=== PATIENT | male | born 1955 | race Caucasian/White ===

== ENCOUNTER 2024-04-20 14:39 | Outpatient (AMB) | payer MEDICARE, OTHER, SELFPAY ==
--- NOTE | 2024-04-20 14:42 | HO.NEPHOV ---
Vital Signs 04/20/24 14:58 Height 5 ft 10 in Weight 261 lb 4 oz BMI 37.5 BP 122/52 L Blood Pressure Location Lt brachial Position Sitting Pulse 63 Pulse Source Pulse Oximeter Pulse Oximetry (%) 98 Oxygen Delivery Method Room Air Intake Visit Reasons: Urgent Referral from Dr Johnson Orange Picker Required: No Accompanied by: Self / Same As Patient Allergies Sulfa (Sulfonamide Antibiotics) Allergy (Verified 04/20/24 14:51) Unknown HPI Comments Details: I had the privilege of seeing Wilfrid in consultation for a second opinion and for transfer of his renal care. He is known to have CKD 3 at baseline. He has H/O non ischemic cardiomyopathy as well as AF Fib and had undergone watchman device . He is not on Xarelto anymore. He had a negative cardiac MRI but cardiac PET in Mar 2024 showed multifocal hypermetabolic uptake within the left ventricular wall suggestive of inflammatory process. He also had right pleurodesis for recurrent pleural effusion. He also has history of mediastinal and hilar lymphadenopathy. His baseline serum creatinine has been found to be 1.7. He has not taken any prednisone or concurrent steroid sparing treatment with methotrexate for possible cardiac sarcoid. Continued workup found him to have p-ANCA positivity and MATT with a serum creatinine going up to 2.8. He did not specify any new systemic complaints at the time this office visit. [facility] Medical History (Updated 04/20/24 @ 15:28 by Eric Taylor MD) Presence of Watchman left atrial appendage closure device Spinal stenosis Sleep apnea Recurrent right pleural effusion Paroxysmal atrial fibrillation Obesity, morbid Mediastinal adenopathy Major depressive disorder with single episode Hypertension Hyperlipidemia Gout Congestive heart failure Cardiac sarcoidosis Anserine bursitis Achilles tendonitis Surgical History (Updated 04/20/24 @ 14:56 by Yandy Goldstein MA) Hx of vasectomy History of lung surgery H/O hernia repair Family History (Updated 04/20/24 @ 14:55 by Yandy Goldstein MA) Father Heart disease Diabetes Mother H/O cancer of gall bladder Social History (Updated 04/20/24 @ 14:54 by Yandy Goldstein MA) Alcohol intake: never Patient Tobacco Use Status: Never used Tobacco Review of Systems Const All systems reviewed & are unremarkable except as noted in HPI and below Physical Exam Vital Signs: Last Vital Signs Pulse 63 04/20/24 14:58 BP 122/52 L 04/20/24 14:58 Pulse Ox 98 04/20/24 14:58 Oxygen Delivery Method Room Air 04/20/24 14:58 BMI result Body Mass Index 37.5 Const General: comfortable and no acute distress Orientation/consciousness: patient oriented x3 HEENT Head: Yes normocephalic Mouth: Normal oral and palatal mucosa present Eyes EOM: EOMs intact bilaterally Neck Neck: Yes supple Resp Auscultation: clear to auscultation bilaterally Cardio Jugular venous distension: no JVD Rate: regular rate GI Palpation (GI): Soft to palpation Auscultation: normal bowel sounds General: Yes no CVA tenderness Back/Spine/Pelvis Back: no CVA tenderness Skin General skin exam: no rashes or lesions noted Neuro General: patient oriented x3 and moves all extremities Extrem General: Yes no pedal edema Results Reviewed Nephrology Results: No Data to Display Assessment & Plan Assessment & Plan (1) Acute kidney injury superimposed on CKD: Code(s): N17.9 - Acute kidney failure, unspecified; N18.9 - Chronic kidney disease, unspecified Category: Medical Plan Wilfrid has MATT on a backdrop of CKD with a serum creatinine going up to 2.8. He has multisystem involvement including cardiac, pulmonary and renal. He was thought to have cardiac sarcoid but has not had any tissue diagnosis. He is on Farxiga and diuretics but not on any JUAN JOSE inhibitor, ARB, Entresto. His recent p-ANCA came back as positive. He definitely will warrant an urgent renal biopsy. I have asked him to repeat blood work and I shall hold his aspirin temporarily for few days before getting his renal biopsy done if possible next week. He has me whether he is close to renal replacement but I reassured that he is not but the rise in his serum creatinine without a differential etiology and multisystem involvement with a p-ANCA positivity is concerning. Time spent retrieving all the previous medical records, patient encounter and documentation 56 minutes. All questions were answered. Follow-up given. Orders: Orders Creatinine 04/20/24 N17.9 - Acute kidney failure, unspecified, N18.9 - Chronic kidney disease, unspecified Blood Urea Nitrogen 04/20/24 N17.9 - Acute kidney failure, unspecified, N18.9 - Chronic kidney disease, unspecified Electrolytes 04/20/24 N17.9 - Acute kidney failure, unspecified, N18.9 - Chronic kidney disease, unspecified ANCA Vasculitides 04/20/24 N17.9 - Acute kidney failure, unspecified, N18.9 - Chronic kidney disease, unspecified Protein Creatinine Ratio, Ur 04/20/24 N17.9 - Acute kidney failure, unspecified, N18.9 - Chronic kidney disease, unspecified Creatinine 3 Weeks N17.9 - Acute kidney failure, unspecified, N18.9 - Chronic kidney disease, unspecified Blood Urea Nitrogen 3 Weeks N17.9 - Acute kidney failure, unspecified, N18.9 - Chronic kidney disease, unspecified Electrolytes 3 Weeks N17.9 - Acute kidney failure, unspecified, N18.9 - Chronic kidney disease, unspecified Complete Blood Count Auto Diff 04/20/24 N17.9 - Acute kidney failure, unspecified, N18.9 - Chronic kidney disease, unspecified Prothrombin Time INR 04/20/24 N17.9 - Acute kidney failure, unspecified, N18.9 - Chronic kidney disease, unspecified Angiotensin Converting Enzyme 04/20/24 N17.9 - Acute kidney failure, unspecified, N18.9 - Chronic kidney disease, unspecified UA and rflx microscopic 04/20/24 N17.9 - Acute kidney failure, unspecified, N18.9 - Chronic kidney disease, unspecified Coding Level of Care Code New Pt Level 5 (87741) Diagnoses Acute kidney injury superimposed on CKD N17.9; N18.9
[2024-04-20 14:58] VITALS: BP 122/52; PULSE 63; O2SAT 98; BMI 37.5
--- OUTSIDE RECORDS SUMMARY | 2024-04-20 16:11 | XMS_ITS | Encounter Summary ---
Author Organization [facility] Address [address] [place] [address] Care Team Providers Care Matlab Developer Name Role Phone Juancarlos Johnson MD Primary Care Provider [phone] Encounter Details Date Type Department Care Team (Late st Contact Info) Description 04/18/2024 Telephone Internal Medicine - [place] [address] [place] [phone] Juancarlos Johnson MD [address] [place] [address] Social History Tobacco Use Types Packs/Day Years Used Date Smoking Tobacco: Never Smokeless Tobacco: Never Alcohol Use Standard Drinks/Week Comments No 0 (1 standard drink = 0.6 oz pur e alcohol) Sex and Gender Information Value Date Recorded Sex Assigned at Not on file Legal Sex Male 11:46 PM EST Gender Identity Not on file Sexual Orientation Not on file documented as of this encounter Progress Notes * Juancarlos Johnson MD - 04/18/2024 4:34 PM EDT Talked with him * Mariah Aguilar - 04/18/2024 12:[address] Diego Reyna from [facility] wants to speak with Dr. Johnson regarding pt's recent ANCA positive result please call him back mychal at [phone] Ty documented in this encounter Plan of Treatment Upcoming Encounters Date Type Department Care Team (Late st Contact Info) Description 04/24/2024 3:10 PM EDT Office Visit [facility] [address] [facility] [address] [place] [phone] Tatiana Quintana PA 300 [facility] [place] [facility] 154 [place] [address] 05/15/2024 9:30 AM EDT Office Visit Pulmonolgy - [place] [address] [phone] Gabbi Anglin MD [address] [address] 08/17/2024 8:30 AM EDT Office Visit Internal Medicine - [place] [address] [phone] Juancarlos Johnson MD [address] [address] 10/18/2024 1:00 AM EDT Office Visit Nephrology [facility] [address] [place] [address] Guanaco Adorno MD 3550 [facility] [address] [place] [address] documented as of this encounter Visit Diagnoses Not on filedocumented in this encounter Care Teams Matlab Developer Relationship Specialty Start Date End Date Juancarlos Johnson MD [address] [address] PCP - General Internal Medicine 03/01/24 documented as of this encounter
--- OUTSIDE RECORDS SUMMARY | 2024-04-20 16:11 | XMS_ITS | Clinical Summary ---
Author Organization [facility], Address [address] [place] [address] [place] [address] Phone Care Team Providers Care Overhead Irrigator Name Role Phone Juancarlos Johnson MD Primary Care Provider [phone] Social History Tobacco Use Types Packs/Day Years Used Date Smoking Tobacco: Never Assessed Sex and Gender Information Value Date Recorded Sex Assigned at Not on file Legal Sex Male 12:51 PM EST Gender Identity Not on file Sexual Orientation Not on file Plan of Treatment Health Maintenance Due Date Last Done Comments Colorectal Cancer Screening: Annual FOBT 2003 Colorectal Cancer Screening: Colonoscopy 2003 Colorectal Cancer Screening: Sigmoidoscopy 2003 Pneumococcal Vaccine: 65+ Years Completed 03/02/2021, 09/30/2020 Influenza Vaccine Completed 12/18/2023, 11/28/2018 Hepatitis B Vaccine Aged Out No longe r eligible based on patient's age to complete this topic Insurance [employer] OPEN ACCESS ([id number]) Care Teams Overhead Irrigator Relationship Specialty Start Date End Date Juancarlos Johnson MD [address] [address] PCP - General Internal Medicine 05/25/23
--- OUTSIDE RECORDS SUMMARY | 2024-04-20 16:11 | XMS_ITS | Clinical Summary ---
Author Organization [facility] Address [address] [place] [address] Care Team Providers Care Cutting Tool Sharpener Name Role Phone Juancarlos Johnson MD Primary Care Provider Unavailab le Allergies Active Allergy Reactions Criticality Noted Date Comments Sulfa Antibiotics 09/02/2022 Medications Medication Sig Dispensed Refills Start Date End Date Status clopidogrel (PLAVIX) 75 MG tablet Take 1 tablet (75 mg total) by mouth daily. 0 Active Active Problems No known active problems Social History Tobacco Use Types Packs/Day Years Used Date Smoking Tobacco: Never Passive Smoke Exposure: Past Smokeless Tobacco: Never Tobacco Cessation:Counseling Given: Not Answered Alcohol Use Standard Drinks/Week Comments Never 0 (1 standard drink = 0.6 oz pur e alcohol) Sex and Gender Information Value Date Recorded Sex Assigned at Not on file Gender Identity Not on file Sexual Orientation Not on file Job Start Date Occupation Industry Not on file Not on file Not on file Last Filed Vital Signs Vital Sign Reading Time Taken Comments Blood Pressure 132/51 07/25/2023 1:55 PM EDT Pulse 64 07/25/2023 1:55 PM EDT Temperature 37.3 ??C (99.1 ??F) 07/25/2023 1:55 PM ED T Respiratory Rate - - Oxygen Saturation 97% 07/25/2023 1:55 PM EDT Inhaled Oxygen Concentration - - Weight 117 kg (258 lb) 07/25/2023 1:55 PM EDT Height - - Body Mass Index - - Plan of Treatment Health Maintenance Due Date Last Done Comments Hepatitis C Screening 1955 COVID-19 Vaccine (#1) 1955 Depression Screening 1966 Preventative Health Evaluation 01/19/1972 DTap / Tdap / Td (1 - Tdap) 1973 Colon Cancer Screening (Colonoscopy) 1999 Fall Risk Assessment 2019 Shingrix-Zoster Vaccine (2 o f 2) 02/04/2021 12/10/2020 Influenza Vaccine (#1) 2023 RSV Adult > 60+ Yrs or (1 - 1-dose 75+ series) 2029 Pneumococcal Vaccine Completed 03/02/2021, 09/30/2020 Hepatitis B Vaccines Aged Out No long er eligible based on patient's age to complete this topic RSV Ped < 20 months Aged Out No longe r eligible based on patient's age to complete this topic Care Teams Cutting Tool Sharpener Relationship Specialty Start Date End Date Juancarlos Johnson MD PCP - General Internal Medicine 08/24/21
--- OUTSIDE RECORDS SUMMARY | 2024-04-20 16:11 | XMS_ITS | Encounter Summary ---
Author Organization [facility] Address [address] [place] [address] Care Team Providers Care Biomedical Equipment Technician Name Role Phone Juancarlos Johnson MD Primary Care Provider [phone] Reason for Visit * Reason Onset Date Comments Referral 03/29/2024 Dr Diego Reyna Encounter Details Date Type Department Care Team (Late Contact Info) Description 03/29/2024 Telephone [facility] - [facility] [address] [facility] [address] [place] [address] Danae Fernandez MA Referral (Dr Diego Reyna) Social History Tobacco Use Types Packs/Day Years [...] as of this encounter Progress Notes * Danae Fernandez MA - 03/29/2024 11:28 AM EST I was able to speak with Tali from Dr Reyna's office. Patient is scheduled for 04/10. Any questions, please call [phone]. documented in this encounter Plan of Treatment Upcoming Encounters Date Type Department Care Team (Late Contact Info) Description 04/24/2024 3:10 PM EDT Office Visit [facility] - [facility] [address] [facility] 154 [place] [address] Tatiana Quintana PA 300 [facility] 154 [place] [address] 05/15/2024 9:30 AM EDT Office Visit Pulmonolgy - [place] 175 [facility] 200 [place] [address] Gabbi Anglin MD [address] [address] 08/17/2024 8:30 AM EDT Office Visit Internal Medicine - [place] [address] [phone] Juancarlos Johnson MD [address] [address] 10/18/2024 1:00 AM EDT Office Visit Nephrology [facility] [address] [place] [phone] Guanaco Adorno MD [address] [phone] documented as of this encounter Visit Diagnoses Not on filedocumented in this encounter Care Teams Biomedical Equipment Technician Relationship Specialty Start Date End Date Juancarlos Johnson MD [address] [address] PCP - General Internal Medicine 03/01/24 documented as of this encounter
--- OUTSIDE RECORDS SUMMARY | 2024-04-20 16:11 | XMS_ITS | Encounter Summary ---
Author Organization [facility] Address [address] [place] [address] Care Team Providers Care Rod Cup Filler Name Role Phone Juancarlos Johnson MD Primary Care Provider [phone] Encounter Details Date Type Department Care Team (Latest Contact Info) Description 11/10/2023 3:17 PM EDT Hospital Encounter TH HISTORIC ENCOUNTERS EASTERN CONVERSION ONLY Malini Rivero PA [address] [facility], [address] [place] [address] Pleural effusion, not elsewhere classified Social History [...] on file documented as of this encounter Plan of Treatment Upcoming Encounters Date Type Department Care Team (Late st Contact Info) Description 04/24/2024 3:10 PM EDT Office Visit [facility] - [facility] [address] [facility] [address] [place] [phone] Tatiana Quintana PA 300 [facility] [address] [place] [address] 05/15/2024 9:30 AM EDT Office Visit Pulmonolgy - [place] 175 [facility] 200 [place] [phone] Gabbi Anglin MD [address] [address] 08/17/2024 8:30 AM EDT Office Visit Internal Medicine - [place] [address] [phone] Juancarlos Johnson MD [address] [address] 10/18/2024 1:00 AM EDT Office Visit Nephrology [facility] [address] [place] [phone] Guanaco Adorno MD [address] [phone] documented as of this encounter Procedures Procedure Name Priority Date/Time Associated Diagnosis Comments CHEST ROUTINE 2 VIEWS Routine 11/10/2023 3:36 PM EDT Pleural effusion, not elsewhere classified documented in this encounter Results * CHEST ROUTINE 2 VIEWS (11/10/2023 3:36 PM EDT) Anatomical Region Laterality Modality Radiographic Yulissa ging 11/10/2023 3:22 PM EDT Narrative 11/10/2023 3:36 PM EDT [facility] Diagnostic Imaging Department [address] [place] [address] Patient: ??WILFRID PINEDA ?/Age/Sex: 1955 - 68 - M Unit#: ??[id number] ? Location/Status: ??SPDIGEN/REG CLI ? Mnemonic/Ordering Site: ??CHESTXR/SPDI Ordering Physician: ??MALINI RIVERO Chest Routine 2 Views - 11/10/23 - 1527 Report Status:Signed Chest Routine 2 Views INDICATION: ??Pleural effusion TECHNIQUE: DR Chest Routine 2 Views COMPARISON: 10/27/2023 FINDINGS/IMPRESSION: Right pleural drainage catheter remains in place. ??Stable scarring/atelectasis in the lower lobes, right middle lobe, and lingula. ??No pleural effusion or pneumothorax. ??Cardiac silhouette is stably enlarged. Degenerative changes seen throughout the bones. Dictating Physician: ??MARQUISE DONIS MD Electronically Signed by: ??MARQUISE DONIS MD Dic Date/Time: ??11/10/23 153 Sign date/Time: ??11/10/23 1536 Procedure Note Marquise Donis MD - 12/06/2023 [facility] Diagnostic Imaging Department [address] [place] [address] Patient: ARLENEWILFRID D.O.B./Age/Sex: 1955 - 68 - M Unit#: [id number] Location/Status: SPDIGEN/REG CLI Mnemonic/Ordering Site: CHESTXR/SPDI Ordering [...] MD Dic Date/Time: 11/10/231535 Sign date/Time: 11/10/231535 us Malini PATTERSON IMG XR PROCEDURES Final Resul t documented in this encounter Visit Diagnoses Diagnosis Pleural effusion, not elsewhere classified documented in this encounter Care Teams Rod Cup Filler Relationship Specialty Start Date End Date Juancarlos Johnson MD PCP - General Internal Medicine 12/28/12 02/29/24 documented as of this encounter
--- OUTSIDE RECORDS SUMMARY | 2024-04-20 16:11 | XMS_ITS | Clinical Summary ---
Author Organization [address] [facility] Address [address] [place] [address] Phone Care Team Providers Care Log Haul Operator Name Role Phone Juancarlos Johnson MD Primary Care Provider [phone] Allergies Active Allergy Reactions Criticality Noted Date Comments Sulfa (Sulfonamide Antibiotics) 10/2008 Medications torsemide (DEMADEX) 20 mg tablet Take 2 tablets (40 mg total) by mouth 1 (one) time each day. Active doxazosin (CARDURA) 4 mg tablet Take 1 tablet (4 mg total) by mouth 2 (two) times a day. Active losartan (COZAAR) 100 mg tablet Take 1 tablet (100 mg total) by mouth 1 (one) time each day. Active aspirin 81 mg EC tablet Take 1 tablet (81 mg total) by mouth 1 (one) time each day. Active dronedarone (MULTAQ) 400 mg tablet Take 1 tablet (400 mg total) by mouth 2 (two) times a day with meals. Active albuterol HFA (PROAIR HFA ; PROVENTIL HFA ; VENTOLIN HFA) 90 mcg/actuation inhalerIndicati ons:Dyspnea, unspecified type Inhale 2 puffs by mouth every 6 (six) hours if needed for wheezing or shortness of breath. 1 each 12/29/19 24 025 Active atorvastatin (LIPITOR) 40 mg tablet TAKE 1 TABLET BY MOUTH EVERY DAY 90 tablet 1 01/10/20 24 Active spironolactone (ALDACTONE) 25 mg tablet Take 1 tablet (25 mg total) by mouth 1 (one) time each day. Stopping potassium supplement 30 each 01/18/20 24 025 Active hydrALAZINE (APRESOLINE) 100 mg tablet Take 1.5 tablets (150 mg total) by mouth 2 (two) times a day. 90 each 2 03/01/19 25 025 Active dapagliflozin propanediol (FARXIGA) 5 mg tablet Take 1 tablet (5 mg total) by mouth 1 (one) time each day. 30 each 03/22/19 25 026 Active PARoxetine (PAXIL) 20 mg tablet TAKE 1 TABLET BY MOUTH EVERY DAY IN THE MORNING 90 tablet 1 03/27/19 25 Active PARoxetine (PAXIL) 20 mg tablet Take 2 tablets (40 mg total) by mouth 1 (one) time each day in the morning. 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 Pineda is a 68 year old male who had a robotic right pleural biopsy, talc pleurodesis, and Pleurx catheter placed on October 10, 2023 for a recurrent right pleural effusion. Pathology showed no malignancy. He has had no drainage from the tube since placement. ?? CXR today shows no accumulation of pleural fluid. He has had no respiratory complaints. ?? Right Pleurx removed without issue as above. Patient tolerated this well. ?? Occlusive dressing to remain in place x 48 hours, then can be left open to air. Patient to follow up with us as needed going forward. He should call with any questions or concerns Cough 05/04/2023 Dysphagia 05/04/2023 Fatigue 05/04/2023 Anemia 12/16/2022 Lower leg edema 12/16/2022 Retroperitoneal bleed 06/03/2022 NICM (nonischemic cardiomyopathy) 09/30/2020 Benign prostatic hyperplasia 01/07/2020 Bradycardia 01/07/2020 Claudication 01/07/2020 WU (dyspnea on exertion) 01/07/2020 Edema 01/07/2020 Malignant hypertension 01/07/2020 Other chest pain 01/07/2020 Palpitations 01/07/2020 PVC (premature ventricular contraction) 01/07/20 20 Weight gain 01/07/2020 Essential hypertension 09/09/2017 Overview (12/29/2023): Last Assessment & Plan: Elevated today, at home has been around 140-150s systolically. He brings his BP monitor with him today and it correlates with the reading we obtained manually. We will increase his Amlodipine to 10mg daily today and monitor over the next month. He has an OV with EP next month if still elevated at that time I will consider adding an additional agent for his BP. In the past he was on Hydralazine Venous insufficiency 06/09/2017 Gout 03/30/2017 Mixed hyperlipidemia 03/30/2017 Overview (12/29/2023): Last Assessment & Plan: Updating labs, continue statin PAF (paroxysmal atrial fibrillation) 10/27/2016 Overview (12/29/2023): Last Assessment & Plan: S/p cardioversion on Amio last week, in SR today, feeling well. Will update Amio labs. Anticoagulated on Xarelto, he understands the risks and benefits of anticoagulation and wishes to continue. F/u as scheduled with EP next month Depression 06/25/2016 Asthma, mild 04/12/2016 Obstructive sleep apnea 04/12/2016 Umbilical hernia 03/03/2016 Spinal stenosis 12/28/2010 Encounters Date Type Department Care Team Description 04/18/2024 Telephone Internal Medicine - [place] [facility] [address] [place] [address] Juancarlos Johnson MD 04/17/2024 9:45 AM EDT Office Visit Internal Medicine [facility] 175 [facility] [address] [place] [address] Juancarlos Johnson MD MATT (acute kidney injury) ([facility]) (Primary Dx); Primary hypertension; Stage 3a chronic kidney disease ([facility]); Chronic heart failure with mildly reduced ejection fraction (HFmrEF, 41-49%) ([facility]) 03/29/2024 7:40 AM EST Office Visit [facility] Cardiology [facility] [address] [facility] [address] [place] [address] Tatiana Quintana PA PVC (premature ventricular contraction) (Primary Dx); Primary hypertension; PAF (paroxysmal atrial fibrillation) ([facility]); Obstructive sleep apnea; WU (dyspnea on exertion); Bradycardia; Acute on chronic heart failure with preserved ejection fraction ([facility]); Mediastinal lymphadenopathy 03/29/2024 Telephone [facility] Cardiology [facility] [address] [facility] [address] [place] [address] Danae Fernandez [place] Referral (Dr Diego Reyna) 03/22/2024 1:00 PM EST Office Visit Nephrology [address] [address] Guanaco Adorno MD Stage 3 chronic kidney disease, unspecified whether stage 3a or 3b CKD ([facility]) (Primary Dx); Essential hypertension; Chronic heart failure with mildly reduced ejection fraction (HFmrEF, 41-49%) ([facility]) 03/02/2024 11:00 AM EST Ancillary Procedure Pulmonolgy - [place] 175 [facility] [address] [place] [phone] Jemima Chacko Pleural effusion on right; Dyspnea, unspecified type 03/01/2024 11:10 AM EST Office Visit [facility] Cardiology [facility] [address] [facility] [address] [place] [address] Tatiana Quintana PA PAF (paroxysmal atrial fibrillation) (CMS/HCC) (Primary Dx); WU (dyspnea on exertion); Obstructive sleep apnea; LIANET on CPAP; Bradycardia; Essential hypertension 02/29/2024 Telephone [facility] [address] [place] [address] Tatiana Quintana PA Appointment (Cardiac PET) 02/28/2024 Telephone [facility] [address] [place] [address] Tatiana Quintana PA Testing (Auth Cardiac PET) from Last 3 Months Immunizations Name Administration Dates Next Due Influenza Quadravalent, 0.5m l (Fluzone High-dose) 65yo and older 10/25/2021 Influenza Quadravalent, MDCK , 0.5ml, with preservative (Flucelvax) 6mo and older 11/28/2018 Influenza trivalent, 0.5mL ( Fluzone High-dose) 65yo and older 12/18/2023 Pneumococcal conjugate 13 va lent (Prevnar 13, PCV13) 2mo and older 09/30/2020 Pneumococcal polysaccharide 23 valent (Pneumovax 23) 2yo and older 03/02/2021 Tdap Tetanus diptheria acell ular pertussis (Boostrix; Adacel) 7yo and older 12/28/2017,09/09/2017 Zoster recombinant (Shingrix) 19yo and older 04/2020 Surgical History Surgery Date Site/Laterality Comments OTHER SURGICAL HISTORY 10/11/2023 Right PROCEDURE: MD THORACOSCOPY W/PLEURODESIS CARDIOVERSION DONE ON 12/16/2023 AT [facility] W AOP INDICATION:Atrial fibrillation Medical History Medical History Date Comments History of anemia 09/09/2017 DX:History of anemia Asthma, mild 04/12/2016 DX:Asthma, mild Atrial fibrillation (CMS/HCC) 10/27/2016 DX :Atrial fibrillation (HCC) Depression 06/25/2016 DX:Depression Gout 03/30/2017 DX:Gout Hyperlipidemia 03/30/2017 DX:Hyperlipidemi a Hypertension 09/09/2017 DX:Hypertension Obstructive sleep apnea 04/12/2016 DX:Obstr uctive sleep apnea Spinal stenosis 12/28/2010 DX:Spinal stenos is Umbilical hernia 03/03/2016 DX:Umbilical he rnia Venous insufficiency 06/09/2017 DX:Venous i nsufficiency Family History Medical History Relation Name Comments Other: Arrhythmias Brother CABG Father Heart attack Father Other: Valve Replacement Father Coronary artery disease Father's side Hypertension Father's side Hypertension Mother Other: gallbladder cancer Mother Relation Name Status Comments Brother Father Father's side Mother Social History Tobacco Use Types Packs/Day Years Used Date Smoking Tobacco: Never Smokeless Tobacco: Never Tobacco Cessation:Counseling Given: Not Answered Alcohol Use Standard Drinks/Week Comments No 0 (1 standard drink = 0.6 oz pur e alcohol) Sex and Gender Information Value Date Recorded Sex Assigned at Not on file Legal Sex Male 11:46 PM EST Gender Identity Not on file Sexual Orientation Not on file Obstetrics History Last Filed Vital Signs Vital Sign Reading Time Taken Comments Blood Pressure 120/58 04/17/2024 9:37 AM EDT Pulse 57 04/17/2024 9:37 AM EDT Temperature 36.6 ??C (97.9 ??F) 04/17/2024 9:37 AM ED T Respiratory Rate 21 12/29/2023 9:11 AM EST Oxygen Saturation 98% 04/17/2024 9:37 AM EDT Inhaled Oxygen Concentration - - Weight 115 kg (252 lb 12.8 oz) 04/17/2024 9:37 A M EDT Height 177.8 cm (5' 10 ) 03/29/2024 7:38 AM EST Body Mass Index 36.27 03/29/2024 7:38 AM EST Plan of Treatment Upcoming Encounters Date Type Department Care Team (Late st Contact Info) Description 04/24/2024 3:10 PM EDT Office Visit [facility] - [address] [place] [phone] aTtiana Quintana PA [address] [place] [address] 05/15/2024 9:30 AM EDT Office Visit Pulmonolgy - [place] [address] [facility] [address] [place] [phone] Gabbi Anglin MD 175 [facility] [address] [place] [address] 08/17/2024 8:30 AM EDT Office Visit Internal Medicine - [place] [address] [address] Juancarlos Johnson MD [address] [address] 10/18/2024 1:00 AM EDT Office Visit Nephrology - [place] [address] [place] [address] Guanaco Adorno MD [address] [phone] Health Maintenance Due Date Last Done Comments RSV Immunization Patients 60+ Years Old (1 - Risk 60-74 years 1-dose series) 2014 Zoster Vaccines (2 of 2) 02/04/2021 12/10/2020 Cholesterol Screening (Lipid Panel) 01/16/2022 Colorectal Cancer Screening: Stool Based Tests (FOBT/FIT) 01/16/2022 Depression Screening 01/16/2022 Falls Risk Assessment 01/16/2022 Medicare Annual Wellness Visit 01/16/2022 Social Influencers of Health Screening 01/16/2022 COVID-19 Vaccine ( season) 2023 12/10/2020, 05/03/2020, 04/05/2020 Hypertension/CHF/CAD Annual BMP Blood Test 04/10/2025 04/10/2024, 01/12/2024, 08/31/2023, Additional history exists DTaP,Tdap,and Td Vaccines (3 - Td or Tdap) 12/29/2027 12/28/2017, 09/09/2017 Pneumococcal Vaccine: 50+ Years Completed 03/02/2021, 09/30/2020 Influenza Vaccine Completed 12/18/2023, , 11/28/2018 Hepatitis C Screening Completed 04/10/2024 HIB Vaccines Aged Out No longer eligi ble based on patient's age to complete this topic HPV Vaccines Aged Out No longer eligi ble based on patient's age to complete this topic Hepatitis A Vaccines Aged Out No long er eligible based on patient's age to complete this topic Hepatitis B Vaccines Aged Out No long er eligible based on patient's age to complete this topic IPV Vaccines Aged Out No longer eligi ble based on patient's age to complete this topic MMR Vaccines Aged Out No longer eligi ble based on patient's age to complete this topic Meningococcal ACWY Vaccine Aged Out N o longer eligible based on patient's age to complete this topic Meningococcal B Vacine Aged Out No lo nger eligible based on patient's age to complete this topic RSV Immunization Patients Under 20 months Aged Out No longer eligible based on patient's age to complete this topic Varicella Vaccines Aged Out No longer eligible based on patient's age to complete this topic Procedures Procedure Name Priority Date/Time Associated Diagnosis Comments POC URINE AUTO W/O MICRO Routine 04/17/2024 10:05 AM EDT MATT (acute kidney injury) (CMS/HCC) PULMONARY FUNCTION TESTING Routine 03/02/2024 12:16 PM EST Pleural effusion on right Dyspnea, unspecified type MAGNESIUM Routine 01/25/2024 9:37 AM EST Longstanding persistent atrial fibrillation (CMS/HCC) Dyspnea on exertion Obstructive sleep apnea Bradycardia Hypertension, unspecified type PAF (paroxysmal atrial fibrillation) (CMS/HCC) Palpitations PVC (premature ventricular contraction) BASIC METABOLIC PANEL Routine 01/12/2024 10:10 AM EST Acute on chronic diastolic (congestive) heart failure (CMS/HCC) Cardiomyopathy, unspecified (CMS/HCC) from Last 3 Months or Most Recently Relevant to Health Maintenance Results * (ABNORMAL) POC Urine Auto W/O Micro (04/17/2024 10:05 AM EDT) Glucose UA POC 1+(A) Negative, Trace mg/dL Bilirubin UA POC Negative Negative, Small Ketones UA POC Negative Negative, Trace Specific [place] UA POC 1.015 Blood UA POC Negative Negative, Large PH UA POC 5.5 Protein UA POC Negative Negative, >=300 mg/dL Urobilinogen UA POC 0.2 E.U./dL mg/dL Nitrite UA POC Negative Negative Leukocytes UA POC Trace(A) Negative Urine Urine specimen obtained by clean catch procedure / Unknown 04/17/2024 10:05 AM EDT Juancarlos Johnson MD POINT OF CARE TEST ENTER/EDIT OR DERABLES Final Result * Pulmonary function testing: Carbon Monoxide Diffusing Capacity, Nitrogen Wash Out, Spirometry with Bronchodilator (03/02/2024 12:16 PM EST) Impressions Gabbi Anglin MD - 03/02/2024 12:16 PM EST FEV1/FVC 85%. FEV1 2.45 at 75%. FVC 65%. No bronchodilator response. TLC 66%. RV 66%. DLCO 50% (adjusted 71%). No obstruction. ??Moderate restriction. ??Mild decrease in diffusion. Findings are consistent with moderate restrictive lung disease. us Gabbi Anglin MD PFT ORDERABLES Final Result * Magnesium (01/25/2024 9:37 AM EST) Magnesium 2.5 1.9 - 2.6 mg/dL LAB CHEMISTRY METHOD 01/25/2024 12:13 PM EST [facility] Blood Venous blood specimen / Unknown Venipuncture / Unknown 01/25/2024 9:37 AM EST 01/25/2024 9:37 AM EST us Tatiana PATTERSON LAB BLOOD ORDERABLES Final Resul t [facility]) [facility] [address] [place] [address], [place] [phone] from Last 3 Months Insurance [employer] [address] [place] [address] Care Teams Log Haul Operator Relationship Specialty Start Date End Date Juancarlos Johnson MD 175 [facility] 200 [place] [address] PCP - General Internal Medicine 03/01/24
--- OUTSIDE RECORDS SUMMARY | 2024-04-20 16:11 | XMS_ITS | Continuity of Care Document ---
Author Organization [facility] ter Address [address] [place] [id number]- Care Team Providers Care Last Marker Name Role Phone Juancarlos Johnson MD Primary Care Physician Encounter 03/19/24 - 03/20/[address] [address]- Attending Physician: Not on Staff, Attending MD Referring Physician: Not on Staff, Referring MD Encounter Type: SMRI Allergies, Adverse Reactions, Alerts Substance Criticality Severity Reaction Reaction Severity Status sulfa drugs Active Medications amiodarone 200 mg oral tablet TAKE 1/2 TABLET BY MOUTH DAILY FOR 180 DAYS Start Date: 02/24/23 Status: Ordered Repeat number: 1 amLODIPine 10 mg oral tablet TAKE 1 TABLET BY MOUTH EVERY DAY Start Date: 02/24/23 Status: Ordered Repeat number: 1 aspirin 81 mg oral delayed release tablet 81 mg, 1, tablet, By Mouth, Daily, # 30 tablet, Refills 0, Maintenance, 02/24/23 5:15:00 PM EST, Partial fill upon patient request if the prescription is for a schedule II opioid drug. Start Date: 02/24/23 Status: Ordered Quantity: 30.0 Unit: tablet Repeat number: 1 atorvastatin 40 mg oral tablet 1 tablet = 40 mg, By Mouth, Daily at bedtime, # 30 tablet, 0 Refills, Maintenance, Tablet Start Date: 07/18/17 Status: Ordered Quantity: 30.0 Unit: tablet Repeat number: 1 clopidogrel 75 mg oral tablet Refills 0, Maintenance, 02/24/23 5:07:00 PM EST, Partial fill upon patient request if the prescription is for a schedule II opioid drug. Start Date: 02/24/23 Status: Ordered Repeat number: 1 doxazosin 4 mg oral tablet 1 tablet = 4 mg, By Mouth, 2 times a day, 0 Refills, Maintenance, 07/18/17 3:24:30 PM EDT Start Date: 07/18/17 Status: Ordered Repeat number: 1 hydrALAZINE 100 mg oral tablet 1.5 tablet = 150 mg, By Mouth, 2 times a day, # 180 tablet, 0 Refills, Maintenance, 02/24/23 5:16:00PM EST, Tablet, Partial fill upon patient request if the prescription is for a schedule II opioid drug. Start Date: 02/24/23 Status: Ordered Quantity: 180.0 Unit: tablet Repeat number: 1 lisinopril 40 mg oral tablet 1 tablet = 40 mg, By Mouth, Daily, # 30 tablet, 0 Refills, Maintenance, 07/18/17 3:24:59 PM EDT, Tablet Start Date: 07/18/17 Status: Ordered Quantity: 30.0 Unit: tablet Repeat number: 1 multivitamin Multiple Vitamins oral tablet, chewable 1 tablet, Chew, Daily, # 100 tablet, 0 Refills, Maintenance, 02/24/23 5:15:00 PM EST, Chew Tablet, Partial fill upon patient request if the prescription is for a schedule II opioid drug. Start Date: 02/24/23 Status: Ordered Quantity: 100.0 Unit: tablet Repeat number: 1 PARoxetine 20 mg oral tablet 20 mg, 1, tablet, By Mouth, Daily, # 30 tablet, Refills 0, Maintenance, 09/19/18 10:39:57 AM EDT Start Date: 09/19/18 Status: Ordered Quantity: 30.0 Unit: tablet Repeat number: 1 torsemide 20 mg oral tablet 1.5 tablet = 30 mg, By Mouth, Daily, # 30 tablet, 0 Refills, Maintenance, 02/24/23 5:09:00 PM EST, Tablet, Partial fill upon patient request if the prescription is for a schedule II opioid drug. Start Date: 02/24/23 Status: Ordered Quantity: 30.0 Unit: tablet Repeat number: 1 Problem List Condition Confirmation Course Effective Dates Status H ealth Status Informant Achilles tendonitis Confirmed Active Anserine bursitis Confirmed Active Depression Confirmed Active Venous insufficiency Confirmed Active H/O: gout Confirmed Active Hemorrhoids Confirmed Active HLD (hyperlipidemia) Confirmed Active HTN (hypertension) Confirmed Active Morbid obesity Confirmed Active LIANET on CPAP Confirmed Active Osteoarthritis of right knee Confirmed Active PAF (paroxysmal atrial fibrillation) Confirmed Active Severe obesity Confirmed Active Umbilical hernia Confirmed Active Vertigo Confirmed Active Results Radiology Reports * Exam Date Time Procedure Performing Provider Status 03/19/24 9:[address] PET Myocard Img 1 Std w/ CT Auth (Verified) Notes: (CT PET Myocard Img 1 Std w/ CT) Reason For Exam: Cardiomyopathy, undefined, further testing; Dyspnea on exertion (WU);Cardiomyopathy, undefined, further testing; Dyspnea on exertion (WU) RESULT: CT PET Myocard Img 1 Std W/CT [facility] PET/CT Imaging VISIT NUMBER :[id number] Patient Name: Wilfrid Pineda Date of : 1955 Date of Exam: 03-19-2024 Referring Physician: Tatiana Quintana [place] [address] Exam: PT Cardiac CPT 03818 Room Description: [facility] Pt4 PET-CT History: Cardiomyopathy. Clinical question of cardiac sarcoidosis. The patient also has a history of recurrent right pleural effusion and mediastinal lymphadenopathy, status post right pleural biopsies negative for biopsy and talc pleurodesis. Subcarinal lymph node negative for malignancy. Watchman implant. Lymph node biopsy February 2024 Comparison: Cardiac MRI 01/22/2024. CT watchman heart 01/21/2023. Echocardiogram 04/18/2023 reviewed. PET technique: The patient received the standard sarcoid-type cardiac PET preparation. The study was performed after the intravenous injection of 10.69 mCi F-[id number]. Positron emission tomography and CT were performed of the chest with axial, coronal, sagittal, and 3-D reformats. The blood glucose at the time of injection was 94 mg/dL. SUV values normalized by body mass. Findings: Ascending aortic blood pool SUV mean 1.7, SUV max 2.3. Upper right hepatic lobe SUV mean 1.8, SUV max 3. Heart: There is hypermetabolic activity in the basal septum (SUV max 3.7) and basal to mid lateral and inferolateral fregoso of the left ventricle (SUV max 3.6). The remainder of the heart reveals low myocardial activity. Prominent left atrium poorly assessed. Lungs/pleura: There is multifocal hypermetabolic activity involving the right-sided pleura, greatest medially just superior to the azygos arch (SUV max 7.6), likely reflecting pleurodesis. No focal lung abnormality. Soft Tissues: Mildly enlarged upper right paratracheal lymph node SUV max 2.1 and 1.2 cm short axis (image 8). While a prominent subcarinal and lower right paraesophageal lymph nodes, similar to those seen on CT 01/21/2023. Metallic streak attenuation at the left atrial appendage consistent with presence of Watchman device. No pericardial effusion Bones: Unremarkable. IMPRESSION: Multifocal hypermetabolic activity within the left ventricular wall, consistent with inflammation, suggestive of active sarcoid given the appearance and presence of mild lymphadenopathy in the mediastinum. Multifocal pleural activity on the right side consistent with history of pleurodesis. Mildly distended lymphadenopathy. Electronically Signed By: Chandu Coronel MD Dictated By: Not on Staff , ZEFERINO PHILLIPS Dictated Date/Time: 03/20/24 10:45 a Reviewed By: Not on Staff , ZEFERINO PHILLIPS Signed By: Not on Staff , ZEFERINO PHILLIPS Signed Date/Time: 03/20/24 10:45 am Transcribed By: TS Transcribed Date/Time: 03/20/24 10:45 am Social History Social History Type Response Smoking Status Never smoker entered on: 07/18/17 Sex Sex Representation Male (finding) Patient Care team information Care Team Personnel Name: Sara Brown RN Position: [facility] Nurse Member Role: Primary Care Nurse Name: Juancarlos Johnson MD Position: Reference Physician Member Role: PCP Address: [address] [place] [address] Telecom: Name: Tyler Javier RN Position: S RN Member Role: Primary Care Nurse Name: Talha Treviño RN Position: S RN Member Role: Primary Care Nurse Care Team Related Persons Name: AMRIT HUNTRE Name: NAVEED PINEDA Insurance Providers Guarantor name: [facility] Health Plan Information #: 1 Payer: [employer] HMO POS Member Number: NA Policy Number: NA Group Number: NA Health Plan Information #: 2 Payer: MEDICARE PART B OUTPT Member Number: NA Policy Number: NA Group Number: NA
--- OUTSIDE RECORDS SUMMARY | 2024-04-20 16:11 | XMS_ITS | Encounter Summary ---
Author Organization [facility] Address [address] [place] [address] Care Team Providers Care Avionics Engineer Name Role Phone Juancarlos Johnson MD Primary Care Provider Reason for Visit * Reason Comments Proteinuria Encounter Details Date Type Department Care Team ([facility] st Contact Info) Description 03/22/2024 1:00 PM EST Office Visit Nephrology - [place] [address] [place] [phone] Guanaco Adorno MD [address] [phone] Stage 3 chronic kidney disease, unspecified whether stage 3a or 3b CKD (CMS/HCC) (Primary Dx); Essential hypertension; Chronic heart failure with mildly reduced ejection fraction (HFmrEF, 41-49%) (CMS/[facility]) Social History Tobacco Use Types Packs/Day Years [...] on file documented as of this encounter Last Filed Vital Signs Vital Sign Reading Time Taken Comments Blood Pressure 109/48 03/22/2024 1:17 PM EST Pulse 73 03/22/2024 1:17 PM EST Temperature - - Respiratory Rate - - Oxygen Saturation - - Inhaled Oxygen Concentration - - Weight 113 kg (250 lb) 03/22/2024 1:17 PM EST Height - - Body Mass Index 35.87 03/01/2024 11:03 AM EST documented in this encounter Ordered Prescriptions Prescription Sig Dispense Quantity Refills Last Filled Start Date End Date dapagliflozin propanediol (FARXIGA) 5 mg tablet Take 1 tablet (5 mg total) by mouth 1 (one) time each day. 30 each 03/22/2024 03/17/2025 documented in this encounter Progress Notes * Guanaco Adorno MD - 03/22/2024 1:00 PM EST Images from the original note were not included. Patient Name: Wilfrid Pineda, Male Date of : 1955, 69 y.o. Date: 03/22/2024 PCP: Juancarlos Johnson MD History Of Present Illness I had the pleasure of seeing your patient for follow up of CKD. Review of Systems Constitutional: Negative for chills, fever, malaise/fatigue and weight loss. HENT: Negative for ear pain, hearing loss and tinnitus. Eyes: Negative for blurred vision, double vision, photophobia and pain. Respiratory: Negative for cough, hemoptysis, sputum production, shortness of breath and wheezing. Cardiovascular: Negative for chest pain, palpitations, orthopnea, claudication and leg swelling. Gastrointestinal: Negative for abdominal pain, diarrhea, nausea and vomiting. Genitourinary: Negative for dysuria, flank pain, frequency, hematuria and urgency. Musculoskeletal: Negative for myalgias. Skin: Negative for itching and rash. Neurological: Negative for dizziness, tingling and headaches. Psychiatric/Behavioral: Negative for depression. Full 13 point review of systems unremarkable except as noted above. Past Medical History Past Medical History: Diagnosis Date Asthma, mild 04/12/2016 DX:Asthma, mild Atrial fibrillation (CMS/HCC) 10/27/2016 DX:Atrial fibrillation (HCC) Depression 06/25/2016 DX:Depression Gout 03/30/2017 DX:Gout History of anemia 09/09/2017 DX:History of anemia Hyperlipidemia 03/30/2017 DX:Hyperlipidemia Hypertension 09/09/2017 DX:Hypertension Obstructive sleep apnea 04/12/2016 DX:Obstructive sleep apnea Spinal stenosis 12/28/2010 DX:Spinal stenosis Umbilical hernia 03/03/2016 DX:Umbilical hernia Venous insufficiency 06/09/2017 DX:Venous insufficiency Surgical History Past Surgical History: Procedure Laterality Date CARDIOVERSION DONE ON 12/16/2023 AT [facility] W AOP INDICATION:Atrial fibrillation OTHER SURGICAL HISTORY Right 10/11/2023 PROCEDURE: [place] THORACOSCOPY W/PLEURODESIS Social History Social History Tobacco Use Smoking status: Never Smokeless tobacco: Never Substance Use Topics Alcohol use: No Family History Family History Problem Relation Name Age of Onset CABG Father Heart attack Father Other (Other: Valve Replacement ) Father Hypertension Mother Other (Other: gallbladder cancer) Mother Other (Other: Arrhythmias ) Brother Hypertension Father's side Coronary artery disease Father's side Medications Current Outpatient Medications Medication Sig Dispense Refill albuterol HFA (PROAIR HFA ; PROVENTIL HFA ; VENTOLIN HFA) 90 mcg/actuation inhaler Inhale 2 puffs by mouth every 6 (six) hours if needed for wheezing or shortness of breath. 1 each 11 aspirin 81 mg EC tablet Take 1 tablet (81 mg total) by mouth 1 (one) time each day. atorvastatin (LIPITOR) 40 mg tablet TAKE 1 TABLET BY MOUTH EVERY DAY 90 tablet 1 dapagliflozin propanediol (FARXIGA) 5 mg tablet Take 1 tablet (5 mg total) by mouth 1 (one) time each day. 30 each 11 doxazosin (CARDURA) 4 mg tablet Take 1 tablet (4 mg total) by mouth 2 (two) times a day. dronedarone (MULTAQ) 400 mg tablet Take 1 tablet (400 mg total) by mouth 2 (two) times a day with meals. hydrALAZINE (APRESOLINE) 100 mg tablet Take 1.5 tablets (150 mg total) by mouth 2 (two) times a day. 90 each 2 losartan (COZAAR) 100 mg tablet Take 1 tablet (100 mg total) by mouth 1 (one) time each day. PARoxetine (PAXIL) 20 mg tablet Take 2 tablets (40 mg total) by mouth 1 (one) time each day in the morning. spironolactone (ALDACTONE) 25 mg tablet Take 1 tablet (25 mg total) by mouth 1 (one) time each day.Stopping potassium supplement 30 each 11 torsemide (DEMADEX) 20 mg tablet Take 2 tablets (40 mg total) by mouth 1 (one) time each day. No current facility-administered medications for this visit. Allergies Allergies Allergen Reactions Sulfa (Sulfonamide Antibiotics) Vitals: 03/22/24 1317 BP: (!) 109/48 Pulse: 73 Weight: 113 kg (250 lb) Physical Exam Physical Exam Constitutional: Oriented to person, place, and time. HEENT: Mouth/Throat: Oropharynx is clear and moist. Eyes: Pupils are equal, round, and reactive to light. Neck: No JVD present. Cardiovascular: Regular rhythm. Pulmonary/Chest: Breath sounds normal. Abdominal: Soft. There is no abdominal tenderness. Musculoskeletal: Normal range of motion. Neurological: Alert and oriented to person, place, and time. Skin: Skin is warm. Psychiatric: Normal mood and affect. Impression & Plan Assessment/Plan 1. Stage 3 chronic kidney disease, unspecified whether stage 3a or 3b CKD ([facility]) 2. Essential hypertension 3. Chronic heart failure with mildly reduced ejection fraction (HFmrEF, 41-49%) ([facility]) Kidney function is stable. He does not have proteinuria. 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 He has mild cortical thinning. There was no paraproteinemia. Blood pressure is acceptable. He is on losartan. He has HFmrEF. He is on torsemide. He is a candidate for SGTL2i. iPTH was significantly elevated out of proportion with low vitamin d and CKD. I suspect he has primary hyperparathyroidism. PLAN: Dapagliflozin 5 mg daily RAASI Follow kidney function and electrolytes iPTH and vitamin d level urine protein to creatinine ratio Avoid NSAID Low sodium diet Orders Placed This Encounter Procedures Basic metabolic panel Parathyroid hormone intact Microalbumin creatinine urine ratio Vitamin D 25 hydroxy Follow up in about 6 months (around 09/19/2024). Guanaco Adorno MD documented in this encounter Plan of Treatment Upcoming Encounters Date Type Department Care Team (Late st Contact Info) Description 04/24/2024 3:10 PM EDT Office Visit [facility] - [address] [place] [address] Tatiana Quintana PA [address] [place] [address] 05/15/2024 9:30 AM EDT Office Visit Pulmonolgy - [place] 175 [facility] [address] [place] [phone] Gabbi Anglin MD 175 [facility] [address] [place] [address] 08/17/2024 8:30 AM EDT Office Visit Internal Medicine - [place] [address] [phone] Juancarlos Johnson MD 175 [facility] [address] [place] [address] 10/18/2024 1:00 AM EDT Office Visit Nephrology [facility] [place] [address] [place] [phone] Guanaco Adorno MD 3550 [facility] [address] [place] [address] Scheduled Orders Name Type Priority Associated Diagnoses Orde r Schedule Basic metabolic panel Lab Routine Stage 3 chronic kidney disease, unspecified whether stage 3a or 3b CKD ([facility]) 1 Occurrences starting 03/22/2024 until 03/22/2025 Parathyroid hormone intact Lab Routine Stage 3 chronic kidney disease, unspecified whether stage 3a or 3b CKD ([facility]) 1 Occurrences starting 03/22/2024 until 03/22/2025 Microalbumin creatinine urine ratio Lab Routine Stage 3 chronic kidney disease, unspecified whether stage 3a or 3b CKD ([facility]) 1 Occurrences starting 03/22/2024 until 03/22/2025 Vitamin D 25 hydroxy Lab Routine Stage 3 chronic kidney disease, unspecified whether stage 3a or 3b CKD ([facility]) 1 Occurrences starting 03/22/2024 until 03/22/2025 documented as of this encounter Visit Diagnoses Diagnosis Stage 3 chronic kidney disease, unspecified whether stage 3a or 3b CKD ([facility])- Primary Essential hypertension Unspecified essential hypertension Chronic heart failure with mildly reduced ejection fraction (HFmrEF, 41-49%) ([facility]) documented in this encounter Care Teams Avionics Engineer Relationship Specialty Start Date End Date Juancarlos Johnson MD [address] [place] [address] PCP - General Internal Medicine 03/01/24 documented as of this encounter
--- OUTSIDE RECORDS SUMMARY | 2024-04-20 16:11 | XMS_ITS | Encounter Summary ---
Author Organization [facility] Address [address] [place] [address] Care Team Providers Care Instructor Kindergarten Name Role Phone Juancarlos Johnson MD Primary Care Provider [phone] Reason for Referral * Consultation (Urgent) - Authorized Specialty Diagnoses / Procedures Referred By Contjoaquin t Referred To Contact Nephrology Diagnoses Primary hypertension Stage 3a chronic kidney disease ([facility]/HCC) Chronic heart failure with mildly reduced ejection fraction (HFmrEF, 41-49%) ([facility]) MATT (acute kidney injury) ([facility]) Juancarlos Johnson MD [address] [address] Phone: tel: fax: Eric Taylor MD [address] [place] [phone] Phone: tel: fax: Referral ID Status Reason Start Date Expiration Date Visits Requested Visits Authorized [id number] Authorized Specialty Services Required 04/17/2024 04/17/2025 1 1 Reason for Visit * Reason Comments Follow-up Encounter Details Date Type Department Care Team ([facility] Contact Info) Description 04/17/2024 9:45 AM EDT Office Visit Internal Medicine - [place] 175 [facility] [address] [place] [phone] Juancarlos Johnson MD 175 [facility] [address] [place] [address] MATT (acute kidney injury) (CMS/HCC) (Primary Dx); Primary hypertension; Stage 3a chronic kidney disease (CMS/HCC); Chronic heart failure with mildly reduced ejection fraction (HFmrEF, 41-49%) ([facility]) Social History Tobacco Use Types Packs/Day Years [...] 04/17/2024 9:37 AM ED T Respiratory Rate - - Oxygen Saturation 98% 04/17/2024 9:37 AM EDT Inhaled Oxygen Concentration - - Weight 115 kg (252 lb 12.8 oz) 04/17/2024 9:37 A M EDT Height - - Body Mass Index 36.27 03/29/2024 7:38 AM EST documented in this encounter Progress Notes * Juancarlos Johnson MD - 04/17/2024 9:45 AM EDT COMPLAINT medication review and testing. IDENTIFIER: Wilfrid Pineda is a 69 y.o. old male. HPI: Worsening renal function .creatinine was 2.8 on labs done recently. Hypertension is under control. P ANCA is positive indeterminate. Has mild nonischemic cardiomyopathy paroxysmal A-fib. Does see a hat lining blocker here as well in [place] ,Suspicious of sarcoidosis involving the lungs and possibly the heart. Plans to start steroids and methotrexate. Has had the pleurodesis and extensive testing was done at [place]. 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 Achilles tendonitis 12/29/2023 Anserine bursitis 12/29/2023 HTN (hypertension) 12/29/2023 Hemorrhoids 12/29/2023 HLD (hyperlipidemia) 12/29/2023 LIANET on CPAP 12/29/2023 Osteoarthritis of right knee 12/29/2023 Morbid obesity ([facility]) 12/29/2023 Severe obesity ([facility]) 12/29/2023 Disorder of vein 12/29/2023 Vertigo 12/29/2023 Chronic heart failure with mildly reduced ejection fraction (HFmrEF, 41-49%) ([facility]) 11/28/2023 Acute on chronic heart failure with preserved ejection fraction ([facility]) 09/28/2023 Mediastinal lymphadenopathy 09/26/2023 Pleural effusion 09/26/2023 Cough 05/04/2023 Dysphagia 05/04/2023 Fatigue 05/04/2023 Anemia 12/16/2022 Lower leg edema 12/16/2022 Retroperitoneal bleed 06/03/2022 NICM (nonischemic cardiomyopathy) ([facility]) 09/30/2020 Benign prostatic hyperplasia 01/07/2020 Bradycardia 01/07/2020 Claudication ([facility]) 01/07/2020 WU (dyspnea on exertion) 01/07/2020 Edema 01/07/2020 Malignant hypertension 01/07/2020 Other chest pain 01/07/2020 Palpitations 01/07/2020 PVC (premature ventricular contraction) 01/07/2020 Weight gain 01/07/2020 Essential hypertension 09/09/2017 Venous insufficiency 06/09/2017 Gout 03/30/2017 Mixed hyperlipidemia 03/30/2017 PAF (paroxysmal atrial fibrillation) ([facility]) 10/27/2016 Depression 06/25/2016 Asthma, mild 04/12/2016 Obstructive sleep apnea 04/12/2016 Umbilical hernia 03/03/2016 Spinal stenosis 12/28/2010 Past Surgical History: Procedure Laterality Date CARDIOVERSION DONE ON 12/16/2023 AT [facility] W AOP INDICATION:Atrial fibrillation OTHER SURGICAL HISTORY Right 10/11/2023 PROCEDURE: [place] THORACOSCOPY W/PLEURODESIS SOCIAL HISTORY: Social History Tobacco Use Smoking status: Never Smokeless tobacco: Never Substance Use Topics Alcohol use: No FAMILY HISTORY: Family History Problem Relation Name Age of Onset CABG Father Heart attack Father Other (Other: Valve Replacement ) Father Hypertension Mother Other (Other: gallbladder cancer) Mother Other (Other: Arrhythmias ) Brother Hypertension Father's side Coronary artery disease Father's side MEDICATIONS DISCONTINUED/REORDERED: There are no discontinued medications. ACTIVE MEDICATIONS: Outpatient Medications Marked as Taking for the 04/17/24 encounter (Office Visit) with Juancarlos Johnson MD Medication Sig Dispense Refill albuterol HFA (PROAIR [...] each day. PARoxetine (PAXIL) 20 mg tablet TAKE 1 TABLET BY MOUTH EVERY DAY IN THE MORNING 90 tablet 1 spironolactone (ALDACTONE) 25 mg tablet Take 1 tablet (25 mg total) by mouth 1 (one) time each day.Stopping potassium supplement 30 each 11 torsemide (DEMADEX) 20 mg tablet Take 2 tablets (40 mg total) by mouth 1 (one) time each day. ALLERGIES: Allergies Allergen Reactions Sulfa (Sulfonamide Antibiotics) PHYSICAL EXAM: Vitals: 04/17/24 0937 BP: 120/58 Pulse: 57 Temp: 36.6 ??C (97.9 ??F) SpO2: 98% APPEARANCE: Alert and in no acute distress EARS: External ears normal. HEART: RRR with normal S1 and S2, no murmurs LUNG: clear to auscultation LABS: Lab Results Component Value Date WBC 5.8 01/12/2024 HGB 11.1 (L) 01/12/2024 HCT 35.6 (L) 01/12/2024 MCV 94.4 01/12/2024 Lab Results Component Value Date NA 142 01/12/2024 K 3.7 01/12/2024 CO2 28 01/12/2024 CL 109 01/12/2024 BUN 32 (H) 01/12/2024 No results found for: TSH No results found for: HGBA1C , CHOL , LDL , HDL , TRIG , GLU No components found for: URINELEUK , URINENITR , URINEPRO , URINEPH , URINEBLD , URINESG , URINEKET , URINEBILI , URINEGLUC IMAGING: IMPRESSION: 1. MATT (acute kidney injury) ([facility]) Ambulatory referral to Nephrology POC Urine Auto W/O Micro 2. Primary hypertension Ambulatory referral to Nephrology 3. Stage 3a chronic kidney disease ([facility]) Ambulatory referral to Nephrology 4. Chronic heart failure with mildly reduced ejection fraction (HFmrEF, 41-49%) ([facility]) Ambulatory referral to Nephrology PLAN: Worsening renal function ,creatinine is 2.8 .labs done recently reviewed in detail. Creatinine was in the 1.7 range he says a few months ago .worsening renal function could be due to ongoing kidney disease getting worse and medication related hence hold losartan has chronic anemia. hypertension is under control on losartan, hydralazine ,Aldactone and torsemide. need to see renal as soon as possible. Urine dipstick shows trace leukocytes ,no blood or protein. documented in this encounter Plan of Treatment Upcoming Encounters Date Type Department Care Team (Late st Contact Info) Description 04/24/2024 3:10 PM EDT Office Visit [facility] - [facility] [address] [facility] [address] [place] [address] Tatiana Quintana PA [address] [place] [address] 05/15/2024 9:30 AM EDT Office Visit Pulmonolgy - [place] 175 [facility] [address] [place] [phone] Gabbi Anglin MD [address] [address] 08/17/2024 8:30 AM EDT Office Visit Internal Medicine - [place] [address] [phone] Juancarlos Johnson MD [address] [address] 10/18/2024 1:00 AM EDT Office Visit Nephrology [facility] [address] [place] [address] Guanaco Adorno MD [address] [phone] Scheduled Referrals Name Type Priority Associated Diagnoses Order Schedule Ambulatory referral to Nephrology Outpatient Referral Routine Primary hypertension Stage 3a chronic kidney disease ([facility]) Chronic heart failure with mildly reduced ejection fraction (HFmrEF, 41-49%) ([facility]) MATT (acute kidney injury) ([facility]) 1 Occurrences starting 04/17/2024 until 04/17/2025 documented as of this encounter Procedures Procedure Name Priority Date/Time Associated Diagnosis Comments POC URINE AUTO W/O MICRO Routine 04/17/2024 10:05 AM EDT MATT (acute kidney injury) ([facility]) documented in this encounter Results * (ABNORMAL) POC Urine Auto W/O Micro (04/17/2024 10:05 AM EDT) Glucose UA POC 1+(A) Negative, Trace mg/dL Bilirubin UA POC Negative Negative, Small Ketones UA POC Negative Negative, Trace Specific [place] UA POC 1.015 Blood UA POC Negative Negative, Large PH UA POC 5.5 Protein UA POC Negative Negative, >=300 mg/dL Urobilinogen UA POC 0.2 E.U./dL mg/dL Nitrite UA POC Negative Negative Leukocytes UA POC Trace(A) Negative Urine Urine specimen obtained by clean catch procedure / Unknown 04/17/2024 10:05 AM EDT Juancarlos Johnson MD POINT OF CARE TEST ENTER/EDIT OR DERABLES Final Result documented in this encounter Visit Diagnoses Diagnosis MATT (acute kidney injury) (CMS/HCC)- Primary Primary hypertension Unspecified essential hypertension Stage 3a chronic kidney disease (CMS/HCC) Chronic heart failure with mildly reduced ejection fraction (HFmrEF, 41-49%) ([facility]) documented in this encounter Care Teams Instructor Kindergarten Relationship Specialty Start Date End Date Juancarlos Johnson MD [address] [place] [address] PCP - General Internal Medicine 03/01/24 documented as of this encounter
--- OUTSIDE RECORDS SUMMARY | 2024-04-20 16:11 | XMS_ITS | Encounter Summary ---
Author Organization [facility] Address [address] [place] [address] Care Team Providers Care Die Cast Supervisor Name Role Phone Juancarlos Johnson MD Primary Care Provider [phone] Reason for Visit * Reason Comments Follow-up Encounter Details Date Type Department Care Team (Late st Contact Info) Description 03/29/2024 7:40 AM EST Office Visit [facility] - [address] [place] [address] Tatiana Quintana PA [address] [place] [address] PVC (premature ventricular contraction) (Primary Dx); Primary hypertension; PAF (paroxysmal atrial fibrillation) (CMS/HCC); Obstructive sleep apnea; WU (dyspnea on exertion); Bradycardia; Acute on chronic heart failure with preserved ejection fraction (CMS/HCC); Mediastinal lymphadenopathy Social History Tobacco Use Types Packs/Day Years [...] Sign Reading Time Taken Comments Blood Pressure 110/64 03/29/2024 7:38 AM EST Pulse 79 03/29/2024 7:38 AM EST Temperature - - Respiratory Rate - - Oxygen Saturation 99% 03/29/2024 7:3 8 AM EST Inhaled Oxygen Concentration - - Weight 119 kg (262 lb) 03/29/2024 7:38 AM EST with winter gear and steel toed boots Height 177.8 cm (5' 10 ) 03/29/2024 7:3 8 AM EST Body Mass Index 37.59 03/29/2024 7:38 AM EST documented in this encounter Progress Notes * YESENIA Galicia - 03/29/2024 7:40 AM EST Please call with any questions or concerns Tatiana PATTERSON-C [phone] [facility] [address] [place] [id number] [place] [address] dr rosenberg 410 they will have farxiga 10 mgs - cut tab in half = 5 mgs daily Will talk to Dr Juarez vargas consider afib ablation Talk to Dr Ruben vargas taking over your pulmonary care instead of Dr Anglin * YESENIA Galicia - 03/29/2024 7:40 AM EST PRIMARY LUMBER MATERIAL HANDLER: Dawson Pizarro MD PCP: Juancarlos Johnson MD Wilfrid Pineda is a 69 y.o. old male His past medical history includes- Chronic anemia with extensive workup probably related to CKD- stable Status post Watchman procedure March 02, 2023, #27 mm Watchman device. Stage 3A PAF noted 2016 - CV Feb 2019 , amiodarone initiated, cardioversion April 2020, he has repeatedly declined afib ablation. Amiodarone was discontinued, admitted April 2022 for sotalol load with stable QTc renally dosed with bradycardia pulse in the 40s, sotalol was discontinued. 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 After his Watchman he went into A-fib underwent cardioversion on follow-up CLARISA, readmitted Sep 2023 foroutpatient Tikosyn load and cardioversion had prolonged QTc on Tikosyn discontinued, transition toMultaq 400 mg twice daily maintaining sinus rhythm, recurrent A-fib underwent cardioversion December 2023-plan for short-term Multaq - until possible A-fib ablation. Recurrent right pleural effusion with mediastinal adenopathy followed by - On October 10 he underwent da Molly right pleural biopsies, talc pleurodesis, mediastinal lymphadenopathy, bronchoscopy with aspiration, pleurodesis - [place] reactive [place] proliferation negative . Subcarinal LN neg ative. Culture NGTD. 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 Adorno Hypertension Hyperlipidemia HFpEF = reviewed cardiac MRI with Dr. Pizarro and Dr. Street at [facility] not very helpful or diagnosticsuggested sarcoid workup with a PET scan LIANET more compliant with nasal CPAP Cardiac testing - -Cardiac Pet [facility] 03/19/24 multifocal hypermetabolic within the left ventricular wall, consistent with inflammation suggestive of active sarcoid given the appearance and presence of mild lymphadenopathy in the mediastinum, multifocal pleural activity on the right side consistent with history of pleurodesis mildly distended lymphadenopathy -Holter monitor January 2024 average heart rate 60 bpm range 44 to 99 bpm sinus rhythm rare PACs and brief atrial runs up to 7 beats rates 128 bpm, frequent PVCs bigeminy try Andreia and AIVR [id number] beats PVC burden 8.3% prior Holter August 2023 PVC burden was 2.2%-PVC morphology is right bundle branch block with early transition superior axis negative aVR positive aVL consistent with RV inferior foci, no significant pauses. Cardiac MRI - Jan 2024 -Dilated nonischemic cardiomyopathy preserved EF--LV function is globally normal, delayed enhancement and T1 abnormalities may be compatible with infiltrative cardiomyopathy however T2 mapping suggests no active myocardial inflammation, moderately dilated right atrium and severely dilated left atrium, mild MR-TR. -Echo September 2023 severely dilated left atrium mild LVH septal wall thickness 1. 2 cm EF 45 to 50% mild MR-TR pulmonary artery systolic pressure is mildly elevated, EF slightly lower than CLARISA April 2023 -60 to 65% -PFTs Feb 2023 vital capacity near lower limit without obstruction, MVV is inconsistent with the level of FEV1. Mild restrictive defect, diffusing capacity is mildly reduced, finding restriction withlow DLCO suggestive of interstitial lung disease - Cardiac cath October 2019- left main, LAD, circumflex no obstructive disease, proximal RCA 40% stenosis, mildly elevated LVEDP He presents today for evaluation of his A-fib heart failure preserved EF and results of his cardiacPET scan. He already has an appointment scheduled with Dr. Reyna for new diagnosis of sarcoidosis April 10. He was to start Farxiga 5 mg daily but did not pick it up as of yet. He is finally retired,continues to complain of fatigue, lack of energy, exertional breathlessness has not noted any recurrent A-fib with elevated heart rates or regularity, trace lower leg edema improves with elevation. He has not required any additional diuretics. He denies syncope, chest pain at rest or exertion, dyspnea at rest, orthopnea, PND, he is doing his best to be consistent with nasal CPAP. ACTIVE MEDICATIONS: Outpatient Medications Marked as Taking for the 03/29/24 encounter (Office Visit) with YESENIA Galicia Medication Sig Dispense Refill albuterol HFA (PROAIR [...] ALLERGIES: Allergies Allergen Reactions Sulfa (Sulfonamide Antibiotics) FAMILY HISTORY: Family History Problem Relation Name Age of Onset CABG Father Heart attack Father Other (Other: Valve Replacement ) Father Hypertension Mother Other (Other: gallbladder cancer) Mother Other (Other: Arrhythmias ) Brother Hypertension Father's side Coronary artery disease Father's side SOCIAL HISTORY: Social History Tobacco Use Smoking status: Never Smokeless tobacco: Never Substance Use Topics Alcohol use: No PHYSICAL EXAM: Blood pressure 110/64, pulse 79, height 1.778 m (70 ), weight 119 kg (262 lb), SpO2 99%. Body mass index is 37.59 kg/m??. Component Latest Ref Rng 01/12/2024 01/25/2024 Auto WBC 4.8 - 10.8 K/mcL 5.8 RBC 4.50 - 5.50 M/mcL 3.80 (L) Hemoglobin 13.5 - 17.5 g/dL 11.1 (L) Hematocrit 42.0 - 54.0 % 35.6 (L) MCV 79.0 - 98.0 FL 94.4 MCH 27.0 - 32.0 pcg 29.4 MCHC 32.0 - 37.0 g/dL 31.2 (L) RDW 11.0 - 15.0 % 15.0 Platelets 130 - 400 K/mcL 230 MPV 7.0 - 11.0 FL 10.3 NRBC <1.0 % 0.0 NRBC Absolute <0.10 K/mcL 0.00 Neutrophils Relative % 79.5 Lymphocytes Relative % 13.1 Monocytes Relative % 5.0 Eosinophils Relative % 1.0 Basophils Relative % 0.7 Immature Granulocytes Relative % 0.7 Neutrophils Absolute 1.50 - 7.00 K/mcL 4.60 Lymphocytes Absolute 1.00 - 5.00 K/mcL 0.76 (L) Monocytes Absolute 0.20 - 1.00 K/mcL 0.29 Eosinophils Absolute 0.00 - 0.50 K/mcL 0.06 Basophils Absolute 0.00 - 0.20 K/mcL 0.04 Immature Granulocytes Absolute 0.00 - 0.03 K/mcL 0.04 (H) Sodium 133 - 145 mmol/L 142 Potassium 3.5 - 5.5 mmol/L 3.7 Chloride 96 - 110 mmol/L 109 CO2 21 - 32 mmol/L 28 Anion Gap 3 - 11 5 Glucose 70 - 100 mg/dL 99 BUN 5 - 25 mg/dL 32 (H) Creatinine 0.70 - 1.30 mg/dL 1.73 (H) Calculated GFR >=60 mL/min/1.73m2 42 (L) BUN/Creatinine Ratio 18.5 Calcium 8.5 - 10.5 mg/dL 8.[address] Abs 0.030 - 0.090 M/mcL 0.[address] Pct 0.7 - 1.7 % 1.7 Immature Retic Fract 2.3 - 15.9 % 12.2 Reticulocyte Hemoglobin >29.0 pcg 33.9 Iron 50 - 160 mcg/dL 64 TIBC 250 - 450 mcg/dL 311 Iron Saturation 20 - 50 % 21 Erythropoietin 2.6 - 18.5 mIU/mL 22.2 (H) Ferritin 26 - 388 ng/mL 153 Magnesium 1.9 - 2.6 mg/dL 2.5 Legend: (L) Low (H) High PAST MEDICAL HISTORY: Patient Active Problem List Diagnosis Date Noted Cardiac sarcoidosis 03/29/2024 Achilles tendonitis 12/29/2023 Anserine bursitis 12/29/2023 HTN (hypertension) 12/29/2023 Hemorrhoids 12/29/2023 HLD (hyperlipidemia) 12/29/2023 LIANET on CPAP 12/29/2023 Osteoarthritis of right knee 12/29/2023 Morbid obesity ([facility]/HCC) 12/29/2023 Severe obesity ([facility]) 12/29/2023 Disorder of vein 12/29/2023 Vertigo 12/29/2023 Chronic heart failure with mildly reduced ejection fraction (HFmrEF, 41-49%) ([facility]) 11/28/2023 Acute on chronic heart failure with preserved ejection fraction ([facility]) 09/28/2023 Mediastinal lymphadenopathy 09/26/2023 Pleural effusion 09/26/2023 Cough 05/04/2023 Dysphagia 05/04/2023 Fatigue 05/04/2023 Anemia 12/16/2022 Lower leg edema 12/16/2022 Retroperitoneal bleed 06/03/2022 NICM (nonischemic cardiomyopathy) ([facility]) 09/30/2020 Benign prostatic hyperplasia 01/07/2020 Bradycardia 01/07/2020 Claudication ([facility]) 01/07/2020 WU (dyspnea on exertion) 01/07/2020 Edema 01/07/2020 Malignant hypertension 01/07/2020 Other chest pain 01/07/2020 Palpitations 01/07/2020 PVC (premature ventricular contraction) 01/07/2020 Weight gain 01/07/2020 Essential hypertension 09/09/2017 Venous insufficiency 06/09/2017 Gout 03/30/2017 Mixed hyperlipidemia 03/30/2017 PAF (paroxysmal atrial fibrillation) ([facility]) 10/27/2016 Depression 06/25/2016 Asthma, mild 04/12/2016 Obstructive sleep apnea 04/12/2016 Umbilical hernia 03/03/2016 Spinal stenosis 12/28/2010 As per AHA guidelines and previously established plan of care by Dr. Tomas Weller MD we discussedthe following today: ASSESSMENT/PLAN: Problem List Items Addressed This Visit Acute on chronic heart failure with preserved ejection fraction ([facility]) Bradycardia WU (dyspnea on exertion) HTN (hypertension) Mediastinal lymphadenopathy Obstructive sleep apnea PAF (paroxysmal atrial fibrillation) ([facility]) PVC (premature ventricular contraction) - Primary PAF status post Watchman has been on numerous antiarrhythmics as above has had breakthrough episodes on Multaq plan on consideration of A-fib ablation in 2 to 3 months to eventually come off Multaq-will review with Dr. Pizarro follow-up in 4 weeks. Heart failure preserved EF lymphadenopathy recurrent unilateral pleural effusion requiring several thoracentesis and then pleurodesis-doubt recurrence-cardiac MRI was nondiagnostic, cardiac PET scan ruling in with sarcoidosis referral placed to Dr. Reyna for further management. He appears euvolemic he was given samples of Farxiga 10 mg to take half a tab daily monitoring closely for fungal infection if any symptoms he is to discontinue. He will weigh himself daily if he gains more than 3 pounds in 1 day or 5 pounds over 3 days take an additional diuretic and notify the office. Hypertension well-controlled. PVC burden increased as above, on Multaq-with underlying bradycardia will consider AV rachel blocking agent if or when he has his A-fib ablation and is no longer on the medication. LIANET applauded his most recent effort to be more consistent with his nasal CPAP. Spent greater than 40 minutes with patient reviewing history, recent testing and plan of care all questions answered. Thank you for allowing us to participate in the care of this patient. Today's documentation was made using voice recognition software.This note may contain grammatical errors secondary to this software. Cosigned by Tomas Weller MD at 03/29/2024 9:54 AM EST documented in this encounter Plan of Treatment Upcoming Encounters Date Type Department Care Team (Late st Contact Info) Description 04/24/2024 3:10 PM EDT Office Visit [facility] [address] [facility] [address] [place] [address] Tatiana Quintana PA [address] [facility] [address] [place] [address] 05/15/2024 9:30 AM EDT Office Visit Pulmonolgy - [place] [address] [phone] Gabbi Anglin MD [address] [address] 08/17/2024 8:30 AM EDT Office Visit Internal Medicine - [place] [address] [phone] Juancarlos Johnson MD [address] [address] 10/18/2024 1:00 AM EDT Office Visit Nephrology - [address] [phone] Guanaco Adorno MD [address] [phone] documented as of this encounter Visit Diagnoses Diagnosis PVC (premature ventricular contraction)- Primary Other premature beats Primary hypertension Unspecified essential hypertension PAF (paroxysmal atrial fibrillation) ([facility]) Atrial fibrillation Obstructive sleep apnea Obstructive sleep apnea (adult) (pediatric) WU (dyspnea on exertion) Other dyspnea and respiratory abnormality Bradycardia Other specified cardiac dysrhythmias Acute on chronic heart failure with preserved ejection fraction ([facility]) Mediastinal lymphadenopathy Enlargement of lymph nodes documented in this encounter Care Teams Die Cast Supervisor Relationship Specialty Start Date End Date Juancarlos Johnson MD [address] [place] [address] PCP - General Internal Medicine 03/01/24 documented as of this encounter
--- OUTSIDE RECORDS SUMMARY | 2024-04-20 16:11 | XMS_ITS | Encounter Summary ---
Author Organization [facility], Address [address] [place] [address] Phone Care Team Providers Care Biofuels Production Technician Name Role Phone Juancarlos Johnson MD Primary Care Provider [phone] Encounter Details Date Type Department Care Team (Late st Contact Info) Description 05/25/2023 Documentation Only [facility], [address] [place] [phone] [place] [place] [address] [place] [address] Social History Tobacco Use Types Packs/Day Years Used Date Smoking Tobacco: Never Assessed Sex and Gender Information Value Date Recorded Sex Assigned at Not on file Legal Sex Male 12:51 PM EST Gender Identity Not on file Sexual Orientation Not on file documented as of this encounter Plan of Treatment Not on file documented as of this encounter Visit Diagnoses Not on filedocumented in this encounter Care Teams Biofuels Production Technician Relationship Specialty Start Date End Date Juancarlos Johnson MD [address] [address] PCP - General Internal Medicine 05/25/23 documented as of this encounter
== END 2024-04-20 15:34 | disposition home or self-care (01) ==
PROVIDERS: PCP Internal Medicine; Referring Provider Internal Medicine; Visit Provider Internal Medicine Nephrology
DX: N17.9 Acute kidney failure, unspecified (principal); N18.9 Chronic kidney disease, unspecified
CPT/HCPCS: 99204

== ENCOUNTER → 2024-04-20 14:39 | Outpatient (BNVA) | payer OTHER, MEDICARE, SELFPAY | PROVIDERS: PCP Internal Medicine; Referring Provider Internal Medicine; Visit Provider Internal Medicine Nephrology | DX: N18.30 Chronic kidney disease, stage 3 unspecified (principal); N17.9 Acute kidney failure, unspecified | CPT/HCPCS: 99202 ==

== ENCOUNTER 2024-04-23 09:06 | Outpatient (REF) | payer MEDICARE, OTHER, SELFPAY ==
[2024-04-23 10:27] LABS: MANUAL DIFF FLAG NO
[2024-04-23 10:33] LABS: Basophils Percent Auto 0.7 % (0-2); Eosinophils Absolute Auto 0.1 X10*3/uL (0.0-0.4); Eosinophils Percent Auto 2.1 % (0-4); Hematocrit 33.9 % (42.0-52.0); Hemoglobin 11.1 g/dl (14.0-18.0); Imm Gran Abs Auto 0.02 X10*3/uL (0.00-0.03); Imm Gran Pct Auto 0.5 % (0.0-0.4); Lymphocytes Absolute Auto 0.7 X10*3/uL (1.2-4.9); Lymphocytes Percent Auto 15.5 % (20-40); Mean Corpuscular HGB Conc 32.7 g/dl (31.0-36.0); Mean Corpuscular Volume 94.7 fL (80.0-98.0); Mean Platelet Volume 10.3 fL (9.4-12.4); Monocytes Absolute Auto 0.5 X10*3/uL (0.1-1.2); Monocytes Percent Auto 10.7 % (2-11); Neutrophils Absolute Auto 3.1 x10*3/uL (2.0-8.3); Neutrophils Percent Auto 70.5 % (45-73); Platelet Count 175 X10*3/uL (160-400); Red Blood Count 3.58 X10*6/uL (4.60-5.80); Red Cell Distribution Width 14.9 % (11.0-16.0); White Blood Count 4.4 X10*3/uL (4.8-10.8)
[2024-04-23 10:37] LABS: Prothrombin Time 11.9 SEC (10.9-12.4)
[2024-04-23 10:54] LABS: Appearance Urine Clear; Color Urine Yellow; Glucose Urine UA 250 mg/dL (Negative); Leukocyte Esterase Urine Negative (Negative); Nitrite Urine Negative (Negative); Urine Blood Negative (Negative); Urine Ketones Negative (Negative); Urine Protein Negative (Neg-Trace)
[2024-04-23 10:57] LABS: Anion Gap 13 (12-20); Blood Urea Nitrogen 58 mg/dL (9-16); Carbon Dioxide 26 mmol/L (22-29); Chloride 104 mmol/L (96-108); Estimated Glomerular Filt Rate 28; Potassium 3.9 mmol/L (3.3-5.1); Sodium 139 mmol/L (135-145)
[2024-04-23 11:12] LABS: Creatinine Urine 46.38 mg/dL; Total Protein Urine Random < 7 mg/dL (<12)
[2024-04-24 14:09] LABS: Myeloperoxidase Antibody 5.6 AI; Proteinase 3 PR3 Antibodies <1.0 AI
[2024-04-26 12:49] LABS: Angiotensin Converting Enzyme 58 U/L (9-67)
== END 2024-04-23 09:07 | disposition home or self-care (01) ==
LOC: HO.10HDL 09:06
PROVIDERS: Visit Provider Internal Medicine Nephrology
DX: N17.9 Acute kidney failure, unspecified (principal); N18.9 Chronic kidney disease, unspecified
CPT/HCPCS: 36415; 80051; 81003; 82164; 82565; 82570; 84156; 84520; 85025; 85610; 86021

== ENCOUNTER 2024-04-30 11:12 | Day surgery (SDC) | payer MEDICARE, OTHER, SELFPAY ==
[2024-04-30] VITALS (16 sets, daily range): BP systolic 103–143; BP diastolic 55–79; PULSE 75–106; RESP 16–18; TEMP 36.4–36.7; O2SAT 98–100; BMI 36.4
--- NOTE | ~2024-04-30 | CT_ITS ---
PROCEDURES: 1. Limited preprocedure CT of the abdomen. Permanent images saved in PACS. 2. CT-guided nontargeted biopsy of the right kidney. 3. Limited preprocedure CT of the abdomen. Permanent images saved in PACS. MEDICATIONS: -Versed , Fentanyl , and lidocaine 1% SQ -Antibiotics: None -For additional details, please see nursing flowsheet. COMPLICATIONS: None ESTIMATED BLOOD LOSS: < 5 ml CONTRAST: None SPECIMENS: 3 x 18 g cores were placed in saline MODERATE SEDATION TIME: 20 min PROCEDURE NOTE: The procedure, risks, benefits, and alternatives were carefully explained to the patient and written informed consent was obtained. The patient was placed prone on the CT table. A timeout was performed. A limited CT of the abdomen was performed to localize the right kidney and choose appropriate needle entry and trajectory. The patient was prepped and draped in usual sterile fashion. The skin and deeper soft tissues were anesthetized with lidocaine. Under CT guidance, a 17 gague trocar needle was advanced to the right kidney. An 18 gauge biopsy device was inserted through the trocar needle advanced into the right kidney. A total of 3 18 gague cores performed. The specimen was placed in saline. A Gelfoam slurry was then administered through the trocar needle and into the kidney. The needle was removed. A dry dressing was applied and secured with Tegaderm. There were no immediate complications. The patient was stable after the procedure and was transferred to the post anesthesia care unit. The procedure was done under moderate sedation with a dedicated nurse for monitoring of vital signs. CT/CT biopsy renal RT Impression: CT-guided nontargeted right renal biopsy Electronically signed by: Brennon Abrams MD 04/30/2024 02:38 PM EDT RP
[2024-04-30] MEDS: fentaNYL citrate/PF 100 MCG/2 ML VIAL 25 MCG IVPUSH (13:45)
[2024-04-30] MEDS: Midazolam HCl 2 MG/2 ML VIAL 0.5 MG IVPUSH (13:45)
== END 2024-04-30 16:49 | disposition home or self-care (01) ==
PROVIDERS: Student in an Organized Health Care Education/Training Program; PCP Internal Medicine; Visit Provider Internal Medicine Nephrology
DX: N17.9 Acute kidney failure, unspecified (principal); N05.8 Unspecified nephritic syndrome with other morphologic changes; I13.0 Hypertensive heart and chronic kidney disease with heart failure and stage 1 through stage 4 chronic kidney disease, or unspecified chronic kidney disease; N18.30 Chronic kidney disease, stage 3 unspecified; I50.9 Heart failure, unspecified; J90 Pleural effusion, not elsewhere classified; I48.0 Paroxysmal atrial fibrillation; I25.5 Ischemic cardiomyopathy; Z95.818 Presence of other cardiac implants and grafts; E78.5 Hyperlipidemia, unspecified; R59.0 Localized enlarged lymph nodes; E66.01 Morbid (severe) obesity due to excess calories; Z68.37 Body mass index [BMI] 37.0-37.9, adult; Z79.899 Other long term (current) drug therapy; Z88.2 Allergy status to sulfonamides; Z98.890 Other specified postprocedural states
CPT/HCPCS: 50200; 77012; 88300; 88305; 88313; 88346; 88348; 88350; 99152; J2003; J2250; J3010

== ENCOUNTER → 2024-04-30 13:10 | Outpatient (BNV) | payer MEDICARE, OTHER, SELFPAY | PROVIDERS: PCP Internal Medicine; Visit Provider Student in an Organized Health Care Education/Training Program | DX: N18.9 Chronic kidney disease, unspecified (principal) | CPT/HCPCS: 50200; 77012 ==

== ENCOUNTER 2024-05-24 11:26 | Outpatient (REF) | payer MEDICARE, OTHER, SELFPAY ==
[2024-05-24 12:49] LABS: Anion Gap 14 (12-20); Blood Urea Nitrogen 60 mg/dL (9-16); Carbon Dioxide 26 mmol/L (22-29); Chloride 104 mmol/L (96-108); Estimated Glomerular Filt Rate 32; Potassium 4.3 mmol/L (3.3-5.1); Sodium 140 mmol/L (135-145)
--- OUTSIDE RECORDS SUMMARY | 2024-05-24 14:17 | XMS_ITS | Clinical Summary ---
Author Organization [address] [facility] Address [address] [place] [address] Phone Care Team Providers Care Craft Superintendent Name Role Phone Juancarlos Johnson MD Primary Care Provider [phone] Allergies Active Allergy Reactions Criticality Noted Date Comments Sulfa (Sulfonamide Antibiotics) 10/2008 Medications torsemide (DEMADEX) 20 mg tablet Take 2 tablets (40 mg total) by mouth 1 (one) time each day. Active doxazosin (CARDURA) 4 mg tablet Take 1 tablet (4 mg total) by mouth 2 (two) times a day. Active aspirin 81 mg EC tablet Take 1 tablet (81 mg total) by mouth 1 (one) time each day. Active albuterol HFA (PROAIR HFA ; PROVENTIL HFA ; VENTOLIN HFA) 90 mcg/actuation inhalerIndicati ons:Dyspnea, unspecified type Inhale 2 puffs by mouth every 6 (six) hours if needed for wheezing or shortness of breath. 1 each 4 12/29/19 25 Active atorvastatin (LIPITOR) 40 mg tablet TAKE 1 TABLET BY MOUTH EVERY DAY 90 tablet 1 4 Active spironolactone (ALDACTONE) 25 mg tablet Take 1 tablet (25 mg total) by mouth 1 (one) time each day. Stopping potassium supplement 30 each 4 01/18/20 25 Active hydrALAZINE (APRESOLINE) 100 mg tablet Take 1.5 tablets (150 mg total) by mouth 2 (two) times a day. 90 each 2 5 05/31/19 25 Active dapagliflozin propanediol (FARXIGA) 5 mg tablet Take 1 tablet (5 mg total) by mouth 1 (one) time each day. 30 each 11 5 03/17/19 26 Active PARoxetine (PAXIL) 20 mg tablet TAKE 1 TABLET BY MOUTH EVERY DAY IN THE MORNING 90 tablet 1 5 Active metoprolol succinate (TOPROL-XL) 25 mg 24 hr tablet Take 1 tablet (25 mg total) by mouth 1 (one) time each day. Do not crush or chew. 90 each 1 5 08/01/19 25 Active dronedarone (MULTAQ) 400 mg tablet Take 1 tablet (400 mg total) by mouth 2 (two) times a day with meals. 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, 41-49%) (CMS/HCC V24, CMS/HCC V28) 11/28/2023 Acute on chronic heart failu re with preserved ejection fraction (CMS/HCC V24, CMS/HCC V28) 09/28/2023 Mediastinal lymphadenopathy 09/26/2023 Pleural effusion 09/26/2023 [...] edema 12/16/2022 Retroperitoneal bleed 06/03/2022 NICM (nonischemic cardiomyop athy) ([facility] V24, [facility] V28) 09/30/2020 Benign prostatic hyperplasia 01/07/2020 Bradycardia 01/07/2020 Claudication ([facility] V24) 01/07/2020 Dyspnea on exertion 01/07/2020 Edema 01/07/2020 Malignant hypertension 01/07/2020 Other [...] Updating labs, continue statin PAF (paroxysmal atrial fibri llation) ([facility] V24, [facility] V28) 10/27/2016 Overview (12/29/2023): Last Assessment & Plan: [...] Encounters Date Type Department Care Team Description 04/24/2024 3:10 PM EDT Office Visit [facility] Cardiology [facility] [address] [address] [place] [address] Tatiana Quintana PA PAF (paroxysmal atrial fibrillation) (CMS/HCC V24, CMS/HCC V28) (Primary Dx); Bradycardia; Dyspnea on exertion; Acute on chronic heart failure with preserved ejection fraction (CMS/HCC V24, CMS/HCC V28); Cardiac sarcoidosis; LIANET on CPAP 04/18/2024 Telephone Internal Medicine [facility] [address] [facility] [address] [facility] [address] [place] [address] Juancarlos Johnson MD 04/17/2024 9:45 AM EDT Office Visit Internal Medicine [facility] [address] [place] [address] Juancarlos Johnson MD MATT (acute kidney injury) (CMS/HCC V24) (Primary Dx); Primary hypertension; Stage 3a chronic kidney disease (CMS/HCC V24, CMS/HCC V28); Chronic heart failure with mildly reduced ejection fraction (HFmrEF, 41-49%) (CMS/HCC V24, CMS/HCC V28) 03/29/2024 7:40 AM EST Office Visit [facility] Cardiology [facility] [address] [place] [address] Tatiana Quintana PA PVC (premature ventricular contraction) (Primary Dx); Primary hypertension; PAF (paroxysmal atrial fibrillation) (CMS/HCC V24, CMS/HCC V28); Obstructive sleep apnea; WU (dyspnea on exertion); Bradycardia; Acute on chronic heart failure with preserved ejection fraction (CMS/HCC V24, CMS/HCC V28); Mediastinal lymphadenopathy 03/29/2024 Telephone [facility] Cardiology [facility] [address] [facility] [address] [place] [address] Danae Fernandez MA Referral (Dr Diego Reyna) 03/22/2024 1:00 PM EST Office Visit Nephrology [address] [address] Guanaco Adorno MD Stage 3 chronic kidney disease, unspecified whether stage 3a or 3b CKD ([facility] V24, [facility] V28) (Primary Dx); Essential hypertension; Chronic heart failure with mildly reduced ejection fraction (HFmrEF, 41-49%) ([facility] V24, [facility] V28) 03/02/2024 11:00 AM EST Ancillary Procedure Pulmonolgy - [place] [address] [facility] [address] [place] [phone] Jemima Chacko Pleural effusion on right; Dyspnea, unspecified type 03/01/2024 11:10 AM EST Office Visit [facility] [address] [facility] [address] [place] [address] Tatiana Quintana PA PAF (paroxysmal atrial fibrillation) ([facility] V24, [facility] V28) (Primary Dx); WU (dyspnea on exertion); Obstructive sleep apnea; LIANET on CPAP; Bradycardia; Essential hypertension 02/29/2024 Telephone [facility] Cardiology [facility] [address] [facility] [address] [place] [address] Tatiana Quintana PA Appointment (Cardiac PET) 02/28/2024 Telephone [facility] Cardiology [facility] [address] [facility] [address] [place] [address] Tatiana Quintana PA Testing (Auth Cardiac PET) [...] Comments OTHER SURGICAL HISTORY 10/11/2023 Right PROCEDURE: AK THORACOSCOPY W/PLEURODESIS CARDIOVERSION DONE ON 12/16/2023 AT [facility] W AOP INDICATION:Atrial fibrillation Medical History Medical History Date Comments History of anemia 09/09/2017 DX:History of anemia Asthma, mild 04/12/2016 DX:Asthma, mild Atrial fibrillation (CMS/HCC V24, CMS/HCC V28) 10/27/2016 DX:Atrial fibrillation (HCC) Depression 06/25/2016 DX:Depression [...] Orientation Straight 05/07/2024 12 :46 PM EDT Obstetrics History Last Filed Vital Signs Vital Sign Reading Time Taken Comments Blood Pressure 126/56 04/24/2024 3:09 PM EDT Pulse 60 04/24/2024 3:09 PM EDT Temperature 36.6 ??C (97.9 ??F) 04/17/2024 9:37 AM ED T Respiratory Rate 21 12/29/2023 9:11 AM EST Oxygen Saturation 98% 04/24/2024 3:09 PM EDT Inhaled Oxygen Concentration - - Weight 118 kg (260 lb 3.2 oz) 04/24/2024 3:09 PM EDT Height 177.8 cm (5' 10 ) 03/29/2024 7:38 AM EST Body Mass Index 37.33 03/29/2024 7:38 AM EST Plan of Treatment Upcoming Encounters Date Type Department Care Team (Late st Contact Info) Description 06/28/2024 1:15 PM EDT Appointment [facility] CT Scan [address] [place] [address] 07/25/2024 2:45 PM EDT Office Visit [facility] [address] [facility] [address] [place] [address] Antonio Pizarro MD [address] [facility] [address] [place] [address] 08/17/2024 8:30 AM EDT Office Visit Internal Medicine - [place] [address] [facility] 200 [place] [address] Juancarlos Johnson MD 175 [facility] 200 [place] [address] 10/18/2024 1:00 PM EDT Office Visit Nephrology [facility] [address] [place] [address] Guanaco Adorno MD [address] [facility] [address] [place] [phone] Health Maintenance Due Date Last Done Comments RSV Immunization Adult Patients (1 - Risk 60-74 years 1-dose series) [...] age to complete this topic Meningococcal B Vaccine Aged Out No l onger eligible based on patient's age to complete this topic RSV Immunization Patients Under 20 months Aged Out No longer eligible based on patient's age to complete this topic Varicella Vaccines Aged Out No longer eligible based on patient's age to complete this topic Procedures Procedure Name Priority Date/Time Associated Diagnosis Comments EXTERNAL CT REPORT 04/30/[address] REPORT 04/30/2024 EXTERNAL CLINICAL LAB 04/18/2024 POC URINE AUTO W/O MICRO Routine 04/17/2024 10:05 AM EDT MATT (acute kidney injury) (CMS/HCC V24) EXTERNAL CLINICAL LAB 04/10/2024 EXTERNAL CLINICAL LAB 04/10/2024 EXTERNAL CLINICAL LAB 04/10/2024 EXTERNAL CLINICAL LAB 04/10/2024 EXTERNAL CLINICAL LAB 04/10/2024 EXTERNAL CLINICAL LAB 04/10/2024 EXTERNAL CLINICAL LAB 04/10/2024 EXTERNAL CLINICAL LAB 04/10/2024 EXTERNAL CLINICAL LAB 04/10/2024 EXTERNAL CLINICAL LAB 04/10/2024 EXTERNAL CLINICAL LAB 04/10/2024 EXTERNAL CLINICAL LAB 04/10/2024 EXTERNAL CLINICAL LAB 04/10/2024 EXTERNAL CLINICAL LAB 04/10/2024 EXTERNAL CLINICAL LAB 04/10/2024 PULMONARY FUNCTION TESTING Routine 03/02/2024 12:16 PM EST Pleural effusion on right Dyspnea, unspecified type BASIC METABOLIC PANEL Routine 01/12/2024 10:10 AM EST Acute on chronic diastolic (congestive) heart failure (CMS/HCC V24, CMS/HCC V28) Cardiomyopathy, unspecified (CMS/HCC V24, CMS/HCC V28) from Last 3 Months or Most Recently Relevant to Health Maintenance Results * External CT Report (04/30/2024) Only the most recent of2 resultswithin the time period is included. Anatomical Region Laterality Modality Computed Tomogra phy Provider [facility] CT PROCEDURES Final Result * External clinical lab (04/18/2024) Only the most recent of16 resultswithin the time period is included. Provider [facility] BLOOD ORDERABLES Fin al Result * (ABNORMAL) POC Urine Auto W/O Micro (04/17/2024 10:05 AM EDT) Glucose UA POC 1+(A) Negative, Trace mg/dL Bilirubin UA POC Negative Negative, Small Ketones UA POC Negative Negative, Trace Specific [place] UA POC 1.015 Blood UA POC Negative [...] Gabbi Anglin MD PFT ORDERABLES Final Result from Last 3 Months Insurance [facility] [employer]VANTAGE [address] [place] [address] Care Teams Craft Superintendent Relationship Specialty Start Date End Date Juancarlos Johnson MD [address] [facility] 200 [place] [address] PCP - General Internal Medicine 03/01/24
--- OUTSIDE RECORDS SUMMARY | 2024-05-24 14:17 | XMS_ITS | Clinical Summary ---
Author Organization [facility], Address [address] [place] [address] [place] [address] Phone Care Team Providers Care Metallurgical Lab Technician Name Role Phone Juancarlos Johnson MD Primary Care Provider [phone] Social History Tobacco Use Types Packs/Day Years [...] Colorectal Cancer Screening: Sigmoidoscopy 2003 Pneumococcal Vaccine: 50+ Years Completed 03/02/2021, 09/30/2020 Influenza Vaccine Completed 12/18/2023, 11/28/2018 Hepatitis B Vaccine Aged Out No longe r eligible based on patient's age to complete this topic Insurance [employer] Open Access ([id number]) Care Teams Metallurgical Lab Technician Relationship Specialty Start Date End Date Juancarlos Johnson MD [address] [address] PCP - General Internal Medicine 05/25/23
--- OUTSIDE RECORDS SUMMARY | 2024-05-24 14:17 | XMS_ITS | Encounter Summary ---
Author Organization [facility] Address [address] [place] [address] Care Team Providers Care Pickling Machine Operator Name Role Phone Juancarlos Johnson MD Primary Care Provider [phone] Encounter Details Date Type Department Care Team (Latest Contact Info) Description 11/10/2023 3:17 PM EDT Hospital Encounter TH HISTORIC ENCOUNTERS EASTERN CONVERSION ONLY Malini Rivero PA [address] [facility], [address] [place] [address] Pleural effusion, not elsewhere classified Social History [...] Info) Description 06/28/2024 1:15 PM EDT Appointment [facility] CT Scan [address] [place] [address] 07/25/2024 2:45 PM EDT Office Visit [facility] - [facility] [address] [facility] [address] [place] [address] Antonio Pizarro MD [address] [facility] [address] [place] [address] 08/17/2024 8:30 AM EDT Office Visit Internal Medicine - [place] 175 [facility] 200 [place] [address] Juancarlos Johnson MD 175 [facility] 200 [place] [address] 10/18/2024 1:00 PM EDT Office Visit Nephrology [facility] [address] [place] [address] Guanaco Adorno MD [address] [facility] 204 [place] [address] documented as of this encounter Procedures Procedure Name Priority Date/Time Associated Diagnosis Comments CHEST ROUTINE 2 VIEWS Routine 11/10/2023 3:36 PM EDT Pleural effusion, not elsewhere classified documented in this encounter Results * CHEST ROUTINE 2 VIEWS (11/10/2023 3:36 PM EDT) Anatomical Region Laterality Modality Radiographic Yulissa ging 11/10/2023 3:22 PM EDT Narrative 11/10/2023 3:36 PM EDT [facility] Diagnostic Imaging Department [address] [place], [place] [phone] Patient: ??WILFRID PINEDA ?/Age/Sex: 1955 - 68 - M Unit#: ??[id number] ? Location/Status: ??SPDIGEN/REG CLI ? Mnemonic/Ordering Site: ??CHESTXR/SPDI Ordering Physician: ??MALINI RIVERO DR Chest Routine 2 Views - 11/10/23 152 Report Status:Signed Chest Routine 2 Views INDICATION: [...] by: ??MARQUISE DONIS MD Dic Date/Time: ??11/10/23 1536 Sign date/Time: ??11/10/23 1536 Procedure Note Marquise Donis MD - 12/06/2023 [facility] Diagnostic Imaging Department [address] [place] [address] Patient: ARLENEWILFRID D.O.B./Age/Sex: 1955 - 68 - M Unit#: [id number] Location/Status: SPDIGEN/REG CLI Mnemonic/Ordering Site: CHESTXR/SPDI Ordering [...] classified documented in this encounter Care Teams Pickling Machine Operator Relationship Specialty Start Date End Date Juancarlos Johnson MD PCP - General Internal Medicine 12/28/12 02/29/24 documented as of this encounter
--- OUTSIDE RECORDS SUMMARY | 2024-05-24 14:17 | XMS_ITS | Encounter Summary ---
Author Organization [facility], Address [address] [place] [address] Phone Care Team Providers Care Envelope Cutter Name Role Phone Juancarlos Johnson MD Primary Care Provider [phone] Encounter Details Date Type Department Care Team (Late st Contact Info) Description 05/25/2023 Documentation Only [facility], [address] [place] [address] [place] [address] [place] [address] Social History Tobacco Use Types Packs/Day Years [...] on filedocumented in this encounter Care Teams Envelope Cutter Relationship Specialty Start Date End Date Juancarlos Johnson MD [address] [address] PCP - General Internal Medicine 05/25/23 documented as of this encounter
--- OUTSIDE RECORDS SUMMARY | 2024-05-24 14:17 | XMS_ITS | Clinical Summary ---
Author Organization [facility] Address [address] [place] [address] Care Team Providers Care Soa Architect Name Role Phone Juancarlos Johnson MD Primary [...] age to complete this topic Care Teams Soa Architect Relationship Specialty Start Date End Date Juancarlos Johnson MD PCP - General Internal Medicine 08/24/21
== END 2024-05-24 11:27 | disposition home or self-care (01) ==
LOC: HO.LAB 11:26
PROVIDERS: PCP Internal Medicine; Visit Provider Internal Medicine Nephrology
DX: N17.9 Acute kidney failure, unspecified (principal); N18.9 Chronic kidney disease, unspecified
CPT/HCPCS: 36415; 80051; 82565; 84520

== ENCOUNTER 2024-05-25 09:44 | Outpatient (AMB) | payer MEDICARE, OTHER, SELFPAY ==
--- NOTE | 2024-05-25 10:23 | HO.NEPHOV_ITS ---
Vital Signs 05/25/24 10:24 Height 5 ft 10 in Weight 261 lb 2 oz BMI 37.5 BP 106/60 Blood Pressure Location Rt brachial Position Sitting Pulse 69 Pulse Source Pulse Oximeter Pulse Oximetry (%) 97 Oxygen Delivery Method Room Air Intake Visit Reasons: 1 MO FU-Conf Application Engineer Required: No Accompanied by: Self / Same As Patient Allergies Sulfa (Sulfonamide Antibiotics) Allergy (Verified 05/25/24 10:24) Unknown HPI Comments Details: Wilfrid was seen in follow up for his recent rise in serum creatinine. He has CKD 3 at baseline. He has H/O non ischemic cardiomyopathy as well as AF Fib and had undergone watchman device . He is not on Xarelto anymore. He had a negative car diac MRI but cardiac PET in Mar 2024 showed multifocal hypermetabolic uptake within the left ventricular wall suggestive of inflammatory process. He also had right pleurodesis for recurrent pleural effusion. He also has history of mediastinal and hilar lymphadenopathy. His baseline serum creatinine has been found to be 1.7. He has not taken any prednisone or concurrent steroid sparing treatment with methotrexate for possible cardiac sarcoid. Continued workup found him to have p-ANCA positivity and MATT with a serum creatinine going up to 2.8. 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 In the biopsy he had 20 % global glomerulosclerosis with tubular atrophy/ interstitial fibrosis of 20-25 % with moderate vascular sclerosis. He did not specify any new systemic complaints at the time this office visit. [facility] Medical History (Updated 06/10/24 @ 09:29 by Eric Taylor MD) Presence of Watchman left atrial appendage closure device Spinal stenosis Sleep apnea Recurrent right pleural effusion Paroxysmal atrial fibrillation Obesity, morbid Mediastinal adenopathy Major depressive disorder with single episode Hypertension Hyperlipidemia Gout Congestive heart failure Cardiac sarcoidosis Anserine bursitis Achilles tendonitis Surgical History Hx of vasectomy History of lung surgery H/O hernia repair Family History Father Heart disease Diabetes Mother H/O cancer of gall bladder Social History Alcohol intake: never Patient Tobacco Use Status: Never used Tobacco Review of Systems Const All systems reviewed & are unremarkable except as noted in HPI and below Physical Exam Vital Signs: Last Vital Signs Pulse 69 05/25/24 10:24 BP 106/60 05/25/24 10:24 Pulse Ox 97 05/25/24 10:24 Oxygen Delivery Method Room Air 05/25/24 10:24 BMI result Body Mass Index 37.5 Const General: comfortable and no acute distress Orientation/consciousness: patient oriented x3 HEENT Head: Yes normocephalic Mouth: Normal oral and palatal mucosa present Eyes EOM: EOMs intact bilaterally Neck Neck: Yes supple Resp Auscultation: clear to auscultation bilaterally Cardio Jugular venous distension: no JVD Rate: regular rate GI Palpation (GI): Soft to palpation Auscultation: normal bowel sounds General: Yes no CVA tenderness Back/Spine/Pelvis Back: no CVA tenderness Skin General skin exam: no rashes or lesions noted Neuro General: patient oriented x3 and moves all extremities Extrem General: Yes no pedal edema Results Reviewed Nephrology Results: Hgb 11.1 g/dl (14.0-18.0) L 04/23/24 WBC 4.4 X10*3/uL (4.8-10.8) L 04/23/24 Plt Count 175 X10*3/uL (160-400) 04/23/24 Sodium 140 mmol/L (135-145) 05/24/24 Potassium 4.3 mmol/L (3.3-5.1) 05/24/24 Chloride 104 mmol/L (96-108) 05/24/24 Carbon Dioxide 26 mmol/L (22-29) 05/24/24 BUN 60 mg/dL (9-16) H 05/24/24 Creatinine 2.08 mg/dL (0.5-1.4) H 05/24/24 Urine Protein Negative mg/dL (Neg-Trace) 04/23/24 Urine Creatinine 46.38 mg/dL 04/23/24 Protein/Creatinin Ratio TNP 04/23/24 Assessment & Plan Assessment & Plan (1) Acute kidney injury superimposed on CKD: Code(s): N17.9 - Acute kidney failure, unspecified; N18.9 - Chronic kidney disease, unspecified Category: Medical (2) CKD stage 3b, GFR 30-44 ml/min: Code(s): N18.32 - Chronic kidney disease, stage 3b Category: Medical (3) Hypertension: Code(s): I10 - Essential (primary) hypertension Category: Medical Qualifiers: Hypertension type: primary hypertension Qualified Code(s): I10 - Essential (primary) hypertension (4) P-ANCA and MPO antibodies positive: Code(s): R76.8 - Other specified abnormal immunological findings in serum Category: Medical Plan Wilfrid has MATT on a backdrop of CKD with a serum creatinine going up to 2.8 which has improved to 2.08. He has multisystem involvement including cardiac, pulmonary and renal. He was thought to have cardiac sarcoid but has not had any tissue diagnosis. He is on Farxiga and diuretics but not on any JUAN JOSE inhibitor, ARB, Entresto. His recent p-ANCA came back as positive. 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 In the biopsy he had 20 % global glomerulosclerosis with tubular atrophy/ interstitial fibrosis of 20-25 % with moderate vascular sclerosis. I did not make any medication changes today but rather discussed his renal biopsy report and future plan for continued care. All questions were answered. Follow-up given Orders: Orders Electrolytes 3 Months N17.9 - Acute kidney failure, unspecified, N18.9 - Chronic kidney disease, unspecified Creatinine 3 Months N17.9 - Acute kidney failure, unspecified, N18.9 - Chronic kidney disease, unspecified Blood Urea Nitrogen 3 Months N17.9 - Acute kidney failure, unspecified, N18.9 - Chronic kidney disease, unspecified Immunofixation Pnl, Serum 3 Months N17.9 - Acute kidney failure, unspecified, N18.9 - Chronic kidney disease, unspecified Coding Level of Care Code Est Pt Level 4 (59194) Diagnoses Acute kidney injury superimposed on CKD N17.9; N18.9 CKD stage 3b, GFR 30-44 ml/min N18.32 Primary hypertension I10 Hypertension type: primary hypertension P-ANCA and MPO antibodies positive R76.8
--- OUTSIDE RECORDS SUMMARY | 2024-05-25 10:23 | XMS_ITS | Clinical Summary ---
Author Organization [facility], Address [address] [place] [address] [place] [address] Phone Care Team Providers Care Pharmacognosist Name Role Phone Juancarlos Johnson MD Primary Care Provider [phone] Social History Tobacco Use Types Packs/Day Years [...] patient's age to complete this topic Insurance [employer] Open Access ([id number]) Care Teams Pharmacognosist Relationship Specialty Start Date End Date Juancarlos Johnson MD [address] [address] PCP - General Internal Medicine 05/25/23
--- OUTSIDE RECORDS SUMMARY | 2024-05-25 10:23 | XMS_ITS | Clinical Summary ---
Author Organization [address] [facility] Address [address] [place] [address] Phone Care Team Providers Care Home Sales Service Professional Name Role Phone Juancarlos Johnson MD Primary Care Provider [phone] Allergies Active Allergy Reactions Criticality Noted Date [...] Retroperitoneal bleed 06/03/2022 NICM (nonischemic cardiomyop athy) ([facility] V24, [facility] V28) 09/30/2020 Benign prostatic hyperplasia 01/07/2020 Bradycardia 01/07/2020 Claudication ([facility] V24) 01/07/2020 Dyspnea on exertion 01/07/2020 [...] continue statin PAF (paroxysmal atrial fibri llation) ([facility] V24, [facility] V28) 10/27/2016 Overview (12/29/2023): Last Assessment [...] Description 04/24/2024 3:10 PM EDT Office Visit [facility] [address] [place] [address] Tatiana Quintana PA PAF (paroxysmal atrial fibrillation) (CMS/HCC V24, CMS/HCC V28) (Primary Dx); Bradycardia; Dyspnea on exertion; Acute on chronic heart failure with preserved ejection fraction (CMS/HCC V24, CMS/HCC V28); Cardiac sarcoidosis; LIANET on CPAP 04/18/2024 Telephone Internal Medicine [facility] [address] [place] [address] Juancarlos Johnson MD 04/17/2024 9:45 AM EDT Office Visit Internal Medicine [facility] [address] [place] [address] Juancarlos Johnson MD MATT (acute kidney injury) (CMS/HCC V24) (Primary Dx); Primary hypertension; Stage 3a chronic kidney disease (CMS/HCC V24, CMS/HCC V28); Chronic heart failure with mildly reduced ejection fraction (HFmrEF, 41-49%) (CMS/HCC V24, CMS/HCC V28) 03/29/2024 7:40 AM EST Office Visit [facility] [address] [place] [address] Tatiana Quintana PA PVC (premature ventricular contraction) (Primary Dx); Primary hypertension; PAF (paroxysmal atrial fibrillation) (CMS/HCC V24, CMS/HCC V28); Obstructive sleep apnea; WU (dyspnea on exertion); Bradycardia; Acute on chronic heart failure with preserved ejection fraction (CMS/HCC V24, CMS/HCC V28); Mediastinal lymphadenopathy 03/29/2024 Telephone [facility] [address] [facility] [address] [place] [address] Danae Fernandez MA Referral (Dr Diego Reyna) 03/22/2024 1:00 PM EST Office Visit Nephrology [address] [address] Guanaco Adorno MD Stage 3 chronic kidney disease, unspecified whether stage 3a or 3b CKD ([facility] V24, [facility] V28) (Primary Dx); Essential hypertension; Chronic heart failure with mildly reduced ejection fraction (HFmrEF, 41-49%) ([facility] V24, [facility] V28) 03/02/2024 11:00 AM EST Ancillary Procedure Pulmonolgy - [place] [address] [facility] [address] [place] [phone] Jemima Chacko Pleural effusion on right; Dyspnea, unspecified type 03/01/2024 11:10 AM EST Office Visit [facility] [address] [facility] [address] [place] [address] Tatiana Quintana PA PAF (paroxysmal atrial fibrillation) ([facility] V24, [facility] V28) (Primary Dx); WU (dyspnea on exertion); Obstructive sleep apnea; LIANET on CPAP; Bradycardia; Essential hypertension 02/29/2024 Telephone [facility] [address] [facility] [address] [place] [address] Tatiana Quintana PA Appointment (Cardiac PET) 02/28/2024 Telephone [facility] [address] [facility] [address] [place] [address] Tatiana Quintana PA Testing (Auth Cardiac PET) [...] Comments OTHER SURGICAL HISTORY 10/11/2023 Right PROCEDURE: ME THORACOSCOPY W/PLEURODESIS CARDIOVERSION DONE ON 12/16/2023 AT [facility] W AOP INDICATION:Atrial fibrillation Medical History [...] Info) Description 06/28/2024 1:15 PM EDT Appointment [facility] CT Scan [address] [place] [address] 07/25/2024 2:45 PM EDT Office Visit [facility] [address] [facility] [address] [place] [address] Antonio Pizarro MD 300 [facility] [address] [place] [address] 08/17/2024 8:30 AM EDT Office Visit Internal Medicine - [place] [address] [facility] 200 [place] [address] Juancarlos Johnson MD 175 [facility] 200 [place] [address] 10/18/2024 1:00 PM EDT Office Visit Nephrology [facility] [address] [place] [address] Guanaco Adorno MD [address] [facility] [address] [place] [phone] Health Maintenance Due Date Last Done Comments [...] Region Laterality Modality Computed Tomogra phy Provider [place] [facility] IMG CT PROCEDURES Final Result * External clinical lab (04/18/2024) Only the most recent of16 resultswithin the time period is included. Provider [place] [facility] BLOOD ORDERABLES Fin al Result * (ABNORMAL) POC Urine Auto W/O Micro (04/17/2024 10:05 AM EDT) Glucose UA POC 1+(A) Negative, Trace mg/dL Bilirubin UA POC Negative Negative, Small Ketones UA POC Negative Negative, Trace Specific [place] UA POC 1.015 Blood UA POC Negative [...] Final Result from Last 3 Months Insurance [facility] [employer] [address] [place] [address] Care Teams Home Sales Service Professional Relationship Specialty Start Date End Date Juancarlos Johnson MD 175 [facility] 200 [place] [address] PCP - General Internal Medicine 03/01/24
--- OUTSIDE RECORDS SUMMARY | 2024-05-25 10:23 | XMS_ITS | Encounter Summary ---
Author Organization [facility] Address [address] [place] [address] Care Team Providers Care Nail Artist Name Role Phone Juancarlos Johnson MD Primary Care Provider [phone] Encounter Details Date Type Department Care Team (Latest Contact Info) Description 11/10/2023 3:17 PM EDT Hospital Encounter TH HISTORIC ENCOUNTERS EASTERN CONVERSION ONLY Malini Rivero PA [address] [facility], [address] [place] [address] Pleural effusion, not elsewhere classified Social History [...] Info) Description 06/28/2024 1:15 PM EDT Appointment [facility] CT Scan [address] [place] [phone] 07/25/2024 2:45 PM EDT Office Visit [facility] [address] [facility] [address] [place] [phone] Antonio Pizarro MD [address] [facility] [address] [place] [address] 08/17/2024 8:30 AM EDT Office Visit Internal Medicine - [place] 175 [facility] [address] [place] [address] Juancarlos Johnson MD 175 [facility] [address] [place] [address] 10/18/2024 1:00 PM EDT Office Visit Nephrology [facility] [address] [place] [address] Guanaco Adorno MD [address] [facility] [address] [place] [phone] documented as of this encounter Procedures Procedure Name Priority Date/Time Associated Diagnosis Comments CHEST ROUTINE 2 VIEWS Routine 11/10/2023 3:36 PM EDT Pleural effusion, not elsewhere classified documented in this encounter Results * CHEST ROUTINE 2 VIEWS (11/10/2023 3:36 PM EDT) Anatomical Region Laterality Modality Radiographic Yulissa ging 11/10/2023 3:22 PM EDT Narrative 11/10/2023 3:36 PM EDT [facility] Diagnostic Imaging Department [address] [place], [place] [phone] Patient: ??WILFRID PINEDA ?/Age/Sex: 1955 - 68 - M Unit#: ??[id number] ? Location/Status: ??SPDIGEN/REG CLI ? Mnemonic/Ordering Site: [...] Procedure Note Marquise Donis MD - 12/06/2023 [facility] Diagnostic Imaging Department [address] [place] [address] Patient: ARLENEWILFRID D.O.B./Age/Sex: 1955 - 68 - M Unit#: [id number] Location/Status: SPDIGEN/REG CLI Mnemonic/Ordering Site: CHESTXR/SPDI Ordering [...] classified documented in this encounter Care Teams Nail Artist Relationship Specialty Start Date End Date Juancarlos Johnson MD PCP - General Internal Medicine 12/28/12 02/29/24 documented as of this encounter
--- OUTSIDE RECORDS SUMMARY | 2024-05-25 10:23 | XMS_ITS | Encounter Summary ---
Author Organization [facility], Address [address] [place] [address] Phone Care Team Providers Care Bench Repair Technician Name Role Phone Juancarlos Johnson MD Primary Care Provider [phone] Encounter Details Date Type Department Care Team (Late st Contact Info) Description 05/25/2023 Documentation Only [facility], [address] [place] [phone] [place], [place] [address] [place] [address] Social History Tobacco Use Types Packs/Day Years [...] on filedocumented in this encounter Care Teams Bench Repair Technician Relationship Specialty Start Date End Date Juancarlos Johnson MD [address] [address] PCP - General Internal Medicine 05/25/23 documented as of this encounter
--- OUTSIDE RECORDS SUMMARY | 2024-05-25 10:23 | XMS_ITS | Clinical Summary ---
Author Organization [facility] Address [address] [place] [address] Care Team Providers Care Tire Specialist Name Role Phone Juancarlos Johnson MD Primary [...] age to complete this topic Care Teams Tire Specialist Relationship Specialty Start Date End Date Juancarlos Johnson MD PCP - General Internal Medicine 08/24/21
[2024-05-25 10:24] VITALS: BP 106/60; PULSE 69; O2SAT 97; BMI 37.5
== END 2024-05-25 11:05 | disposition home or self-care (01) ==
LOC: HO.HKA 09:45
PROVIDERS: PCP Internal Medicine; Visit Provider Internal Medicine Nephrology
DX: N17.9 Acute kidney failure, unspecified (principal); I12.9 Hypertensive chronic kidney disease with stage 1 through stage 4 chronic kidney disease, or unspecified chronic kidney disease; N18.32 Chronic kidney disease, stage 3b; R76.8 Other specified abnormal immunological findings in serum
CPT/HCPCS: 99214

== ENCOUNTER → 2024-05-25 09:44 | Outpatient (BNVA) | payer MEDICARE, OTHER, SELFPAY | PROVIDERS: PCP Internal Medicine; Visit Provider Internal Medicine Nephrology | DX: N17.9 Acute kidney failure, unspecified (principal); N18.9 Chronic kidney disease, unspecified | CPT/HCPCS: 99212 ==

== ENCOUNTER 2024-09-05 13:29 | Outpatient (REF) | payer MEDICARE, SELFPAY ==
[2024-09-05 15:40] LABS: Appearance Urine Clear; Glucose Urine UA 500 mg/dL (Negative); PH 5.0 (5.0-9.0); Specific Gravity - Urine 1.010 (1.005-1.025)
[2024-09-05 16:06] LABS: Hemoglobin A1C 177.5513 umol/L; Total Hemoglobin (HGBA1C) 3799.9416 umol/L
[2024-09-05 16:30] LABS: Anion Gap 18 (12-20); Blood Urea Nitrogen 86 mg/dL (9-16); Carbon Dioxide 24 mmol/L (22-29); Chloride 103 mmol/L (96-108); Estimated Glomerular Filt Rate 30; Potassium 4.2 mmol/L (3.3-5.1); Sodium 141 mmol/L (135-145)
[2024-09-05 16:31] LABS: Total Protein Urine Random < 7 mg/dL (<12)
[2024-09-06 08:11] LABS: HBc Num1 0.03 S/CO (0.00-0.79); HBsAGNum1 0.29 S/CO (0.00-0.99); Hepatitis B Surface Antigen Negative (Negative); ~HepC Num1 0.14 S/CO (0.00-0.79); ~Hepatitis C Antibody Nonreactive (Nonreactive)
[2024-09-10 06:43] LABS: Anti Glomerular Basement Memb <1.0 AI; Proteinase 3 PR3 Antibodies <1.0 AI
[2024-09-11 19:53] LABS: Phospholipase A2 IgG ELISA <4 RU/mL; Phospholipase A2 IgG IFA NEGATIVE (NEGATIVE)
== END 2024-09-05 13:30 | disposition home or self-care (01) ==
LOC: HO.LAB 13:29
PROVIDERS: PCP Internal Medicine; Visit Provider Internal Medicine Nephrology
DX: I12.9 Hypertensive chronic kidney disease with stage 1 through stage 4 chronic kidney disease, or unspecified chronic kidney disease (principal); N18.32 Chronic kidney disease, stage 3b; N17.9 Acute kidney failure, unspecified; R76.8 Other specified abnormal immunological findings in serum; Z11.59 Encounter for screening for other viral diseases; Z01.84 Encounter for antibody response examination
CPT/HCPCS: 36415; 80051; 81003; 82565; 82570; 82595; 82784; 83036; 83520; 84156; 84520; 86021; 86160; 86225; 86255; 86334; 86431; 86704; 86803; 87340; 99212

== ENCOUNTER 2024-09-05 13:29 | Outpatient (AMB) | payer MEDICARE, SELFPAY ==
--- OUTSIDE RECORDS SUMMARY | 2023-11-10 15:17 | XMS_ITS | Encounter Summary ---
Author Organization [facility] Address [address] [place] [address] Care Team Providers Care Air Tool Operator Name Role Phone Juancarlos Johnson MD Primary Care Provider [phone] Encounter Details Date Type Department Care Team (Latest Contact Info) Description 11/10/2023 3:17 PM EDT Hospital Encounter TH HISTORIC ENCOUNTERS EASTERN CONVERSION ONLY Malini Rivero PA 299 [facility], [address] [place] [address] Pleural effusion, not elsewhere classified Social History [...] care for your loved ones. For example, children's nursery assistant or elderly care for an older adult? [...] Date Recorded What is your living situation? 0 08/10/2024 Sex and Gender Information Value Date Recorded Sex Assigned at Male 05/07/2024 12:46 PM EDT Legal Sex Male 11:46 PM EST Gender Identity Male 05/07/2024 12:46 PM EDT Sexual Orientation Straight 05/07/2024 12 :46 PM EDT documented as of this encounter Plan of Treatment Upcoming Encounters Date Type Department Care Team (Late st Contact Info) Description 09/12/2024 9:45 AM EDT Office Visit Internal Medicine - [place] 175 [facility] 200 [place] [address] Juancarlos Johnson MD 175 [facility] 200 [place] [address] 10/18/2024 1:00 PM EDT Office Visit Nephrology - [place] [address] [place] [phone] Guanaco Adorno MD [address] [address] documented as of this encounter Procedures Procedure Name Priority Date/Time Associated Diagnosis Comments CHEST ROUTINE 2 VIEWS Routine 11/10/2023 3:36 PM EDT Pleural effusion, not elsewhere classified documented in this encounter Results * CHEST ROUTINE 2 VIEWS (11/10/2023 3:36 PM EDT) Anatomical Region Laterality Modality Radiographic Yulissa ging 11/10/2023 3:22 PM EDT Narrative 11/10/2023 3:36 PM EDT [facility] Diagnostic Imaging Department [address] [place] [address] Patient: WILFRID PINEDA Sharifa Pennington/Age/Sex: 1955 - 68 - M Unit#: [id number] Location/Status: SPDIGEN/REG CLI Mnemonic/Ordering Site: CHESTXR/SPDI Ordering Physician: MALINI RIVERO Chest Routine 2 Views - 11/10/23 - 3466 Report Status:Signed Chest Routine 2 Views INDICATION: Pleural effusion TECHNIQUE: Chest Routine 2 Views COMPARISON: 10/27/2023 FINDINGS/IMPRESSION: Right pleural drainage catheter remains in place. Stable scarring/atelectasis in the lower lobes, right middle lobe, and lingula. No pleural effusion or pneumothorax. Cardiac silhouette is stably enlarged. Degenerative changes seen throughout the bones. Dictating Physician: MARQUISE DONIS MD Electronically Signed by: MARQUISE DONIS MD Dic Date/Time: 11/10/231535 Sign date/Time: 11/10/231535 Procedure Note Marquise Donis MD - 12/06/2023 [facility] Diagnostic Imaging Department [address] [place] [address] Patient: MARY KATESANTOSWILFRID./Age/Sex: 1955 - 68 - M Unit#: [id number] Location/Status: SPDIGEN/REG CLI Mnemonic/Ordering Site: CHESTXR/SPDI Ordering Physician: MALINI RIVERO Chest Routine 2 Views - 11/10/23 - 1527 Report Status:Signed Chest Routine 2 Views INDICATION: Pleural effusion TECHNIQUE: Chest Routine 2 Views COMPARISON: 10/27/2023 FINDINGS/IMPRESSION: Right pleural drainage catheter remains in place.Stable scarring/atelectasis in the lower lobes, right middle lobe, and lingula.No pleural effusion or pneumothorax. Cardiac silhouette is stablyenlarged. Degenerative changes seen throughout the bones. Dictating Physician: MARQUISE DONIS MD Electronically Signed by: MARQUISE DONIS MD Dic Date/Time: 11/10/23 1536 Sign date/Time: 11/10/23 1536 us Malini PATTERSON IMG XR PROCEDURES Final Resul t documented in this encounter Visit Diagnoses Diagnosis Pleural effusion, not elsewhere classified documented in this encounter Care Teams Air Tool Operator Relationship Specialty Start Date End Date Juancarlos Johnson MD PCP - General Internal Medicine 12/28/12 02/29/24 documented as of this encounter
--- OUTSIDE RECORDS SUMMARY | 2024-09-05 14:05 | XMS_ITS | Clinical Summary ---
Author Organization [facility] Address [address] [place] [address] Care Team Providers Care Tank Tender Name Role Phone Juancarlos Johnson MD Primary [...] 63 07/25/2023 1:55 PM EDT Temperature 37.3 C (99.1 F) 07/25/2023 1:55 PM EDT Respiratory Rate - - Oxygen Saturation 97% [...] f 2) 02/04/2021 12/10/2020 Influenza Vaccine (#1) 2024 RSV Adult > 60+ Yrs or (1 - 1-dose 75+ series) 2029 Pneumococcal Vaccine Completed 03/02/2021, 09/30/2020 Hepatitis B Vaccines Aged Out No long er eligible based on patient's age to complete this topic RSV Ped < 20 months Aged Out No longe r eligible based on patient's age to complete this topic Care Teams Tank Tender Relationship Specialty Start Date End Date Juancarlos Johnson MD PCP - General Internal Medicine 08/24/21
--- OUTSIDE RECORDS SUMMARY | 2024-09-05 14:05 | XMS_ITS | Encounter Summary ---
Author Organization [facility], Address [address] [place] [address] Phone Care Team Providers Care Metalizing Supervisor Name Role Phone Juancarlos Johnson MD Primary Care Provider [phone] Encounter Details Date Type Department Care Team (Late st Contact Info) Description 05/25/2023 Documentation Only [facility], [address] [place] [address] [place], [place] [address] [place] [address] Social History Tobacco Use Types Packs/Day Years [...] on filedocumented in this encounter Care Teams Metalizing Supervisor Relationship Specialty Start Date End Date Juancarlos Johnson MD [address] [address] PCP - General Internal Medicine 05/25/23 documented as of this encounter
--- OUTSIDE RECORDS SUMMARY | 2024-09-05 14:05 | XMS_ITS | Clinical Summary ---
Author Organization [facility] Address [address] [place] [address] [place] [phone] Phone Care Team Providers Care Prop And Effects Designer Name Role Phone Juancarlos Johnson MD Primary Care Provider [phone] Allergies Active Allergy Reactions Criticality Noted Date Comments Sulfa (Sulfonamide Antibiotics) 10/2008 Reaction as baby Medications albuterol 90 mcg/actuation inhaler Inhale 2 puffs into the lungs every 6 (six) hours as needed. 4 12/29/19 25 Active amoxicillin (AMOXIL) 500 MG capsule DENTAL APPOINTMENTS 5 Active aspirin 81 MG EC tablet Take 81 mg by mouth. 4 Active atorvastatin (LIPITOR) 40 MG tablet Take 1 tablet by mouth daily. 4 Active clotrimazole (LOTRIMIN) 1 % cream TAKE 1 APPLICATOR (TOPICAL) 2 TIMES PER DAY FOR 2 WEEKS 5 Active dapagliflozin propanediol (FARXIGA) 5 mg tablet 5 Active doxazosin (CARDURA) 2 MG tablet Active hydrALAZINE (APRESOLINE) 100 MG tablet Take 150 mg by mouth 2 (two) times a day. Active PARoxetine (PAXIL) 20 MG tablet Take 1 tablet by mouth every morning. 5 Active spironolactone (ALDACTONE) 25 MG tablet TAKE 1 TABLET (25 MG TOTAL) BY MOUTH 1 (ONE) TIME EACH DAY. STOPPING POTASSIUM SUPPLEMENT Active torsemide (DEMADEX) 20 MG tablet Take 40 mg by mouth. 4 Active atovaquone (MEPRON) 750 mg/5 mL suspension Take 10 mL (1,500 mg total) by mouth daily. 300 mL 5 5 Active predniSONE (DELTASONE) 5 MG tablet Take 10 tablets (50 mg total) by mouth daily with breakfast for 7 days, THEN 8 tablets (40 mg total) daily with breakfast for 7 days, THEN 6 tablets (30 mg total) daily with breakfast for 7 days, THEN 4 tablets (20 mg total) daily with breakfast for 7 days, THEN 2 tablets (10 mg total) daily with breakfast for 7 days, THEN 1 tablet (5 mg total) daily with breakfast for 7 days, THEN 0.5 tablets (2.5 mg total) daily with breakfast for 7 days. 221 tablet 5 09/25/19 25 Active avacopan (TAVNEOS) 10 mg Cap Take 3 capsules (30 mg total) by mouth 2 (two) times a day. 180 capsule 1 5 Active amLODIPine (NORVASC) 10 MG tablet Take 10 mg by mouth daily. 5 Active metoprolol succinate (TOPROL-XL) 25 MG 24 hr tablet Take 25 mg by mouth daily. 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 Await confirmation of negative renal biopsy. Will plan referral to rheumatology and possibly cardiology with expertise in vasculitis. Acute on chronic renal insufficiency 06/22/2024 Assessment & Plan (06/23/2024 10:57 AM EDT): Repeat labs in office with stable renal function. Requesting nephrology notes. Shortness of breath 06/22/2024 Assessment & Plan (06/23/2024 10:57 AM EDT): Persistent dyspnea felt to be related to atrial fibrillation per patient. Will repeat PFTs as well. Abnormal nuclear cardiac imaging test 04/10/2024 Overview (06/22/2024): Cardiac PET 03/19/2024: Multifocal hypermetabolic activity within left ventricular wall Assessment & Plan (06/23/2024 10:55 AM EDT): Multifocal hypermetabolic activity with marked ventricular wall on cardiac PET suggestive of inflammatory infiltrative etiology. Per patient and available records, despite Xanax including lymph node biopsies and pleural biopsies, there have been no reported evidence of noncaseating granulomas suggestive of sarcoidosis. In this setting, with ANCA positivity, I believe the etiology is most likely related to ANCA positive vasculitis. Awaiting repeat testing and confirmation from [facility]ATS and renal pathology. Once confirmed, would empirically start on prednisone with plans to referral for tertiary vasculitis management. Assessment & Plan (04/10/2024 7:59 PM EST): 69-year-old male with nonischemic cardiomyopathy, recurrent right pleural effusion, mediastinal and hilar lymphadenopathy and cardiac PET study demonstrating heterogeneous uptake within the left ventricle all highly suggestive of infiltrating inflammatory disorder most likely sarcoidosis. The pieces that are somewhat unusual in this case with the patient's age presentation and reportedly his lack of other pathology demonstrating noncaseating granuloma from either bronchoscopy, mediastinal lymph node sampling or pleural biopsy. 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 If the diagnosis is confirmed or felt to be at least probable, we discussed briefly therapy with resolve around combination of prednisone/steroids with concurrent initiation of steroid sparing agent, most likely methotrexate. Emphasis I emphasized the importance of close monitoring for which he would be in agreement with. PLAN: Request lab findings from [facility] from thoracenteses, differentiating between transudate versus exudate. Request results of pathology and cytology findings from October VATS pleural biopsy, bronchoscopy and lymph node sampling Obtain images of recent chest CT and cardiac PET for personal review Will obtain blood work today including routine CBC and chemistries, inflammatory markers including IL-2 receptor level, as well as several autoimmune markers given primary presentation pleural effusion. If the above data is inconclusive, pending the review of PET/CT, would consider repeat bronchoscopy with lymph node sampling via EBUS for additional tissue diagnosis If felt consistent with sarcoidosis, will contact the patient with plans to start moderate dose prednisone and methotrexate Encounters Date Type Department Care Team Description 09/03/2024 Refill [facility] Rheumatology [address], [address], [address] [place] [address] Phuong Mark MD, MPH Medication Refill 08/20/2024 12:56 PM EDT - 08/20/2024 11:59 PM EDT Hospital Encounter [address] [address] Phuong Mark MD, MPH Discharge Disposition: Home or Self Care 08/13/2024 Telephone [facility] [address] [place] [phone] Robel Calix, [facility] tavnoes assessment 08/08/2024 Documentation [facility] [address] [place] [phone] Tatiana Oneill [facility] 08/06/2024 9:30 AM EDT Telemedicine [facility] Rheumatology [address], [address], [address] [place] [id number] Phuong Mark MD, MPH Antineutrophil cytoplasmic antibody (ANCA) positive (Primary Dx); 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; Myocarditis, unspecified chronicity, unspecified myocarditis type; Encounter for medication counseling; Vaccine counseling; High risk medication use; ANCA-associated vasculitis 07/31/2024 Telephone [facility] Rheumatology [address], [address], [address] [place] [address] Phuong Mark MD, MPH 07/25/2024 Orders Only [facility] Health Info Management Virtual Department [address] [place] [address] Vianey Blair MD 07/24/2024 Telephone [facility] Pul[facility], Allergy and Critical Care Medicine [address] [place] [address] Diego Reyna MD 07/20/2024 11:09 AM EDT - 07/20/2024 11:59 PM EDT Hospital Encounter [facility] PATHOLOGY ACC2 [address] [facility] [place] [address] Phuong Mark MD, MPH Discharge Disposition: Home or Self Care 07/20/2024 10:00 AM EDT Office Visit [facility] Rheumatology [address], [address], [address] [place] [address] Phuong Mark MD, MPH Myocarditis, unspecified chronicity, unspecified myocarditis type (Primary Dx); Antineutrophil cytoplasmic antibody (ANCA) positive; 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; Encounter for medication counseling; Vaccine counseling; High risk medication use; Need for hepatitis B screening test 07/17/2024 Telephone [facility] Pulmonary, Allergy and Critical Care Medicine [address] [place] [address] Norah Lawson Cytopathology report 10/11/23 07/13/2024 Orders Only [facility] Pulmonary, Allergy and Critical Care Medicine [address] [place] [address] Vianey Blair MD 07/06/2024 Telephone [facility] Pul[facility], Allergy and Critical Care Medicine [address] [place] [address] Diego Reyna MD 06/27/2024 Telephone [facility] [address] [place] [address] [facility] 06/22/2024 2:31 PM EDT - 06/22/2024 11:59 PM EDT Hospital Encounter [facility] [address] [facility] [address]nd [place] [address] Diego Reyna MD Discharge Disposition: Home or Self Care 06/22/2024 1:30 PM EDT Office Visit [facility] Pulmonary, Allergy and Critical Care Medicine [address] [place] [address] Diego Reyna MD Antineutrophil cytoplasmic antibody (ANCA) positive (Primary Dx); Abnormal nuclear cardiac imaging test; Acute on chronic renal insufficiency; Shortness of breath 06/22/2024 Telephone [facility] Pulmonary, Allergy and Critical Care Medicine [address] [place] [address] Diego Reyna MD from Last 3 Months Immunizations Immunization Administration Dates Next Due Influenza High-Dose Quadrivalent Preservative Fr ee IM 10/25/2021 Influenza High-Dose Trivalent Preservative Free IM 12/18/2023 Influenza Quadrivalent MDCK w/Preservative IM Pneumococcal conjugate PCV13 09/30/2020 Pneumococcal polysaccharide PPSV23 03/02/2021 Tdap 12/28/2017 Zoster recombinant 12/10/2020 Family History Medical History Relation Comments Coronary artery disease Father Hypertension Mother Interstitial Lung Disease Neg Hx Sarcoidosis Neg Hx Relation Status Comments Father Mother Social History Tobacco Use Types Packs/Day Years Used Date Smoking Tobacco: Never Smokeless Tobacco: Never Tobacco Cessation:Counseling Given: Not Answered Alcohol Use Standard Drinks/Week Comments Never 0 (1 standard drink = 0.6 oz pur e alcohol) Education Answer Date Recorded Are you interested in more education? Not on kita e 06/04/2022 Are you concerned about learning? Not on file 06/04/2022 No 06/04/2022 No 06/04/2022 Digital Access Answer Date Recorded No 07/05/2022 No 07/05/2022 Reliable internet access at home? Not on file 07/05/2022 Device with a working camera? Not on file Sex and Gender Information Value Date Recorded Sex Assigned at Not on file Legal Sex Male 6:51 AM EST Gender Identity Not on file Sexual Orientation Not on file Last Filed Vital Signs Vital Sign Reading Time Taken Comments Blood Pressure 121/73 07/20/2024 9:44 AM EDT Pulse 63 07/20/2024 9:44 AM EDT Temperature 36.5 C (97.7 F) 07/20/2024 9:44 AM EDT Respiratory Rate - - Oxygen Saturation 100% 07/20/2024 9:44 AM EDT Inhaled Oxygen Concentration - - Weight 111.1 kg (245 lb) 07/20/2024 9:44 AM EDT Height 177.8 cm (5' 10 ) 04/10/2024 12:43 PM EST Body Mass Index 35.15 04/10/2024 12:43 PM EST Plan of Treatment Upcoming Encounters Date Type Department Care Team (Late st Contact Info) Description 09/17/2024 9:30 AM EDT Infusion [address], [facility] [address] [place] [address] 10/01/2024 10:00 AM EDT Infusion [address], [facility] [address] [place] [address] Phuong Mark MD, MPH [address] [address] [email or web address] 10/09/2024 9:30 AM EDT Office Visit [facility] Pulmonary, Allergy and Critical Care Medicine [address] [facility] [place] [address] Diego Reyna MD 10 [facility] 2nd [place] [address] [email or web address] 10/10/2024 9:00 AM EDT Telemedicine [facility] Rheumatology [address], [address], [address] [place] [address] Phuong Mark MD, MPH [address] [address] [email or web address] 01/22/2025 9:20 AM EST Office Visit [facility] Rheumatology [address], [address], [address] [place] [address] Phuong Mark MD, MPH [address] [address] [email or web address] Health Maintenance Due Date Last Done Comments LIPID PANEL 1955 DEPRESSION SCREENING 1966 COLOGUARD 1999 COLONOSCOPY 1999 COLORECTAL CANCER SCREENING 1999 FIT TEST 1999 FOBT 1999 SIGMOIDOSCOPY 1999 VIRTUAL COLONOSCOPY 1999 RSV VACCINE (1 - Risk 60-74 years 1-dose series) 2014 ZOSTER VACCINES (2 of 2) 02/04/2021 12/10/2020 COVID-19 VACCINE (5 - season) 2025 08/13/2024, 12/10/2020, 05/03/2020, Additional history exists POTASSIUM LEVEL 07/20/2025 07/20/2024, 06/07, 04/10/2024 Adult Td,Tdap Booster 12/29/2027 12/28/2017 PNEUMOCOCCAL VACCINES (50+ years) Completed 03/02/2021, 09/30/2020 HEPATITIS C SCREENING Completed 04/10/2024 SMOKING STATUS SCREENING (Once After 26 Yrs) Completed 06/22/2024 HEPATITIS A VACCINES Aged Out No long er eligible based on patient's age to complete this topic HIB VACCINES Aged Out No longer eligi ble based on patient's age to complete this topic MENINGOCOCCAL VACCINES (ACWY) Aged Out No longer eligible based on patient's age to complete this topic MENINGOCOCCAL VACCINES (B) Aged Out N o longer eligible based on patient's age to complete this topic Medical Devices Not on file Procedures Procedure Name Priority Date/Time Associated Diagnosis Comments BD DXA AXIAL (SPINE) WITH HIP Routine 08/20/2024 1:30 PM EDT 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 OUTSIDE PATHOLOGY 08/01/2024 OUTSIDE PROCEDURE 07/23/2024 INTERPRETIVE LAB REPORT Routine 07/20/2024 11:19 AM EDT ANGIOTENSIN CONVERTING ENZYME, BLOOD Routine 07/20/2024 11:19 AM EDT Antineutrophil cytoplasmic antibody (ANCA) positive HEPATITIS B SURFACE ANTIBODY Routine 07/20/2024 11:19 AM EDT Need for hepatitis B screening test ANTI-NEUTROPHIL CYTOPLASMIC ANTIBODY (ANCA) Routine 07/20/2024 11:19 AM EDT Antineutrophil cytoplasmic antibody (ANCA) positive 1-25-OH VITAMIN D Routine 07/20/2024 11: 19 AM EDT Antineutrophil cytoplasmic antibody (ANCA) positive COMPREHENSIVE METABOLIC PANEL Routine 07/20/2024 11:19 AM EDT 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 HEPATITIS B SURFACE ANTIGEN Routine 07/20/2024 11:19 AM EDT Need for hepatitis B screening test T SPOT TB TEST Routine 07/20/2024 11:19 AM EDT Antineutrophil cytoplasmic antibody (ANCA) positive HEPATITIS B CORE ANTIBODY, TOTAL Routine 07/20/2024 11:19 AM EDT Need for hepatitis B screening test ANCA VASCULITIS PANEL (MRO AND PR3) Routine 06/22/2024 2:32 PM EDT Antineutrophil cytoplasmic antibody (ANCA) positive ANTI-NEUTROPHIL CYTOPLASMIC ANTIBODY (ANCA) Routine 06/22/2024 2:32 PM EDT Antineutrophil cytoplasmic antibody (ANCA) positive COMPREHENSIVE METABOLIC PANEL Routine 06/22/2024 2:32 PM EDT Antineutrophil cytoplasmic antibody (ANCA) positive CBC AND DIFFERENTIAL Routine 06/22/2024 2:32 PM EDT Antineutrophil cytoplasmic antibody (ANCA) positive SEDIMENTATION RATE (ESR) Routine 06/22/2024 2:32 PM EDT Antineutrophil cytoplasmic antibody (ANCA) positive HEPATITIS C ANTIBODY, QUALITATIVE Routine 04/10/2024 2:13 PM EST Need for hepatitis C screening test Cardiac sarcoidosis from Last 3 Months or Most Recently Relevant to Health Maintenance Results * BD DXA AXIAL (SPINE) WITH HIP (08/20/2024 1:30 PM EDT) Anatomical Region Laterality Modality Bone Density Bone Density 08/20/2024 1:32 PM EDT Impressions 08/20/2024 1:35 PM EDT Interpretation: Osteopenia. Narrative 08/20/2024 1:35 PM EDT Referred By: PHUONG MARK Indications: Long-Term Steroid Treatment (3 Months or Longer) Scanner: R-Squared A with serial# of [id number] located at [facility] Bone Density Scan (DXA) 08/20/24 Details of prior DXA scans are available by clicking View Full Report BMD T- Z- Skeletal Site gm/cm2 score score BMD Change Since Prior Scan ------ ----- ----- PA Spine (L1-L4) 1.153 0.60 1.50 N/A Total Hip (Left) 0.896 -0.90 -0.20 N/A Femoral Neck (Left) 0.608 -2.40 -1.20 N/A ------ ----- ----- * Denotes significant change when >= 0.022 g/cm2 for the spine, 0.027 g/cm2 for the total hip, 0.029 g/cm2 for the femoral neck. Interpretation: Osteopenia. Technical Quality: Imaging of all sites was of adequate quality. FRAX: Based on FRAX(r) 3.6 ([place] White male), this patient's likelihood of hip fracture is 9.2% and major osteoporotic fracture is 25.6% over the next 10 years. The patient reported the following risks of fracture on a questionnaire: previous fracture as an adult, rheumatoid arthritis and glucocorticoid use. Reviewed By: Frankie Hammond on 08/20/2024 13:35:04 Additional Information: -World Health Organization criteria classify adults based on lowest T-score at PA spine, hip or forearm: Normal (T-score >= -1.0), Osteopenia (T-score between -1 and -2.5), or Osteoporosis (T-score <= -2.5). At [facility], T-scores are compared to peak bone density of a young white gender matched reference population. - For premenopausal women and men under the age of 50, Z-scores (comparison to age, gender, and ethnicity matched reference population) are used: Above expected range for age (Z-score >= 2.0), Within expected range of age (Z-score 1.9 to -1.9), or Below expected range for age (Z-score <= -2.0). - The Bone Health and Osteoporosis Foundation recommends that treatment be considered in men aged more than 50 years and in postmenopausal women with ANY of the following: Prior hip or vertebral fractures; T-score of <= -2.5 at the PA spine or hip; or 10 year fracture probability by FRAX of >= 3% for the hip or >= 20% for major osteoporotic fracture. - The FRAX algorithm (https://www.jaylyn.ac.uk/FRAX/tool.aspx) is designed to predict 10-year fracture risk in treatment-naive adults between the ages of 40 and 90. It is not intended to be used in those receiving pharmacologic osteoporosis treatment. - The TBS is derived from the texture of the DXA spine image and has been shown to be related to bone microarchitecture and fracture risk. This data provides information independent of BMD value. It adds to fracture risk assessment with a FRAX adjusted for TBS score. If your patient had a TBS and qualified for a FRAX score, the reported FRAX score has been adjusted for TBS. TBS Score Interpretation 1.350 and greater Normal bone microarchitecture 1.200 to 1.350 Partially degraded bone microarchitecture 1.200 and less Degraded bone microarchitecture - Including race/ethnicity in the generation of T- or Z-scores or in the FRAX calculation is complicated, and currently undergoing active review to ensure that we can give patients the best information on their risk of fracture. - Click on View Full Report to see subsequent pages with images and prior bone density results. Procedure Note Frankie Hammond MD - 08/20/2024 Referred By: PHUONG MARK Indications: Long-Term Steroid Treatment (3 Months or Longer) Scanner: R-Squared A with serial# of [id number] located at [facility] Bone Density Scan (DXA) 08/20/24 Details of prior DXA scans are available by clicking View Full Report BMD T- Z- Skeletal Site gm/cm2 score score BMD Change Since Prior Scan ------ ----- PA Spine (L1-L4) 1.153 0.60 1.50 N/A Total Hip (Left) 0.896 -0.90 -0.20 N/A Femoral Neck (Left) 0.608 -2.40 -1.20 N/A ------ ----- * Denotes significant change when >= 0.022 g/cm2 for the spine, 0.027g/cm2 for the total hip, 0.029 g/cm2 for the femoral neck. Interpretation: Osteopenia. Technical Quality: Imaging of all sites was of adequate quality. FRAX: Based on FRAX(r) 3.6 ([place] White male), this patient's likelihood of hip fracture is 9.2% and major osteoporotic fracture is 25.6% over thenext 10 years. The patient reported the following risks of fracture on a questionnaire: previous fracture as an adult, rheumatoid arthritis and glucocorticoid use. Reviewed By: Frankie Hammond on 08/20/2024 13:35:04 Additional Information: -World Health Organization criteria classify adults based on lowestT-score at PA spine, hip or forearm: Normal (T-score >= -1.0), Osteopenia (T-score between -1 and -2.5), or Osteoporosis (T-score <= -2.5). At [facility], T-scores are compared to peak bone density of ayoun white gender matched reference population. - For premenopausal women and men under the age of 50, Z-scores(comparison to age, gender, and ethnicity matched reference population) are used:Above expected range for age (Z-score >= 2.0), Within expected range of age (Z-score 1.9 to -1.9), or Below expected range for age (Z-score <= -2.0). - The Bone Health and Osteoporosis Foundation recommends that treatment be considered in men aged more than 50 years and in postmenopausal women with ANY of the following: Prior hip or vertebral fractures; T-score of <= -2.5 at the PA spine or hip; or 10 year fracture probability by FRAX of >= 3%for the hip or >= 20% for major osteoporotic fracture. - The FRAX algorithm (https://www.jaylyn.ac.uk/FRAX/tool.aspx) is designed to predict 10-year fracture risk in treatment-naive adultsbetween the ages of 40 and 90. It is not intended to be used in those receiving pharmacologic osteoporosis treatment. - The TBS is derived from the texture of the DXA spine image and has been shown to be related to bone microarchitecture and fracture risk. This data provides information independent of BMD value. It adds to fracture risk assessment with a FRAX adjusted for TBS score. If your patient had a TBSand qualified for a FRAX score, the reported FRAX score has been adjusted for TBS. TBS Score Interpretation 1.350 and greater Normal bone microarchitecture 1.200 to 1.350 Partially degraded bone microarchitecture 1.200 and less Degraded bone microarchitecture - Including race/ethnicity in the generation of T- or Z-scores or in the FRAX calculation is complicated, and currently undergoing active review to ensure that we can give patients the best information on their risk of fracture. - Click on View Full Report to see subsequent pages with images andprior bone density results. IMPRESSION: Interpretation: Osteopenia. us Phuong Mark MD, MPH IMG BD BONE DENSITY DEXA F inal Result * Outside Pathology (08/01/2024) us Scanning Interface Provider PATHOLOGY ORDERABLES Final Result * Outside Procedure (07/23/2024) us Scanning Interface Provider PROCEDURE/MINOR SURG ICAL PERFORMABLES Final Result * Interpretive Lab Report (07/20/2024 11:19 AM EDT) 07/20/2024 11:1 9 AM EDT 07/23/2024 1:36 PM EDT Narrative SEE NARRATIVE - 07/29/2024 4:17 [place] [address] [employer] Driving: Baltazar Gomez MD CLIA ID # [id number] Laboratory Report Anti-Neutrophil Cytoplasmic Antibody Testing Patient Name: WILFRID PINEDA : 1955 (Age: 69) Sex: M Institution: [facility] Location: [place] [address] Date of Collection: 07/20/2024 Date of Reported: 07/29/2024 16:17 Results To: Phuong Mark MD SPECIMENS RECEIVED: A: BLOOD #[id number] ANCA POSITIVE. NOTE: Indirect immunofluorescence testing for anti-neutrophil cytoplasm antibodies (ANCA) is positive with a (christina) nuclear pattern of staining (P-ANCA). RUBI confirms the presence of antibodies to myeloperoxidase. Antibody activity is measured at 2,432 units. A test of 2.8 or more units is considered positive. RUBI for antibodies to proteinase 3 is negative. INTERPRETATION: The presence of antibodies to myeloperoxidase found in this patient's serum is virtually diagnostic (in the appropriate clinical setting) of granulomatosis with polyangiitis,microscopic polyangiitis, idiopathic necrotizing and crescentic glomerulonephritis, or a related form of vasculitis. Flares of disease are usually preceded by rises in titer. Patients responding to therapy usually have a falling titer, although rare patients maintain a high titer even after their disease becomes quiescent. Please call the [facility] Immunopathology Laboratory at [phone] with questions or concerns regarding ANCA tests. These tests were developed, and their performance characteristics determined by the Immunopathology Laboratory at the [facility]. Their characteristics have been published: Journal of the [place] [employer] of Nephrology 2:27-36, 1990; Human Pathology 24:170-8, 1992; Archives of Internal Medicine 156:440-5; Annals of Internal Medicine 126:866-73, 1996. These tests have not been cleared or approved by the U.S. Food and Drug Administration (FDA). The FDA has determined that clearance or approval is not necessary. Electronically Signed Out By: Tomas Rose MD Phuong Mark MD, MPH PATHOLOGY ORDERABLES Final Result SEE NARRATIVE * (ABNORMAL) Comprehensive metabolic panel (07/20/2024 11:19 AM EDT) Only the most recent of2 resultswithin the time period is included. SODIUM 142 135 - 145 mmol/L [facility] POTASSIUM 3.9 3.4 - 5.0 mmol/L [facility] CHLORIDE 99 98 - 108 mmol/L [facility] CO2 26 23 - 32 mmol/L [facility] BUN 67(H) 8 - 25 mg/dL [facility] CREATININE 2.13(H) 0.60 - 1.30 mg/dL [facility] GLUCOSE 66(L) 70 - 110 mg/dL [facility] ALBUMIN 4.2 3.3 - 5.0 g/dL [facility] TOTAL PROTEIN 7.1 6.0 - 8.3 g/dL [facility] CALCIUM 9.0 8.5 - 10.5 mg/dL [facility] ALKALINE PHOSPHATASE 117(H) 45 - 115 U/L [facility] TOTAL BILIRUBIN 0.8 0.0 - 1.0 mg/dL [facility] AST 25 10 - 40 U/L [facility] ALT 27 10 - 55 U/L [facility] GLOBULIN 2.9 1.9 - 4.1 g/dL [facility] EGFR 33(L) >59 mL/min/1. 73m2 [facility] Comment:Estimated glomerular filtration rate calculated using the CKD-EPI refit equation. ANION GAP 17 3 - 17 mmol/L [facility] 07/20/2024 11:1 9 AM EDT 07/20/2024 3:46 PM EDT us Diego Reyna MD LAB BLOOD ORDERABLES Final Res ult [facility] [address] [place] [address] * T spot TB test (07/20/2024 11:19 AM EDT) T-SPOT.TB Negative Negative [facility] Comment: (NOTE) A negative test result does not exclude the possibility of exposure to or infection with Mycobacterium tuberculosis (M. tuberculosis). Patients with recent exposure to TB infected individuals exhibiting a negative T-SPOT.TB result should be considered for retesting within 6 weeks or if other relevant clinical symptoms indicate. Results from T-SPOT.TB testing must be used in conjunction with each individual's epidemiological history, current medical status, and results of other diagnostic evaluations. The T-SPOT.TB test is qualitative and results are reported as positive, borderline, or negative, given that the test controls perform as expected. In line with the Centers for Disease Control and Prevention's 2010 recommendation to report quantitative measurements alongside the qualitative result, the laboratory provides spot counts for informational purposes only. The T-SPOT.TB test should not be interpreted as a quantitative test. Panel A Spot Count Corrected For Neg Control 0 [facility] Panel B Spot Count Corrected For Neg Control 1 [facility] Negative Control Passed [facility] Positive Control Passed [facility] Comment: (NOTE) For additional information, please refer to http://education.[employer]/faq/PYK868 (This link is being provided for informational/ educational purposes only.) 07/20/2024 11:1 9 AM EDT 07/20/2024 12:44 PM EDT Phuong Mark MD, MPH LAB BLOOD ORDERABLES Final Result [facility] [address] [place], [place] * Hepatitis B core antibody, total (07/20/2024 11:19 AM EDT) HEP B CORE AB, TOT Negative Negative [facility] Comment:A nonreactive final interpretation indicates that anti-HBc antibodies were not detected in the sample. It is possible that the individual is not infected with HBV. 07/20/2024 11:1 9 AM EDT 07/20/2024 3:45 PM EDT Phuong Mark MD, MPH LAB BLOOD ORDERABLES Final Result Performing Organization Address [facility] Co de Phone Number [address] [address] * (ABNORMAL) 1-25-OH vitamin D (07/20/2024 11:19 AM EDT) 1,25 (OH) 2 Vitamin D3 16(L) 18 - 64 pg/mL [facility] Comment: (NOTE) ADDITIONAL INFORMATION This test was developed and its performance characteristics determined by [facility] in a manner consistent with CLIA requirements. This test has not been cleared or approved by the U.S. Food and Drug Administration. 07/20/2024 11:1 9 AM EDT 07/20/2024 3:45 PM EDT Phuong Mark MD, MPH LAB BLOOD ORDERABLES Final Result [facility] [address] [place] [address] * Hepatitis B surface antibody (07/20/2024 11:19 AM EDT) HBV SURFACE AB,QUANT <3.31 mIU/mL [facility] Comment:Results less than 12 .00 mIU/mL are not consistent with protective immunity. Results of 12.00 mIU/mL or more indicate protective immunity. HBV SURFACE AB,QUAL Negative [facility] Comment:Patient is considere d not immune to HBV infection. 07/20/2024 11:1 9 AM EDT 07/20/2024 3:45 PM EDT us Phuong Mark MD, MPH LAB BLOOD ORDERABLES Final Result Performing Organization Address City/[facility]/ZIP Co de Phone Number [address] [address] * Hepatitis B surface antigen (07/20/2024 11:19 AM EDT) Pathologist [facility] HBV SURFACE ANTIGEN Negative Negative [facility] 07/20/2024 11:1 9 AM EDT 07/20/2024 3:45 PM EDT us Phuong Mark MD, MPH LAB BLOOD ORDERABLES Final Result Performing Organization Address [facility] Co de Phone Number [address] [address] * Anti-Neutrophil Cytoplasmic Antibody (ANCA) (07/20/2024 11:19 AM EDT) Only the most recent of2 resultswithin the time period is included. Pathologist [facility] ANCA (IMMUNOPATH) Specimen received in [facility] Core Laboratory. Testing will be performed in [facility] Immunopathology Laboratory. Results, when available, will be available as Pathology Reports. [facility] 07/20/2024 11:1 9 AM EDT 07/20/2024 3:46 PM EDT us Phuong Mark MD, MPH LAB BLOOD ORDERABLES Final Result Performing Organization Address City/[facility]/ZIP Co de Phone Number [address] [address] * Angiotensin converting enzyme, blood (07/20/2024 11:19 AM EDT) ANGIOTENSIN CONV. ENZ 34 16 - 85 U/L [facility] DPT OF LAB MED AND PAT+ 07/20/2024 11:1 9 AM EDT 07/20/2024 3:45 PM EDT Phuong Mark MD, MPH LAB BLOOD ORDERABLES Final Result Performing Organization Address City/[facility]/ZIP Co de Phone Number [facility] DPT OF LAB MED AND PAT+ [address] [place] [address] * (ABNORMAL) ANCA Vasculitis Panel (MPO and PR3) (06/22/2024 2:32 PM EDT) [facility] MYELOPEROXIDASE AB 4.3(H) <0.4 (Negative ) U [facility] Comment: (NOTE) Interpretation: Positive (>=1.0) PROTEINASE 3 AB 0.6(H) <0.4 (Negative ) U [facility] Comment: (NOTE) Interpretation: Equivocal (0.4-0.9) Blood 06/22/2024 2:32 PM EDT 06/22/2024 2:35 PM EDT Diego Reyna MD LAB BLOOD ORDERABLES Final Res ult Performing Organization Address [facility] Co de Phone Number [facility] MED/[address] [place] [address] * (ABNORMAL) Sedimentation rate (ESR) (06/22/2024 2:32 PM EDT) [facility] ESR 39(H) 0 - 20 mm/h [facility] Blood 06/22/2024 2:32 PM EDT 06/22/2024 2:35 PM EDT Diego Reyna MD LAB BLOOD ORDERABLES Final Res ult [facility] [address] [place] [address] * (ABNORMAL) CBC and differential (06/22/2024 2:32 PM EDT) WBC 4.65 4.00 - 11.00 K/uL [facility] RBC 3.88(L) 4.50 - 5.90 M/uL [facility] HGB 12.5(L) 13.5 - 17.5 g/dL [facility] HCT 37.3(L) 41.0 - 53.0 % [facility] PLT 149(L) 150 - 450 K/uL [facility] MCV 96.1 80.0 - 100.0 fL [facility] MCH 32.2(H) 27.0 - 31.0 pg [facility] MCHC 33.5 32.0 - 36.0 g/dL [facility] RDW 13.0 11.5 - 14.5 % [facility] MPV 11.9 8.4 - 12.0 fL [facility] NRBC 0.00 0.00 /100 WBCs [facility] ABSOLUTE NRBC 0.00 0.00 K/uL [facility] DIFF METHOD Auto [facility] NEUTS 72.5 48.0 - 76.0 % [facility] LYMPHS 16.6(L) 18.0 - 41.0 % [facility] MONOS 7.1 4.0 - 11.0 % [facility] EOS 3.0 0.0 - 5.0 % [facility] BASOS 0.6 0.0 - 1.5 % [facility] Granulocytes, immature (%) 0.2 0.0 - 0.9 % [facility] ABSOLUTE NEUTS 3.37 1.92 - 7.60 K/uL [facility] ABSOLUTE LYMPHS 0.77 0.72 - 4.10 K/uL [facility] ABSOLUTE MONOS 0.33 0.16 - 1.10 K/uL [facility] ABSOLUTE EOS 0.14 0.00 - 0.50 K/uL [facility] ABSOLUTE BASOS 0.03 0.00 - 0.15 K/uL [facility] Granulocytes, immature 0.01 0.00 - 0.09 K/uL [facility] Blood 06/22/2024 2:32 PM EDT 06/22/2024 2:35 PM EDT us Diego Reyna MD LAB BLOOD ORDERABLES Final Res ult Performing Organization Address City/[facility]/ZIP Co de Phone Number [address] [address] * Hepatitis C antibody, qualitative (04/10/2024 2:13 PM EST) HCV NON-REACTIV E NON-REACTI VE [facility] Blood 04/10/2024 2:13 PM EST 04/10/2024 2:30 PM EST us Diego Reyna MD LAB BLOOD ORDERABLES Final Res ult Performing Organization Address [facility] Co de Phone Number [address] [address] from Last 3 Months or Most Recently Relevant to Health Maintenance Insurance [employer] PPO REPLACEMENT [employer] PPO REPLACEMENT [employer] PPO REPLACEMENT [employer] REPLACEMENT [employer] PPO REPLACEMENT [employer] PPO REPLACEMENT Care Teams Prop And Effects Designer Relationship Specialty Start Date End Date Juancarlos Johnson MD [address] [place] [address] PCP - General Internal Medicine 03/23/24 Additional Source Comments The information contained in this document represents components of the legal health record. It is not the complete legal health record.[facility]
--- OUTSIDE RECORDS SUMMARY | 2024-09-05 14:05 | XMS_ITS ---
Author Name [facility] Organization Unknown Care Team Organization Name Specialty Phone Email Start Date End Da chas [facility] DUNIA BASS Primary Care 12/15/2021 09/26/19 24
--- NOTE | 2024-09-05 14:09 | HO.NEPHOV ---
Vital Signs 09/05/24 14:11 Height 5 ft 10 in Weight 259 lb 6 oz BMI 37.2 BP 120/72 Blood Pressure Location Lt brachial Position Sitting Pulse 81 Pulse Source Pulse Oximeter Pulse Oximetry (%) 97 Oxygen Delivery Method Room Air Intake Visit Reasons: 3 MO FU-LVM Embroidery Specialist Required: No Accompanied by: Self / Same As Patient Allergies Sulfa (Sulfonamide Antibiotics) Allergy (Verified 09/05/24 14:10) Unknown HPI Comments Details: Wilfrid was seen in follow up of CKD . He has CKD 3 at baseline. He has H/O non ischemic cardiomyopathy as well as A Fib and had undergone watchman device . He is not on Xarelto anymore. He had a negative cardiac MRI but cardiac PET in Mar 2024 showed multifocal hypermetabolic uptake within the left ventricular wall suggestive of inflammatory process. He also had right pleurodesis for recurrent pleural effusion. He also has history of mediastinal and hilar lymphadenopathy. He has not taken any prednisone or concurrent steroid sparing treatment with methotrexate for possible cardiac sarcoid. Continued workup found him to have p-ANCA positivity and MATT with a serum creatinine going up to 2.8. 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 In the biopsy he had 20 % global glomerulosclerosis with tubular atrophy/ interstitial fibrosis of 20-25 % with moderate vascular sclerosis. He did see a Certified Surgical Assistant in [facility]. His recent labs are pending. He did not specify any new systemic complaints at the time this office visit. [facility] Medical History (Updated 06/10/24 @ 09:29 by Eric Taylor MD) Presence of Watchman left atrial appendage closure device Spinal stenosis Sleep apnea Recurrent right pleural effusion Paroxysmal atrial fibrillation Obesity, morbid Mediastinal adenopathy Major depressive disorder with single episode Hypertension Hyperlipidemia Gout Congestive heart failure Cardiac sarcoidosis Anserine bursitis Achilles tendonitis Surgical History Hx of vasectomy History of lung surgery H/O hernia repair Family History Father Heart disease Diabetes Mother H/O cancer of gall bladder Social History Alcohol intake: never Patient Tobacco Use Status: Never used Tobacco Review of Systems Const All systems reviewed & are unremarkable except as noted in HPI and below Physical Exam Vital Signs: Last Vital Signs Pulse 81 09/05/24 14:11 BP 120/72 09/05/24 14:11 Pulse Ox 97 09/05/24 14:11 Oxygen Delivery Method Room Air 09/05/24 14:11 BMI result Body Mass Index 37.2 Const General: comfortable and no acute distress Orientation/consciousness: patient oriented x3 HEENT Head: Yes normocephalic Mouth: Normal oral and palatal mucosa present Eyes EOM: EOMs intact bilaterally Neck Neck: Yes supple Resp Auscultation: clear to auscultation bilaterally Cardio Jugular venous distension: no JVD Rate: regular rate GI Palpation (GI): Soft to palpation Auscultation: normal bowel sounds General: Yes no CVA tenderness Back/Spine/Pelvis Back: no CVA tenderness Skin General skin exam: no rashes or lesions noted Neuro General: patient oriented x3 and moves all extremities Extrem General: Yes no pedal edema Results Reviewed Nephrology Results: Hgb, (14.0-18.0) 11.1 g/dl L 04/23/24 WBC, (4.8-10.8) 4.4 X10*3/uL L 04/23/24 Plt Count, (160-400) 175 X10*3/uL 04/23/24 Sodium, (135-145) 141 mmol/L Today Potassium, (3.3-5.1) 4.2 mmol/L Today Chloride, (96-108) 103 mmol/L Today Carbon Dioxide, (22-29) 24 mmol/L Today BUN, (9-16) 86 mg/dL H Today Creatinine, (0.5-1.4) 2.18 mg/dL H Today Urine Protein, (Neg-Trace) Negative mg/dL Today Urine Creatinine 35.31 mg/dL Today Protein/Creatinin Ratio TNP Today Assessment & Plan Assessment & Plan (1) CKD stage 3b, GFR 30-44 ml/min: Code(s): N18.32 - Chronic kidney disease, stage 3b Category: Medical (2) Hypertension: Code(s): I10 - Essential (primary) hypertension Category: Medical Qualifiers: Hypertension type: primary hypertension Qualified Code(s): I10 - Essential (primary) hypertension (3) P-ANCA and MPO antibodies positive: Code(s): R76.8 - Other specified abnormal immunological findings in serum Category: Medical Plan Wilfrid has MATT on a backdrop of CKD with a serum creatinine going up to 2.8 which has improved to 2.18. He has multisystem involvement including cardiac, pulmonary and renal. He was thought to have cardiac sarcoid but has not had any tissue diagnosis. He is on Farxiga and diuretics but not on any JUAN JOSE inhibitor, ARB, Entresto. His recent p-ANCA came back as positive but repeated one pending. 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 In the biopsy he had 20 % global glomerulosclerosis with tubular atrophy/ interstitial fibrosis of 20-25 % with moderate vascular sclerosis. I did not make any medication changes today but rather discussed his renal biopsy report and future plan for continued care. All questions were answered. Follow-up given Orders: Orders Hepatitis C Antibody Reflex Today I10 - Essential (primary) hypertension, N18.32 - Chronic kidney disease, stage 3b, R76.8 - Other specified abnormal immunological findings in serum Hepatitis B Surface Antigen Today I10 - Essential (primary) hypertension, N18.32 - Chronic kidney disease, stage 3b, R76.8 - Other specified abnormal immunological findings in serum Cryoglobulin Today I10 - Essential (primary) hypertension, N18.32 - Chronic kidney disease, stage 3b, R76.8 - Other specified abnormal immunological findings in serum Anti DNA DS Antibody Today I10 - Essential (primary) hypertension, N18.32 - Chronic kidney disease, stage 3b, R76.8 - Other specified abnormal immunological findings in serum Anti Glomerular Basement Memb Today I10 - Essential (primary) hypertension, N18.32 - Chronic kidney disease, stage 3b, R76.8 - Other specified abnormal immunological findings in serum Complement C4 Today I10 - Essential (primary) hypertension, N18.32 - Chronic kidney disease, stage 3b, R76.8 - Other specified abnormal immunological findings in serum Protein Creatinine Ratio, Ur Today I10 - Essential (primary) hypertension, N18.32 - Chronic kidney disease, stage 3b, R76.8 - Other specified abnormal immunological findings in serum UA and rflx microscopic Today I10 - Essential (primary) hypertension, N18.32 - Chronic kidney disease, stage 3b, R76.8 - Other specified abnormal immunological findings in serum Hemoglobin A1c Today I10 - Essential (primary) hypertension, N18.32 - Chronic kidney disease, stage 3b, R76.8 - Other specified abnormal immunological findings in serum ANCA Vasculitides Today I10 - Essential (primary) hypertension, N18.32 - Chronic kidney disease, stage 3b, R76.8 - Other specified abnormal immunological findings in serum Hepatitis B Core Antibody Today I10 - Essential (primary) hypertension, N18.32 - Chronic kidney disease, stage 3b, R76.8 - Other specified abnormal immunological findings in serum Myeloperoxidase Antibody Today I10 - Essential (primary) hypertension, N18.32 - Chronic kidney disease, stage 3b, R76.8 - Other specified abnormal immunological findings in serum Proteinase 3 PR3 Antibodies Today I10 - Essential (primary) hypertension, N18.32 - Chronic kidney disease, stage 3b, R76.8 - Other specified abnormal immunological findings in serum Immunofixation Pnl, Serum Today I10 - Essential (primary) hypertension, N18.32 - Chronic kidney disease, stage 3b, R76.8 - Other specified abnormal immunological findings in serum Complement C3 Today I10 - Essential (primary) hypertension, N18.32 - Chronic kidney disease, stage 3b, R76.8 - Other specified abnormal immunological findings in serum Phospholipase A2 Receptor Pnl Today I10 - Essential (primary) hypertension, N18.32 - Chronic kidney disease, stage 3b, R76.8 - Other specified abnormal immunological findings in serum Rheumatoid Factor Today I10 - Essential (primary) hypertension, N18.32 - Chronic kidney disease, stage 3b, R76.8 - Other specified abnormal immunological findings in serum Medications: New dapagliflozin propanediol (Farxiga) 5 mg PO DAILY 90 tabs 4RF Coding Level of Care Code Est Pt Level 4 (33033) Diagnoses CKD stage 3b, GFR 30-44 ml/min N18.32 Primary hypertension I10 Hypertension type: primary hypertension P-ANCA and MPO antibodies positive R76.8
[2024-09-05 14:11] VITALS: BP 120/72; PULSE 81; O2SAT 97; BMI 37.2
== END 2024-09-05 14:33 | disposition home or self-care (01) ==
PROVIDERS: PCP Internal Medicine; Visit Provider Internal Medicine Nephrology
DX: N18.32 Chronic kidney disease, stage 3b (principal); I10 Essential (primary) hypertension; R76.8 Other specified abnormal immunological findings in serum
CPT/HCPCS: 99214

== ENCOUNTER 2024-09-07 12:38 | Outpatient (REF) | payer MEDICARE, SELFPAY ==
--- OUTSIDE RECORDS SUMMARY | 2023-11-10 15:17 | XMS_ITS | Encounter Summary ---
Author Organization [facility] Address [address] [place] [address] Care Team Providers Care Auto Body Painter Name Role Phone Juancarlos Johnson MD Primary Care Provider [phone] Encounter Details Date Type Department Care Team (Latest Contact Info) Description 11/10/2023 3:17 PM EDT Hospital Encounter TH HISTORIC ENCOUNTERS EASTERN CONVERSION ONLY Malini Rivero PA 299 [facility], [address] [place] [address] Pleural effusion, not elsewhere classified Social History [...] care for your loved ones. For example, teacher early childhood development or elderly care for an older adult? [...] AM EDT Office Visit Internal Medicine - [place] 175 [facility] 200 [place] [address] Juancarlos Johnson MD 175 [facility] 200 [place] [address] 10/18/2024 1:00 PM EDT Office Visit Nephrology - [place] 444 [place] [phone] Guanaco Adorno MD [address] [address] documented as of this encounter Procedures Procedure Name Priority Date/Time Associated Diagnosis Comments CHEST ROUTINE 2 VIEWS Routine 11/10/2023 3:36 PM EDT Pleural effusion, not elsewhere classified documented in this encounter Results * CHEST ROUTINE 2 VIEWS (11/10/2023 3:36 PM EDT) Anatomical Region Laterality Modality Radiographic Yulissa ging 11/10/2023 3:22 PM EDT Narrative 11/10/2023 3:36 PM EDT [facility] Diagnostic Imaging Department [address] [place] [address] Patient: WILFRID PINEDA Sharifa Pennington/Age/Sex: 1955 - 68 - M Unit#: [id number] Location/Status: SPDIGEN/REG CLI Mnemonic/Ordering Site: CHESTXR/SPDI Ordering Physician: MALINI RIVERO Chest Routine 2 Views - 11/10/23 - 8252 Report Status:Signed Chest Routine 2 Views INDICATION: [...] Procedure Note Marquise Donis MD - 12/06/2023 [facility] Diagnostic Imaging Department [address] [place] [address] Patient: MARY KATESANTOSWILFRID./Age/Sex: 1955 - 68 - M Unit#: [id number] Location/Status: SPDIGEN/REG CLI Mnemonic/Ordering Site: CHESTXR/SPDI Ordering [...] classified documented in this encounter Care Teams Auto Body Painter Relationship Specialty Start Date End Date Juancarlos Johnson MD PCP - General Internal Medicine 12/28/12 02/29/24 documented as of this encounter
--- OUTSIDE RECORDS SUMMARY | 2024-09-07 12:42 | XMS_ITS | Clinical Summary ---
Author Organization [facility] Address [address] [place] [address] Care Team Providers Care Website Developer Name Role Phone Juancarlos Johnson MD [...] age to complete this topic Care Teams Website Developer Relationship Specialty Start Date End Date Juancarlos Johnson MD PCP - General Internal Medicine 08/24/21
--- OUTSIDE RECORDS SUMMARY | 2024-09-07 12:42 | XMS_ITS | Encounter Summary ---
Author Organization [facility], Address [address] [place] [address] Phone Care Team Providers Care Vision Rehabilitation Therapist Name Role Phone Juancarlos Johnson MD Primary Care Provider [phone] Encounter Details Date Type Department Care Team (Late st Contact Info) Description 05/25/2023 Documentation Only [facility], [address] [place] [id number] [address] [place] [address] [place] [address] Social History Tobacco Use Types Packs/Day Years [...] on filedocumented in this encounter Care Teams Vision Rehabilitation Therapist Relationship Specialty Start Date End Date Juancarlos Johnson MD [address] [address] PCP - General Internal Medicine 05/25/23 documented as of this encounter
[2024-09-10 22:38] LABS: Proteinase 3 PR3 Antibodies <1.0 AI
[2024-09-13 22:53] LABS: Cryoglobulin, Qual Negative (Negative)
== END 2024-09-07 12:39 | disposition home or self-care (01) ==
LOC: HO.LAB 12:38
PROVIDERS: PCP Internal Medicine; Visit Provider Internal Medicine Nephrology
DX: I12.9 Hypertensive chronic kidney disease with stage 1 through stage 4 chronic kidney disease, or unspecified chronic kidney disease (principal); N18.32 Chronic kidney disease, stage 3b; R76.8 Other specified abnormal immunological findings in serum
CPT/HCPCS: 36415; 82595; 86021

== ENCOUNTER 2024-10-12 10:09 | Outpatient (AMB) | payer MEDICARE, SELFPAY ==
--- OUTSIDE RECORDS SUMMARY | 2023-11-10 15:17 | XMS_ITS | Encounter Summary ---
Author Organization [facility] Address [address] [place] [address] Care Team Providers Care Speech Language Pathologist Assistant Name Role Phone Juancarlos Johnson MD Primary Care Provider [phone] Encounter Details Date Type Department Care Team (Latest Contact Info) Description 11/10/2023 3:17 PM EDT Hospital Encounter TH HISTORIC ENCOUNTERS EASTERN CONVERSION ONLY Malini Rivero PA [address] [place] [phone] Pleural effusion, not elsewhere classified Social History [...] your loved ones. For example, early childhood education coordinator or elderly care for an older adult? [...] What is your living situation? 0 08/10/2024 Interpersonal Safety Answer Date Record ed Physical Abuse 10/10/2024 Verbal Abuse 10/10/2024 Sex and Gender Information Value Date Recorded Sex Assigned at Male 05/07/2024 12:46 PM EDT Legal Sex Male 11:46 PM EST Gender Identity Male 05/07/2024 12:46 PM EDT Sexual Orientation Straight 05/07/2024 12 :46 PM EDT documented as of this encounter Plan of Treatment Upcoming Encounters Date Type Department Care Team (Late st Contact Info) Description 10/18/2024 3:10 PM EDT Office Visit [facility] - [facility] [address] 300 [facility] 154 [place] [address] Tatiana Quintana PA [address] [place] [address] Dr Santiago [address] [place] [address] 02/12/2025 9:45 AM EST Office Visit Internal Medicine - [address] [address] Juancarlos Johnson MD 230 [place] [phone] 03/19/2025 8:00 AM EST Office Visit Pulmonolgy - [place] [address] [phone] Gabbi Anglin MD 175 [facility] 200 [place], [place] [phone] documented as of this encounter Procedures Procedure [...] [facility] Diagnostic Imaging Department [address] [place], [place] [phone] Patient: ARLENEWILFRID D.O.B./Age/Sex: 1955 - 68 - M Unit#: [id number] Location/Status: SPDIGEN/REG CLI Mnemonic/Ordering Site: CHESTXR/SPDI Ordering Physician: MALINI RIVERO DR Chest Routine 2 Views - 11/10/231526 Report Status:Signed Chest Routine 2 Views INDICATION: [...] Procedure Note Marquise Donis MD - 12/06/2023 [facility] Diagnostic Imaging Department [address] [place] [address] Patient: WILFRID PINEDA Sharifa Negrete./Age/Sex: 1955 - 68 - M Unit#: [id number] Location/Status: SPDIGEN/REG CLI Mnemonic/Ordering Site: CHESTXR/SPDI Ordering Physician: MALINI RIVERO Chest Routine 2 Views - 11/10/231526 Report Status:Signed Chest Routine 2 Views INDICATION: [...] Dic Date/Time: 11/10/23 153 Sign date/Time: 11/10/23 1536 Malini PATTERSON IMG XR PROCEDURES Final Resul t documented in this encounter Visit Diagnoses Diagnosis Pleural effusion, not elsewhere classified documented in this encounter Care Teams Speech Language Pathologist Assistant Relationship Specialty Start Date End Date Juancarlos Johnson MD PCP - General Internal Medicine 12/28/12 02/29/24 documented as of this encounter
--- OUTSIDE RECORDS SUMMARY | 2024-10-09 08:12 | XMS_ITS | Encounter Summary ---
Author Organization [facility] Address [address] [place] [phone] Phone Care Team Providers Care Newspaper Illustrator Name Role Phone Juancarlos Johnson MD Primary Care Provider [phone] Encounter Details Date Type Department Care Team (Latest Contact Info) Description 10/09/2024 8:12 AM EDT - 10/09/2024 10:24 AM EDT Hospital Encounter [facility] [address] [place] [address] Phuong Mark MD, MPH [address] [place] [id number] [email or web address] Discharge Disposition: Home or Self Care Social History Tobacco Use Types Packs/Day Years Used Date Smoking Tobacco: Never Smokeless Tobacco: Never Alcohol Use Standard Drinks/Week Comments Never 0 [...] on file documented as of this encounter Medications at Time of Discharge albuterol 90 mcg/actuation inhaler Inhale 2 puffs into the lungs every 6 (six) hours as needed. 12/29/2023 amLODIPine (NORVASC) 10 MG tablet Take 10 mg by mouth daily. 08/08/2024 amoxicillin (AMOXIL) 500 MG capsule DENTAL APPOINTMENTS 03/09/2024 aspirin 81 MG EC tablet Take 81 mg by mouth. 02/24/2023 atorvastatin (LIPITOR) 40 MG tablet Take 1 tablet by mouth daily. 01/10/2024 dapagliflozin propanediol (FARXIGA) 5 mg tablet 03/22/2024 doxazosin (CARDURA) 2 MG tablet hydrALAZINE (APRESOLINE) 100 MG tablet Take 150 mg by mouth 2 (two) times a day. metoprolol succinate (TOPROL-XL) 25 MG 24 hr tablet Take 25 mg by mouth daily. PARoxetine (PAXIL) 20 MG tablet Take 1 tablet by mouth every morning. 03/27/2024 spironolactone (ALDACTONE) 25 MG tablet TAKE 1 TABLET (25 MG TOTAL) BY MOUTH 1 (ONE) TIME EACH DAY. STOPPING POTASSIUM SUPPLEMENT TAVNEOS 10 mg Cap TAKE 3 CAPSULES (30 MG TOTAL) BY MOUTH TWO TIMES A DAY 180 capsule 1 10/09/2024 torsemide (DEMADEX) 20 MG tablet Take 40 mg by mouth. 02/24/2023 atovaquone (MEPRON) 750 mg/5 mL suspension Take 10 mL (1,500 mg total) by mouth daily. 300 mL 5 06/27/2024 5 clotrimazole (LOTRIMIN) 1 % cream TAKE 1 APPLICATOR (TOPICAL) 2 TIMES PER DAY FOR 2 WEEKS 04/06/2024 5 documented as of this encounter Plan of Treatment Upcoming Encounters Date Type Department Care Team (Late st Contact Info) Description 10/19/2024 10:30 AM EDT Infusion [address] [place], [place] [id number] 01/16/2025 10:00 AM EST Office Visit [facility] Pulmonary, Allergy and Critical Care Medicine [address] [facility] [place] [address] [place] [address] Diego Reyna MD [address] [facility] 2nd [place] [address] [email or web address] 01/22/2025 9:20 AM EST Office Visit [facility] Rheumatology [address], [address] [place] [address] Phuong Mark MD, MPH [address] [facility] [id number] [place] [address] [email or web address] documented as of this encounter Procedures Procedure Name Priority Date/Time Associated Diagnosis Comments LFTS (HEPATIC PANEL) Routine 10/09/2024 8:13 AM EDT ANCA-associated vasculitis documented in this encounter Results * (ABNORMAL) LFTs (hepatic panel) (10/09/2024 8:13 AM EDT) ALKALINE PHOSPHATASE 146(H) 39 - 117 U/L [facility] TOTAL BILIRUBIN 0.8 0.0 - 1.2 mg/dL [facility] DIRECT BILIRUBIN 0.3(H) 0.0 - 0.2 mg/dL [facility] Bilirubin (Indirect) 0.5 0 - 1.5 mg/dL [facility] AST 21 0 - 37 U/L [facility] ALT 14 0 - 40 U/L [facility] TOTAL PROTEIN 6.9 6.5 - 8.0 g/dL [facility] ALBUMIN 4.1 3.9 - 4.8 g/dL [facility] GLOBULIN 2.8 1 - 4.8 g/dL [facility] A/G Ratio 1.46 1.00 - 4.80 RATIO [facility] Blood 10/09/2024 8:13 AM EDT 10/09/2024 8:18 AM EDT us Phuong Mark MD, MPH LAB BLOOD ORDERABLES Final Result [facility] [address] [place] [address] documented in this encounter Visit Diagnoses Diagnosis ANCA-associated vasculitis Other specified disorders of arteries and arterioles documented in this encounter Care Teams Newspaper Illustrator Relationship Specialty Start Date End Date Juancarlos Johnson MD [address] [place] [address] [address] [place] [address] PCP - General Internal Medicine 03/23/24 documented as of this encounter Additional Source Comments The information contained in this document represents components of the legal health record. It is not the complete legal health record.[facility]
--- OUTSIDE RECORDS SUMMARY | 2024-10-09 09:30 | XMS_ITS | Encounter Summary ---
Author Organization [facility] Address [address] [place] [address] Phone Care Team Providers Care Coal Chemist Name Role Phone Juancarlos Johnson MD Primary Care Provider [phone] Reason for Visit * Reason Comments Follow-up Encounter Details Date Type Department Care Team ([facility] st Contact Info) Description 10/09/2024 9:30 AM EDT Office Visit [facility] Pulmonary, Allergy and Critical Care Medicine [address] [place] [phone] Diego Reyna MD [address] [place] [phone] Dyspnea on exertion (Primary Dx); ANCA-associated vasculitis Social History Tobacco Use Types Packs/Day Years [...] Sign Reading Time Taken Comments Blood Pressure 106/60 10/09/2024 9:08 AM EDT Pulse 93 10/09/2024 9:08 AM EDT Temperature 36.4 C (97.5 F) 10/09/2024 9:08 AM EDT Respiratory Rate - - Oxygen Saturation 97% 10/09/2024 9:08 AM EDT Inhaled Oxygen Concentration - - Weight 122.2 kg (269 lb 6.4 oz) 10/09/2024 9:08 AM EDT Height 177.8 cm (5' 10 ) 10/09/2024 9:08 AM EDT Body Mass Index 38.65 10/09/2024 9:08 AM EDT documented in this encounter Progress Notes * Diego Reyna MD - 10/09/2024 9:30 AM EDT Patient: Wilfrid Pineda : 1955 Date: 10/09/2024 Time: 9:04 PM HPI: Wilfrid Pineda is a 69 y.o.male here for pulmonary consultation for history of ANCA positive vasculitis with cardiac involvement. INTERVAL HISTORY: Wilfrid returns for follow-up, last seen here approximately 3.5 months ago. History of nonischemic cardiomyopathy, A-fib with a Watchman device, pleural effusion and lymphadenopathy that was negative on apparent FNA. Cardiac MRI non- diagnostic but Cardiac PET 03/19/2024 suggestive of multifocal inflammatory process. There was additional adenopathy in the mediastinum and right pleural activity. VATSpleurodesis in October required Pleurx for 2 months discontinued in December 2023. Workup here demonstrated mild anemia with lymphopenia, worsening renal function, and alk phos with increased lightchains without monoclonal gammopathy. GALLITO +1: 60 with positive p-ANCA and MPO antibody despite onlymildly elevated ESR. Was sent to nephrology and underwent biopsy. When seen back, no biopsy resultsavailable. Started on prednisone and referred to rheumatology urgently at [facility]. Was seen by Dr. Mark on 07/20/2024. Repeat ANCA testing remained positive and review of the kidney biopsy also abnormal.Plan was to start rituximab and add on a new complement C5 a receptor antagonist, Avacopan 30 mg twice daily to coincide with prednisone taper, decreasing each week. Received first rituximab infusionon 10/01, second dose due 10/19 at [facility]. Remains on atovaquone for PJP prophylaxis. Recommended monthly liver monitoring, drawn today. He is scheduled for rheumatology follow-up with Dr. Mark tomorrow. Today, Wilfrid reports he is not feeling well. States his continued and increased over the last month. Describes feeling SOB with any acitivity -even extended periods of standing, showering. Has noticed recurrent legs swelling and stomach swelling. Feeling of weight gain though has not weighed himself. Thinks this been less urination, especially at night. Awakening from 2-3 times to once per night touse the bathroom. Also new lower back pain - only on left. Remains on Torsemide 40mg and Spironolacotnoe 25mg each daily. Last Echo 09/30. Unsure if scheduled in Oct. Other symptoms are new briuses on arms after minimal trauma or following needle sticks. Last seen by Cards 2 months ago ([facility]). Recommended cardiac ablation but after Rituximab. INITIAL ENCOUNTER 04/10/24: Patient with a history of nonischemic cardiomyopathy with paroxysmal A-fib on Multaq status post watchman device February 2023 who on October 11, 2023 underwent right pleural biopsy with talc pleurodesis and bronchoscopy with subcarinal lymph node aspirate. Pathology apparently negative. ECHO September 2023 with severely dilated LA, mild LVH, EF 45 to 50% with mild MR and TR, mild increased PA pressures with decreased EF compared to April 2023 which were 60 to 65%. PFT February 2023 with lower limit vital capacity, mild restriction mildly and reduced diffusion capacity. Cardiac MRI nondiagnostic.Subsequent Cardiac PET 03/19/2024 with multifocal hypermetabolic uptake within the left ventricular wall (SUV max 3.7) suggestive of inflammatory process, mild adenopathy in the mediastinum with multifocal pleural activity on the right SUV max 7.6) consistent with recent pleurodesis. Previously seen by pulmonary at [facility] last December for evaluation of recurrent pleural effusion. As well as known mediastinal and hilar lymphadenopathy. The time course however is notclear from available records. He did undergo thoracentesis back in July 2023 and then again in September 2023 (08/03/23 and 09/19/23). Due to recurrence, he underwent VATS pleurodesis as described above in October Pleurx catheter placement, subsequently discontinued in December. Of last available blood work from [facility] in 01/12/2024, CKD with creatinine 1.73, mild anemia hemoglobin 11.1 differential with mild lymphopenia 0.76, no eosinophils. Patient recalls symptoms started with WU with stairs 4 yrs ago. Initial management was BP and weight control. However, symptoms gradually worsened. 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 He has upcoming follow-up with his cardiology team. Was seen by ophthalmology/optometry within the last few months (Dr. Modi in [place]). Majority of the visit spent reviewing available data, questioning whether the abnormal cardiac PET findings truly represent cardiac sarcoid versus alternative diagnosis (given his advanced age and negative studies during VATS/bronchoscopy). If confirmed, treatment approach for cardiac sarcoidosis wo uld likely include combination of prednisone and concurrent steroid sparing treatment with methotrexate. Past Medical History: Diagnosis Date Achilles tendonitis 2023 Anserine bursitis Cardiac sarcoidosis Congestive heart failure with low-normal EF (40 - 49%) Gout Hyperlipidemia Hypertensive disorder Major depressive disorder, single episode Mediastinal adenopathy 09/2023 Obesity, morbid Paroxysmal atrial fibrillation Recurrent right pleural effusion 10/2023 Pleurodesis Sleep apnea Spinal stenosis Past Surgical History: Procedure Laterality Date pleurex 10/10/2023 out 12/29/23 THORACOSCOPY W/ TALC PLEURODESIS 10/10/2023 Watchman Device 03/02/2023 Medications: Current Outpatient Medications Medication Sig Dispense Refill Last Dispense albuterol 90 mcg/actuation inhaler Inhale 2 puffs into the lungs every 6 (six) hours as needed. Unknown (patient-reported) amLODIPine (NORVASC) 10 MG tablet Take 10 mg by mouth daily. Unknown (patient-reported) amoxicillin (AMOXIL) 500 MG capsule DENTAL APPOINTMENTS Unknown (patient-reported) aspirin 81 MG EC tablet Take 81 mg by mouth. Unknown (patient-reported) atorvastatin (LIPITOR) 40 MG tablet Take 1 tablet by mouth daily. Unknown (patient-reported) dapagliflozin propanediol (FARXIGA) 5 mg tablet Unknown (patient-reported) doxazosin (CARDURA) 2 MG tablet Unknown (patient-reported) hydrALAZINE (APRESOLINE) 100 MG tablet Take 150 mg by mouth 2 (two) times a day. Unknown (patient-reported) metoprolol succinate (TOPROL-XL) 25 MG 24 hr tablet Take 25 mg by mouth daily. Unknown (patient-reported) PARoxetine (PAXIL) 20 MG tablet Take 1 tablet by mouth every morning. Unknown (patient-reported) spironolactone (ALDACTONE) 25 MG tablet TAKE 1 TABLET (25 MG TOTAL) BY MOUTH 1 (ONE) TIME EACH DAY.STOPPING POTASSIUM SUPPLEMENT Unknown (patient-reported) torsemide (DEMADEX) 20 MG tablet Take 40 mg by mouth. Unknown (patient-reported) atovaquone (MEPRON) 750 mg/5 mL suspension Take 10 mL (1,500 mg total) by mouth daily. (Patient nottaking: Reported on 10/09/2024) 300 mL 5 Unknown (outside pharmacy) clotrimazole (LOTRIMIN) 1 % cream TAKE 1 APPLICATOR (TOPICAL) 2 TIMES PER DAY FOR 2 WEEKS (Patient not taking: Reported on 10/09/2024) Unknown (patient-reported) TAVNEOS 10 mg Cap TAKE 3 CAPSULES (30 MG TOTAL) BY MOUTH TWO TIMES A DAY 180 capsule 1 Unknown (outside pharmacy) No current facility-administered medications for this visit. Allergies: Allergies Allergen Reactions Sulfa (Sulfonamide Antibiotics) Reaction as baby Social History: reports that he has never smoked. He has never used smokeless tobacco. He reports that he does not drink alcohol and does not use drugs. 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 No TB exposure. Pets: none. FH: No known FH of lung disease. Mother with gall bladder cancer. Family History: family history includes Coronary artery disease in his father; Hypertension in his mother. ROS: All systems negative except mentioned in HPI or listed below: Negative except for that described above Vitals: BP 106/60 (BP Location: Left arm, Patient Position: Sitting, Cuff Size: Large) Pulse 93 Temp 36.4 ??C (97.5 ??F) (Skin) Ht 177.8 cm (5' 10 ) Wt 122.2 kg (269 lb 6.4 oz) SpO2 97% BMI 38.65 kg/m?? Physical Exam: Gen: Well-appearing obese 69 y.o.male in no distress HEENT: Sclera anicteric Neck: Supple, no cervical nor supraclavicular lymphadenopathy, no clear JVD nor HJR Lungs: Clear to auscultation bilaterally no adventitial breath sounds appreciated with somewhat distant breath sounds Heart: irregular rate and rhythm, Heart sounds distant Abdomen: Soft, nontender, nondistended, no palpable organomegaly, obese and full? Back: No CVA tenderness Extremities: No cyanosis, no clubbing, new 2-3+ LE edema Neuro: Alert and oriented x 3, grossly nonfocal Labs: Lab Results Component Value Date WBC 9.19 10/09/2024 RBC 4.26 (L) 10/09/2024 HGB 13.9 10/09/2024 HCT 43.2 10/09/2024 PLT 162 10/09/2024 MCV 101.4 (H) 10/09/2024 MCH 32.6 (H) 10/09/2024 MCHC 32.2 10/09/2024 RDW 16.0 (H) 10/09/2024 MVP 11.4 10/09/2024 NRBCA 0.00 10/09/2024 DIFMET Auto 10/09/2024 NEUT 78.9 (H) 10/09/2024 LYMP 11.5 (L) 10/09/2024 MON 7.4 10/09/2024 EOSP 0.9 10/09/2024 ANEU 7.25 10/09/2024 ALYMP 1.06 10/09/2024 AMONS 0.68 10/09/2024 AEOSN 0.08 10/09/2024 ABASOP 0.05 10/09/2024 Imaging: Radiographs reviewed myself and corroborated by radiologists report. CARDIAC PET: 03/19/24 IMPRESSION: Multifocal hypermetabolic activity within the left ventricular wall, consistent with inflammation, suggestive of active sarcoid given the appearance and presence of mild lymphadenopathy in the mediastinum. Multifocal pleural activity on the right side consistent with history of pleurodesis. Mildly distended lymphadenopathy. XR Chest PA and Lateral 2 Views [[id number]] 12/29/2023 (Final) Narrative PA and lateral views of the chest dated 12/29/2023. HISTORY: dyspnea. COMPARISON: 11/10/2023. FINDINGS: Stable moderate cardiomegaly. No pulmonary edema. Mild right-sided pleural thickening or trace pleural fluid, similar to the previous study. No pneumothorax. Mild scarring in the periphery of the midright lung. No evidence of pneumonia. Bones appear demineralized. Impression Mild right pleural thickening or trace pleural fluid, similar to the previous study. Moderate cardiomegaly. CT Chest Without Contrast [[id number]] 12/30/2023 (Final) Narrative Chest CT without intravenous contrast. History chronic dyspnea. Lymphadenopathy. Comparison with prior CTA from 09/19/[address] from 06/15/2023. There are numerous lymph nodes in the mediastinum located in right paratracheal area, left para-aortic area and subcarinal area. The largest lymph node left para-aortic group measures 1.5 x 1.2 cm, the largest 1.3 x 0.8 cm, there is subcarinal lymph node measures 1.6 x 1.4 cm. There are multiple other smaller lymph nodes. There are essentially stable or slightly larger. There is new lymph node located anterior to the descending aorta, axial image #58 measuring 1.4 x 0.9 cm. There are a few smaller retroperitoneal lymph nodes. Not clearly appreciated previously. There is interval resolution of the small left pleural effusion and mild residual right pleural effusion. Again noted is small pericardial effusion. There are atherosclerotic calcifications in the aorta and coronary arteries. There is moderate cardiomegaly. There is new approximately 4 mm subpleural nodule at the right apex, axial image #29. There is small probably calcified nodule in the posterior aspect of the right upper lobe, axial image #110 and anterior aspect of the right upper lobe, axial image 114 measuring approximately 3 mm each. There is no other pulmonary nodules or acute airspace consolidations. There is coarse curvilinear density in the superior segment of the right lower lobe probably representing discoid atelectasis. There is thickening of the internal lobar fissures in the right lung. There is arm subpleural linear opacity at the right base which could represent atelectasis or scarring. Major airways are patent. There is hypodense lesion in the right adrenal gland measuring 1.8 cm most likely adenoma. It is partially included on this study and was not included on previous examination. CONCLUSIONS: New subpleural 4 mm nodule at the right apex laterally. Calcified granulomas in the right upper lobe. Linear opacities in the right lower lobe, probably representing atelectasis. Interval resolution of the left pleural effusion. Tiny residual right pleural effusion. Small pericardial effusion. Cardiomegaly. Mild mediastinal lymphadenopathy as detailed. PFT tracings reviewed. PFT [facility] 03/02/2024: Mild restriction with FVC 65% predicted, normal FEV1 and FVC ratio, TLC 66% predicted with RV 66% predicted and DLCO 50% predicted. Assessment Wilfrid Pineda is a 69 y.o.year old male with Dyspnea on exertion [R06.09] 1. Dyspnea on exertion (Primary) Assessment & Plan: Approximately 4 weeks of progressive exertional dyspnea, lower extremity edema, orthopnea and decreased urine output. Exam suggestive of volume overload but unclear if secondary to heart failure or potentially worsening renal dysfunction as the most likely etiologies in the differential. PLAN: Obtain additional blood work including CBC with differential, basic metabolic panel to check renal function electrolytes, C-reactive protein, sedimentation rate and proBNP possible heart failure. Obtain chest x-ray to rule out evidence of either infection, general volume overload or pulmonary edema/pleural effusions. Recommend he follow-up with cardiology as may need repeat echo particularly for evidence of heart failure. Orders: - XR Chest - NT-proBNP - Basic metabolic panel - CBC and differential - C-Reactive Protein 2. ANCA-associated vasculitis Assessment & Plan: ANCA associated vasculitis with multiorgan involvement including cardiac and pulmonary with pleuraldisease along with renal disease. New skin rash appears more like bruises rather than purpura. Recent platelets normal. He is scheduled for his second infusion of rituximab approximately 10 days, and remains on Avacopanat full dose with LFTs drawn earlier today. Along with labs above, we will recheck inflammatory markers though defer repeat MPO testing unless recommended by Dr. Mark. If he requires future rituximab infusions, I would be happy to prescribe here at [facility] [place] [facility]. Orders: - Sedimentation rate (ESR) Follow-up: Return in about 4 months (around 02/08/2025). Total consultation time 45 minutes documented in this encounter Miscellaneous Notes * Assessment & Plan Note - Diego Reyna MD - 10/09/2024 9:01 PM EDT Associated Problem(s): Dyspnea on exertion Approximately 4 weeks of progressive exertional dyspnea, lower extremity edema, orthopnea and decreased urine output. Exam suggestive of volume overload but unclear if secondary to heart failure or potentially worsening renal dysfunction as the most likely etiologies in the differential. PLAN: Obtain additional blood work including CBC with differential, basic metabolic panel to check renal function electrolytes, C-reactive protein, sedimentation rate and proBNP possible heart failure. Obtain chest x-ray to rule out evidence of either infection, general volume overload or pulmonary edema/pleural effusions. Recommend he follow-up with cardiology as may need repeat echo particularly for evidence of heart failure. * Assessment & Plan Note - Diego Reyna MD - 10/09/2024 9:01 PM EDT Associated Problem(s): ANCA-associated vasculitis ANCA associated vasculitis with multiorgan involvement including cardiac and pulmonary with pleuraldisease along with renal disease. New skin rash appears more like bruises rather than purpura. Recent platelets normal. He is scheduled for his second infusion of rituximab approximately 10 days, and remains on Avacopanat full dose with LFTs drawn earlier today. Along with labs above, we will recheck inflammatory markers though defer repeat MPO testing unless recommended by Dr. Mark. If he requires future rituximab infusions, I would be happy to prescribe here at [facility] to avoid [place] to [facility]. documented in this encounter Plan of Treatment Upcoming Encounters Date Type Department Care Team (Late st Contact Info) Description 10/19/2024 10:30 AM EDT Infusion [address] [place] [address] 01/16/2025 10:00 AM EST Office Visit [facility], Allergy and Critical Care Medicine [address] [place] [address] [place] [address] Diego Reyna MD [address] [facility] 2nd [place] [address] [email or web address] 01/22/2025 9:20 AM EST Office Visit [facility] Rheumatology [address], [address], [address] [place] [address] Phuong Mark MD, MPH [address] [facility] [id number] [place] [address] [email or web address] documented as of this encounter Results * XR CHEST PA AND LATERAL 2 VIEWS (10/09/2024 10:59 AM EDT) Anatomical Region Laterality Modality Chest Computed Radiogr aphy 10/09/2024 12:4 6 PM EDT Impressions 10/09/2024 12:48 PM EDT Right costophrenic angle blunting and right greater than left basilar pleural thickening. CT could be obtained for further evaluation, as clinically warranted. Cardiomegaly without overt congestive failure. Narrative 10/09/2024 12:48 PM EDT XR CHEST PA AND LATERAL 2 VIEWS Referring clinician's provided indication for this examination in [facility]: Dyspnea (Shortness of Breath) COMPARISON: None FINDINGS: Devices/Tubes/Lines: None. Lungs: Moderately well-expanded. No focal confluent airspace infiltrate. No gonzález pulmonary edema. Pleura: Right basal lateral pleural thickening and costophrenic angle blunting. Milder left basal lateral pleural thickening without effusion. Heart/Mediastinum: Cardiomegaly. No gonzález upper lobe pulmonary redistribution. Bones/Soft Tissues: Visualized bony thorax grossly intact. Procedure Note Diego Pickett MD - 10/09/2024 XR CHEST PA AND LATERAL 2 VIEWS Referring clinician's provided indication for this examination in [facility]:Dyspnea (Shortness of Breath) COMPARISON: None FINDINGS: Devices/Tubes/Lines: None. Lungs: Moderately well-expanded. No focal confluent airspace infiltrate.No gonzález pulmonary edema. Pleura: Right basal lateral pleural thickening and costophrenic angleblunting. Milder left basal lateral pleural thickening without effusion. Heart/Mediastinum: Cardiomegaly. No gonzález upper lobe pulmonaryredistribution. Bones/Soft Tissues: Visualized bony thorax grossly intact. IMPRESSION: Right costophrenic angle blunting and right greater than left basilarpleural thickening. CT could be obtained for further evaluation, asclinically warranted. Cardiomegaly without overt congestive failure. us Diego Reyna MD IMG XR CHEST Final Result * (ABNORMAL) C-Reactive Protein (10/09/2024 10:25 AM EDT) Pathologist [facility] C REACTIVE PROTEIN 4.8(H) 0.0 - 4.0 mg/L [facility] Blood 10/09/2024 10:2 5 AM EDT 10/09/2024 10:30 AM EDT Diego Reyna MD LAB BLOOD ORDERABLES Final Res ult Performing Organization Address [facility] Co de Phone Number [address] [phone] * Sedimentation rate (ESR) (10/09/2024 10:25 AM EDT) Pathologist [facility] ESR 6 0 - 20 mm/h [facility] Blood 10/09/2024 10:2 5 AM EDT 10/09/2024 10:30 AM EDT Diego Reyna MD LAB BLOOD ORDERABLES Final Res ult Performing Organization Address [facility] Co de Phone Number [address] [address] * (ABNORMAL) CBC and differential (10/09/2024 10:25 AM EDT) Pathologist [facility] WBC 9.19 4.00 - 11.00 K/uL [facility] RBC 4.26(L) 4.50 - 5.90 M/uL [facility] HGB 13.9 13.5 - 17.5 g/dL [facility] HCT 43.2 41.0 - 53.0 % [facility] PLT 162 150 - 450 K/uL [facility] MCV 101.4(H) 80.0 - 100.0 fL [facility] MCH 32.6(H) 27.0 - 31.0 pg [facility] MCHC 32.2 32.0 - 36.0 g/dL [facility] RDW 16.0(H) 11.5 - 14.5 % [facility] MPV 11.4 8.4 - 12.0 fL [facility] NRBC 0.00 0.00 /100 WBCs [facility] ABSOLUTE NRBC 0.00 0.00 K/uL [facility] DIFF METHOD Auto [facility] NEUTS 78.9(H) 48.0 - 76.0 % [facility] LYMPHS 11.5(L) 18.0 - 41.0 % [facility] MONOS 7.4 4.0 - 11.0 % [facility] EOS 0.9 0.0 - 5.0 % [facility] BASOS 0.5 0.0 - 1.5 % [facility] Granulocytes, immature (%) 0.8 0.0 - 0.9 % [facility] ABSOLUTE NEUTS 7.25 1.92 - 7.60 K/uL [facility] ABSOLUTE LYMPHS 1.06 0.72 - 4.10 K/uL [facility] ABSOLUTE MONOS 0.68 0.16 - 1.10 K/uL [facility] ABSOLUTE EOS 0.08 0.00 - 0.50 K/uL [facility] ABSOLUTE BASOS 0.05 0.00 - 0.15 K/uL [facility] Granulocytes, immature 0.07 0.00 - 0.09 K/uL [facility] Blood 10/09/2024 10:2 5 AM EDT 10/09/2024 10:30 AM EDT Diego Reyna MD LAB BLOOD ORDERABLES Final Res ult Performing Organization Address City/[facility]/ZIP Co de Phone Number [address] [phone] * (ABNORMAL) Basic metabolic panel (10/09/2024 10:25 AM EDT) SODIUM 138 133 - 146 mmol/L [facility] CHLORIDE 100 96 - 108 mmol/L [facility] POTASSIUM 4.4 3.3 - 5.1 mmol/L [facility] CO2 26 21 - 35 mmol/L [facility] BUN 38(H) 6 - 19 mg/dL [facility] CREATININE 2.00(H) 0.5 - 1.5 mg/dL [facility] GLUCOSE 124(H) 70 - 99 mg/dL [facility] CALCIUM 9.1 8.4 - 10.3 mg/dL [facility] EGFR 35(L) >59 mL/min/1.7 3m2 [facility] Comment:Estimated glomerular filtration rate calculated using the CKD-EPI refit equation. ANION GAP 16 10 - 20 mmol/L [facility] Blood 10/09/2024 10:2 5 AM EDT 10/09/2024 10:30 AM EDT Diego Reyna MD LAB BLOOD ORDERABLES Final Res ult Performing Organization Address [facility] Co de Phone Number [address] [address] * (ABNORMAL) NT-proBNP (10/09/2024 10:25 AM EDT) NT-PROBNP 2,417(H) 0 - 450 pg/mL [facility] Blood 10/09/2024 10:2 5 AM EDT 10/09/2024 10:30 AM EDT Diego Reyna MD LAB BLOOD ORDERABLES Final Res ult Performing Organization Address City/[facility]/ZIP Co de Phone Number [address] [phone] documented in this encounter Visit Diagnoses Diagnosis Dyspnea on exertion- Primary Other dyspnea and respiratory abnormality ANCA-associated vasculitis Other specified disorders of arteries and arterioles Dyspnea on exertion Other dyspnea and respiratory abnormality documented in this encounter Care Teams Coal Chemist Relationship Specialty Start Date End Date Juancarlos Johnson MD [address] [place] [address] PCP - General Internal Medicine 03/23/24 documented as of this encounter Additional Source Comments The information contained in this document represents components of the legal health record. It is not the complete legal health record.[facility]
--- OUTSIDE RECORDS SUMMARY | 2024-10-09 10:25 | XMS_ITS | Encounter Summary ---
Author Organization [facility] Address [address] [place] [address] Phone Care Team Providers Care General Utility Maintenance Repairer Name Role Phone Juancarlos Johnson MD Primary Care Provider [phone] Encounter Details Date Type Department Care Team (Latest Contact Info) Description 10/09/2024 10:25 AM EDT - 10/09/2024 10:49 AM EDT Hospital Encounter [facility] [address] [place] [address] Diego Reyna MD [address] [place] [phone] [email or web address] Discharge Disposition: Home or Self Care Social [...] every 6 (six) hours as needed. 12/29/2023 5 amLODIPine (NORVASC) 10 MG tablet Take 10 [...] Info) Description 10/19/2024 10:30 AM EDT Infusion [address] [place], [place] [id number] 01/16/2025 10:00 AM EST Office Visit [facility] Pul[facility], Allergy and Critical Care Medicine [address] [facility] [place] [address] Diego Reyna MD [address] [address] 2nd [place] [address] [email or web address] 01/22/2025 9:20 AM EST Office Visit [facility] Rheumatology [address], 4[address], [address] [place] [address] Phuong Mark MD, MPH [address] [facility] [address] [place] [address] [email or web address] documented as of this encounter Procedures Procedure Name Priority Date/Time Associated Diagnosis Comments SEDIMENTATION RATE (ESR) Routine 10/09/2024 10:25 AM EDT ANCA-associated vasculitis CBC AND DIFFERENTIAL Routine 10/09/2024 10:25 AM EDT Dyspnea on exertion C-REACTIVE PROTEIN Routine 10/09/2024 10 :25 AM EDT Dyspnea on exertion NT-PROBNP Routine 10/09/2024 10:25 AM EDT Dyspnea on exertion BASIC METABOLIC PANEL Routine 10/09/2024 10:25 AM EDT Dyspnea on exertion documented in this encounter Results * (ABNORMAL) NT-proBNP (10/09/2024 10:25 AM EDT) NT-PROBNP 2,417(H) 0 - 450 pg/mL [facility] Blood 10/09/2024 10:2 5 AM EDT 10/09/2024 10:30 AM EDT us Diego Reyna MD LAB BLOOD ORDERABLES Final Res ult [facility] [address] [place] [address] * (ABNORMAL) Basic metabolic panel (10/09/2024 10:25 AM EDT) SODIUM 138 133 - 146 mmol/L [facility] CHLORIDE 100 96 - 108 mmol/L [facility] POTASSIUM 4.4 3.3 - 5.1 mmol/L [facility] CO2 26 21 - 35 mmol/L [facility] BUN 38(H) 6 - 19 mg/dL [facility] CREATININE 2.00(H) 0.5 - 1.5 mg/dL [facility] GLUCOSE 124(H) 70 - 99 mg/dL [facility] CALCIUM 9.1 8.4 - 10.3 mg/dL [facility] EGFR 35(L) >59 mL/min/1.7 3m2 [facility] Comment:Estimated glomerular filtration rate calculated using the CKD-EPI refit equation. ANION GAP 16 10 - 20 mmol/L [facility] Blood 10/09/2024 10:2 5 AM EDT 10/09/2024 10:30 AM EDT us Diego Reyna MD LAB BLOOD ORDERABLES Final Res ult [facility] [address] [place] [address] * (ABNORMAL) CBC and differential (10/09/2024 10:25 AM EDT) WBC 9.19 4.00 - 11.00 K/uL [facility] RBC 4.26(L) 4.50 - 5.90 M/uL [facility] HGB 13.9 13.5 - 17.5 g/dL [facility] HCT 43.2 41.0 - 53.0 % [facility] PLT 162 150 - 450 K/uL [facility] MCV 101.4(H) 80.0 - 100.0 fL [facility] MCH 32.6(H) 27.0 - 31.0 pg [facility] MCHC 32.2 32.0 - 36.0 g/dL [facility] RDW 16.0(H) 11.5 - 14.5 % [facility] MPV 11.4 8.4 - 12.0 fL [facility] NRBC 0.00 0.00 /100 WBCs [facility] ABSOLUTE NRBC 0.00 0.00 K/uL [facility] DIFF METHOD Auto [facility] NEUTS 78.9(H) 48.0 - 76.0 % [facility] LYMPHS 11.5(L) 18.0 - 41.0 % [facility] MONOS 7.4 4.0 - 11.0 % [facility] EOS 0.9 0.0 - 5.0 % [facility] BASOS 0.5 0.0 - 1.5 % [facility] Granulocytes, immature (%) 0.8 0.0 - 0.9 % [facility] ABSOLUTE NEUTS 7.25 1.92 - 7.60 K/uL [facility] ABSOLUTE LYMPHS 1.06 0.72 - 4.10 K/uL [facility] ABSOLUTE MONOS 0.68 0.16 - 1.10 K/uL [facility] ABSOLUTE EOS 0.08 0.00 - 0.50 K/uL [facility] ABSOLUTE BASOS 0.05 0.00 - 0.15 K/uL [facility] Granulocytes, immature 0.07 0.00 - 0.09 K/uL [facility] Blood 10/09/2024 10:2 5 AM EDT 10/09/2024 10:30 AM EDT us Diego Reyna MD LAB BLOOD ORDERABLES Final Res ult Performing Organization Address City/[facility]/ZIP Co de Phone Number [address] [address] * Sedimentation rate (ESR) (10/09/2024 10:25 AM EDT) ESR 6 0 - 20 mm/h [facility] Blood 10/09/2024 10:2 5 AM EDT 10/09/2024 10:30 AM EDT Diego Reyna MD LAB BLOOD ORDERABLES Final Res ult [address] [address] * (ABNORMAL) C-Reactive Protein (10/09/2024 10:25 AM EDT) C REACTIVE PROTEIN 4.8(H) 0.0 - 4.0 mg/L [facility] Blood 10/09/2024 10:2 5 AM EDT 10/09/2024 10:30 AM EDT us Dieog Reyna MD LAB BLOOD ORDERABLES Final Res ult [address] [address] documented in this encounter Visit Diagnoses Diagnosis Dyspnea on exertion Other dyspnea and respiratory abnormality 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 It is not the complete legal health record.[facility]
--- OUTSIDE RECORDS SUMMARY | 2024-10-09 10:50 | XMS_ITS | Encounter Summary ---
Author Organization [facility] Address [address] [place] [address] Phone Care Team Providers Care Urban Planner Name Role Phone Juancarlos Johnson MD Primary Care Provider [phone] Encounter Details Date Type Department Care Team (Latest Contact Info) Description 10/09/2024 10:50 AM EDT - 10/09/2024 11:59 PM EDT Hospital Encounter [facility], Emergency - [facility] [address] [place] [address] Diego Reyna MD [address] [place] [phone] [email or web address] Arrived Discharge Disposition: Home or Self Care Social [...] Info) Description 10/19/2024 10:30 AM EDT Infusion [address] [place], [place] [id number] 01/16/2025 10:00 AM EST Office Visit [facility], Allergy and Critical Care Medicine [address] [place] [address] [place] [address] Diego Reyna MD [address] [facility] 2nd [place] [address] [email or web address] 01/22/2025 9:20 AM EST Office Visit [facility] Rheumatology [address], [address], [address] [place] [address] Phuong Mark MD, MPH [address] [facility] [address] [place] [address] [email or web address] documented as of this encounter Procedures Procedure Name Priority Date/Time Associated Diagnosis Comments XR CHEST PA AND LATERAL 2 VIEWS Routine 10/09/2024 10:59 AM EDT Dyspnea on exertion documented in this encounter Results * XR CHEST PA [...] clinician's provided indication for this examination in Epic: Dyspnea (Shortness of Breath) COMPARISON: None FINDINGS: [...] clinician's provided indication for this examination in [facility]:Dyspnea (Shortness of Breath) COMPARISON: None FINDINGS: Devices/Tubes/Lines: [...] asclinically warranted. Cardiomegaly without overt congestive failure. Diego Reyna MD IMG XR CHEST Final Result documented in this encounter Visit Diagnoses Diagnosis Dyspnea on exertion Other dyspnea and respiratory abnormality documented in this encounter Care Teams Urban Planner Relationship Specialty Start Date End Date Juancarlos Johnson MD [address] [place] [address] PCP - General Internal Medicine 03/23/24 documented as of this encounter Additional Source Comments The information contained in this document represents components of the legal health record. It is not the complete legal health record.[facility]
--- OUTSIDE RECORDS SUMMARY | 2024-10-10 09:00 | XMS_ITS | Encounter Summary ---
Author Organization [facility] Address [address] [place] [address] Phone Care Team Providers Care Needle Grader Name Role Phone Juancarlos Johnson MD Primary Care Provider [phone] Encounter Details Date Type Department Care Team (Latest Contact Info) Description 10/10/2024 9:00 AM EDT Telemedicine [facility] Rheumatology [address], [address], [address] [place] [address] Phuong Mark MD, MPH [address] [place] [address] [place] [id number] [email or web address] Antineutrophil cytoplasmic antibody (ANCA) positive (Primary Dx); zanjero 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; Myocarditis, unspecified chronicity, unspecified myocarditis type; Encounter for medication counseling; Vaccine counseling; High risk medication use; ANCA-associated vasculitis; Need for hepatitis B screening test Social History Tobacco Use Types Packs/Day Years [...] as of this encounter Progress Notes * Phuong Mark MD, MPH - 10/10/2024 9:00 AM EDT Images from the original note were not included. [facility] Rheumatology Clinic Wilfrid Pineda 69 y.o. 1955 Chief Complaint: positive ANCA Initial History (07/2024): Wilfrid presents for evaluation of a positive ANCA. He has a history of nonischemic cardiomyopathy, A-fib with a Watchman device, pleural effusion and lymphadenopathy. He reports that around 3 years ago he started having shortness of breath when going upstairs. Echo in September 2023 showed severely dilated LA, mild LVH, EF 45 to 50% with mild MR and TR, mild increased PA pressures with decreased EF compared to April 2023 which were 60 to 65%. He has had a cardiac MRI that was nondiagnostic but cardiac PET 03/19/2024 suggestive of multifocal inflammatory process with multifocal hypermetabolic uptake within the left ventricular wall (SUV max 3.7) suggestiveof inflammatory process, mild adenopathy in the mediastinum with multifocal pleural activity on theright SUV max 7.6) consistent with recent pleurodesis. Cytology was negative for malignancy. He has also had a recurrent pleural effusion. He did undergo thoracentesis back in July 2023 and then again in September 2023 (08/03/23 and 09/19/23). He is s/p VATS pleurodesis and Pleur-X in 2023. 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 Labs have been notable for worsening Cr (2.8), elevated alk phos, mild anemia and lymphopenia. P-ANCA, PR3 (0.6), and MPO (4.3) were all positive. He reportedly had a renal biopsy at [facility] and was told this was negative. He has LIANET on CPAP. He saw Dr. Adorno in nephrology who felt that he had moderate CKD due to hypertensive kidney disease, cardiorenal syndrome. He started several medications including an SGLT2 inhibitor. He now has a new fuel house attendant. Spot UA was negative for blood or protein. He was just recently started on prednisone 60mg daily. He feels dizzy and tired with this. He was not started on any bone health medications but did start atovaquone to prevent infection. He takes a multivitamin but no particular calcium or vitamin D. Overall he feels that his breathing is markedlyimproved since last year, even prior to starting prednisone. He denies any palpable purpura or other rashes, oral or genital ulcers, inflammatory eye disease, sinus infections, nerve pain, bloody/crusty nasal discharge, bloody stool, Raynaud's, sicca symptoms,joint swelling, fevers but some chills. He reports being up to date on his age-appropriate malignancy screening. His fuel house attendant: Eric Taylor [facility] [address], [address], [facility] [id number] ([facility]) [facility] 07/2024: started avacopan 08/2024: completed prednisone taper 10/01/24: received first rituximab infusion Interval history: - Last seen by me in July 2024 - Prednisone dose - Avacopan: he has been taking this BID since our last visit; has not had any side effects - He had a DXA that showed osteopenia; he is not taking anything for this - Denies infections - He is currently volume overloaded; has gained weight and is working on reaching out to his store keeper about this as he just saw his paddle dyeing machine operator yesterday. They are working on adjusting his diuretics and trying to get him a repeat echo - He did stop the atovaquone - Denies changes involving the eyes, skin, nerves, mouth, fevers, chills PAST HISTORY: Past Medical History: Diagnosis Date Achilles tendonitis 2023 Anserine bursitis Cardiac sarcoidosis Congestive heart failure with low-normal EF (40 - 49%) Gout Hyperlipidemia Hypertensive disorder Major depressive disorder, single episode Mediastinal adenopathy 09/2023 Obesity, morbid Paroxysmal atrial fibrillation Recurrent right pleural effusion 10/2023 Pleurodesis Sleep apnea Spinal stenosis ? FAMILY HISTORY: Family History Problem Relation Age of Onset Hypertension Mother Coronary artery disease Father Interstitial Lung Disease Neg Hx Sarcoidosis Neg Hx Otherwise, no known family history of autoimmune disease, including no SLE, rheumatoid arthritis, psoriasis or psoriatic arthritis, multiple sclerosis, thyroid disease, or Type I diabetes mellitus. SOCIAL HISTORY: Social History Tobacco Use Smoking status: Never Smokeless tobacco: Never Vaping Use Vaping status: never used Substance Use Topics Alcohol use: Never Drug use: Never No smoking. 2 grown children. 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 ? CURRENT MEDICATIONS:? Current Outpatient Medications Ordered in [facility] Medication Sig albuterol 90 mcg/actuation inhaler Inhale 2 puffs into the lungs every 6 (six) hours as needed. amLODIPine (NORVASC) 10 MG tablet Take 10 mg by mouth daily. amoxicillin (AMOXIL) 500 MG capsule DENTAL APPOINTMENTS aspirin 81 MG EC tablet Take 81 mg by mouth. atorvastatin (LIPITOR) 40 MG tablet Take 1 tablet by mouth daily. dapagliflozin propanediol (FARXIGA) 5 mg tablet doxazosin (CARDURA) 2 MG tablet hydrALAZINE (APRESOLINE) 100 MG tablet Take 150 mg by mouth 2 (two) times a day. metoprolol succinate (TOPROL-XL) 25 MG 24 hr tablet Take 25 mg by mouth daily. PARoxetine (PAXIL) 20 MG tablet Take 1 tablet by mouth every morning. spironolactone (ALDACTONE) 25 MG tablet TAKE 1 TABLET (25 MG TOTAL) BY MOUTH 1 (ONE) TIME EACH DAY.STOPPING POTASSIUM SUPPLEMENT TAVNEOS 10 mg Cap TAKE 3 CAPSULES (30 MG TOTAL) BY MOUTH TWO TIMES A DAY torsemide (DEMADEX) 20 MG tablet Take 40 mg by mouth. ALLERGIES: Allergies as of 10/10/2024 - Reviewed 10/10/2024 Allergen Reaction Noted Sulfa (sulfonamide antibiotics) 08/15/2008 ? PHYSICAL EXAM: In-person physical exam not performed due to telemedicine visit. A limited physical exam was performed virtually as part of this visit and included: General: Well appearing, well nourished in no distress. Normal affect Skin: No rashes noted on face, chest, or upper extremities Hair: Normal texture and distribution ? Head: Normocephalic, atraumatic? Eyes: Conjunctivae clear, sclerae non-icteric? Lungs: Normal work of breathing Musculoskeletal: difficult to fully evaluate by video, no abnormalities noted Extremities: no clubbing or cyanosis as visualized by video Neurologic: alert and oriented, good comprehension/cognition, grossly normal muscle strength Psychiatric: Good judgment and insight, normal mood and affect Labs, reviewed: Lab Results Component Value Date WBC 9.19 10/09/2024 RBC 4.26 (L) 10/09/2024 HGB 13.9 10/09/2024 HCT 43.2 10/09/2024 PLT 162 10/09/2024 Chemistry Lab Results Component Value Date NA 138 10/09/2024 K 4.4 10/09/2024 CL 100 10/09/2024 CO2 26 10/09/2024 BUN 38 (H) 10/09/2024 CRE 2.00 (H) 10/09/2024 GLU 124 (H) 10/09/2024 CA 9.1 10/09/2024 Lab Results Component Value Date TP 6.9 10/09/2024 ALB 4.1 10/09/2024 GLOB 2.8 10/09/2024 SGOT 21 10/09/2024 SGPT 14 10/09/2024 ALKP 146 (H) 10/09/2024 TBILI 0.8 10/09/2024 DBILI 0.3 (H) 10/09/2024 Lab Results Component Value Date/Time GALLITO SCREEN ON HEP 2 Positive (*) 04/10/2024 02:13 PM GALLITO TITER 1:640 Homogeneous 04/10/2024 02:13 PM ANTI DSDNA ANTIBODY Negative at 1:10 04/10/2024 02:13 PM ESR 6 10/09/2024 10:25 AM dsDNA negative SSA/SSB negative Sm/FOUNTAIN WORKER negative Jo1 negative Scl70 negative 06/2024: C-ANCA negative P-ANCA positive PR3 0.6 (positive) MPO 4.3 (positive) ANCA (07/2024): ANCA POSITIVE. NOTE: Indirect immunofluorescence testing for anti-neutrophil cytoplasm antibodies (ANCA) is positive with a (christina) nuclear pattern of staining (P-ANCA). RUBI confirms the presence of antibodies to myeloperoxidase. Antibody activity is measured at 2,432 units. A test of 2.8 or more units is considered positive. RUBI for antibodies to proteinase 3 is negative. Imaging, reviewed: CT chest (12/2023): CONCLUSIONS: New subpleural 4 mm nodule at the right apex laterally. Calcified granulomas in the right upper lobe. Linear opacities in the right lower lobe, probably representing atelectasis. Interval resolution of the left pleural effusion. Tiny residual right pleural effusion. Small pericardial effusion. Cardiomegaly. Mild mediastinal lymphadenopathy as detailed. ? Pathology, reviewed: Renal biopsy (2024): Pleural fluid biopsy (10/2023): A-B. ??PLEURA, RIGHT-BIOPSY AND #2-BIOPSY: -FLORID REACTIVE MESOTHELIAL PROLIFERATION -Negative for malignancy COMMENT: Immunohistology and FISH testing supports the morphological diagnosis. MTAP and BAP-1 are expressed. Claudin-4 is negative. FISH isnegative for CDKN2A/B (p16) Deletion. C. LYMPH NODE, SUBCARINAL-BIOPSY: - BENIGN REACTIVE LYMPH NODE Pleural fluid (10/2023): negative for malignant cells, acute and chronic lymphocytes Pleural fluid (09/2023): negative for malignant cells ASSESSMENT: 69 y.o. male with nonischemic cardiomyopathy, A-fib with a Watchman device, pleural effusion and lymphadenopathy, presenting for evaluation of positive ANCA. He presents with a variety of recent findings: - Cardiomyopathy with evidence of myocarditis on imaging with no known preceding viral infection - Renal dysfunction with bland UA, and biopsy showing immune mediated glomerulopathy - Recurrent pleural effusion with cytology negative for malignancy, now resolved s/p Pleur-X and VATS pleurodesis - Small pericardial effusion on CT chest 12/2023 - Mediastinal LAD with subcarinal LN biopsy negative for malignancy - p-ANCA and MPO positive - Subpleural R apex lung nodule, new on recent CT chest Initial differential included autoimmune and inflammatory processes, atypical infection (consider this to be less likely), or malignancy or paraneoplastic presentation, or related to prior exposures (coal dust and asbestos). However, given positive p-ANCA with a very high-titer MPO, multiple features consistent with AAV, and lack of an alternative diagnosis by labs and multiple biopsies, and use of hydralazine which is known to precipitate drug-induced AAV, it seems that AAV is the most likely diagnosis. Unclear if renal involvement is unrelated as his biopsy results are not consistent with AAV. Considered the possibility of lupus given serositis, immune complex mediated glomerulonephropathy and high-titer positive GALLITO (though negative ENAs) though renal biopsy findings are not completely consistent with this as well. Given multiple positive serologies would also consider the possibility of a paraneoplastic etiology or intravascular lymphoma if he does not respond appropriately though there has been no evidence of either of these on images or biopsies. I reached out to his fuel house attendant Dr. Taylor and was able to touch base with him to get his thoughts on the etiology of renal disease though he stated he would follow up and get back to me. Ultimately I do think treatment is warranted given that AAV is a leading diagnosis; we discussed the combination of rituximab and avacopan as he is already having substantial glucocorticoid-related side effects. Currently tolerating treatment well; cardiac and pulmonary disease being monitored by other specialists. Will repeat UA, UPCR, ANCA, ESR, CRP. # Osteopenia: DXA 08/2024 showed osteopenia with lowest T-score of -2.4 with FRAX score showing likelihood of hip fracture is 9.2% and major osteoporotic fracture is 25.6% over the next 10 years. Especially given steroid use, treatment would be warranted. # Health maintenance: - Hepatitis B/TB testing: Lab Results Component Value Date/Time HBV SURFACE AB,QUAL Negative 07/20/2024 11:19 AM HBV SURFACE AB,QUANT <3.31 07/20/2024 11:19 AM HBV SURFACE ANTIGEN Negative 07/20/2024 11:19 AM - Vaccinations: Discussed importance of vaccinations. Advised to avoid live vaccines if on biologics. Recommended yearly seasonal flu vaccination. - PCV13: received 2020 - PPSV23: 2021 - Shingrix: 12/2020 - DXA: recommend checking - Lipids:No results found for: LDL - Covid vaccine: recommend completing most up to date booster if not already done. Last vaccine [id number] - Recommend age-appropriate cancer screening. If using methotrexate or a TNF inhibitor, recommend yearly skin checks by dermatology for skin cancer screening. - If receiving steroids, should be on full daily requirements of calcium 1200 mg and vitamin D 800-1,000 IU for bone health, as well as osteoporosis prophylaxis if high doses of steroids will be usedfor more than 3 months. 1. Antineutrophil cytoplasmic antibody (ANCA) positive 2. zanjero 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 3. Myocarditis, unspecified chronicity, unspecified myocarditis type 4. Encounter for medication counseling 5. Vaccine counseling 6. High risk medication use 7. ANCA-associated vasculitis Total protein creatinine ratio, random urine Urinalysis Anti-Neutrophil Cytoplasmic Antibody (ANCA) 8. Need for hepatitis B screening test PLAN: - Labs: LFTs monthly, ANCA, UA, UPCR - Recommend stopping hydralazine though his store keeper wants to maintain this; I will re-message him - Rituximab 1g IV q2 weeks x 2 (next dose 10/19); aim for next dose in March [address] Reyna has said that he's able to prescribe this locally - Avacopan 30mg BID; plan for at least 12 months (through around 07/2025) - Calcium - recommend 1200mg daily - Vitamin D supplement 1000 units OTC - [facility] for consult regarding myocarditis, further evaluation, and monitoring - he prefers to hold off for now given multiple appointments - Recommend another Covid vaccine prior to rituximab if amenable - Recommend endocrinology referral for osteoporosis management given CKD and eGFR < 35; recommend that he get this done through PCP's office given that he says that our network is not contracted with his insurance - Follow up in 3-4 months, scheduled already in January Orders Placed This Encounter Procedures Total protein creatinine ratio, random urine Urinalysis Anti-Neutrophil Cytoplasmic Antibody (ANCA) No medication orders Phuong Mark MD, MPH Division of Rheumatology, Allergy and Immunology [facility] ? CC: Juancarlos Johnson MD re: endocrine referral CC: Antonio Pizarro re: consideration of discontinuation of hydralazine I have maintained and/or plan to maintain a longitudinal relationship with the patient, overseeing the care of their rheumatic disease. This has significantly influenced my decision-making and treatment plans during today's encounter. Answers submitted by the patient for this visit: From your doctor: Rheumatoid Arthritis Symptom Check (Submitted on 07/19/2024) PROMs Modified Health Assessment Questionnaire (MHAQ) Score : 0.13 Answers submitted by the patient for this visit: From your doctor: Rheumatoid Arthritis Symptom Check (Submitted on 10/06/2024) PROMs Modified Health Assessment Questionnaire (MHAQ) Score : 0.5 documented in this encounter Plan of Treatment Upcoming Encounters Date Type Department Care Team (Late st Contact Info) Description 10/19/2024 10:30 AM EDT Infusion [address] [place] [address] 01/16/2025 10:00 AM EST Office Visit [facility] Pulmonary, Allergy and Critical Care Medicine [address] [facility] [place] [address] [place] [address] Diego Reyna MD [address] [facility] 2nd [place] [address] [email or web address] 01/22/2025 9:20 AM EST Office Visit [facility] Rheumatology [address], [address], [address] [place] [address] Phuong Mark MD, MPH [address] [address] [email or web address] Scheduled Orders Name Type Priority Associated Diagnoses Orde r Schedule Total protein creatinine ratio, random urine Lab Routine ANCA-associated vasculitis Expected: 10/10/2024, Expires: 10/10/2025 Urinalysis Lab Routine ANCA-associated vasculitis Expected: 10/10/2024, Expires: 01/09/2025 Anti-Neutrophil Cytoplasmic Antibody (ANCA) Lab Routine ANCA-associated vasculitis Expected: 10/10/2024, Expires: 10/11/2025 documented as of this encounter Visit Diagnoses Diagnosis Antineutrophil cytoplasmic antibody (ANCA) positive- Primary [facility] 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 Myocarditis, unspecified chronicity, unspecified myocarditis type Encounter for medication counseling Vaccine counseling High risk medication use ANCA-associated vasculitis Other specified disorders of arteries and arterioles Need for hepatitis B screening test documented in this encounter Care Teams Needle Grader Relationship Specialty Start Date End Date Juancarlos Johnson MD [address] [facility] [address] [place] [address] PCP - General Internal Medicine 03/23/24 documented as of this encounter Additional Source Comments The information contained in this document represents components of the legal health record. It is not the complete legal health record.[facility]
--- OUTSIDE RECORDS SUMMARY | 2024-10-10 17:23 | XMS_ITS | Encounter Summary ---
Author Organization [facility] Address [address] [place] [address] Care Team Providers Care Tile Fitter Name Role Phone Juancarlos Johnson MD Primary Care Provider [phone] Reason for Visit * Reason Comments Shortness of Breath Weight Gain * Auth/Cert (Routine) Specialty Diagnoses / Procedures Referred By Arina little Referred To Contact Diagnoses Dyspnea on exertion Bilateral lower extremity edema Atrial fibrillation, unspecified type (CMS/HCC V24, CMS/HCC V28) Acute on chronic HFrEF (heart failure with reduced ejection fraction) (CMS/HCC V24, CMS/HCC V28) Acute on chronic congestive heart failure, unspecified heart failure type (CMS/HCC V24, CMS/HCC V28) Procedures / Ignacio Campos MD [address] [place] [address] Phone: tel: fax: [facility] [address] [place] [address] Phone: tel: Referral ID Status Reason Start Date Expiration Date Visits Re quested Visits Authorized [id number] 1 1 Encounter Details Date Type Department Care Team (Latest Contact Info) Description 10/10/2024 5:23 PM EDT - 10/11/2024 2:30 PM EDT Hospital Encounter [facility] [address] [place] [address] Trae Smith MD [address] [place] [address] Chandu Orlando MD [address] [place] [id number] Ignacio Campos MD [address] [place] [id number] Dyspnea on exertion (Primary Dx); Atrial fibrillation, unspecified type (CMS/HCC V24, CMS/HCC V28); Bilateral lower extremity edema; Acute on chronic congestive heart failure, unspecified heart failure type (CMS/HCC V24, CMS/HCC V28); Acute on chronic HFrEF (heart failure with reduced ejection fraction) (CMS/HCC V24, CMS/HCC V28); Acute kidney injury superimposed on CKD ([facility] V24) Discharge Disposition: Home or Self Care Social [...] Record ed Within the last 3 months, harman chnichilla many times did you visit the emergency [...] for your loved ones. For example, child care attendant school or elderly care for an older adult? [...] PM EDT documented as of this encounter Last Filed Vital Signs Vital Sign Reading Time Taken Comments Blood Pressure 126/78 10/11/2024 7:45 AM EDT Pulse 70 10/11/2024 7:45 AM EDT Temperature 36.1 C (97 F) 10/11/2024 7:45 AM EDT Respiratory Rate 18 10/11/2024 7:45 AM EDT Oxygen Saturation 98% 10/11/2024 7:45 AM EDT Inhaled Oxygen Concentration - - Weight 118 kg (260 lb 9.3 oz) 10/11/2024 7:36 AM EDT Height 177.8 cm (5' 10 ) 10/11/2024 7:36 AM EDT Body Mass Index 37.39 10/11/2024 7:36 AM EDT documented in this encounter Functional Status * Are you deaf or do you have serious difficulty hearing? Answer Date of Assessment Author No 10/10/2024 6:59 PM EDT Yane Rivera RN * Are you blind or do you have serious difficulty seeing, even when wearing glasses? Answer Date of Assessment Author No 10/10/2024 6:59 PM EDT Yane Rivera RN * Do you have serious difficulty walking or climbing stairs? Answer Date of Assessment Author No 10/10/2024 6:59 PM EDT Yane Rivera RN * Do you have serious difficulty dressing or bathing? Answer Date of Assessment Author No 10/10/2024 6:59 PM EDT Yane Rivera RN * Because of a physical, mental, or emotional condition, do you have serious difficulty doing errandsalone such as visiting the doctor? Answer Date of Assessment Author No 10/10/2024 6:59 PM EDT Yane Rivera RN documented as of this encounter Mental Status * Because of a physical, mental, or emotional condition, do you have serious difficulty concentrating, remembering, or making decisions? (5 years old or older) Answer Entry Date Author No 10/10/2024 6:59 PM EDT Yane Rivera RN documented in this encounter Discharge Summaries * Ignacio Campos MD - 10/11/2024 12:01 PM EDT Images from the original note were not included. [place] DISCHARGE SUMMARY Patient Information Wilfrid Pineda : 1955 [69 y.o.] Admitting Provider Ignacio Campos MD Discharge Provider Ignacio Campos MD, Ignacio Campos MD Primary Care Physician Juancarlos Johnson MD Admission Date 10/10/2024 Discharge Date 10/11/2024 Summary of Hospital Problems Primary Discharge Diagnosis: Acute on chronic HFrEF (heart failure with reduced ejection fraction) (CMS/[facility] V24, CMS/[facility] V28) Discharge Destination: home Code Status at Discharge: Full Code - Default Hospital Course Summary LOS: 1 day H&P as on 10/10/2024 Wilfrid Pineda is a 69 y.o. 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 Patient complains weight gain 15 to 20 pounds over the past 2 mo nths. Patient complains bilateral lower extremity edema and distention in abdomen. States he finished tapering dose of prednisone 3 weeks ago. He was on prednisone for 3 months, He was seen by his time stamp assembler yesterday and recommended to increase torsemide dose to twice daily. Patient has not started increased dose of torsemide yet. Reports feeling short of breath with any activity even standing long time or taking a shower. He also noticed leg swelling and stomach swelling.Denies orthopnea. Reports gaining weight abdomen and lower extremities. States he feels short of breath when he carries small grocery bags. Denies cough, cold-like symptoms. Denies fever, chills. Denies chest pain, palpitations. Admits increased appetite and drinking water more than his usual. Denies changes in the bowel movement or urination. Arrival to ED, blood pressure 119/77, heart rate 89, repleted 90, sat 98% room air, afebrile. -Labs revealed no leukocytosis 9.6, H&H 13/40.3, platelets 98, at bedtime WNL, elevated BUN/creatinine 51/2.52, LFTs WNL except elevated phosphatase 147. BNP elevated 258, high-sensitivity troponin remained flat 12, 12. CT chest without contrast showed no focal consolidation, minimal right base atelectasis. Marked cardiomegaly Patient is a 40 mg IV Lasix and admitted as needed for further workup or treatment. Hospital course # Dyspnea, in the setting of cardiomyopathy, ANCA related vasculitis - Patient wa assigned for observation and started on IV diuresis Lasix 40 mg daily. - Reviewed patient's chart, patient saturating 97 to 98% on room air, not in respiratory distress and x-ray imaging reviewed, noted minimal right basilar atelectasis and marked cardiomegaly. Also noted enlarged main pulmonary artery. - Patient had an echocardiogram completed this admission, official report is pending, ejection fraction preliminary 45%, - On exam patient does not have any lower extremity pitting pedal edema and not in respiratory distress. Lung sounds were clear this morning. Discussed management plan with the patient, patient did mention that he takes torsemide 40 mg in the morning and recently his software developer consultant advised him to increase the dose but patient has not increased it yet. Patient does follow sodium restricted diet at home but not compliant with fluid restriction. Counseled patient regarding maintaining strict fluid restriction, salt restriction at home and patient expressed understanding. Upon discharge, recommend adding another dose of torsemide 20 mg in the evening along with 40 mg inthe morning. Recommend following up with patient biller tomorrow and software developer consultant as outpatient for further management. Given the kidney function, will hold Farxiga for now. # Disposition - Patient is stable for discharge today. Management plan discussed with patient in detail and patient in agreement with the plan. Total time spent 40 minutes doing chart review, interviewing patient, gathering information, performing physical exam, formulating plan, explaining management plan to patient, , coordinating care with RN, documentation and placing orders. Follow-Up Instructions and Recommendations Juancarlos Johnson MD [address] [facility] [address] [facility] [address] Schedule an appointment as soon as possible for a visit Your software developer consultant Schedule an appointment as soon as possible for a visit Antonio Pizarro MD [address] [facility] [id number] Schedule an appointment as soon as possible for a visit in 1 week(s) If symptoms worsen and for management of heart failure Discharge Procedure Orders Basic metabolic panel Standing Status: Future Standing Exp. Date: 10/11/25 Order Specific Question Answer Comments Release to patient Immediate [1] Discharge Diet: Cardiac Heart Healthy Diet (Low Cholesterol / Low Fat / No Added Salt), 2 gm SodiumRetriction Diet; 2000 mL per day Order Specific Question Answer Comments Discharge diet you should follow at home Cardiac Heart Healthy Diet (Low Cholesterol / Low Fat / NoAdded Salt) Discharge diet you should follow at home 2 gm Sodium Retriction Diet Restrict your fluid intake to 2000 mL per day Restrict your activities and rest today, may resume normal activity tomorrow There are no outpatient Patient Instructions on file for this admission. Discharge Medications Your medication list CHANGE how you take these medications Instructions Last Dose Given Next Dose Due dapagliflozin propanediol 5 mg tablet Commonly known as: FARXIGA Start taking on: October 15, 2024 What changed: These instructions start on October 15, 2024. If you are unsure what to do until then, ask your doctor or other care provider. Take 1 tablet (5 mg total) by mouth 1 (one) time each day. torsemide 20 mg tablet Commonly known as: DEMADEX What changed: See the new instructions. Take 2 tablets (40 mg total) by mouth 1 (one) time each day in the morning AND 1 tablet (20 mg total) 1 (one) time each day in the evening. CONTINUE taking these medications Instructions Last Dose Given Next Dose Due albuterol HFA 90 mcg/actuation inhaler Commonly known as: PROAIR HFA ; PROVENTIL HFA ; VENTOLIN HFA Inhale 2 puffs by mouth every 6 (six) hours if needed for wheezing or shortness of breath. aspirin 81 mg EC tablet Take 1 tablet (81 mg total) by mouth 1 (one) time each day. atorvastatin 40 mg tablet Commonly known as: LIPITOR TAKE 1 TABLET BY MOUTH EVERY DAY atovaquone 750 mg/5 mL suspension Commonly known as: MEPRON Take 5 mL (750 mg total) by mouth 1 (one) time each day after breakfast. AVACOPAN ORAL Take 30 mg by mouth 2 (two) times a day. doxazosin 8 mg tablet Commonly known as: CARDURA TAKE 1/2 TABLET TWICE A DAY BY MOUTH hydrALAZINE 100 mg tablet Commonly known as: APRESOLINE Take 1.5 tablets (150 mg total) by mouth 2 (two) times a day. metoprolol succinate 25 mg 24 hr tablet Commonly known as: TOPROL-XL Take 1 tablet (25 mg total) by mouth 1 (one) time each day. Do not crush or chew. PARoxetine 20 mg tablet Commonly known as: PAXIL TAKE 1 TABLET BY MOUTH EVERY DAY IN THE MORNING spironolactone 25 mg tablet Commonly known as: ALDACTONE Take 1 tablet (25 mg total) by mouth 1 (one) time each day. Stopping potassium supplement STOP taking these medications predniSONE 20 mg tablet Commonly known as: DELTASONE Where to Get Your Medications Information about where to get these medications is not yet available Ask your nurse or doctor about these medications dapagliflozin propanediol 5 mg tablet torsemide 20 mg tablet Physical Exam at time of Discharge Physical Exam Constitutional: General: He is not in acute distress. Appearance: Normal appearance. He is not ill-appearing. HENT: Head: Normocephalic and atraumatic. Eyes: Conjunctiva/sclera: Conjunctivae normal. Cardiovascular: Rate and Rhythm: Normal rate. Rhythm irregular. Pulses: Normal pulses. Heart sounds: Normal heart sounds. Pulmonary: Effort: Pulmonary effort is normal. No respiratory distress. Breath sounds: Normal breath sounds. No wheezing. Abdominal: General: Bowel sounds are normal. There is no distension. Palpations: Abdomen is soft. Tenderness: There is no abdominal tenderness. There is no guarding. Skin: General: Skin is warm. Neurological: Mental Status: He is alert. Psychiatric: Mood and Affect: Mood normal. Behavior: Behavior normal. Vitals Visit Vitals BP 126/78 (BP Location: Left arm, Patient Position: Lying) Pulse 70 Temp 36.1 ??C (97 ??F) (Temporal) Resp 18 Temp (24hrs), Av.5 ??C (97.7 ??F), Min:35.9 ??C (96.7 ??F), Max:37.1 ??C (98.8 ??F) Body mass index is 37.39 kg/m??. No results found for: PTWT , PTHT documented in this encounter Discharge Instructions * Attachments The following attachments cannot be sent through Care Everywhere. * Fluid Restriction (Turkmen) * Heart Failure: Limiting Fluids: Video (Turkmen) documented in this encounter Medications at Time of Discharge albuterol HFA (PROAIR HFA ; PROVENTIL HFA ; VENTOLIN HFA) 90 mcg/actuation inhalerIndications :Dyspnea, unspecified type Inhale 2 puffs by mouth every 6 (six) hours if needed for wheezing or shortness of breath. 1 each 12/29/2023 5 aspirin 81 mg EC tablet Take 1 tablet (81 mg total) by mouth 1 (one) time each day. atorvastatin (LIPITOR) 40 mg tablet TAKE 1 TABLET BY MOUTH EVERY DAY 90 tablet 1 01/10/2024 atovaquone (MEPRON) 750 mg/5 mL suspension Take 5 mL (750 mg total) by mouth 1 (one) time each day after breakfast. AVACOPAN ORAL Take 30 mg by mouth 2 (two) times a day. dapagliflozin propanediol (FARXIGA) 5 mg tablet Take 1 tablet (5 mg total) by mouth 1 (one) time each day. 10/15/2024 6 doxazosin (CARDURA) 8 mg tabletIndications: Paroxysmal atrial fibrillation (CMS/HCC V24, CMS/HCC V28),Other pericardial effusion (noninflammatory) TAKE 1/2 TABLET TWICE A DAY BY MOUTH 90 tablet 3 08/07/2024 hydrALAZINE (APRESOLINE) 100 mg tablet Take 1.5 tablets (150 mg total) by mouth 2 (two) times a day. 90 each 2 03/01/2024 metoprolol succinate (TOPROL-XL) 25 mg 24 hr tablet Take 1 tablet (25 mg total) by mouth 1 (one) time each day. Do not crush or chew. 90 each 1 05/02/2024 PARoxetine (PAXIL) 20 mg tablet TAKE 1 TABLET BY MOUTH EVERY DAY IN THE MORNING 90 tablet 1 03/27/2024 spironolactone (ALDACTONE) 25 mg tablet Take 1 tablet (25 mg total) by mouth 1 (one) time each day. Stopping potassium supplement 30 each 2024 5 torsemide (DEMADEX) 20 mg tablet Take 2 tablets (40 mg total) by mouth 1 (one) time each day in the morning AND 1 tablet (20 mg total) 1 (one) time each day in the evening. 10/11/2024 5 documented as of this encounter Ordered Prescriptions Prescription Sig Dispense Quantity Refills Last Filled Start Date End Date torsemide (DEMADEX) 20 mg tablet Take 2 tablets (40 mg total) by mouth 1 (one) time each day in the morning AND 1 tablet (20 mg total) 1 (one) time each day in the evening. 10/11/2024 5 dapagliflozin propanediol (FARXIGA) 5 mg tablet Take 1 tablet (5 mg total) by mouth 1 (one) time each day. 10/15/2024 6 documented in this encounter Discharge Disposition Disposition Code Departure Means Destination Comment s Home or Self Care documented in this encounter Progress Notes * Carlee Rosales RN - 10/11/2024 2:30 PM EDT Pt discharged home with all personal belonging, pt teaching and discharge summary reviewed, pt withno follow up questions. Pt wheeled down to parking lot, pt drove self home. * Norah Johnson RN - 10/11/2024 2:30 PM EDT Pt medically cleared for discharge. Dispo is home self-care. No skilled need for VNA. Family to provide transportation. * Ignacio Campos MD - 10/11/2024 12:00 PM EDT H&P as on 10/10/2024 Wilfrid Pineda is a 69 y.o. 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 Patient complains weight gain 15 to 20 pounds over the past 2 mo nths. Patient complains bilateral lower extremity edema and distention in abdomen. States he finished tapering dose of prednisone 3 weeks ago. He was on prednisone for 3 months, He was seen by his time stamp assembler yesterday and recommended to increase torsemide dose to twice daily. Patient has not started increased dose of torsemide yet. Reports feeling short of breath with any activity even standing long time or taking a shower. He also noticed leg swelling and stomach swelling.Denies orthopnea. Reports gaining weight abdomen and lower extremities. States he feels short of breath when he carries small grocery bags. Denies cough, cold-like symptoms. Denies fever, chills. Denies chest pain, palpitations. Admits increased appetite and drinking water more than his usual. Denies changes in the bowel movement or urination. Arrival to ED, blood pressure 119/77, heart rate 89, repleted 90, sat 98% room air, afebrile. -Labs revealed no leukocytosis 9.6, H&H 13/40.3, platelets 98, at bedtime WNL, elevated BUN/creatinine 51/2.52, LFTs WNL except elevated phosphatase 147. BNP elevated 258, high-sensitivity troponin remained flat 12, 12. CT chest without contrast showed no focal consolidation, minimal right base atelectasis. Marked cardiomegaly Patient is a 40 mg IV Lasix and admitted as needed for further workup or treatment. Hospital course # Dyspnea, in the setting of cardiomyopathy, ANCA related vasculitis - Patient wa assigned for observation and started on IV diuresis Lasix 40 mg daily. - Reviewed patient's chart, patient saturating 97 to 98% on room air, not in respiratory distress and x-ray imaging reviewed, noted minimal right basilar atelectasis and marked cardiomegaly. Also noted enlarged main pulmonary artery. - Patient had an echocardiogram completed this admission, official report is pending, ejection fraction preliminary 45%, - On exam patient does not have any lower extremity pitting pedal edema and not in respiratory distress. Lung sounds were clear this morning. Discussed management plan with the patient, patient did mention that he takes torsemide 40 mg in the morning and recently his software developer consultant advised him to increase the dose but patient has not increased it yet. Patient does follow sodium restricted diet at home but not compliant with fluid restriction. Counseled patient regarding maintaining strict fluid restriction, salt restriction at home and patient expressed understanding. Upon discharge, recommend adding another dose of torsemide 20 mg in the evening along with 40 mg inthe morning. Recommend following up with patient biller tomorrow and software developer consultant as outpatient for further management. Given the kidney function, will hold Niurka for now. # Disposition - Patient is stable for discharge today. Management plan discussed with patient in detail and patient in agreement with the plan. Total time spent 40 minutes doing chart review, interviewing patient, gathering information, performing physical exam, formulating plan, explaining management plan to patient, , coordinating care with RN, documentation and placing orders. * Abiodun Cunningham RN - 10/10/2024 10:12 PM EDT .ED RN HANDOFF (All García Below Must Be Completed) Reason/Diagnosis for Admission: acute on chronic HFrEF Type of Admission: [] Medsurg, [x] Telemetry Already in a Hospital Bed: [] Yes / [x] No Room Considerations/Precautions (ex: fever, diarrhea, or any infectious concerns): [] Yes / [x] No Handle Bar Assembler: [x] Yes / [] No If YES, Cardiac Rhythm: [] NSR, [] SB, [] ST, [x] A-FIB, [] A-Flutter, [] Pacemaker, [] 1st Degree HB, [] 2nd Degree HB, [] 3rd Degree HB Reason for Handle Bar Assembler: VS: Visit Vitals BP 113/72 (BP Location: Left arm;Upper, Patient Position: Sitting) Pulse 93 Temp 37 ??C (98.6 ??F) Resp 18 Ht 1.778 m (70 ) Wt 122 kg (268 lb 3.2 oz) SpO2 97% BMI 38.48 kg/m?? Smoking Status Never BSA 2.37 m?? Current Mental Status: A/O x [x]4, []3, []2, []1 Current Ambulation Status: independent IV Access: [x] Yes / [] No Field IV present: [] Yes / [x] No Hx of Violence: [] Yes / [x] No / [] Unknown Fall Risk:[] Yes / [x] No Yellow Bracelet Applied [] Yes / [x] No Yellow Socks Applied [] Yes / [x] No Patient Belongings inventoried and BL completed: [x] Yes / [] No Patient belongings stored in the security closet: [] Yes (If Yes please supply Security bag #): [x] No Patient Medications stored in Pharmacy: [] Yes (If Yes please supply Medication Security bag #): [x] No ED Summary of Care: Pt hx of AFIB,asthma, gout, anemia, htn, spinal stenosis, venous insufficiency Pt sent in by [facility]iology d/t 20 lb weight gain within past month as well as worsening SOB on exertion and bilateral Lower extremity edema. Pt also c/o increase abd size In ED pt HR 90s and then when pt stand jumps to 120s. Pt performed walking ambulation trial and maintained an O2 Sat of 97% throughout the whole duration of ambulation. When walking back to room pt HR did jump to 130s pt denied CP, Palpitions, SOB outside his baseline, dizziness. Once pt was back in stretcher HR dropped back down to 90s-low 100s but was beginning to jump higher into 120s. Pt received metoprolol PO and is now in 90s to low 100s. Trops negative 01/18 BNP 258 BUN & creatinine [address] Chest 1. Minimal right base atelectasis. No focal consolidation. 2. Marked cardiomegaly. Enlarged main pulmonary artery, a finding that can be associated with pulmonary artery hypertension. Submitted by and Phone Extension: Abiodun * Pamela Daily RN - 10/10/2024 5:03 PM EDT Pt sent in by Cardiology d/t 20lb weight gain within past 1 1/2 months, and SOB worse on exertion. Pt states he believes he's in a-fib, as well. Pt reports being prescribed prednisone for approximately 2 months, with last dose about 3 weeks ago. Pt ambulatory in triage and speaking in complete sentences. * Trae Smith MD - 10/10/2024 5:02 PM EDT HPI Chief Complaint Patient presents with Shortness of Breath Weight Gain Patient is a 69-year-old male with a history of A-fib not on anticoagulation with watchman, asthma,hypertension, hyperlipidemia, LIANET, CHF, previous pleural effusion requiring VATS and pleurodesis recently diagnosed vasculitis on rituximab who is presenting to the ER with leg swelling and weight gain over the last month. States over the last month month and a half he has had about a 15 to 20 pound weight gain. He is also reporting worsening shortness of breath on exertion. He has a chronic dry cough which is unchanged. No fevers, chest pain. He said that for the last several months he was on prednisone which was tapered off at the end of September. He was on this for possible sarcoid myocarditis which has now been ruled out and he has been diagnosed with ANCA vasculitis and started on rituximab. Due to his weight gain and leg swelling, he was told by his time stamp assembler yesterday to increasehis torsemide to twice a day till he sees his cardiology which he has not yet started. [place] Coma Scale Score: 15 Patient History Past Medical History: Diagnosis Date Asthma, mild 04/12/2016 DX:Asthma, mild Atrial fibrillation (CMS/HCC V24, CMS/HCC V28) 10/27/2016 DX:Atrial fibrillation (HCC) Depression 06/25/2016 DX:Depression Gout 03/30/2017 DX:Gout History of anemia 09/09/2017 DX:History of anemia Hyperlipidemia 03/30/2017 DX:Hyperlipidemia Hypertension 09/09/2017 DX:Hypertension Obstructive sleep apnea 04/12/2016 DX:Obstructive sleep apnea Spinal stenosis 12/28/2010 DX:Spinal stenosis Umbilical hernia 03/03/2016 DX:Umbilical hernia Venous insufficiency 06/09/2017 DX:Venous insufficiency Past Surgical History: Procedure Laterality Date CARDIOVERSION DONE ON 12/16/2023 AT [facility] W AOP INDICATION:Atrial fibrillation OTHER SURGICAL HISTORY Right 10/11/2023 PROCEDURE: HI THORACOSCOPY W/PLEURODESIS Family History Problem Relation Name Age of Onset CABG Father Heart attack Father Other (Other: Valve Replacement ) Father Hypertension Mother Other (Other: gallbladder cancer) Mother Other (Other: Arrhythmias ) Brother Hypertension Father's side Coronary artery disease Father's side Social History Tobacco Use Smoking status: Never Smokeless tobacco: Never Substance Use Topics Alcohol use: No Drug use: No Review of Systems Review of Systems Constitutional: Negative for chills and fever. Respiratory: Positive for cough and shortness of breath. Cardiovascular: Positive for leg swelling. Negative for chest pain. Gastrointestinal: Negative for abdominal pain, diarrhea, nausea and vomiting. Musculoskeletal: Negative for back pain. Neurological: Negative for dizziness and syncope. Physical Exam ED Triage Vitals Temp Heart Rate Resp BP 10/10/24 1713 10/10/24 1713 10/10/24 17110/10/24 171 37.1 ??C (98.8 ??F) 98 20 128/80 SpO2 Temp Source Heart Rate Source Patient Position 10/10/24 17110/10/24 17110/10/24 2134 10/10/24 171 97 % Oral Monitor Sitting BP Location FiO2 (%) 10/10/24 171 -- Right arm Physical Exam Vitals and nursing note reviewed. Constitutional: General: He is not in acute distress. Appearance: He is obese. He is not ill-appearing, toxic-appearing or diaphoretic. HENT: Head: Normocephalic and atraumatic. Right Ear: External ear normal. Left Ear: External ear normal. Nose: Nose normal. No rhinorrhea. Mouth/Throat: Mouth: Mucous membranes are moist. Eyes: Extraocular Movements: Extraocular movements intact. Conjunctiva/sclera: Conjunctivae normal. Pupils: Pupils are equal, round, and reactive to light. Cardiovascular: Rate and Rhythm: Normal rate. Rhythm irregular. Comments: Well-perfused Pulmonary: Effort: Pulmonary effort is normal. No accessory muscle usage or respiratory distress. Breath sounds: No stridor. Decreased breath sounds present. No wheezing, rhonchi or rales. Abdominal: General: There is no distension. Palpations: Abdomen is soft. There is no mass. Tenderness: There is no abdominal tenderness. There is no guarding or rebound. Musculoskeletal: General: No deformity. Normal range of motion. Cervical back: Normal range of motion and neck supple. No rigidity. Right lower le+ Edema present. Skin: General: Skin is dry. Capillary Refill: Capillary refill takes less than 2 seconds. Coloration: Skin is not jaundiced or pale. Neurological: General: No focal deficit present. Mental Status: He is alert and oriented to person, place, and time. Mental status is at baseline. Coordination: Coordination normal. Psychiatric: Mood and Affect: Mood normal. Behavior: Behavior normal. Thought Content: Thought content normal. Judgment: Judgment normal. ED Course & MDM ED Course as of 10/11/24 2359 TueOct 10, 2024 1733 ECG 12 lead EKG showing atrial fibrillation at 100 bpm, nonspecific ST and T wave changes, no STEMI, left axis deviation [CL] 1815 Auto WBC: 9.6 [CL] 1816 CBC and differential(!) Mild Anemia noted [CL] 1845 High Sensitivity Troponin I: 12 [CL] 1845 Lipase: 45 [CL] 1845 Creatinine(!): 2.52 Increased from 1.7 last creatinine, may be related to a cardiorenal syndrome versus due to his vasculitis [CL] 1904 B Type Natriuretic Peptide(!): 258 [CL] 1915 INR: 0.9 [CL] 193 High Sensitivity Troponin I: 12 Again negative and stable [CL] 2000 CT Chest wo Contrast IMPRESSION: 1. Minimal right base atelectasis. No focal consolidation. 2. Marked cardiomegaly. Enlarged main pulmonary artery, a finding that can be associated with pulmonary artery hypertension. [CL] 2208 Patient accepted for admission by hospitalist Dr. Orlando for CHF exaacerbation with weight gainand LE edema as well as MATT on CKD [CL] ED Course User Index [CL] Trae Smith MD Clinical Impressions as of 10/11/24 2359 Dyspnea on exertion Atrial fibrillation, unspecified type (CMS/HCC V24, CMS/HCC V28) Bilateral lower extremity edema Acute on chronic congestive heart failure, unspecified heart failure type (CMS/HCC V24, CMS/HCC V28) Acute kidney injury superimposed on CKD (CMS/HCC V24) Medical Decision Making Patient with complex history including A-fib, cardiomyopathy and possible myocarditis, ANCA vasculitis presented to the ER with several months of worsening weight gain, lower extremity swelling and dyspnea on exertion. He is in rate controlled A-fib here. He is saturating well on room air without re spiratory distress. He has decreased breath sounds bilaterally but otherwise clear lungs. He does have significant lower extremity edema. Differential diagnosis includes CHF exacerbation versus weight gain secondary to several months of prednisone versus fluid overload secondary to renal failure possibly due to vasculitis or cardiorenal syndrome versus nephrotic syndrome. Will obtain workup including EKG and troponin, CMP, BNP and a CT angio of the chest. Give a dose of IV Lasix for suspected CHF. rTae Smith MD 10/10/24 2210 Trae Smith MD 10/11/24 0207 Trae Smith MD 10/11/24 2342 Trae Smith MD 10/12/24 0000 documented in this encounter H&P Notes * YESENIA Croft - 10/10/2024 10:16 PM EDT Images from the original note were not included. [facility] PH[facility] Please contact author [YESENIA Croft] via [employer]. Patient: Wilfrid Pineda Admission Date/Time: 10/10/2024 5:23 PM : 1955 [69 y.o.] Patient's PCP: Juancarlos Johnson MD Attending Provider: Chandu Orlando MD CHIEF COMPLAINT SOB HISTORY OF PRESENT ILLNESS Wilfrid Pineda is a 69 y.o. 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 Patient complains weight gain 15 to 20 pounds over the past 2 mo nths. Patient complains bilateral lower extremity edema and distention in abdomen. States he finished tapering dose of prednisone 3 weeks ago. He was on prednisone for 3 months, He was seen by his time stamp assembler yesterday and recommended to increase torsemide dose to twice daily. Patient has not started increased dose of torsemide yet. Reports feeling short of breath with any activity even standing long time or taking a shower. He also noticed leg swelling and stomach swelling.Denies orthopnea. Reports gaining weight abdomen and lower extremities. States he feels short of breath when he carries small grocery bags. Denies cough, cold-like symptoms. Denies fever, chills. Denies chest pain, palpitations. Admits increased appetite and drinking water more than his usual. Denies changes in the bowel movement or urination. Arrival to ED, blood pressure 119/77, heart rate 89, repleted 90, sat 98% room air, afebrile. -Labs revealed no leukocytosis 9.6, H&H 13/40.3, platelets 98, at bedtime WNL, elevated BUN/creatinine 51/2.52, LFTs WNL except elevated phosphatase 147. BNP elevated 258, high-sensitivity troponin remained flat . CT chest without contrast showed no focal consolidation, minimal right base atelectasis. Marked cardiomegaly Patient is a 40 mg IV Lasix and admitted as needed for further workup or treatment. Review of Systems All points in 12 point review of systems are negative or as per above MEDICAL HISTORY Past Medical History Past Medical History: Diagnosis [...] DX:Umbilical hernia Venous insufficiency 06/09/2017 DX:Venous insufficiency Past Surgical History Past Surgical History: Procedure Laterality Date CARDIOVERSION DONE ON 12/16/2023 AT [facility] W AOP INDICATION:Atrial fibrillation OTHER SURGICAL HISTORY Right 10/11/2023 PROCEDURE: HI THORACOSCOPY W/PLEURODESIS Social History reports that he has never smoked. He has never used smokeless tobacco. He reports that he does not drink alcohol and does not use drugs. 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 Allergies is allergic to sulfa (sulfonamide antibiotics). Home Medications Current Outpatient Medications Medication Instructions albuterol HFA (PROAIR HFA ; PROVENTIL HFA ; VENTOLIN HFA) 90 mcg/actuation inhaler 2 puffs, inhalation, Every 6 hours PRN aspirin 81 mg, Daily atorvastatin (LIPITOR) 40 mg, oral, Daily atovaquone (MEPRON) 750 mg, Daily after breakfast AVACOPAN ORAL 30 mg, 2 times daily dapagliflozin propanediol (FARXIGA) 5 mg, oral, Daily doxazosin (CARDURA) 8 mg tablet TAKE 1/2 TABLET TWICE A DAY BY MOUTH hydrALAZINE (APRESOLINE) 150 mg, oral, 2 times daily metoprolol succinate (TOPROL-XL) 25 mg, oral, Daily, Do not crush or chew. PARoxetine (PAXIL) 20 mg, oral, Every morning predniSONE (DELTASONE) 40 mg, Daily spironolactone (ALDACTONE) 25 mg, oral, Daily, Stopping potassium supplement torsemide (DEMADEX) 40 mg, oral, Daily OBJECTIVE Vitals Visit Vitals BP 113/72 (BP Location: Left arm;Upper, Patient Position: Sitting) Pulse 93 Temp 37 ??C (98.6 ??F) Resp 18 Temp (24hrs), Av.1 ??C (98.7 ??F), Min:37 ??C (98.6 ??F), Max:37.1 ??C (98.8 ??F) Body mass index is 38.48 kg/m??. No results found for: PTWT , PTHT Physical Examination General: Age appropriate, pleasant. No acute distress. Laying comfortably on exam stretcher. Skin: Warm, dry, intact, no diaphoresis. HEENT: Atraumatic, normocephalic head, Patient is handling secretions without trismus or drooling. Neck: Soft/supple, full range of motion. No cervical spine tenderness noted. Cardiology: Regular rate and rhythm, no rubs or gallops, S1 and S2 auscultated. Respiratory: Clear to auscultation bilaterally, no wheezes, rales or rhonchi. No accessory muscle use, retractions or tripoding; Abdominal/GI: Abdomen is not distended, Normal bowel sounds, abdomen soft and non-tender. No CVA tenderness. Peripheral Vascular: 1+ pitting edema on lower legs. Radial pulse 2 + and Dorsalis Pedis 1+ bilaterally. Neurological: No focal deficit. CN II-XII grossly intact. Musculoskeletal: No calf tenderness or asymmetry. Moving all extremities at the major joint spaces without difficulty. Psychiatric: Cooperative, appropriate mood & affect. ECG: Was ECG Performed? Yes . Sinus Rhythm? No. Signs of acute ischemia? No Further Interpretation: Afib LAB RESULTS (most recent) HEMATOLOGY Lab Results Component Value Date WBC 9.6 10/10/2024 HGB 13.0 (L) 10/10/2024 HCT 40.3 (L) 10/10/2024 MCV 99.8 (H) 10/10/2024 PLT 198 10/10/2024 CHEMISTRY Lab Results Component Value Date GLUCOSE 99 10/10/2024 NA 140 10/10/2024 K 4.3 10/10/2024 CO2 28 10/10/2024 CL 103 10/10/2024 BUN 51 (H) 10/10/2024 CREATININE 2.52 (H) 10/10/2024 EGFR 27 (L) 10/10/2024 CALCIUM 8.6 10/10/2024 MG 2.1 10/10/2024 ANIONGAP 9 10/10/[address] Chest wo Contrast Final Result 1. Minimal right base atelectasis. No focal consolidation. 2. Marked cardiomegaly. Enlarged main pulmonary artery, a finding that can be associated with pulmonary artery hypertension. This document has been electronically signed by: Sacha Biggs MD on 10/10/2024 19:59:43 XR Chest 2 Views (Results Pending) Transthoracic echocardiogram (TTE) complete with PRN contrast, bubble, strain, and 3D order panel (Results Pending) ASSESSMENT & PLAN Dyspnea on exertion On torsemide 40 mg and spironolactone 25 mg daily Last echocardiogram is from September 2023 severely dilated LA, mild LVH, EF 45 to 50% with mild MR and TR, mild increased PA pressures with decreased EF compared to April 2023 which were 60 to 65% CT Chest showed cardiomegaly, no pulmonary congestion. 1+ pitting edema in lower extremities. Abdomen is obese but not distended. Daily I+Os Cardiology consult IV Lasix BID ECHO ordered Lipid, A1C tomorrow am Cardiac Diet with fluid restriction 1500 Cardiomyopathy History of myocarditis on cardiac PET scan in March 2024 which revealed multifocal inflammatory process. Positive ANCA Followed by Nutrition Specialist Dr. Mark He is positive p-ANCA with very high titer MPO per bone grinder patient's findings of cardiomyopathy, renal dysfunction and pulmonary involvement more likely consistent with ANCA associated vasculitis ( AVV) Patient was on prednisone 60 mg and completed prednisone taper. Patient recently started on rituximab (first infusion on 10/01 and next dose on 10/19) and avacopan 30mg twice daily. He is also on on atovaquone for PJP prophylaxis -Continue atavaquone and avacopan as prescribed CKD Cr 2.52 it was 2.0 yesterday 10/09 his level has been 2.0-2.2 range Followed by patient biller from [facility]. Renal biopsy showed immune-mediated glomerulopathy Avoid nephrotoxins Monitor kidney function closely Paroxysmal A-fib Status post Watchman device done in August 2023 metoprolol Hypertension Patient is on amlodipine, hydralazine, spironolactone, metoprolol and torsemide Per bone grinder hydralazine should be discontinued due to known hydralazine related AVV Recurrent pleural effusion Status post thoracentesis in July 2023 and September 2023, due to recurrence underwent underwent VATS pleurodesis and bronchoscopy with subcarinal lymph node aspirate October 2023. Pathology was negative for malignancy. Depression Continue home med Paxil LIANET Continue with CPAP at bedtime DVT Prophylaxis: Lovenox Pneumoboots Code Status: Full Code HCP: Gabriel Alford [phone] Orlando Cosigned by Chandu Orlando MD at 10/11/2024 8:00 AM EDT Associated attestation - Chandu Orlando MD - 10/11/2024 8:00 AM EDT This is a split/shared visit with YESENIA Croft. 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 After discussion with the ER provider, the patient will be admitted to the hospital. The patient reports a 16 pound weight gain and increased dyspnea despite adherence to his torsemide and spironolactone. The patient has had a deterioration of his LVEF over the past year, likely secondary to an ANCA associated vasculitis. He was previously treated with corticosteroids and has been transitioned torituximab. But his chest x-ray does not show significant pulmonary edema, he does have an elevated BNP and likely has acute on chronic heart failure. Serial troponins are normal making ongoing myocarditis less likely. We will diurese the patient with IV furosemide and check an echocardiogram in themorning to evaluate his LVEF. The patient's creatinine has also been rising over the past year. Renal biopsy demonstrated immune mediated glomerulopathy, likely related to his ANCA associated vasculitis. His current increase in his creatinine may be secondary to cardiorenal syndrome and we will follow his renal function closelyas he undergoes diuresis. Management of additional chronic medical problems as below. Chandu Orlando MD 10/11/24 7:52 AM EDT documented in this encounter Plan of Treatment Upcoming Encounters Date Type Department Care Team (Late st Contact Info) Description 10/18/2024 3:10 PM EDT Office Visit [facility] [address] [facility] [address] [place] [phone] Tatiana Quintana PA [address] [place] [address] [place] [address] 02/12/2025 9:45 AM EST Office Visit Internal Medicine - [place] [facility] [address] [place] [phone] Juancarlos Johnson MD [address] [place] [phone] 03/19/2025 8:00 AM EST Office Visit Pulmonolgy - [place] [facility] [address] [place] [phone] Gabbi Anglin MD [address] [facility] [address] [place] [address] Scheduled Orders Name Type Priority Associated Diagnoses Orde r Schedule Basic metabolic panel Lab Routine Acute on chronic HFrEF (heart failure with reduced ejection fraction) (CMS/HCC V24, CMS/HCC V28) Expected: 10/15/2024, Expires: 10/11/2025 documented as of this encounter Procedures Procedure Name Priority Date/Time Associated Diagnosis Comments TRANSTHORACIC ECHOCARDIOGRAM (TTE) COMPLETE W/ CONTRAST Routine 10/11/2024 7:36 AM EDT Acute on chronic HFrEF (heart failure with reduced ejection fraction) (CMS/HCC V24, CMS/HCC V28) CBC WITH AUTO DIFFERENTIAL Routine 10/11/2024 6:14 AM EDT CBC AND DIFFERENTIAL Routine 10/11/2024 6:14 AM EDT MAGNESIUM Routine 10/11/2024 6:14 AM EDT BASIC METABOLIC PANEL Routine 10/11/2024 6:[address] CHEST WO CONTRAST STAT 10/10/2024 7:37 PM EDT TROPONIN I HIGH SENSITIVITY Timed 10/10/2024 6:45 PM EDT ACTIVATED PARTIAL THROMBOPLASTIN TIME STAT 10/10/2024 6:45 PM EDT PROTHROMBIN TIME WITH INR STAT 10/10/2024 6:45 PM EDT ECG 12-LEAD STAT 10/10/2024 6:43 PM EDT XR CHEST 2 VIEWS STAT 10/10/2024 5:39 PM EDT TROPONIN I HIGH SENSITIVITY Timed 10/10/2024 5:23 PM EDT CBC WITH AUTO DIFFERENTIAL STAT 10/10/2024 5:23 PM EDT CBC AND DIFFERENTIAL STAT 10/10/2024 5:23 PM EDT B-TYPE NATRIURETIC PEPTIDE STAT 10/10/2024 5:23 PM EDT MAGNESIUM STAT 10/10/2024 5:23 PM EDT LIPASE STAT 10/10/2024 5:23 PM EDT COMPREHENSIVE METABOLIC PANEL STAT 10/10/2024 5:23 PM EDT ECG 12-LEAD STAT 10/10/2024 5:19 PM EDT documented in this encounter Results * (ABNORMAL) TRANSTHORACIC ECHOCARDIOGRAM (TTE) COMPLETE W/ CONTRAST (10/11/2024 7:36 AM EDT) Left Atrium Minor [place] 7.2 cm CV PACS Left Atrium Major [place] 7.6 cm CV PACS LA Area Sys (A2C) 32 cm2 CV PACS LA Area Sys (A4C) 33 cm2 CV PACS LA Volume (BP) 118 mL CV PACS RA Area 30.2 cm2 CV PACS RA 2D Volume 100 mL CV PACS Aortic Sinus Valsalva 3.3 cm CV PACS Ascending Aorta 3.7 cm CV PACS LVOT Diameter 2.3 cm CV PACS LVOT Mean Grad 1 mmHg CV PACS LVOT Peak VTI 14.8 cm CV PACS LVOT Mean Donell 0.5 m/s CV PACS LVOT Peak Donell 0.9 m/s CV PACS LVOT Peak Gradient 3 mmHg CV PACS LVOT Area 4.2 cm2 CV PACS LVOT Stroke Volume 67 mL CV PACS E Wave Deceleration Time 211 119 - 242 ms CV PACS MV Peak E Donell 0.80 m/s CV PACS RV S' 11 cm/s CV PACS TAPSE 17 mm CV PACS TR Peak Velocity 2.60 m/s CV PACS TR Peak Gradient 25 mmHg CV PACS LVOT Stroke Index 29 mL/m2 CV PACS Ascending Aorta Index 1.58 cm/m2 CV PACS LVOT flow 208 mL/s CV PACS RA 2D Volume Index 43 18 - 32 mL/m2 CV PACS LA Volume Index (BP) 50 mL/m2 CV PACS BSA 2.42 m2 CV PACS LV EDV (A4C) 162 mL CV PACS LV EDV Index (A4C) 69 mL/m2 CV PACS RV Free Wall Peak S' 11 cm/s CV PACS RA Major [place] 6.8 cm CV PACS RA Major [place] Index 2.9(A) 2.1 - 2.7 cm/m2 CV PACS MV PHT 61 ms CV PACS LV EDV 4C A-L 160 mL CV PACS LV Length Meredith (A4C) 8.2 cm CV PACS Ejection Fraction (A4C) 51 % CV PACS LV ESV (A4C) 80 mL CV PACS LV ESV Index (A4C) 34 mL/m2 CV PACS LA Volume (A-L) 79 mL CV PACS LA Volume Index (A-L) 34 mL/m2 CV PACS LV EF 4C A-L 50 % CV PACS LV Length Sys (A4C) 7.3 cm CV PACS LV Diastolic Volume (BP) 157(A) 62 - 150 mL CV PACS LV Diastolic Volume Index (BP) 67(A) 34 - 74 mL/m2 CV PACS LV EDV (A2C) 145 mL CV PACS LV EDV Index (A2C) 62 mL/m2 CV PACS Ejection Fraction (BP) 45 % CV PACS Ejection Fraction (A2C) 39 % CV PACS LV Systolic Volume (BP) 86(A) 21 - 61 mL CV PACS LV Systolic Volume Index (BP) 37(A) 11 - 31 mL/m2 CV PACS LV ESV (A2C) 88 mL CV PACS LV ESV Index (A2C) 38 mL/m2 CV PACS LV EF MOD 2C 39 % CV PACS Left Ventricular Stroke Volume by 2-D Biplane-MOD 71 mL CV PACS Right Ventricular Peak Systolic Pressure 30 mmHg CV PACS Est. RA Pressure 3 mmHg CV PACS Anatomical Region Laterality Modality Ultrasound Narrative 10/11/2024 12:26 PM EDT Left ventricle cavity size is normal. Mild LV global hypokinesis is present.Left ventricular systolic function is mildly decreased with an ejection fraction of 45-50%.Unable to assess diastolic function due to arrhythmia. Right ventricle cavity is normal. Right ventricular systolic function is normal. TAPSE 17 mm. RV S' 11 cm/sec. Mitral Valve: There is moderate regurgitation with an eccentrically directed jet. Tricuspid Valve: There is mild regurgitation with an eccentric jet. The right ventricular systolic pressure is normal. The RVSP is estimated at 30 mmHg. Left Ventricle Left ventricle cavity size is normal. Wall thickness was not well visualized. Systolic function is mildly decreased with an ejection fraction of 45-50%. Mild global LV hypokinesis is present. Unable to assess diastolic function due to arrhythmia. Right Ventricle Right ventricle cavity appears normal. Systolic function is normal. RV S' 11 cm/sec. Normal TAPSE (> 17 mm), measuring 17 mm. Left Atrium Left atrium cavity is severely dilated. Right Atrium Right atrium cavity is severely dilated. IVC/SVC Inferior vena cava structure is normal. Mitral Valve The leaflets are mildly thickened. There is mild annular calcification. There is moderate regurgitation with an eccentrically directed jet. There is no evidence of mitral valve stenosis. Tricuspid Valve The leaflets exhibit normal excursion. There is mild regurgitation with an eccentric jet. There is no evidence of tricuspid valve stenosis. The right ventricular systolic pressure is normal. The RVSP is estimated at 30 mmHg. Aortic Valve The aortic valve was not well visualized. Number of aortic valve cusps cannot be determined. There is no regurgitation or stenosis. Pulmonic Valve The pulmonic valve was not well visualized. There is no regurgitation or stenosis. Ascending Aorta The aorta appears normal in size. Pericardium There is an anterior fat pad. There is no pericardial effusion. Study Details Overall the study quality was technically difficult. Definity contrast was given to enhance imaging. us Chandu Orlando MD CV ECHO PROCEDURES Final Re sult * (ABNORMAL) CBC auto differential (10/11/2024 6:14 AM EDT) WBC 8.0 4.8 - 10.8 [facility] LAB HEMETOLOGY METHOD 10/11/2024 7:26 AM EDT [facility] RBC 3.90(L) 4.50 - 5.50 [facility] LAB HEMETOLOGY METHOD 10/11/2024 7:26 AM EDT [facility] Hemoglobin 12.3(L) 13.5 - 17.5 g/dL LAB HEMETOLOGY METHOD 10/11/2024 7:26 AM [facility] Hematocrit 38.3(L) 42.0 - 54.0 % LAB HEMETOLOGY METHOD 10/11/2024 7:26 AM [facility] MCV 99.0(H) 79.0 - 98.0 FL LAB HEMETOLOGY METHOD 10/11/2024 7:26 AM [facility] MCH 31.8 27.0 - 32.0 pcg LAB HEMETOLOGY METHOD 10/11/2024 7:26 AM [facility] MCHC 32.1 32.0 - 37.0 g/dL LAB HEMETOLOGY METHOD 10/11/2024 7:26 AM [facility] RDW 15.9(H) 11.0 - 15.0 % LAB HEMETOLOGY METHOD 10/11/2024 7:26 AM [facility] Platelets 176 130 - 400 K/mcL LAB HEMETOLOGY METHOD 10/11/2024 7:26 AM [facility] MPV 10.6 7.0 - 11.0 FL LAB HEMETOLOGY METHOD 10/11/2024 7:26 AM [facility] NRBC 0.0 <1.0 % LAB HEMETOLOGY METHOD 10/11/2024 7:26 AM [facility] NRBC Absolute 0.00 <0.10 K/mcL LAB HEMETOLOGY METHOD 10/11/2024 7:26 AM [facility] Neutrophils Relative 75.5 % LAB HEMETOLOGY METHOD 10/11/2024 7:26 AM [facility] Lymphocytes Relative 12.6 % LAB HEMETOLOGY METHOD 10/11/2024 7:26 AM [facility] Monocytes Relative 8.8 % LAB HEMETOLOGY METHOD 10/11/2024 7:26 AM EDT [facility] [facility] Eosinophils Relative 1.3 % LAB HEMETOLOGY METHOD 10/11/2024 7:26 AM [facility] Basophils Relative 0.9 % LAB HEMETOLOGY METHOD 10/11/2024 7:26 AM EDT [facility] Immature Granulocytes Relative 0.9 % LAB HEMETOLOGY METHOD 10/11/2024 7:26 AM EDT [facility] Neutrophils Absolute 6.05 1.50 - 7.00 K/mcL LAB HEMETOLOGY METHOD 10/11/2024 7:26 AM [facility] Lymphocytes Absolute 1.01 1.00 - 5.00 K/mcL LAB HEMETOLOGY METHOD 10/11/2024 7:26 AM [facility] Monocytes Absolute 0.70 0.20 - 1.00 K/mcL LAB HEMETOLOGY METHOD 10/11/2024 7:26 AM [facility] Eosinophils Absolute 0.10 0.00 - 0.50 K/mcL LAB HEMETOLOGY METHOD 10/11/2024 7:26 AM [facility] Basophils Absolute 0.07 0.00 - 0.20 K/mcL LAB HEMETOLOGY METHOD 10/11/2024 7:26 AM [facility] Immature Granulocytes Absolute 0.07(H) 0.00 - 0.03 K/mcL LAB HEMETOLOGY METHOD 10/11/2024 7:26 AM [facility] Blood Venous blood specimen / Unknown Venipuncture / Unknown 10/11/2024 6:14 AM EDT 10/11/2024 7:16 AM EDT us Chandu Orlando MD LAB BLOOD ORDERABLES Final Result [facility] [address] [place] [address], [place] [phone] * Magnesium (10/11/2024 6:14 AM EDT) [facility] Magnesium 2.3 1.9 - 2.6 mg/dL LAB CHEMISTRY METHOD 10/11/2024 7:54 AM [facility] Blood Venous blood specimen / Unknown Venipuncture / Unknown 10/11/2024 6:14 AM EDT 10/11/2024 7:16 AM EDT us Chandu Orlando MD LAB BLOOD ORDERABLES Final Result [facility] [address] [place] [address], [place] [phone] * (ABNORMAL) Basic metabolic panel (10/11/2024 6:14 AM EDT) [facility] Sodium 140 133 - 145 mmol/L LAB CHEMISTRY METHOD 10/11/2024 7:54 AM [facility] Potassium 4.1 3.5 - 5.5 mmol/L LAB CHEMISTRY METHOD 10/11/2024 7:54 AM [facility] Chloride 104 96 - 110 mmol/L LAB CHEMISTRY METHOD 10/11/2024 7:54 AM [facility] CO2 29 21 - 32 mmol/L LAB CHEMISTRY METHOD 10/11/2024 7:54 AM [facility] Anion Gap 7 3 - 11 LAB CHEMISTRY METHOD 10/11/2024 7:54 AM [facility] Glucose 92 70 - 100 mg/dL LAB CHEMISTRY METHOD 10/11/2024 7:54 AM [facility] BUN 53(H) 5 - 25 mg/dL LAB CHEMISTRY METHOD 10/11/2024 7:54 AM [facility] Creatinine 2.14(H) 0.70 - 1.30 mg/dL LAB CHEMISTRY METHOD 10/11/2024 7:54 AM EDT [facility] eGFR 32(L) >=60 mL/min/1. 73m2 LAB CHEMISTRY METHOD 10/11/2024 7:54 AM EDT [facility] Comment:Calculation based on the Chronic Kidney Disease Epidemiology Collaboration (CKD-EPI) equation refit without adjustment for race. BUN/Creatinine Ratio 24.8 LAB CHEMISTRY METHOD 10/11/2024 7:54 AM EDT [facility] Calcium 8.6 8.5 - 10.5 mg/dL LAB CHEMISTRY METHOD 10/11/2024 7:54 AM EDT [facility] Blood Venous blood specimen / Unknown Venipuncture / Unknown 10/11/2024 6:14 AM EDT 10/11/2024 7:16 AM EDT us Chandu Orlando MD LAB BLOOD ORDERABLES Final Result [facility] [address] [place] [address], [place] [phone] * CT Chest wo Contrast (10/10/2024 7:37 PM EDT) Anatomical Region Laterality Modality Body Computed Tomogra phy 10/10/2024 7:59 PM EDT Impressions 10/10/2024 7:59 PM EDT 1. Minimal right base atelectasis. No focal consolidation. 2. Marked cardiomegaly. Enlarged main pulmonary artery, a finding that can be associated with pulmonary artery hypertension. This document has been electronically signed by: Sacha Biggs MD on 10/10/2024 19:59:43 Narrative 10/10/2024 7:59 PM EDT INDICATION: dyspnea on exertion CT chest without contrast Comparison: CT/KO/HI/SR - CT CHEST WO CONTRAST - 06/28/24 13:13 EDT Findings: Marked cardiomegaly. Coronary artery calcifications are present. Watchman type device noted in the left atrium. Enlarged main pulmonary artery, a finding that can be associated with pulmonary artery hypertension. The visualized thyroid and mediastinum are unremarkable. Incidentally noted bilateral gynecomastia. No consolidation or effusion. Minimal atelectasis at the right lung base. 1.4 cm right adrenal adenoma again seen. Diffuse idiopathic skeletal hyperostosis of the thoracic spine. Procedure Note Sacha Biggs MD - 10/10/2024 INDICATION: dyspnea on exertion CT chest without contrast Comparison: CT/KO/HI/SR - CT CHEST WO CONTRAST - 06/28/24 13:13 EDT Findings: Marked cardiomegaly. Coronary artery calcifications are present.Watchman type device noted in the left atrium. Enlarged main pulmonary artery, a finding that can be associated with pulmonary artery hypertension. The visualized thyroid and mediastinum are unremarkable. Incidentally noted bilateral gynecomastia. No consolidation or effusion. Minimal atelectasis at the right lungbase. 1.4 cm right adrenal adenoma again seen. Diffuse idiopathic skeletal hyperostosis of the thoracic spine. IMPRESSION: 1. Minimal right base atelectasis. No focal consolidation. 2. Marked cardiomegaly. Enlarged main pulmonary artery, a finding thatcan be associated with pulmonary artery hypertension. This document has been electronically signed by: Sacha Biggs MD on 10/10/2024 19:59:43 Trae Smith MD IMG CT PROCEDURES Final Resu lt * (ABNORMAL) APTT (10/10/2024 6:45 PM EDT) aPTT 43.9(H) 24.1 - 39.3 sec LAB COAGULATION METHOD 10/10/2024 7:14 PM EDT [facility] Blood Venous blood specimen / Unknown Venipuncture / Unknown 10/10/2024 6:45 PM EDT 10/10/2024 6:54 PM EDT Trae Smith MD LAB BLOOD ORDERABLES Final R esult [facility] [address] [place] [address], [place] [phone] * Protime-INR (10/10/2024 6:45 PM EDT) [facility] Protime 11.0 10.6 - 13.9 sec LAB COAGULATION METHOD 10/10/2024 7:14 PM EDT [facility] INR 0.9 LAB COAGULATION METHOD 10/10/2024 7:14 PM EDT [facility] Blood Venous blood specimen / Unknown Venipuncture / Unknown 10/10/2024 6:45 PM EDT 10/10/2024 6:54 PM EDT us Trae Smith MD LAB BLOOD ORDERABLES Final R esult Performing Organization Address [facility] Co de Phone Number [facility] [address] [place] [address], [place] [phone] * Troponin I high sensitivity (10/10/2024 6:45 PM EDT) [facility] High Sensitivity Troponin I 12 <=79 ng/L LAB CHEMISTRY METHOD 10/10/2024 7:37 PM EDT [facility] Blood Venous blood specimen / Unknown Venipuncture / Unknown 10/10/2024 6:45 PM EDT 10/10/2024 6:54 PM EDT Narrative [facility] - 10/10/2024 7:37 PM EDT High levels of biotin in samples may falsely decrease hsTroponin values. Use caution when interpreting hsTroponin results in patients taking biotin who exhibit renal impairment (eGFR <60) or in patients taking more than 20 mg/day of biotin. us Trae Smith MD LAB BLOOD ORDERABLES Final R esult Performing Organization Address City/[facility]/ZIP Co de Phone Number [facility] [address] [place] [address], [place] [phone] * ECG 12 lead (10/10/2024 6:43 PM EDT) Ventricular Rate ECG 89 BPM G[facility] Atrial Rate 91 BPM GEMUSE QRS Duration 114 ms GEMUSE Q-T Interval 370 ms GEMUSE QTc 450 ms GEMUSE R [place] -5 degrees GEMUSE T [place] 132 degrees GEMUSE ECG Interpretation Atrial fibrillation Inferior infarct , age undetermined Abnormal ECG When compared with ECG of 10-OCT-2024 17:19, (unconfirmed) No significant change was found Confirmed by Delgado ANDRE JAMES ([id number]) on 10/11/2024 12:43:48 PM G[facility] 10/10/2024 6:43 PM EDT 10/11/2024 12:43 PM EDT us Trae Smith MD ECG ORDERABLES Final Result [facility] * XR Chest 2 Views (10/10/2024 5:39 PM EDT) Anatomical Region Laterality Modality Body Radiographic Yulissa ging 10/11/2024 8:32 AM EDT Impressions 10/11/2024 8:33 AM EDT FINDINGS/IMPRESSION: No pneumonia or pulmonary edema. No pleural effusion or pneumothorax. Cardiac silhouette is stably enlarged with left atrial appendage occlusion device in place. Degenerative changes seen throughout the bones. -------- FINAL REPORT -------- Dictated By: RAJENDRA BONILLA Dictated Date: 10/11/2024 08:32 ET Assigned Physician: RAJENDRA BONILLA Reviewed and Electronically Signed By: RAJENDRA BONILLA Signed Date: 10/11/2024 08:33 ET Workstation ID: [id number] Transcribed By: Self Edit Transcribed Date: 10/11/2024 08:32 ET Narrative 10/11/2024 8:33 AM EDT XR CHEST 2 VIEWS INDICATION: Chest pain TECHNIQUE: XR CHEST 2 VIEWS COMPARISON: 12/29/2023 Procedure Note Rajendra Bonilla MD - 10/11/2024 XR CHEST 2 VIEWS INDICATION: Chest pain TECHNIQUE: XR CHEST 2 VIEWS COMPARISON: 12/29/2023 IMPRESSION: FINDINGS/IMPRESSION: No pneumonia or pulmonary edema. No pleural effusionor pneumothorax. Cardiac silhouette is stably enlarged with left atrialappendage occlusion device in place. Degenerative changes seen throughoutthe bones. -------- FINAL REPORT -------- Dictated By: RAJENDRA BONILLA Dictated Date: 10/11/2024 08:32 ET Assigned Physician: RAJENDRA BONILLA Reviewed and Electronically Signed By: RAJENDRA BONILLA Signed Date: 10/11/2024 08:33 ET Workstation ID: [id number] Transcribed By: Self Edit Transcribed Date: 10/11/2024 08:32 ET us Chandu Orlando MD IMG XR PROCEDURES Final Res ult * (ABNORMAL) CBC auto differential (10/10/2024 5:23 PM EDT) WBC 9.6 4.8 - 10.8 K/mcL LAB HEMETOLOGY METHOD 10/10/2024 6:13 PM EDT [facility] RBC 4.00(L) 4.50 - 5.50 M/mcL LAB HEMETOLOGY METHOD 10/10/2024 6:13 PM EDT [facility] Hemoglobin 13.0(L) 13.5 - 17.5 g/dL LAB HEMETOLOGY METHOD 10/10/2024 6:13 PM EDT [facility] Hematocrit 40.3(L) 42.0 - 54.0 % LAB HEMETOLOGY METHOD 10/10/2024 6:13 PM EDT [facility] MCV 99.8(H) 79.0 - 98.0 FL LAB HEMETOLOGY METHOD 10/10/2024 6:13 PM EDT [facility] MCH 32.2(H) 27.0 - 32.0 pcg LAB HEMETOLOGY METHOD [facility] MCHC 32.3 32.0 - 37.0 g/dL LAB HEMETOLOGY METHOD 10/10/2024 6:13 PM [facility] RDW 15.7(H) 11.0 - 15.0 % LAB HEMETOLOGY METHOD 10/10/2024 6:13 PM [facility] Platelets 198 130 - 400 K/mcL LAB HEMETOLOGY METHOD 10/10/2024 6:13 PM [facility] MPV 10.3 7.0 - 11.0 FL LAB HEMETOLOGY METHOD 10/10/2024 6:13 PM [facility] NRBC 0.0 <1.0 % LAB HEMETOLOGY METHOD 10/10/2024 6:13 PM [facility] NRBC Absolute 0.00 <0.10 K/mcL LAB HEMETOLOGY METHOD 10/10/2024 6:13 PM [facility] Neutrophils Relative 75.8 % LAB HEMETOLOGY METHOD 10/10/2024 6:13 PM [facility] Lymphocytes Relative 14.5 % LAB HEMETOLOGY METHOD 10/10/2024 6:13 PM [facility] Monocytes Relative 7.4 % LAB HEMETOLOGY METHOD 10/10/2024 6:13 PM [facility] Eosinophils Relative 1.0 % LAB HEMETOLOGY METHOD 10/10/2024 6:13 PM [facility] Basophils Relative 0.6 % LAB HEMETOLOGY METHOD 10/10/2024 6:13 PM [facility] Immature Granulocytes Relative 0.7 % LAB HEMETOLOGY METHOD 10/10/2024 6:13 PM [facility] Neutrophils Absolute 7.29(H) 1.50 - 7.00 K/mcL LAB HEMETOLOGY METHOD 10/10/2024 6:13 PM [facility] Lymphocytes Absolute 1.40 1.00 - 5.00 K/mcL LAB HEMETOLOGY METHOD 10/10/2024 6:13 PM EDT [facility] Monocytes Absolute 0.71 0.20 - 1.00 K/mcL LAB HEMETOLOGY METHOD 10/10/2024 6:13 PM EDT [facility] Eosinophils Absolute 0.10 0.00 - 0.50 K/[facility] LAB HEMETOLOGY METHOD 10/10/2024 6:13 PM EDT [facility] Basophils Absolute 0.06 0.00 - 0.20 K/[facility] HEMETOLOGY METHOD 10/10/2024 6:13 PM EDT [facility] Immature Granulocytes Absolute 0.07(H) 0.00 - 0.03 K/[facility] LAB HEMETOLOGY METHOD 10/10/2024 6:13 PM EDT [facility] Blood Venous blood specimen / Unknown Venipuncture / Unknown 10/10/2024 5:23 PM EDT 10/10/2024 6:04 PM EDT Trae Smith MD LAB BLOOD ORDERABLES Final R esult [facility] [address] [place] [address], [place] [phone] * (ABNORMAL) B-type natriuretic peptide (10/10/2024 5:23 PM EDT) BNP 258(H) <=100 pcg/mL LAB CHEMISTRY METHOD 10/10/2024 6:56 PM EDT [facility] Blood Venous blood specimen / Unknown Venipuncture / Unknown 10/10/2024 5:23 PM EDT 10/10/2024 6:04 PM EDT Trae Smith MD LAB BLOOD ORDERABLES Final R esult [facility] [address] [place] [address], [place] [phone] * Magnesium (10/10/2024 5:23 PM EDT) [facility] Magnesium 2.1 1.9 - 2.6 mg/dL LAB CHEMISTRY METHOD 10/10/2024 6:37 PM EDT [facility] Blood Venous blood specimen / Unknown Venipuncture / Unknown 10/10/2024 5:23 PM EDT 10/10/2024 6:04 PM EDT Trae Smith MD LAB BLOOD ORDERABLES Final R esult [facility] [address] [place] [address], [place] [phone] * Lipase (10/10/2024 5:23 PM EDT) [facility] Lipase 45 13 - 75 unit/L LAB CHEMISTRY METHOD 10/10/2024 6:37 PM EDT [facility] Blood Venous blood specimen / Unknown Venipuncture / Unknown 10/10/2024 5:23 PM EDT 10/10/2024 6:04 PM EDT Trae Smith MD LAB BLOOD ORDERABLES Final R esult [facility] [address] [place] [address], [place] [phone] * (ABNORMAL) Comprehensive metabolic panel (10/10/2024 5:23 PM EDT) [facility] Sodium 140 133 - 145 mmol/L LAB CHEMISTRY METHOD 10/10/2024 6:42 PM EDT [facility] Potassium 4.3 3.5 - 5.5 mmol/L LAB CHEMISTRY METHOD 10/10/2024 6:42 PM EDT [facility] Chloride 103 96 - 110 mmol/L LAB CHEMISTRY METHOD 10/10/2024 6:42 PM [facility] CO2 28 21 - 32 mmol/L LAB CHEMISTRY METHOD 10/10/2024 6:42 PM [facility] Anion Gap 9 3 - 11 LAB CHEMISTRY METHOD 10/10/2024 6:42 PM [facility] Glucose 99 70 - 100 mg/dL LAB CHEMISTRY METHOD 10/10/2024 6:42 PM [facility] BUN 51(H) 5 - 25 mg/dL LAB CHEMISTRY METHOD 10/10/2024 6:42 PM [facility] Creatinine 2.52(H) 0.70 - 1.30 mg/dL LAB CHEMISTRY METHOD 10/10/2024 6:42 PM [facility] eGFR 27(L) >=60 mL/min/1. 73m2 LAB CHEMISTRY METHOD 10/10/2024 6:42 PM [facility] Comment:Calculation based on the Chronic Kidney Disease Epidemiology Collaboration (CKD-EPI) equation refit without adjustment for race. BUN/Creatinine Ratio 20.2 LAB CHEMISTRY METHOD 10/10/2024 6:42 PM [facility] Calcium 8.6 8.5 - 10.5 mg/dL LAB CHEMISTRY METHOD 10/10/2024 6:42 PM [facility] AST (SGOT) 20 10 - 42 unit/L LAB CHEMISTRY METHOD 10/10/2024 6:42 PM [facility] ALT (SGPT) 16 10 - 60 unit/L LAB CHEMISTRY METHOD 10/10/2024 6:42 PM [facility] Alkaline Phosphatase 147(H) 42 - 121 unit/L LAB CHEMISTRY METHOD 10/10/2024 6:42 PM [facility] Total Protein 6.5 6.0 - 8.0 g/dL LAB CHEMISTRY METHOD 10/10/2024 6:42 PM [facility] Albumin 3.7 3.2 - 5.0 g/dL LAB CHEMISTRY METHOD 10/10/2024 6:42 PM EDT [facility] Total Bilirubin 0.8 0.0 - 1.4 mg/dL LAB CHEMISTRY METHOD 10/10/2024 6:42 PM EDT [facility] Blood Venous blood specimen / Unknown Venipuncture / Unknown 10/10/2024 5:23 PM EDT 10/10/2024 6:04 PM EDT Trae Smith MD LAB BLOOD ORDERABLES Final R esult Performing Organization Address [facility]/ZIP Co de Phone Number [facility] [address] [place] [address], * Troponin I high sensitivity (10/10/2024 5:23 PM EDT) [facility] High Sensitivity Troponin I 12 <=79 ng/L LAB CHEMISTRY METHOD 10/10/2024 6:45 PM EDT [facility] Blood Venous blood specimen / Unknown Venipuncture / Unknown 10/10/2024 5:23 PM EDT 10/10/2024 6:04 PM EDT Narrative [facility] - 10/10/2024 6:45 PM EDT High levels of biotin in samples may falsely decrease hsTroponin values. Use caution when interpreting hsTroponin results in patients taking biotin who exhibit renal impairment (eGFR <60) or in patients taking more than 20 mg/day of biotin. Trae Smith MD LAB BLOOD ORDERABLES Final R esult [facility] [address] [place] [address], [place] [phone] * ECG 12 lead (10/10/2024 5:19 PM EDT) [facility] Ventricular Rate ECG 100 BPM G[facility] QRS Duration 104 ms GEMUSE Q-T Interval 354 ms GEMUSE QTc 456 ms GEMUSE R [place] 2 degrees GEMUSE T [place] 97 degrees GEMUSE ECG Interpretation Atrial fibrillation Nonspecific T wave abnormality Abnormal ECG When compared with ECG of 14-AUG-2024 15:01, No significant change was found Confirmed by DICKSON ROCK ([id number]) on 10/11/2024 11:58:38 AM [facility] 10/10/2024 5:19 PM EDT 10/11/2024 11:58 AM EDT us Trae Smith MD ECG ORDERABLES Final Result [facility] documented in this encounter Visit Diagnoses Diagnosis Acute on chronic HFrEF (heart failure with reduced ejection fraction) (CMS/HCC V24, CMS/HCC V28)- Primary Dyspnea on exertion Other dyspnea and respiratory abnormality Atrial fibrillation, unspecified type (CMS/HCC V24, CMS/HCC V28) Bilateral lower extremity edema Acute on chronic congestive heart failure, unspecified heart failure type (CMS/HCC V24, CMS/HCC V28) Acute on chronic HFrEF (heart failure with reduced ejection fraction) (CMS/HCC V24, CMS/HCC V28) Acute kidney injury superimposed on CKD (CMS/HCC V24) documented in this encounter Admitting Diagnoses Diagnosis Acute on chronic HFrEF (heart failure with reduced ejection fraction) (CMS/HCC V24, CMS/HCC V28) documented in this encounter Administered Medications Inactive Administered Medications - up to 3 most recent administrations Medication Order MAR Action Action Date Dose Rate Site aspirin EC tablet 81 mg 81 mg, oral, Daily, First dose on Tue10/11/24 at 0900, Do not crush, chew, or split. Given 10/11/2024 10:04 AM EDT 81 mg doxazosin (CARDURA) tablet 4 mg 4 mg, oral, 2 times daily, First dose on Tue10/10/24 at 2214 Given 10/11/2024 10:04 AM EDT 4 mg Given 10/11/2024 12:20 AM EDT 4 mg furosemide (LASIX) injection 40 mg 40 mg, intravenous, Once, On Tue10/10/24 at 1759, For 1 dose Given 10/10/2024 6:09 PM EDT 40 mg furosemide (LASIX) injection 40 mg 40 mg, intravenous, Daily, First dose (after last modification) on Angelina 10/11/24 at 0900 Given 10/11/2024 10:04 AM EDT 40 mg metoprolol succinate (TOPROL-XL) 24 Hour tablet 25 mg 25 mg, oral, Daily, First dose on Angelina 10/11/24 at 0900, Do not crush or chew. Given 10/11/2024 10:04 AM EDT 25 mg metoprolol tartrate (LOPRESSOR) tablet 25 mg 25 mg, oral, Once, On Tue10/10/24 at 2118, For 1 dose Given 10/10/2024 9:30 PM EDT 25 mg ondansetron (PF) (ZOFRAN) injection 4 mg 4 mg, intravenous, Every 8 hours PRN, vomiting, nausea, Starting on Tue10/10/24 at 2213, -ONLY give IV if patient is unable to take orally. -If inadequate response within 30 minutes, proceed to next-line agent or contact provider if no further options ordered. ondansetron ODT (ZOFRAN-ODT) disintegrating tablet 4 mg 4 mg, oral, Every 8 hours PRN, vomiting, nausea, Starting on Tue10/10/24 at 2213, -Give IV if patient is unable to take orally. -If inadequate response within 30 minutes, proceed to next-line agent or contact provider if no further options ordered. For ODT tablets: -Do not remove from blister pack until just before administering. -Patient should allow tablet to dissolve on tongue. perflutren lipid microsphere (DEFINITY) 1.3 mL in sodium chloride 0.9% 8.7 mL injection 10 mL, intravenous, Administer over 10 Minutes, Once in imaging, Starting on Angelina 10/11/24 at 0736, For 1 dose, CV Medication Orders Given 10/11/2024 7:36 AM EDT 2.5 mL prochlorperazine (COMPAZINE) injection 10 mg 10 mg, intravenous, Every 6 hours PRN, nausea, vomiting, Starting on Tue10/10/24 at 2213, 2nd Line Option: -ONLY give IV if patient is unable to take orally. -Give IM if patient does not have IV Access -If inadequate response within 30 minutes, proceed to next-line agent or contact provider if no further options ordered. prochlorperazine (COMPAZINE) suppository 25 mg 25 mg, rectal, Every 12 hours PRN, nausea, vomiting, Starting on Tue10/10/24 at 2213, 2nd Line Option: -ONLY give HI if patient is unable to take orally and cannot receive IV/IM. -If inadequate response within 30 minutes, proceed to next-line agent or contact provider if no further options ordered. prochlorperazine (COMPAZINE) tablet 10 mg 10 mg, oral, Every 6 hours PRN, nausea, vomiting, Starting on Tue10/10/24 at 2213, 2nd Line Option: -Give IV or IM if patient is unable to take orally. -If inadequate response within 30 minutes, proceed to next-line agent or contact provider if no further options ordered. sodium chloride 0.9 % flush 10 mL 10 mL, intravenous, 2 times daily, First dose on Tue10/10/24 at 2214 Given 10/11/2024 10:05 AM EDT 10 mL Given 10/11/2024 12:20 AM EDT 10 mL sodium chloride 0.9 % flush 10 mL 10 mL, intravenous, As needed, line care, Starting on Tue10/10/24 at 2213 spironolactone (ALDACTONE) tablet 25 mg 25 mg, oral, Daily, First dose on Angelina 10/11/24 at 0900, Hazardous Medication Intact: - Single pair of ASTM standard [id number] certified gloves - Eye/face protection if vomit or potential to spit up Manipulated: - Double pair of ASTM standard [id number] certified gloves - Eye/face protection if vomit or potential to spit up - Staff at reproductive risk must also wear a hazardous gown - Crushing must be performed in sealed closed pouch - Splitting/cutting should be performed by pharmacy, if possible Given 10/11/2024 10:04 AM EDT 25 mg documented in this encounter Discontinued Medications Medication Sig Discontinue Reason Start Date End Da te doxazosin (CARDURA) 4 mg tablet Take 1 tablet (4 mg total) by mouth 2 (two) times a day. 10/10/2024 dapagliflozin propanediol (FARXIGA) 5 mg tablet Take 1 tablet (5 mg total) by mouth 1 (one) time each day. 03/22/2024 10/11/2024 torsemide (DEMADEX) 20 mg tablet TAKE 2 TABLETS BY MOUTH EVERY DAY 08/07/2024 10/11/2024 predniSONE (DELTASONE) 20 mg tablet Take 2 tablets (40 mg total) by mouth 1 (one) time each day. Tapering dose Stop Taking at Discharge 10/11/2024 documented as of this encounter Active and Recently Administered Medications Times are shown in EDT. Scheduled Medication Order 10/09/2024 10/10/2024 10/11/2024 aspirin EC tablet 81 mg 81 mg, oral, Daily, First dose on Tue10/11/24 at 0900, Do not crush, chew, or split. 1004 (Given - Provid er: Sonia Arango RN) atorvastatin (LIPITOR) tablet 40 mg 40 mg, oral, Daily, First dose on Tue10/11/24 at 0900 1004 (Not Given - Provider: Sonia Arango RN - Reason: Patient/Resident/Agent refused - education provided ) atovaquone (MEPRON) suspension 1,500 mg 1,500 mg, oral, Daily after breakfast, First dose on Tue10/11/24 at 0830, For 30 days, Administer with food, Indication: Prophylaxis-Medical 1004 (Not Given - Provider: Sonia Arango RN - Reason: Patient/Resident/Agent refused - education provided ) dapagliflozin propanediol (FARXIGA) tablet 5 mg 5 mg, oral, Daily, First dose on Tue10/11/24 at 0900, Was patient receiving dapagliflozin prior to admission for the treatment of HEART FAILURE? (See order restrictions above): Yes, On hold since Tue10/11/2024 at 0839 until manually unheld 0839 (Held by provid er - Provider: Ignacio Campos MD - Reason: Fluid imbalance)0900 (Not Given - Provider: Sonia Arango RN - Reason: See Provider Order)1649 (Unheld by provider - Provider: Automatic Discharge Provider) doxazosin (CARDURA) tablet 4 mg 4 mg, oral, 2 times daily, First dose on Tue10/10/24 at 2214 0020 (Given - Provid er: Torito Powell RN)1004 (Given - Provider: Sonia Arango RN) enoxaparin (LOVENOX) injection 40 mg 40 mg, subcutaneous, Every 24 hours scheduled, First dose on Tue10/11/24 at 0900, Indication: VTE/PE Prophylaxis 1004 (Not Given - Provider: Sonia Arango RN - Reason: Patient/Resident/Agent refused - education provided ) furosemide (LASIX) injection 40 mg (COMPLETED) 40 mg, intravenous, Once, On Tue10/10/24 at 1759, For 1 dose 1809 (Given - Provider: Shakir Rivera, PERRY) furosemide (LASIX) injection 40 mg 40 mg, intravenous, Daily, First dose (after last modification) on Tue10/11/24 at 0900 1004 (Given - Provid er: Sonia Arango RN) metoprolol succinate (TOPROL-XL) 24 Hour tablet 25 mg 25 mg, oral, Daily, First dose on Tue10/11/24 at 0900, Do not crush or chew. 1004 (Given - Provid er: Sonia Arango RN) metoprolol tartrate (LOPRESSOR) tablet 25 mg (COMPLETED) 25 mg, oral, Once, On Tue10/10/24 at 2118, For 1 dose 2129 (Given - Provider: Abiodun Cunningham RN) NON FORMULARY 30 mg, oral, 2 times daily, First dose on Tue10/11/24 at 0900, Drug Name: AVACOPAN ORAL, Form: capsule, Length of Therapy: 3 days, How soon needed? (normally 72 hrs needed to procure): 0-24 hrs, Reason for Non-Formulary: no replacement 1005 (Not Given - Provider: Sonia Arango RN - Reason: Medication not available) PARoxetine (PAXIL) tablet 20 mg 20 mg, oral, Every morning, First dose on Tue10/11/24 at 0700, Hazardous Medication Intact: - Single pair of ASTM standard [id number] certified gloves - Eye/face protection if vomit or potential to spit up - Do NOT split, crush, or open dosage units 1008 (Not Given - Provider: Sonia Arango RN - Reason: Patient/Resident/Agent refused - education provided ) perflutren lipid microsphere (DEFINITY) 1.3 mL in sodium chloride 0.9% 8.7 mL injection (COMPLETED) 10 mL, intravenous, Administer over 10 Minutes, Once in imaging, Starting on Angelina 10/11/24 at 0736, For 1 dose, CV Medication Orders 0736 (Given - Provid er: Annia Mcdaniel) sodium chloride 0.9 % flush 10 mL(Linked Group 1) 10 mL, intravenous, 2 times daily, First dose on Tue10/10/24 at 2214 0020 (Given - Provid er: Torito Powell RN)1005 (Given - Provider: Sonia Arango RN) spironolactone (ALDACTONE) tablet 25 mg 25 mg, oral, Daily, First dose on Angelina 10/11/24 at 0900, Hazardous Medication Intact: - Single pair of ASTM standard [id number] certified gloves - Eye/face protection if vomit or potential to spit up Manipulated: - Double pair of ASTM standard [id number] certified gloves - Eye/face protection if vomit or potential to spit up - Staff at reproductive risk must also wear a hazardous gown - Crushing must be performed in sealed closed pouch - Splitting/cutting should be performed by pharmacy, if possible 1004 (Given - Provid er: Sonia Arango RN) PRN Medication Order 10/09/2024 10/10/2024 10/11/2024 acetaminophen (TYLENOL) tablet 650 mg 650 mg, oral, Every 4 hours PRN, mild pain, headaches, fever - temperature GREATER than 38 C (100.4 F), Starting on Tue10/10/24 at 2213 albuterol 2.5 mg /3 mL (0.083 %) nebulizer solution 2.5 mg 2.5 mg, nebulization, Every 6 hours PRN, wheezing, Starting on Tue10/10/24 at 2213 ondansetron (PF) (ZOFRAN) injection 4 mg(Linked Group 2) 4 mg, intravenous, Every 8 hours PRN, vomiting, nausea, Starting on Tue10/10/24 at 2213, -ONLY give IV if patient is unable to take orally. -If inadequate response within 30 minutes, proceed to next-line agent or contact provider if no further options ordered. ondansetron ODT (ZOFRAN-ODT) disintegrating tablet 4 mg(Linked Group 2) 4 mg, oral, Every 8 hours PRN, vomiting, nausea, Starting on Tue10/10/24 at 3, -Give IV if patient is unable to take orally. -If inadequate response within 30 minutes, proceed to next-line agent or contact provider if no further options ordered. For ODT tablets: -Do not remove from blister pack until just before administering. -Patient should allow tablet to dissolve on tongue. prochlorperazine (COMPAZINE) injection 10 mg(Linked Group 3) 10 mg, intravenous, Every 6 hours PRN, nausea, vomiting, Starting on Tue10/10/24 at 2212, 2nd Line Option: -ONLY give IV if patient is unable to take orally. -Give IM if patient does not have IV Access -If inadequate response within 30 minutes, proceed to next-line agent or contact provider if no further options ordered. prochlorperazine (COMPAZINE) suppository 25 mg(Linked Group 3) 25 mg, rectal, Every 12 hours PRN, nausea, vomiting, Starting on Tue10/10/24 at 2212, 2nd Line Option: -ONLY give HI if patient is unable to take orally and cannot receive IV/IM. -If inadequate response within 30 minutes, proceed to next-line agent or contact provider if no further options ordered. prochlorperazine (COMPAZINE) tablet 10 mg(Linked Group 3) 10 mg, oral, Every 6 hours PRN, nausea, vomiting, Starting on Tue10/10/24 at 2212, 2nd Line Option: -Give IV or IM if patient is unable to take orally. -If inadequate response within 30 minutes, proceed to next-line agent or contact provider if no further options ordered. sodium chloride 0.9 % flush 10 mL(Linked Group 1) 10 mL, intravenous, As needed, line care, Starting on Tue10/10/24 at 3 Linked Groups Order Group 1: Insert peripheral IV (CANCELED) STAT, Once, On Tue10/10/24 at 2213, For 1 occurrence And Maintain IV access (CANCELED) Until discontinued, Starting on Tue10/10/24 at 2213, Until Specified And Saline lock IV (CANCELED) Routine, Once, On Tue10/10/24 at 2213, For 1 occurrence And sodium chloride 0.9 % flush 10 mLJump to med 10 mL, intravenous, 2 times daily, First dose on Tue10/10/24 at 2214 And sodium chloride 0.9 % flush 10 mLJump to med 10 mL, intravenous, As needed, line care, Starting on Tue10/10/24 at 2213 Group 2: ondansetron ODT (ZOFRAN-ODT) disintegrating tablet 4 mgJump to med 4 mg, oral, Every 8 hours PRN, vomiting, nausea, Starting on Tue10/10/24 at 2213, -Give IV if patient is unable to take orally. -If inadequate response within 30 minutes, proceed to next-line agent or contact provider if no further options ordered. For ODT tablets: -Do not remove from blister pack until just before administering. -Patient should allow tablet to dissolve on tongue. Or ondansetron (PF) (ZOFRAN) injection 4 mgJump to med 4 mg, intravenous, Every 8 hours PRN, vomiting, nausea, Starting on Tue10/10/24 at 3, -ONLY give IV if patient is unable to take orally. -If inadequate response within 30 minutes, proceed to next-line agent or contact provider if no further options ordered. Group 3: prochlorperazine (COMPAZINE) tablet 10 mgJump to med 10 mg, oral, Every 6 hours PRN, nausea, vomiting, Starting on Tue10/10/24 at 2212, 2nd Line Option: -Give IV or IM if patient is unable to take orally. -If inadequate response within 30 minutes, proceed to next-line agent or contact provider if no further options ordered. Or prochlorperazine (COMPAZINE) injection 10 mgJump to med 10 mg, intravenous, Every 6 hours PRN, nausea, vomiting, Starting on Tue10/10/24 at 2212, 2nd Line Option: -ONLY give IV if patient is unable to take orally. -Give IM if patient does not have IV Access -If inadequate response within 30 minutes, proceed to next-line agent or contact provider if no further options ordered. Or prochlorperazine (COMPAZINE) suppository 25 mgJump to med 25 mg, rectal, Every 12 hours PRN, nausea, vomiting, Starting on Tue10/10/24 at 2213, 2nd Line Option: -ONLY give HI if patient is unable to take orally and cannot receive IV/IM. -If inadequate response within 30 minutes, proceed to next-line agent or contact provider if no further options ordered. documented in this encounter Orders Medications Ordered That Fabricio ht Not Have Been Administered Count Last Ordered Date First Ordered Date acetaminophen (TYLENOL) tablet 650 mg 1 04/2024 albuterol 2.5 mg /3 mL (0.08 3 %) nebulizer solution 2.5 mg 1 10/10/2024 atorvastatin (LIPITOR) tablet 40 mg 1 10/10 atovaquone (MEPRON) suspension 1,500 mg 1 0 10/10/2024 dapagliflozin propanediol (F ARXIGA) tablet 5 mg 1 10/10/2024 enoxaparin (LOVENOX) injection 40 mg 1 04/2024 furosemide (LASIX) injection 40 mg 1 2024 NON FORMULARY 1 10/10/2024 ondansetron (PF) (ZOFRAN) injection 4 mg 1 10/10/2024 ondansetron ODT (ZOFRAN-ODT) disintegrating tablet 4 mg 1 10/10/2024 PARoxetine (PAXIL) tablet 20 mg 1 prochlorperazine (COMPAZINE) injection 10 mg 1 10/10/2024 prochlorperazine (COMPAZINE) suppository 25 mg 1 10/10/2024 prochlorperazine (COMPAZINE) tablet 10 mg 1 10/10/2024 sodium chloride 0.9 % flush 10 mL 1 025 Diet Count Last Ordered Date First Orde red Date ADULT DISCHARGE DIET 1 10/11/2024 Nursing Count Last Ordered Date First Orde red Date ACTIVITY 10/11/2024 Admission Count Last Ordered Date First Orde red Date INITIATE OBSERVATION STATUS 1 10/11/2024 ADMIT TO INPATIENT 1 10/10/2024 Discharge Count Last Ordered Date First Orde red Date DISCHARGE PATIENT 1 10/11/2024 documented in this encounter Additional Health Concerns Assessment Noted Time PHQ-9 Depression Total Score: 11 025 10:27 AM EDT documented as of this encounter Care Teams Tile Fitter Relationship Specialty Start Date End Date Juancarlos Johnson MD [address] [place] [address] PCP - General Internal Medicine 03/01/24 documented as of this encounter
--- NOTE | 2024-10-12 10:27 | HO.NEPHOV ---
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 He has CKD 3 at baseline. He has H/O non ischemic cardiomyopathy as well as A Fib and had undergone watchman device . He is not on Xarelto anymore. He had a negative cardiac MRI but cardiac PET in Mar 2024 showed multifocal hypermetabolic uptake within the left ventricular wall suggestive of inflammatory process. He also had right pleurodesis for recurrent pleural effusion. He also has history of mediastinal and hilar lymphadenopathy. He has not taken any prednisone or concurrent steroid sparing treatment with methotrexate for possible cardiac sarcoid. Continued workup found him to have p-ANCA positivity and MATT with a serum creatinine going up to 2.8. 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 In the biopsy he had 20 % global glomerulosclerosis with tubular atrophy/ interstitial fibrosis of 20-25 % with moderate vascular sclerosis. He did see a Hydro Operator in [facility] and was started on Rituximab and avacopan . He recently had AKIon CKD due to CRS . He feels improved. He did not specify any new systemic complaints at the time this office visit. [facility] Medical History (Updated 06/10/24 @ 09:29 by Eric Taylor MD) Presence of Watchman left atrial appendage closure device Spinal stenosis Sleep apnea Recurrent right pleural effusion Paroxysmal atrial fibrillation Obesity, morbid Mediastinal adenopathy Major depressive disorder with single episode Hypertension Hyperlipidemia Gout Congestive heart failure Cardiac sarcoidosis Anserine bursitis Achilles tendonitis Surgical History Hx of vasectomy History of lung surgery H/O hernia repair Family History Father Heart disease Diabetes Mother H/O cancer of gall bladder Social History Alcohol intake: never Patient Tobacco Use Status: Never used Tobacco Review of Systems Const All systems reviewed & are unremarkable except as noted in HPI and below Physical Exam Vital Signs: Last Vital Signs Pulse 100 10/12/24 10:29 BP 122/78 10/12/24 10:29 Pulse Ox 98 10/12/24 10:29 Oxygen Delivery Method Room Air 10/12/24 10:29 BMI result Body Mass Index 37.8 Const General: comfortable and no acute distress Orientation/consciousness: patient oriented x3 HEENT Head: Yes normocephalic Mouth: Normal oral and palatal mucosa present Eyes EOM: EOMs intact bilaterally Neck Neck: Yes supple Resp Auscultation: clear to auscultation bilaterally Cardio Jugular venous distension: no JVD Rate: regular rate GI Palpation (GI): Soft to palpation Auscultation: normal bowel sounds General: Yes no CVA tenderness Back/Spine/Pelvis Back: no CVA tenderness Skin General skin exam: no rashes or lesions noted Neuro General: patient oriented x3 and moves all extremities Extrem General: Yes no pedal edema Assessment & Plan Assessment & Plan (1) CKD stage 3b, GFR 30-44 ml/min: Code(s): N18.32 - Chronic kidney disease, stage 3b Category: Medical (2) Hypertension: Code(s): I10 - Essential (primary) hypertension Category: Medical Qualifiers: Hypertension type: primary hypertension Qualified Code(s): I10 - Essential (primary) hypertension (3) Acute kidney injury superimposed on CKD: Code(s): N17.9 - Acute kidney failure, unspecified; N18.9 - Chronic kidney disease, unspecified Category: Medical (4) P-ANCA and MPO antibodies positive: Code(s): R76.8 - Other specified abnormal immunological findings in serum Category: Medical Plan Wilfrid has MATT on a backdrop of CKD with a serum creatinine recently going up to 2.52 . He has multisystem involvement including cardiac, pulmonary and renal. He was thought to have cardiac sarcoid but has not had any tissue diagnosis. He is on Farxiga and diuretics but not on any JUAN JOSE inhibitor, ARB, Entresto. His recent p-ANCA came back as positive. 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 In the biopsy he had 20 % global glomerulosclerosis with tubular atrophy/ interstitial fibrosis of 20-25 % with moderate vascular sclerosis. He was started on Rituximab and avacopan by Hydro Operator in [facility]. Continue to hold hydralazine and C/W Farxiga. I did not make any medication changes today but rather discussed his renal biopsy report and future plan for continued care. All questions were answered. Follow-up given Orders: Orders Creatinine 1 Month I10 - Essential (primary) hypertension, N17.9 - Acute kidney failure, unspecified, N18.32 - Chronic kidney disease, stage 3b, N18.9 - Chronic kidney disease, unspecified, R76.8 - Other specified abnormal immunological findings in serum Blood Urea Nitrogen 1 Month I10 - Essential (primary) hypertension, N17.9 - Acute kidney failure, unspecified, N18.32 - Chronic kidney disease, stage 3b, N18.9 - Chronic kidney disease, unspecified, R76.8 - Other specified abnormal immunological findings in serum Electrolytes 1 Month I10 - Essential (primary) hypertension, N17.9 - Acute kidney failure, unspecified, N18.32 - Chronic kidney disease, stage 3b, N18.9 - Chronic kidney disease, unspecified, R76.8 - Other specified abnormal immunological findings in serum Coding Level of Care Code Est Pt Level 4 (91304) Diagnoses CKD stage 3b, GFR 30-44 ml/min N18.32 Primary hypertension I10 Hypertension type: primary hypertension Acute kidney injury superimposed on CKD N17.9; N18.9 P-ANCA and MPO antibodies positive R76.8
[2024-10-12 10:29] VITALS: BP 122/78; PULSE 100; O2SAT 98; BMI 37.8
--- OUTSIDE RECORDS SUMMARY | 2024-10-12 11:05 | XMS_ITS | Clinical Summary ---
Author Organization [facility] Address [address] [facility] [address] [place] [address] Phone Care Team Providers [employer] Name Role Phone Juancarlos Johnson MD Primary Care Provider [phone] Allergies Active Allergy Reactions Criticality Noted Date Comments Sulfa (Sulfonamide Antibiotics) 10/2008 Reaction as baby Medications albuterol 90 mcg/actuation inhaler Inhale 2 puffs into the lungs every 6 (six) hours as needed. 12/29/19 24 025 Active amoxicillin (AMOXIL) 500 MG capsule DENTAL APPOINTMENTS 03/09/19 25 Active aspirin 81 MG EC tablet Take 81 mg by mouth. 02/24/19 24 Active atorvastatin (LIPITOR) 40 MG tablet Take 1 tablet by mouth daily. 01/10/20 24 Active dapagliflozin propanediol (FARXIGA) 5 mg tablet 03/22/19 25 Active doxazosin (CARDURA) 2 MG tablet Active hydrALAZINE (APRESOLINE) 100 MG tablet Take 150 mg by mouth 2 (two) times a day. Active PARoxetine (PAXIL) 20 MG tablet Take 1 tablet by mouth every morning. 03/27/19 25 Active spironolactone (ALDACTONE) 25 MG tablet TAKE 1 TABLET (25 MG TOTAL) BY MOUTH 1 (ONE) TIME EACH DAY. STOPPING POTASSIUM SUPPLEMENT Active torsemide (DEMADEX) 20 MG tablet Take 40 mg by mouth. 02/24/19 24 Active amLODIPine (NORVASC) 10 MG tablet Take 10 mg by mouth daily. 08/09/19 25 Active metoprolol succinate (TOPROL-XL) 25 MG 24 hr tablet Take 25 mg by mouth daily. Active TAVNEOS 10 mg Cap TAKE 3 CAPSULES (30 MG TOTAL) BY MOUTH TWO TIMES A DAY 180 capsule 1 10/10/19 25 Active clotrimazole (LOTRIMIN) 1 % cream TAKE 1 APPLICATOR (TOPICAL) 2 TIMES PER DAY FOR 2 WEEKS 04/06/19 25 025 Discontinued atovaquone (MEPRON) 750 mg/5 mL suspension Take 10 mL (1,500 mg total) by mouth daily. 300 mL 5 06/28/19 25 025 Discontinued predniSONE (DELTASONE) 5 MG tablet Take 10 [...] with breakfast for 7 days. 221 tablet 08/07/19 25 025 avacopan (TAVNEOS) 10 mg Cap Take 3 capsules (30 mg total) by mouth 2 (two) times a day. 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 New skin rash appears more like bruises rather than purpura. Recent platelets normal. He is scheduled for his second infusion of rituximab approximately 10 days, and remains on Avacopan at full dose with LFTs drawn earlier today. Along with labs above, we will recheck inflammatory markers though defer repeat MPO testing unless recommended by Dr. Mark. If he requires future rituximab infusions, I would be happy to prescribe here at [facility] to avoid travel to the [place]. Assessment & Plan (06/23/2024 10:56 AM EDT): [...] with stable renal function. Requesting nephrology notes. Dyspnea on exertion 06/22/2024 Assessment & Plan (10/09/2024 9:03 PM EDT): Approximately 4 weeks of progressive exertional dyspnea, [...] echo particularly for evidence of heart failure. Assessment & Plan (06/23/2024 10:57 AM EDT): [...] agreement with. PLAN: Request lab findings from [facility] from thoracenteses, differentiating between transudate versus exudate. 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; Myocarditis, unspecified chronicity, unspecified myocarditis type; Encounter for medication counseling; Vaccine counseling; High risk medication use; ANCA-associated vasculitis; Need for hepatitis B screening test 10/09/2024 10:50 AM EDT - 10/09/2024 11:59 PM EDT Hospital Encounter [facility], Emergency - [address] [address] Diego Reyna MD Arrived Discharge Disposition: Home or Self Care 10/09/2024 10:25 AM EDT - 10/09/2024 10:49 AM EDT Hospital Encounter [facility] [address] [address] Diego Reyna MD Discharge Disposition: Home or Self Care 10/09/2024 9:30 AM EDT Office Visit [facility] Pulmonary, Allergy and Critical Care Medicine 10 [facility] [place] [address] Diego Reyna MD Dyspnea on exertion (Primary Dx); ANCA-associated vasculitis 10/09/2024 8:12 AM EDT - 10/09/2024 10:24 AM EDT Hospital Encounter [facility] [address] [address] Phuong Mark MD, MPH Discharge Disposition: Home or Self Care 10/05/2024 Refill [facility] [address], [address], [address] [place] [address] Phuong Mark MD, MPH Medication Refill 10/01/2024 10:00 AM EDT Infusion [address], [facility] CC [address] [place] [address] Phuong Mark MD, MPH Marguerite Goldberg ANCA-associated vasculitis (Primary Dx) 09/14/2024 Telephone [facility] [address], [address], [address] [place] [address] Dana Marshall RN 09/03/2024 Refill [facility] Rhe[facility] [address], [address] Floor, [address] [place] [address] Phuong Mark MD, MPH Medication Refill 08/20/2024 12:56 PM EDT - 08/20/2024 11:59 PM EDT Hospital Encounter [facility] [address] [place] [address] Phuong Mark MD, MPH Discharge Disposition: Home or Self Care 08/13/2024 Telephone [facility] [address] [place] [address] Robel Calix, [facility] tavnoes assessment 08/08/[address] [address] Nino Tatiana, [facility] 08/06/2024 9:30 AM EDT Telemedicine [facility] Rhe[facility] [address], [address], [address] [place] [address] Phuong Mark MD, MPH Antineutrophil cytoplasmic antibody (ANCA) positive (Primary Dx); 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; Myocarditis, unspecified chronicity, unspecified myocarditis type; Encounter for medication counseling; Vaccine counseling; High risk medication use; ANCA-associated vasculitis 07/31/2024 Telephone [facility] [address], [address], [address] [place] [address] Phuong Mark MD, MPH 07/25/2024 Orders Only [facility] Health Info Management Virtual Department [address] [place] [address] Vianey Blair MD 07/24/2024 Telephone [facility] Pulmonary, Allergy and Critical Care Medicine 10 [place] [address] Diego Reyna MD 07/20/2024 11:09 AM EDT - 07/20/2024 11:59 PM EDT Hospital Encounter [facility] PATHOLOGY ACC2 [address] [facility] [place] [address] Phuong Mark MD, MPH Discharge Disposition: Home or Self Care 07/20/2024 10:00 AM EDT Office Visit [facility] Rheumatology [address], [address] [place] [address] Phuong Mark MD, MPH Myocarditis, unspecified chronicity, unspecified myocarditis type (Primary Dx); Antineutrophil cytoplasmic antibody (ANCA) positive; 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2 kg (269 lb 6.4 oz) 10/09/2024 9:08 AM EDT Height 177.8 cm (5' 10 ) 10/09/2024 9:08 AM EDT Body Mass Index 38.65 10/09/2024 9:08 AM EDT Plan of Treatment Upcoming Encounters Date Type Department Care Team (Late st Contact Info) Description 10/19/2024 10:30 AM EDT Infusion [address] CC [address] [place] [address] 01/16/2025 10:00 AM EST Office Visit [facility] Pulmonary, Allergy and Critical Care Medicine [address] [place] [address] [place] [address] Diego Reyna MD 10 [facility] 2nd [place] [address] [email or web address] 01/22/2025 9:20 AM EST Office Visit [facility] Rheumatology [address], [address] [place] [address] Phuong Mark MD, MPH [address] [facility] [address] [place] [address] [email or web address] Health Maintenance Due Date Last Done Comments LIPID PANEL 1955 DEPRESSION SCREENING 1966 COLOGUARD 1999 COLONOSCOPY 1999 COLORECTAL CANCER SCREENING 1999 FIT TEST 1999 FOBT 1999 SIGMOIDOSCOPY 1999 VIRTUAL COLONOSCOPY 1999 RSV VACCINE (1 - Risk 60-74 years 1-dose series) 2014 ZOSTER VACCINES (2 of 2) 02/04/2021 12/10/2020 INFLUENZA VACCINE (#1) 2024 4, 10/25/2021, 11/28/2018 COVID-19 VACCINE ( season) 2025 08/13/2024, 12/10/2020, 05/03/2020, Additional history exists POTASSIUM LEVEL 10/09/2025 10/09/2024, 07/08, 06/22/2024, Additional history exists Adult Td,Tdap Booster 12/29/2027 12/28/2017 PNEUMOCOCCAL VACCINES [...] 10/09/2024 10:59 AM EDT Dyspnea on exertion NT-PROBNP Routine 10/09/2024 10:25 AM EDT Dyspnea on exertion BASIC METABOLIC PANEL Routine 10/09/2024 10:25 AM EDT Dyspnea on exertion CBC AND DIFFERENTIAL Routine 10/09/2024 10:25 AM EDT Dyspnea on exertion SEDIMENTATION RATE (ESR) Routine 10/09/2024 10:25 AM EDT ANCA-associated vasculitis C-REACTIVE PROTEIN Routine 10/09/2024 10 :25 AM EDT Dyspnea on exertion LFTS (HEPATIC PANEL) Routine 10/09/2024 8:13 AM EDT ANCA-associated vasculitis BD DXA AXIAL (SPINE) WITH HIP Routine 08/20/2024 1:30 PM EDT retirement 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 OUTSIDE PATHOLOGY 08/01/2024 OUTSIDE [...] EDT Need for hepatitis B screening test HEPATITIS C ANTIBODY, QUALITATIVE Routine 04/10/2024 2:13 PM EST Need for hepatitis C screening test Cardiac sarcoidosis from Last 3 Months or Most Recently Relevant to Health Maintenance Results * XR CHEST PA AND LATERAL [...] clinician's provided indication for this examination in [facility]: Dyspnea (Shortness of Breath) COMPARISON: [...] clinician's provided indication for this examination in [facility]:Dyspnea (Shortness of Breath) COMPARISON: None [...] MD IMG XR CHEST Final Result * Sedimentation rate (ESR) (10/09/2024 10:25 AM EDT) ESR 6 0 - 20 mm/h [facility] Blood 10/09/2024 10:2 5 AM EDT 10/09/2024 10:30 AM EDT Diego Reyna MD LAB BLOOD ORDERABLES Final Res ult [facility] [address] [place] [address] * (ABNORMAL) CBC and differential (10/09/2024 10:25 AM EDT) WBC 9.19 4.00 - 11.00 K/uL [facility] RBC 4.26(L) 4.50 - 5.90 M/uL [facility] HGB 13.9 13.5 - 17.5 g/dL [facility] HCT 43.2 41.0 - 53.0 % [facility] PLT 162 150 - 450 K/uL [facility] MCV 101.4(H) 80.0 - 100.0 fL [facility] MCH 32.6(H) 27.0 - 31.0 pg [facility] MCHC 32.2 32.0 - 36.0 g/dL [facility] RDW 16.0(H) 11.5 - 14.5 % [facility] MPV 11.4 8.4 - 12.0 fL [facility] NRBC 0.00 0.00 /100 WBCs [facility] ABSOLUTE NRBC 0.00 0.00 K/uL [facility] DIFF METHOD Auto [facility] NEUTS 78.9(H) 48.0 - 76.0 % [facility] LYMPHS 11.5(L) 18.0 - 41.0 % [facility] MONOS 7.4 4.0 - 11.0 % [facility] EOS 0.9 0.0 - 5.0 % [facility] BASOS 0.5 0.0 - 1.5 % [facility] Granulocytes, immature (%) 0.8 0.0 - 0.9 % [facility] ABSOLUTE NEUTS 7.25 1.92 - 7.60 K/uL [facility] ABSOLUTE LYMPHS 1.06 0.72 - 4.10 K/uL [facility] ABSOLUTE MONOS 0.68 0.16 - 1.10 K/uL [facility] ABSOLUTE EOS 0.08 0.00 - 0.50 K/uL [facility] ABSOLUTE BASOS 0.05 0.00 - 0.15 K/uL [facility] Granulocytes, immature 0.07 0.00 - 0.09 K/uL [facility] Blood 10/09/2024 10:2 5 AM EDT 10/09/2024 10:30 AM EDT Diego Reyna MD LAB BLOOD ORDERABLES Final Res ult Performing Organization Address City/[facility]/ZIP Co de Phone Number [address] [address] * (ABNORMAL) C-Reactive Protein (10/09/2024 10:25 AM EDT) C REACTIVE PROTEIN 4.8(H) 0.0 - 4.0 mg/L [facility] Blood 10/09/2024 10:2 5 AM EDT 10/09/2024 10:30 AM EDT Diego Reyna MD LAB BLOOD ORDERABLES Final Res ult Performing Organization Address City/[facility]/ZIP Co de Phone Number [address] [address] * (ABNORMAL) NT-proBNP (10/09/2024 10:25 AM EDT) NT-PROBNP 2,417(H) 0 - 450 pg/mL [facility] Blood 10/09/2024 10:2 5 AM EDT 10/09/2024 10:30 AM EDT Diego Reyna MD LAB BLOOD ORDERABLES Final Res ult Performing Organization Address City/[facility]/ZIP Co de Phone Number [address] [address] * (ABNORMAL) Basic metabolic panel (10/09/2024 10:25 AM EDT) SODIUM 138 133 - 146 mmol/L [facility] CHLORIDE 100 96 - 108 mmol/L [facility] POTASSIUM 4.4 3.3 - 5.1 mmol/L [facility] CO2 26 21 - 35 mmol/L [facility] BUN 38(H) 6 - 19 mg/dL [facility] CREATININE 2.00(H) 0.5 - 1.5 mg/dL [facility] GLUCOSE 124(H) 70 - 99 mg/dL [facility] CALCIUM 9.1 8.4 - 10.3 mg/dL [facility] EGFR 35(L) >59 mL/min/1.7 3m2 [facility] Comment:Estimated glomerular filtration rate calculated using the CKD-EPI refit equation. ANION GAP 16 10 - 20 mmol/L [facility] Blood 10/09/2024 10:2 5 AM EDT 10/09/2024 10:30 AM EDT us Diego Reyna MD LAB BLOOD ORDERABLES Final Res ult Performing Organization Address City/State/[facility] Co de Phone Number [address] [address] * (ABNORMAL) LFTs (hepatic panel) (10/09/2024 8:13 AM EDT) ALKALINE PHOSPHATASE 146(H) 39 - 117 U/L [facility] TOTAL BILIRUBIN 0.8 0.0 - 1.2 mg/dL [facility] DIRECT BILIRUBIN 0.3(H) 0.0 - 0.2 mg/dL [facility] Bilirubin (Indirect) 0.5 0 - 1.5 mg/dL [facility] AST 21 0 - 37 U/L [facility] ALT 14 0 - 40 U/L [facility] TOTAL PROTEIN 6.9 6.5 - 8.0 g/dL [facility] ALBUMIN 4.1 3.9 - 4.8 g/dL [facility] GLOBULIN 2.8 1 - 4.8 g/dL [facility] A/G Ratio 1.46 1.00 - 4.80 RATIO [facility] Blood 10/09/2024 8:13 AM EDT 10/09/2024 8:18 AM EDT us Phuong Mark MD, MPH LAB BLOOD ORDERABLES Final Result [facility] [address] [place] [address] * BD DXA AXIAL (SPINE) WITH HIP (08/20/2024 1:30 PM EDT) Anatomical Region Laterality Modality Bone Density Bone Density 08/20/2024 1:32 PM EDT Impressions 08/20/2024 1:35 PM EDT Interpretation: Osteopenia. Narrative 08/20/2024 1:35 PM EDT Referred By: PHUONG MARK Indications: Long-Term Steroid Treatment (3 Months or Longer) Scanner: [employer] A with serial# of [id number] located at [facility] Bone Density Scan (DXA) 08/20/24 Details [...] -2.5), or Osteoporosis (T-score <= -2.5). At [facility], T-scores are compared to peak bone [...] Steroid Treatment (3 Months or Longer) Scanner: [employer] A with serial# of [id number] located at [facility] Bone Density Scan (DXA) 08/20/24 Details [...] -2.5), or Osteoporosis (T-score <= -2.5). At [facility], T-scores are compared to peak bone density of [facility] white gender matched reference population. - For [...] SEE NARRATIVE - 07/29/2024 4:17 [place] [address] Cushion Sewer: Baltazar Gomez MD CLIA ID # [id number] Laboratory Report Anti-Neutrophil Cytoplasmic Antibody Testing Patient Name: WILFRID JACOBS : 1955 (Age: 69) Sex: M Institution: [facility] Location: [place] [address] Date of Collection: 07/20/2024 Date of Reported: 07/29/2024 16:17 Results To: Phuong Mark MD SPECIMENS RECEIVED: A: BLOOD #[id number] ANCA POSITIVE. NOTE: Indirect immunofluorescence testing for [...] their disease becomes quiescent. Please call the [facility] Immunopathology Laboratory at [phone] with questions or concerns regarding ANCA tests. These tests were developed, and their performance characteristics determined by the Immunopathology Laboratory at the [facility]. Their characteristics have been published: Journal of the [place] Society of Nephrology 2:27-36, 1990; Human Pathology [...] Comprehensive metabolic panel (07/20/2024 11:19 AM EDT) SODIUM 142 135 - 145 mmol/L [facility] POTASSIUM 3.9 3.4 - 5.0 mmol/L [facility] CHLORIDE 99 98 - 108 mmol/L [facility] CO2 26 23 - 32 mmol/L [facility] BUN 67(H) 8 - 25 mg/dL [facility] CREATININE 2.13(H) 0.60 - 1.30 mg/dL [facility] GLUCOSE 66(L) 70 - 110 mg/dL [facility] ALBUMIN 4.2 3.3 - 5.0 g/dL [facility] TOTAL PROTEIN 7.1 6.0 - 8.3 g/dL [facility] CALCIUM 9.0 8.5 - 10.5 mg/dL [facility] ALKALINE PHOSPHATASE 117(H) 45 - 115 U/L [facility] TOTAL BILIRUBIN 0.8 0.0 - 1.0 mg/dL [facility] AST 25 10 - 40 U/L [facility] ALT 27 10 - 55 U/L [facility] GLOBULIN 2.9 1.9 - 4.1 g/dL [facility] EGFR 33(L) >59 mL/min/1. 73m2 [facility] Comment:Estimated glomerular filtration rate calculated using the CKD-EPI refit equation. ANION GAP 17 3 - 17 mmol/L [facility] 07/20/2024 11:1 9 AM EDT 07/20/2024 3:46 PM EDT Diego Reyna MD LAB BLOOD ORDERABLES Final Res ult [address] [address] * T spot TB test (07/20/2024 11:19 AM EDT) T-SPOT.TB Negative Negative [facility] Comment: (NOTE) A negative test result does [...] Spot Count Corrected For Neg Control 0 [facility] Panel B Spot Count Corrected For Neg Control 1 [facility] Negative Control Passed [facility] Positive Control Passed [facility] Comment: (NOTE) For additional information, please refer to http://education.Postcron/faq/GRT044 (This link is being provided for informational/ educational purposes only.) 07/20/2024 11:1 9 AM EDT 07/20/2024 12:44 PM EDT Phuong Mark MD, MPH LAB BLOOD ORDERABLES Final Result Performing Organization Address City/[facility] Co de Phone Number [facility] [address] [place], [place] * Hepatitis B core antibody, total (07/20/2024 11:19 AM EDT) Pathologist [facility] HEP B CORE AB, TOT Negative Negative [facility] Comment:A nonreactive final interpretation indicates that anti-HBc antibodies were not detected in the sample. It is possible that the individual is not infected with HBV. 07/20/2024 11:1 9 AM EDT 07/20/2024 3:45 PM EDT Phuong Mark MD, MPH LAB BLOOD ORDERABLES Final Result Performing Organization Address City/[facility] Co de Phone Number [address] [address] * (ABNORMAL) 1-25-OH vitamin D (07/20/2024 11:19 AM EDT) Pathologist [facility] 1,25 (OH) 2 Vitamin D3 16(L) 18 - 64 pg/mL [place] MED/PATH [facility]PER[facility] Comment: (NOTE) ADDITIONAL INFORMATION This test was developed and its performance characteristics determined by [facility] in a manner consistent with CLIA requirements. This test has not been cleared or approved by the U.S. Food and Drug Administration. 07/20/2024 11:1 9 AM EDT 07/20/2024 3:45 PM EDT Phuong Mark MD, MPH LAB BLOOD ORDERABLES Final Result Performing Organization Address City/[facility] Co de Phone Number [facility] LAB MED/PATH [address] [place] [address] * Hepatitis B surface antibody (07/20/2024 11:19 AM EDT) HBV SURFACE AB,QUANT <3.31 mIU/mL [facility] Comment:Results less than 12 .00 mIU/mL are not consistent with protective immunity. Results of 12.00 mIU/mL or more indicate protective immunity. HBV SURFACE AB,QUAL Negative [facility] Comment:Patient is considere d not immune to HBV infection. 07/20/2024 11:1 9 AM EDT 07/20/2024 3:45 PM EDT Phuong Mark MD, MPH LAB BLOOD ORDERABLES Final Result Performing Organization Address [facility] Co de Phone Number [address] [address] * Hepatitis B surface antigen (07/20/2024 11:19 AM EDT) HBV SURFACE ANTIGEN Negative Negative [facility] 07/20/2024 11:1 9 AM EDT 07/20/2024 3:45 PM EDT Phuong Mark MD, MPH LAB BLOOD ORDERABLES Final Result Performing Organization Address City/[facility] Co de Phone Number [address] [address] * Anti-Neutrophil Cytoplasmic Antibody (ANCA) (07/20/2024 11:19 AM EDT) ANCA (IMMUNOPATH) Specimen received in [facility] Core Laboratory. Testing will be performed in [facility] Immunopathology Laboratory. Results, when available, will be available as Pathology Reports. [facility] 07/20/2024 11:1 9 AM EDT 07/20/2024 3:46 PM EDT us Phuong Mark MD, MPH LAB BLOOD ORDERABLES Final Result [facility] [address] [place] [address] * Angiotensin converting enzyme, blood (07/20/2024 11:19 AM EDT) ANGIOTENSIN CONV. ENZ 34 16 - 85 U/L [facility] DPT OF LAB MED AND PAT+ 07/20/2024 11:1 9 AM EDT 07/20/2024 3:45 PM EDT us Phuong Mark MD, MPH LAB BLOOD ORDERABLES Final Result [facility] DPT OF LAB MED AND PAT+ [address] [place] [address] * Hepatitis C antibody, qualitative (04/10/2024 2:13 PM EST) HCV NON-REACTIV E NON-REACTI VE [facility] Blood 04/10/2024 2:13 PM EST 04/10/2024 2:30 PM EST Diego Reyna MD LAB BLOOD ORDERABLES Final Res ult [facility] [address] [place] [address] from Last 3 Months or Most Recently Relevant to Health Maintenance Insurance [employer] PPO REPLACEMENT [employer] PPO REPLACEMENT [employer] PPO REPLACEMENT [employer] PPO REPLACEMENT [employer] POS PPO REPLACEMENT [employer] PPO REPLACEMENT Care Teams [employer] Relationship Specialty Start Date End Date Juancarlos Johnson MD [address] [place] [id number] PCP - General Internal Medicine 03/23/24 Additional Source Comments The information contained in this document represents components of the legal health record. It is not the complete legal health record.[facility]
--- OUTSIDE RECORDS SUMMARY | 2024-10-12 11:06 | XMS_ITS | Encounter Summary ---
Author Organization [facility] Address [address] [place] [address] Phone Care Team Providers Care Building Surveyor Name Role Phone Juancarlos Johnson MD Primary Care Provider [phone] Reason for Visit * Reason Comments Medication Refill Encounter Details Date Type Department Care Team (Late st Contact Info) Description 10/05/2024 Refill [facility] Rheumatology [address], [address] Floor, [address] [place] [address] Phuong Mark MD, MPH [address] [facility] [address] [place] [address] [email or web address] Medication Refill Social History Tobacco Use Types Packs/Day Years [...] as of this encounter Progress Notes * Tessa Vila - 10/05/2024 10:21 AM EDT At least one Rx below has no protocol and needs review. Rx Care Gap Status - Instructions for Clinical Staff (prescriber discretion applies): > Mismatch review guide > N/a - No action needed Visit Info Last visit: 08/06/2024 Phuong Mark MD, MPH - Rheumatology [facility] RHEUMATOLOGY YAW4 > Requested f/u: Not specified Upcoming visit: 10/10/2024 Phuong Mark MD, MPH - Rheumatology [facility] RHEUMATOLOGY YAW ACTIONS TAKEN BY Tessa Vila - No action needed by clinical staff. Rx(s) without protocol Renewal is at prescriber discretion. - avacopan - avacopan documented in this encounter Plan of Treatment Upcoming Encounters Date Type Department Care Team (Late st Contact Info) Description 10/19/2024 10:30 AM EDT Infusion [address] [place] [address] 01/16/2025 10:00 AM EST Office Visit [facility] Pulmonary, Allergy and Critical Care Medicine [address] [place] [address] [place] [address] Diego Reyna MD [address] [place] [address] 2nd [place] [address] [email or web address] 01/22/2025 9:20 AM EST Office Visit [facility] Rheumatology [address], [address], [address] [place] [address] Phuong Mark MD, MPH [address] [facility] [address] [place] [address] [email or web address] documented as of this encounter Visit Diagnoses Not on filedocumented in this encounter Care Teams Building Surveyor Relationship Specialty Start Date End Date Juancarlos Johnson MD [address] [place] [address] PCP - General Internal Medicine 03/23/24 documented as of this encounter Additional Source Comments The information contained in this document represents components of the legal health record. It is not the complete legal health record.[facility]
--- OUTSIDE RECORDS SUMMARY | 2024-10-12 11:07 | XMS_ITS | Clinical Summary ---
Author Organization [facility] Address [address] [place] [address] Care Team Providers Care C D Stripper Name Role Phone Juancarlos Johnson MD Primary [...] age to complete this topic Care Teams C D Stripper Relationship Specialty Start Date End Date Juancarlos Johnson MD PCP - General Internal Medicine 08/24/21
--- OUTSIDE RECORDS SUMMARY | 2024-10-12 11:08 | XMS_ITS | Encounter Summary ---
Author Organization [facility] Address [address] [place] [address] Care Team Providers Care Glass Setter Name Role Phone Juancarlos Johnson MD Primary Care Provider [phone] Reason for Visit * Reason Onset Date Comments water retention 10/10/2024 Encounter Details Date Type Department Care Team ([facility] st Contact Info) Description 10/10/2024 Telephone [facility] - [facility] [address] [facility] [address] [place] [address] Antonio Pizarro MD [address] [place] [address] [place] [address] Social History Tobacco Use Types Packs/Day Years [...] for your loved ones. For example, child support case officer or elderly care for an older adult? [...] as of this encounter Functional Status * Are you [...] Yane Rivera RN documented in this encounter Progress Notes * Alix Rogers RN - 10/10/2024 4:19 PM EDT Patient going to [facility] ER. Ins does not cover [facility]. [facility] has care evberywhere. I did call report [facility] ER Patient declined ambulance and states driving self even though ambulance was advised. He will call when d/c to home. * YESENIA Galicia - 10/10/2024 4:04 PM EDT Recommend that he go to the ER with that much weight gain will need I V diuretic unlikely oral diuretics will help/improve his symptoms or aid in diuresis. He has known CKD- with ANCA pos and abnormal renal bx- Strongly suggest he go to a [facility] facility that has access to all his recent OV * Alix Rogers RN - 10/10/2024 3:28 PM EDT I strongly advised ER He does not want to go. Saw Dr. Reyna yesterday and had chest xray. [facility]. Has appt with product development intern tomorrow (Dr. Phillips) in a.m. Dr. Reyna (payroll administrator increased Torsemide form 40 mg qd to 40 mg BID. Wgt has increased 15-20 lbs over the past 2 months. Was 245-250 lbs now 267 lbs. Did weigh 269 lbs at beginning of appt and after urinating 267 lbs. Abd is quite distended. Bilat LLE. Denied PND Sounds short of breath on the phone and states unchanged for the past month. Finished tapering dose of prednisone 3 weeks ago. * Bob Killian MA - 10/10/2024 3:12 PM EDT Please see below * Ashley Weaver - 10/10/2024 2:59 PM EDT Patient called and stated he has water retention in his stomach and his legs. It has been like thisfor one month. He also has had shortness of breath. Patient has not changed his daily routine or diet. Patient would like to know what he should do. documented in this encounter Plan of Treatment Upcoming Encounters Date Type Department Care Team (Late st Contact Info) Description 10/18/2024 3:10 PM EDT Office Visit [facility] - [facility] [address] [facility] [address] [place] [id number] Tatiana Quintana PA [address] [place] [address] [address] [place] [address] 02/12/2025 9:45 AM EST Office Visit Internal Medicine - [place] [address] [place] [phone] Juancarlos Johnson MD [address] [place] [address] 03/19/2025 8:00 AM EST Office Visit Pulmonolgy - [place] [address] [phone] Gabbi Anglin MD [address] [address] documented as of this encounter Visit Diagnoses Not on filedocumented in this encounter Additional Health Concerns Assessment Noted Time PHQ-9 Depression Total Score: 11 025 10:27 AM EDT documented as of this encounter Care Teams Glass Setter Relationship Specialty Start Date End Date Juancarlos Johnson MD [address] [address] PCP - General Internal Medicine 03/01/24 documented as of this encounter
--- OUTSIDE RECORDS SUMMARY | 2024-10-12 11:08 | XMS_ITS | Clinical Summary ---
Author Organization [facility], Address [address] [place] [address] [place] [address] Phone Care Team Providers Care Clinical Instructor Name Role Phone Juancarlos Johnson MD Primary Care Provider [phone] Social History Tobacco Use Types Packs/Day Years [...] Colonoscopy 2003 Colorectal Cancer Screening: Sigmoidoscopy 2003 Influenza Vaccine (#1) 2024 , 11/28/2018 Pneumococcal Vaccine: 50+ Years Completed 03/02/2021, 09/30/2020 Hepatitis B Vaccine Aged Out No longe r eligible based on patient's age to complete this topic Insurance [employer] Open Access ([id number]) Care Teams Clinical Instructor Relationship Specialty Start Date End Date Juancarlos Johnson MD [address] [address] PCP - General Internal Medicine 05/25/23
--- OUTSIDE RECORDS SUMMARY | 2024-10-12 11:08 | XMS_ITS | Encounter Summary ---
Author Organization [facility] Address [address] [place] [address] Phone Care Team Providers Care Chief Building Inspector Name Role Phone Juancarlos Johnson MD Primary Care Provider [phone] Reason for Visit * Reason Comments Medication Refill Encounter Details Date Type Department Care Team (Late st Contact Info) Description 09/03/2024 Refill [facility] Rheumatology [address], [address] [place] [address] Phuong Mark MD, MPH [address] [facility] [address] [place] [address] [email or web address] Medication Refill Social History Tobacco Use [...] as of this encounter Progress Notes * Lisa Patrickvam - 09/03/2024 3:38 AM EDT IMMERSE Rx Review At least one Rx below has no protocol and needs review. INSTRUCTIONS FOR CLINICAL STAFF Visit Info Last visit: 08/06/2024 Phuong Mark MD, MPH - Rheumatology [facility] RHEUMATOLOGY YAW4 > Requested f/u: Not specified Upcoming visit: 10/10/2024 Phuong Mark MD, MPH - Rheumatology [facility] RHEUMATOLOGY YAW4 Provider - Summary Comments for medication Rx(s) without protocol Renewal is at prescriber discretion. - prednisone - prednisone Safety Alert: Please review/update Sig which indicates time limited documented in this encounter Plan of Treatment Upcoming Encounters Date Type Department Care Team (Late st Contact Info) Description 10/19/2024 10:30 AM EDT Infusion [address] [place] [address] 01/16/2025 10:00 AM EST Office Visit [facility] Pulmonary, Allergy and Critical Care Medicine [address] [place] [address] [place] [address] Diego Reyna MD [address] [place] [address] 2nd [place] [address] 01/22/2025 9:20 AM EST Office Visit [facility] Rheumatology [address], [address] [place] [address] Phuong Mark MD, MPH [address] [place] [address] [address] [place] [address] [email or web address] documented as of this encounter Visit Diagnoses Not on filedocumented in this encounter Care Teams Chief Building Inspector Relationship Specialty Start Date End Date Juancarlos Johnson MD [address] [place] [address] PCP - General Internal Medicine 03/23/24 documented as of this encounter Additional Source Comments The information contained in this document represents components of the legal health record. It is not the complete legal health record.[facility]
--- OUTSIDE RECORDS SUMMARY | 2024-10-12 11:08 | XMS_ITS | Clinical Summary ---
Author Organization [address] [facility] Address [address] [place] [address] Phone Care Team Providers Care Blueprint Blocker Name Role Phone Juancarlos Johnson MD Primary Care Provider Allergies Active Allergy Reactions Criticality Noted Date Comments Sulfa (Sulfonamide Antibiotics) 10/2008 Medications aspirin 81 mg EC tablet Take 1 [...] a day. 90 each 2 03/01/19 25 Active PARoxetine (PAXIL) 20 mg tablet TAKE 1 TABLET BY MOUTH EVERY DAY IN THE MORNING 90 tablet 1 03/27/19 25 Active metoprolol succinate (TOPROL-XL) 25 mg 24 hr tablet Take 1 tablet (25 mg total) by mouth 1 (one) time each day. Do not crush or chew. 90 each 1 05/03/19 25 Active doxazosin (CARDURA) 8 mg tabletIndicatio ns:Paroxysmal atrial fibrillation (CMS/HCC V24, CMS/HCC V28),Other pericardial effusion (noninflammator y) TAKE 1/2 TABLET TWICE A DAY BY MOUTH 90 tablet 3 08/08/19 25 Active atovaquone (MEPRON) 750 mg/5 mL suspension Take 5 mL (750 mg total) by mouth 1 (one) time each day after breakfast. Active AVACOPAN ORAL Take 30 mg by mouth 2 (two) times a day. Active dapagliflozin propanediol (FARXIGA) 5 mg tablet Take 1 tablet (5 mg total) by mouth 1 (one) time each day. 10/16/19 25 026 Active torsemide (DEMADEX) 20 mg tablet Take 2 tablets (40 mg total) by mouth 1 (one) time each day in the morning AND 1 tablet (20 mg total) 1 (one) time each day in the evening. 10/12/19 25 025 Active doxazosin (CARDURA) 4 mg tablet Take 1 tablet (4 mg total) by mouth 2 (two) times a day. 025 Discontinued dapagliflozin propanediol (FARXIGA) 5 mg tablet Take 1 tablet (5 mg total) by mouth 1 (one) time each day. 30 each 03/22/19 25 025 Discontinued torsemide (DEMADEX) 20 mg tablet TAKE 2 TABLETS BY MOUTH EVERY DAY 180 tablet 3 08/08/19 25 025 Discontinued predniSONE (DELTASONE) 20 mg tablet Take 2 tablets (40 mg total) by mouth 1 (one) time each day. Tapering dose 025 Discontinued(S top Taking at Discharge) amoxicillin-cla vulanate (AUGMENTIN) 500-125 mg per tablet Take 1 tablet by mouth 3 (three) times a day for 7 days. 21 each 09/13/19 25 025 benzonatate (TESSALON) 100 mg capsule Take 1 capsule (100 mg total) by mouth 3 (three) times a day if needed for cough for up to 10 days. Do not crush or chew. 30 capsule 09/13/19 25 025 Active Problems Problem Noted Date Diagnosed Date Acute on chronic renal insufficiency 06/22/2024 ANCA-associated vasculitis (CMS/HCC V24, CMS/HCC V28) 06/22/2024 Abnormal nuclear cardiac imaging test 04/10/2024 Overview (09/18/2024): Cardiac PET 03/19/2024: Multifocal hypermetabolic activity within left ventricular wall Cardiac sarcoidosis 03/29/2024 Achilles tendonitis 12/29/2023 Anserine bursitis 12/29/2023 HTN (hypertension) 12/29/2023 Assessment & Plan (08/15/2024 11:48 AM EDT): Orders: ECG 12 lead Hemorrhoids 12/29/2023 HLD (hyperlipidemia) 12/29/2023 LIANET on [...] no drainage from the tube since placement. CXR today shows no accumulation of pleural fluid. He has had no respiratory complaints. Right Pleurx removed without issue as above. Patient tolerated this well. Occlusive dressing to remain in place x 48 hours, then can be left open to air. Patient to follow up with us as needed going forward. He should call with any questions or concerns Cough 05/04/2023 Dysphagia 05/04/2023 Fatigue 05/04/2023 Anemia 12/16/2022 Lower leg edema 12/16/2022 Retroperitoneal bleed 06/03/2022 NICM (nonischemic cardiomyop athy) ([facility] V24, [facility] V28) 09/30/2020 Benign prostatic hyperplasia 01/07/2020 Bradycardia 01/07/2020 Assessment & Plan (08/15/2024 11:48 AM EDT): Orders: ECG 12 lead Claudication ([facility] V24) 01/07/2020 Dyspnea on exertion 01/07/2020 [...] continue statin PAF (paroxysmal atrial fibri llation) ([facility] V24, [facility] V28) 10/27/2016 Overview (12/29/2023): Last Assessment & Plan: S/p cardioversion on Amio last week, in SR today, feeling well. Will update Amio labs. Anticoagulated on Xarelto, he understands the risks and benefits of anticoagulation and wishes to continue. F/u as scheduled with EP next month Depression 06/25/2016 Asthma, mild 04/12/2016 Obstructive sleep apnea 04/12/2016 Umbilical hernia 03/03/2016 Spinal stenosis 12/28/2010 Resolved Problems Problem Noted Date Diagnosed Date Resolved Date Acute on chronic HFrEF (hear t failure with reduced ejection fraction) ([facility] V24, [facility] V28) 10/10/2024 10/11/2024 Encounters Date Type Department Care Team Description 10/10/2024 5:23 PM EDT - 10/11/2024 2:30 PM EDT Hospital Encounter [facility] [address] [place] [address] Trae Smith MD Jones, Christopher, MD Seralathan, Manikandan, MD Dyspnea on exertion (Primary Dx); Atrial fibrillation, unspecified type (CMS/[facility] V24, CMS/[facility] V28); Bilateral lower extremity edema; Acute on chronic congestive heart failure, unspecified heart failure type (CMS/HCC V24, CMS/HCC V28); Acute on chronic HFrEF (heart failure with reduced ejection fraction) (CMS/[facility] V24, CMS/HCC V28); Acute kidney injury superimposed on CKD ([facility] V24) Discharge Disposition: Home or Self Care 10/10/2024 Telephone [facility] [address] [facility] [address] [place] [address] Antonio Pizarro MD 09/18/2024 11:45 AM EDT Office Visit Pulmonolgy - [facility] [address] [facility] [address] [place] [address] Gabbi Anglin MD LIANET on CPAP (Primary Dx); Pleural effusion; Restrictive lung disease; Dyspnea, unspecified type; ANCA-associated vasculitis ([facility] V24, [facility] V28) 09/12/2024 9:45 AM EDT Office Visit Internal Medicine [facility] [address] [facility] [address] [place] [address] Juancarlos Johnson MD URI with cough and congestion (Primary Dx); Primary hypertension; Stage 3a chronic kidney disease ([facility] V24, [facility] V28); Chronic heart failure with mildly reduced ejection fraction (HFmrEF, 41-49%) ([facility] V24, [facility] V28) 08/21/2024 Telephone [facility] [address] [place] [address] Antonio Pizarro MD 08/14/2024 3:00 PM EDT Office Visit [facility] [address] [place] [address] Antonio Pizarro MD Bradycardia (Primary Dx); Primary hypertension; Longstanding persistent atrial fibrillation ([facility] V24, [facility] V28); Chronic diastolic heart failure ([facility] V24, [facility] V28) from Last 3 Months Immunizations Name Administration [...] Comments OTHER SURGICAL HISTORY 10/11/2023 Right PROCEDURE: [place] THORACOSCOPY W/PLEURODESIS CARDIOVERSION DONE ON 12/16/2023 AT [facility] W AOP INDICATION:Atrial fibrillation Medical History Medical History Date Comments History of anemia 09/09/2017 DX:History of anemia Asthma, mild 04/12/2016 DX:Asthma, mild Atrial fibrillation ([facility] V24, [facility] V28) 10/27/2016 DX:Atrial fibrillation (HCC) Depression 06/25/2016 [...] for your loved ones. For example, children's court magistrate or elderly care for an older adult? [...] Mass Index 37.39 10/11/2024 7:36 AM EDT Plan of Treatment Upcoming Encounters Date Type Department Care Team (Late st Contact Info) Description 10/18/2024 3:10 PM EDT Office Visit [facility] - [address] [place] [phone] Tatiana Quintana PA [address] [place] [address] [place] [address] 02/12/2025 9:45 AM EST Office Visit Internal Medicine - [facility] [address] [place] [phone] Juancarlos Johnson MD [address] [place] [phone] 03/19/2025 8:00 AM EST Office Visit Pulmonolgy - [facility] [address] [facility] [address] [place] [address] Gabbi Anglin MD [address] [facility] [address] [place] [address] Health Maintenance Due Date Last Done Comments Meningococcal ACWY Vaccine (1 - Risk 2-dose series) 01/19/1957 Meningococcal B Vaccine (1 of 5 - Increased Risk) 01/19/1964 RSV Immunization Adult Patients (1 - Risk 60-74 years 1-dose series) 2014 Zoster Vaccines (2 of 2) 02/04/2021 12/10/2020 Cholesterol Screening (Lipid Panel) 01/16/2022 Colorectal Cancer Screening: Stool Based Tests (FOBT/FIT) 01/16/2022 Medicare Annual Wellness Visit 01/16/2022 Influenza Vaccine (#1) 2024 , 10/25/2021, 11/28/2018 COVID-19 Vaccine (5 - Moderna risk season) 2025 08/13/2024, 12/10/2020, 05/03/2020, Additional history exists Social Influencers of Health Screening 08/10/2025 08/10/2024 Falls Risk Assessment 10/11/2025 10/11/2024, 025 Hypertension/CHF/CAD Annual BMP Blood Test 10/11/2025 10/11/2024, 10/10/2024, 07/20/2024, Additional history exists DTaP,Tdap,and Td Vaccines (3 - Td or Tdap) 12/29/2027 12/28/2017, 09/09/2017 Pneumococcal Vaccine: 50+ Years Completed 03/02/2021, 09/30/2020 Hepatitis C Screening Completed 04/10/2024 Depression Screening Completed 08/10/2024 HIB Vaccines Aged Out No longer eligi [...] AUTO DIFFERENTIAL Routine 10/11/2024 6:14 AM EDT MAGNESIUM Routine 10/11/2024 6:14 AM EDT CBC AND DIFFERENTIAL Routine 10/11/2024 6:14 AM EDT BASIC METABOLIC PANEL Routine 10/11/2024 6:[address] CHEST WO CONTRAST STAT 10/10/2024 7:37 PM EDT ACTIVATED PARTIAL THROMBOPLASTIN TIME STAT 10/10/2024 6:45 PM EDT PROTHROMBIN TIME WITH INR STAT 10/10/2024 6:45 PM EDT TROPONIN I HIGH SENSITIVITY Timed 10/10/2024 6:45 PM EDT ECG 12-LEAD STAT 10/10/2024 6:43 PM EDT XR CHEST 2 VIEWS STAT 10/10/2024 5:39 PM EDT CBC WITH AUTO DIFFERENTIAL STAT 10/10/2024 5:23 PM EDT B-TYPE NATRIURETIC PEPTIDE STAT 10/10/2024 5:23 PM EDT MAGNESIUM STAT 10/10/2024 5:23 PM EDT LIPASE STAT 10/10/2024 5:23 PM EDT COMPREHENSIVE METABOLIC PANEL STAT 10/10/2024 5:23 PM EDT CBC AND DIFFERENTIAL STAT 10/10/2024 5:23 PM EDT TROPONIN I HIGH SENSITIVITY Timed 10/10/2024 5:23 PM EDT ECG 12-LEAD STAT 10/10/2024 5:19 PM EDT ECG 12-LEAD Routine 08/14/2024 3:01 PM EDT Bradycardia Primary hypertension Longstanding persistent atrial fibrillation (CMS/HCC V24, CMS/HCC V28) from Last 3 Months Results * (ABNORMAL) TRANSTHORACIC ECHOCARDIOGRAM (TTE) COMPLETE W/ CONTRAST (10/11/2024 7:36 AM EDT) Left Atrium Minor [place] 7.2 cm CV PACS Left Atrium Major [place] 7.6 cm CV PACS LA Area Sys [...] S' 11 cm/s CV PACS RA Major [place] 6.8 cm CV PACS RA Major [place] Index 2.9(A) 2.1 - 2.7 cm/m2 CV [...] CBC auto differential (10/11/2024 6:14 AM EDT) Only the most recent of2 resultswithin the time period is included. WBC 8.0 4.8 - 10.8 K/mcL LAB HEMETOLOGY METHOD 10/11/2024 7:26 AM [facility] RBC 3.90(L) 4.50 - 5.50 M/mcL LAB HEMETOLOGY METHOD 10/11/2024 7:26 AM [facility] Hemoglobin 12.3(L) 13.5 - 17.5 g/dL LAB HEMETOLOGY METHOD 10/11/2024 7:26 AM [facility] Hematocrit 38.3(L) 42.0 - 54.0 % LAB HEMETOLOGY METHOD 10/11/2024 7:26 AM [facility] MCV 99.0(H) 79.0 - 98.0 FL LAB HEMETOLOGY METHOD 10/11/2024 7:26 AM [facility] MCH 31.8 27.0 - 32.0 pcg LAB HEMETOLOGY METHOD 10/11/2024 7:26 AM [facility] MCHC 32.1 32.0 - 37.0 g/dL LAB HEMETOLOGY METHOD 10/11/2024 7:26 AM [facility] RDW 15.9(H) 11.0 - 15.0 % LAB HEMETOLOGY METHOD 10/11/2024 7:26 AM [facility] Platelets 176 130 - 400 K/mcL LAB HEMETOLOGY METHOD 10/11/2024 7:26 AM [facility] MPV 10.6 7.0 - 11.0 FL LAB HEMETOLOGY METHOD 10/11/2024 7:26 AM [facility] NRBC 0.0 <1.0 % LAB HEMETOLOGY METHOD 10/11/2024 7:26 AM [facility] NRBC Absolute 0.00 <0.10 K/mcL LAB HEMETOLOGY METHOD 10/11/2024 7:26 AM [facility] Neutrophils Relative 75.5 % LAB HEMETOLOGY METHOD 10/11/2024 7:26 AM [facility] Lymphocytes Relative 12.6 % LAB HEMETOLOGY METHOD 10/11/2024 7:26 AM [facility] Monocytes Relative 8.8 % LAB HEMETOLOGY METHOD 10/11/2024 7:26 AM [facility] Eosinophils Relative 1.3 % LAB HEMETOLOGY METHOD 10/11/2024 7:26 AM [facility] Basophils Relative 0.9 % LAB HEMETOLOGY METHOD 10/11/2024 7:26 AM [facility] Immature Granulocytes Relative 0.9 % LAB HEMETOLOGY METHOD 10/11/2024 7:26 AM [facility] Neutrophils Absolute 6.05 1.50 - 7.00 K/mcL LAB HEMETOLOGY METHOD 10/11/2024 7:26 AM [facility] Lymphocytes Absolute 1.01 1.00 - 5.00 K/mcL LAB HEMETOLOGY METHOD 10/11/2024 7:26 AM [facility] Monocytes Absolute 0.70 0.20 - 1.00 K/mcL LAB HEMETOLOGY METHOD 10/11/2024 7:26 AM [facility] Eosinophils Absolute 0.10 0.00 - 0.50 K/mcL LAB HEMETOLOGY METHOD 10/11/2024 7:26 AM [facility] Basophils Absolute 0.07 0.00 - 0.20 K/mcL LAB HEMETOLOGY METHOD 10/11/2024 7:26 AM EDT [facility] Immature Granulocytes Absolute 0.07(H) 0.00 - 0.03 K/mcL LAB HEMETOLOGY METHOD 10/11/2024 7:26 AM EDT [facility] Blood Venous blood specimen / Unknown Venipuncture / Unknown 10/11/2024 6:14 AM EDT 10/11/2024 7:16 AM EDT us Chandu Orlando MD LAB BLOOD ORDERABLES Final Result Performing Organization Address [facility]/ZIP Co de Phone Number [facility] [address] [place] [address], [place] [phone] * Magnesium (10/11/2024 6:14 AM EDT) Only the most recent of2 resultswithin the time period is included. Magnesium 2.3 1.9 - 2.6 mg/dL LAB CHEMISTRY METHOD 10/11/2024 7:54 AM EDT [facility] Blood Venous blood specimen / Unknown Venipuncture / Unknown 10/11/2024 6:14 AM EDT 10/11/2024 7:16 AM EDT us Chandu Orlando MD LAB BLOOD ORDERABLES Final Result [facility] [address] [place] [address], [place] [phone] * (ABNORMAL) Basic metabolic panel (10/11/2024 6:14 AM EDT) Sodium 140 133 - 145 mmol/L LAB CHEMISTRY METHOD 10/11/2024 7:54 AM EDT [facility] Potassium 4.1 3.5 - 5.5 mmol/L LAB CHEMISTRY METHOD 10/11/2024 7:54 AM [facility] Chloride 104 96 - 110 mmol/L LAB CHEMISTRY METHOD 10/11/2024 7:54 AM [facility] CO2 29 21 - 32 mmol/L LAB CHEMISTRY METHOD 10/11/2024 7:54 AM [facility] Anion Gap 7 3 - 11 LAB CHEMISTRY METHOD 10/11/2024 7:54 AM [facility] Glucose 92 70 - 100 mg/dL LAB CHEMISTRY METHOD 10/11/2024 7:54 AM [facility] BUN 53(H) 5 - 25 mg/dL LAB CHEMISTRY METHOD 10/11/2024 7:54 AM [facility] Creatinine 2.14(H) 0.70 - 1.30 mg/dL LAB CHEMISTRY METHOD 10/11/2024 7:54 AM [facility] eGFR 32(L) >=60 mL/min/1. 73m2 LAB CHEMISTRY METHOD 10/11/2024 7:54 AM [facility] Comment:Calculation based on the Chronic Kidney Disease Epidemiology Collaboration (CKD-EPI) equation refit without adjustment for race. BUN/Creatinine Ratio 24.8 LAB CHEMISTRY METHOD 10/11/2024 7:54 AM [facility] Calcium 8.6 8.5 - 10.5 mg/dL LAB CHEMISTRY METHOD 10/11/2024 7:54 AM [facility] Blood Venous blood specimen / Unknown Venipuncture / Unknown 10/11/2024 6:14 AM EDT 10/11/2024 7:16 AM EDT us Chandu Orlando MD LAB BLOOD ORDERABLES Final Result [facility] [address] [place] [address], * CT Chest wo Contrast (10/10/2024 7:37 [...] on exertion CT chest without contrast Comparison: CT/KO/NH/SR - CT CHEST WO CONTRAST - 06/28/24 [...] on exertion CT chest without contrast Comparison: CT/KO/NH/SR - CT CHEST WO CONTRAST - 06/28/24 [...] by: Sacha Biggs MD on 10/10/2024 19:59:43 us Trae Smith MD IMG CT PROCEDURES Final Resu lt * Troponin I high sensitivity (10/10/2024 6:45 PM EDT) Only the most recent of2 resultswithin the time period is included. [facility] High Sensitivity Troponin I 12 <=79 ng/L LAB CHEMISTRY METHOD 10/10/2024 7:37 PM EDT [facility] Blood Venous blood specimen / Unknown Venipuncture / Unknown 10/10/2024 6:45 PM EDT 10/10/2024 6:54 PM EDT Narrative [facility] - 10/10/2024 7:37 PM EDT High levels of biotin in samples may falsely decrease hsTroponin values. Use caution when interpreting hsTroponin results in patients taking biotin who exhibit renal impairment (eGFR <60) or in patients taking more than 20 mg/day of biotin. us Trae Smith MD LAB BLOOD ORDERABLES Final R esult Performing Organization Address City/[facility]/ZIP Co de Phone Number [facility] [address] [place] [address], [place] [phone] * (ABNORMAL) APTT (10/10/2024 6:45 PM EDT) [facility] aPTT 43.9(H) 24.1 - 39.3 sec LAB COAGULATION METHOD 10/10/2024 7:14 PM EDT [facility] Blood Venous blood specimen / Unknown Venipuncture / Unknown 10/10/2024 6:45 PM EDT 10/10/2024 6:54 PM EDT Trae Smith MD LAB BLOOD ORDERABLES Final R esult [facility] [address] [place] [address], [place] [phone] * Protime-INR (10/10/2024 6:45 PM EDT) [facility] Protime 11.0 10.6 - 13.9 sec LAB COAGULATION METHOD 10/10/2024 7:14 PM EDT [facility] INR 0.9 LAB COAGULATION METHOD 10/10/2024 7:14 PM EDT [facility] Blood Venous blood specimen / Unknown Venipuncture / Unknown 10/10/2024 6:45 PM EDT 10/10/2024 6:54 PM EDT Trae Smith MD LAB BLOOD ORDERABLES Final R esult [facility] [address] [place] [address], [place] [phone] * ECG 12 lead (10/10/2024 6:43 PM EDT) Only the most recent of3 resultswithin the time period is included. [facility] Ventricular Rate ECG 89 BPM GEMUSE Atrial Rate 91 BPM GEMUSE QRS Duration 114 ms GEMUSE Q-T Interval 370 ms GEMUSE QTc 450 ms GEMUSE R [place] -5 degrees GEMUSE T [place] 132 degrees GEMUSE ECG Interpretation Atrial fibrillation Inferior infarct , age undetermined Abnormal ECG When compared with ECG of 10-OCT-2024 17:19, (unconfirmed) No significant change was found Confirmed by Delgado ANDRE JAMES ([id number]) on 10/11/2024 12:43:48 PM GEMUSE 10/10/2024 6:43 PM EDT 10/11/2024 12:43 PM EDT Trae Smith MD ECG ORDERABLES Final Result Performing Organization Address City/[facility]/ZIP Co de Phone Number GEMUSE * XR Chest 2 Views (10/10/2024 [...] -------- FINAL REPORT -------- Dictated By: RAJENDRA DONIS Dictated Date: 10/11/2024 08:32 ET Assigned Physician: RAJENDRA DONIS Reviewed and Electronically Signed By: RAJENDRA DONIS Signed Date: 10/11/2024 08:33 ET Workstation ID: [id number] Transcribed By: Self Edit Transcribed Date: 10/11/2024 08:32 ET Narrative 10/11/2024 8:33 AM EDT XR CHEST 2 VIEWS INDICATION: Chest pain TECHNIQUE: XR CHEST 2 VIEWS COMPARISON: 12/29/2023 Procedure Note Rajendra Donis MD - 10/11/2024 XR CHEST 2 VIEWS INDICATION: Chest pain TECHNIQUE: XR CHEST 2 VIEWS COMPARISON: 12/29/2023 IMPRESSION: FINDINGS/IMPRESSION: No pneumonia or pulmonary edema. No pleural effusionor pneumothorax. Cardiac silhouette is stably enlarged with left atrialappendage occlusion device in place. Degenerative changes seen throughoutthe bones. -------- FINAL REPORT -------- Dictated By: RAJENDRA DONIS Dictated Date: 10/11/2024 08:32 ET Assigned Physician: RAJENDRA DONIS Reviewed and Electronically Signed By: RAJENDRA DONIS Signed Date: 10/11/2024 08:33 ET Workstation ID: [id number] Transcribed By: Self Edit Transcribed Date: 10/11/2024 08:32 ET us Chandu Orlando MD IMG XR PROCEDURES Final Res ult * (ABNORMAL) B-type natriuretic peptide (10/10/2024 5:23 PM EDT) BNP 258(H) <=100 pcg/mL LAB CHEMISTRY METHOD 10/10/2024 6:56 PM EDT [facility] Blood Venous blood specimen / Unknown Venipuncture / Unknown 10/10/2024 5:23 PM EDT 10/10/2024 6:04 PM EDT Trae Smith MD LAB BLOOD ORDERABLES Final R esult [facility] [address] [place] [address], [place] [phone] * Lipase (10/10/2024 5:23 PM EDT) [facility] Lipase 45 13 - 75 unit/L LAB CHEMISTRY METHOD 10/10/2024 6:37 PM EDT [facility] Blood Venous blood specimen / Unknown Venipuncture / Unknown 10/10/2024 5:23 PM EDT 10/10/2024 6:04 PM EDT Trae Smith MD LAB BLOOD ORDERABLES Final R esult [facility] [address] [place] [address], [place] [phone] * (ABNORMAL) Comprehensive metabolic panel (10/10/2024 5:23 PM EDT) [facility] Sodium 140 133 - 145 mmol/L LAB CHEMISTRY METHOD 10/10/2024 6:42 PM EDT [facility] Potassium 4.3 3.5 - 5.5 mmol/L LAB CHEMISTRY METHOD 10/10/2024 6:42 PM EDT [facility] Chloride 103 96 - 110 mmol/L LAB CHEMISTRY METHOD 10/10/2024 6:42 PM EDT [facility] CO2 28 21 - 32 mmol/L LAB CHEMISTRY METHOD 10/10/2024 6:42 PM EDT [facility] Anion Gap 9 3 - 11 LAB CHEMISTRY METHOD 10/10/2024 6:42 PM EDT [facility] Glucose 99 70 - 100 mg/dL LAB CHEMISTRY METHOD 10/10/2024 6:42 PM [facility] BUN 51(H) 5 - 25 mg/dL LAB CHEMISTRY METHOD 10/10/2024 6:42 PM [facility] Creatinine 2.52(H) 0.70 - 1.30 mg/dL LAB CHEMISTRY METHOD 10/10/2024 6:42 PM [facility] eGFR 27(L) >=60 mL/min/1. 73m2 LAB CHEMISTRY METHOD 10/10/2024 6:42 PM [facility] Comment:Calculation based on the Chronic Kidney Disease Epidemiology Collaboration (CKD-EPI) equation refit without adjustment for race. BUN/Creatinine Ratio 20.2 LAB CHEMISTRY METHOD 10/10/2024 6:42 PM [facility] Calcium 8.6 8.5 - 10.5 mg/dL LAB CHEMISTRY METHOD 10/10/2024 6:42 PM [facility] AST (SGOT) 20 10 - 42 unit/L LAB CHEMISTRY METHOD 10/10/2024 6:42 PM [facility] ALT (SGPT) 16 10 - 60 unit/L LAB CHEMISTRY METHOD 10/10/2024 6:42 PM [facility] Alkaline Phosphatase 147(H) 42 - 121 unit/L LAB CHEMISTRY METHOD 10/10/2024 6:42 PM [facility] Total Protein 6.5 6.0 - 8.0 g/dL LAB CHEMISTRY METHOD 10/10/2024 6:42 PM [facility] Albumin 3.7 3.2 - 5.0 g/dL LAB CHEMISTRY METHOD 10/10/2024 6:42 PM [facility] Total Bilirubin 0.8 0.0 - 1.4 mg/dL LAB CHEMISTRY METHOD 10/10/2024 6:42 PM [facility] Blood Venous blood specimen / Unknown Venipuncture / Unknown 10/10/2024 5:23 PM EDT 10/10/2024 6:04 PM EDT us Trae Smith MD LAB BLOOD ORDERABLES Final R esult NARCISA WOOD [place] ([facility] [address] [place] [address], [place] [phone] from Last 3 Months Insurance [employer] [address] [place] [address] Advance Directives * Full Code - Default (Latest Code Status on File) Date Activated Date Inactivated Comments 10/10/2024 10:13 PM 10/11/2024 4:44 PM This is order is used when code status has not been discussed with the patient, or code status is otherwise unknown/unconfirmed To update the patient's code status, place a code status order. Do not modify or discontinue any currently active code status orders. Care Teams Blueprint Blocker Relationship Specialty Start Date End Date Juancarlos Johnson MD [address] [facility] [address] [place] [address] PCP - General Internal Medicine 03/01/24
--- OUTSIDE RECORDS SUMMARY | 2024-10-12 11:08 | XMS_ITS | Encounter Summary ---
Author Organization [facility] [place], Address [address] [place] [address] Phone Care Team Providers Care Trigonometry Tutor Name Role Phone Juancarlos Johnson MD Primary Care Provider [phone] Encounter Details Date Type Department Care Team (Late st Contact Info) Description 05/25/2023 Documentation Only [facility] [place], [address] [place] [phone] [place] [address] [place] [address] Social History Tobacco Use Types Packs/Day Years [...] on filedocumented in this encounter Care Teams Trigonometry Tutor Relationship Specialty Start Date End Date Juancarlos Johnson MD [address] [address] PCP - General Internal Medicine 05/25/23 documented as of this encounter
== END 2024-10-12 10:51 | disposition home or self-care (01) ==
LOC: HO.HKA 10:09
PROVIDERS: PCP Internal Medicine; Visit Provider Internal Medicine Nephrology
DX: I12.9 Hypertensive chronic kidney disease with stage 1 through stage 4 chronic kidney disease, or unspecified chronic kidney disease (principal); N18.32 Chronic kidney disease, stage 3b; N17.9 Acute kidney failure, unspecified; N18.9 Chronic kidney disease, unspecified; R76.8 Other specified abnormal immunological findings in serum
CPT/HCPCS: 99214

== ENCOUNTER → 2024-10-12 10:09 | Outpatient (BNVA) | payer MEDICARE, SELFPAY | PROVIDERS: PCP Internal Medicine; Visit Provider Internal Medicine Nephrology | DX: N18.32 Chronic kidney disease, stage 3b (principal); I10 Essential (primary) hypertension; N17.9 Acute kidney failure, unspecified; R76.8 Other specified abnormal immunological findings in serum; I48.91 Unspecified atrial fibrillation | CPT/HCPCS: 99212 ==

== ENCOUNTER 2024-11-07 11:15 | Outpatient (REF) | payer MEDICARE, SELFPAY ==
--- OUTSIDE RECORDS SUMMARY | 2023-11-10 15:17 | XMS_ITS | Encounter Summary ---
Author Organization [facility] Address [address] [place] [address] Care Team Providers Care Camp Boss Name Role Phone Juancarlos Johnson MD Primary Care Provider [phone] Encounter Details Date Type Department Care Team (Latest Contact Info) Description 11/10/2023 3:17 PM EDT Hospital Encounter TH HISTORIC ENCOUNTERS EASTERN CONVERSION ONLY Malini Rivero PA [address] [facility] [address] [place] [address] Pleural effusion, not elsewhere classified Social History [...] care for your loved ones. For example, early childhood specialist or elderly care for an older adult? [...] 5:12 PM EDT Juanito Catherine, RN * [place] Suicide Severity Rating Scale (Screener/Recent Self-Report) Question [...] Description 11/14/2024 11:10 AM EDT Office Visit [facility] - [facility] 154 300 [facility] 154 [place] [phone] Tatiana Quintana PA [address] [place] [address] Dr [address] [place] [phone] 02/12/2025 9:45 AM EST Office Visit Internal Medicine - [place] 175 [facility] 200 [place] [address] Juancarlos Johnson MD 175 [facility] 200 [place] [address] 03/19/2025 8:00 AM EST Office Visit Pulmonology - [place] 175 [facility] 200 [place] [phone] Gabbi Anglin MD [address] [address] documented as of this encounter Procedures Procedure Name Priority Date/Time Associated Diagnosis Comments CHEST ROUTINE 2 VIEWS Routine 11/10/2023 3:36 PM EDT Pleural effusion, not elsewhere classified documented in this encounter Results * CHEST ROUTINE 2 VIEWS (11/10/2023 3:36 PM EDT) Anatomical Region Laterality Modality Radiographic Yulissa ging 11/10/2023 3:22 PM EDT Narrative 11/10/2023 3:36 PM EDT [facility] Diagnostic Imaging Department [address] [place] [address] Patient: WILFRID PINEDA Sharifa Negrete./Age/Sex: 1955 - 68 - M Unit#: [id number] Location/Status: SPDIGEN/REG CLI Mnemonic/Ordering Site: CHESTXR/SPDI Ordering [...] 1536 Sign date/Time: 11/10/23 153 Procedure Note Marquise Donis MD - 12/06/2023 [facility] Diagnostic Imaging Department [address] [place] [address] Patient: WILFRID PINEDA Sharifa Negrete./Age/Sex: 1955 - 68 - M Unit#: [id number] Location/Status: SPDIGEN/REG CLI Mnemonic/Ordering Site: CHESTXR/SPDI Ordering [...] by: MARQUISE DONIS MD Dic Date/Time: 11/10/23 153 Sign date/Time: 11/10/23 153 us Malini PATTERSON IMG XR PROCEDURES Final Resul t documented in this encounter Visit Diagnoses Diagnosis Pleural effusion, not elsewhere classified documented in this encounter Care Teams Camp Boss Relationship Specialty Start Date End Date Juancarlos Johnson MD PCP - General Internal Medicine 12/28/12 02/29/24 documented as of this encounter
[2024-11-07 12:27] LABS: Anion Gap 13 (12-20); Blood Urea Nitrogen 66 mg/dL (9-16); Carbon Dioxide 27 mmol/L (22-29); Chloride 106 mmol/L (96-108); Estimated Glomerular Filt Rate 26; Potassium 4.7 mmol/L (3.3-5.1); Sodium 141 mmol/L (135-145)
--- OUTSIDE RECORDS SUMMARY | 2024-11-07 12:52 | XMS_ITS | Clinical Summary ---
Author Organization [facility] Address [address] [facility] [address] [place] [address] Phone Care Team Providers Care Electronic Engineering Technician Name Role Phone Juancarlos Johnson MD Primary Care Provider [phone] Allergies Active Allergy Reactions Criticality Noted Date [...] TIMES PER DAY FOR 2 WEEKS 04/06/19 025 Discontinued atovaquone (MEPRON) 750 mg/5 mL suspension Take 10 mL (1,500 mg total) by mouth daily. 300 mL 5 06/28/19 025 Discontinued avacopan (TAVNEOS) 10 mg Cap Take 3 capsules (30 mg total) by mouth 2 (two) times a day. 180 capsule 1 08/07/19 025 Discontinued Active Problems Problem Noted Date [...] would be happy to prescribe here at [facility] to avoid travel to the [place] [facility]. Assessment & Plan (06/23/2024 10:56 AM EDT): [...] agreement with. PLAN: Request lab findings from [facility] from [facility], differentiating between transudate versus exudate. [...] Encounters Date Type Department Care Team Description 10/19/2024 10:30 AM EDT Infusion [address] [place] [address] Phuong Mark MD, MPH Adrienne Mccall, RN ANCA-associated vasculitis (Primary Dx) 10/10/2024 9:00 AM EDT Telemedicine [facility] [address], [address], [address] [place] [address] Phuong Mark MD, MPH Antineutrophil cytoplasmic antibody (ANCA) positive (Primary Dx); correction 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; Myocarditis, unspecified chronicity, unspecified myocarditis type; Encounter for medication counseling; Vaccine counseling; High risk medication use; ANCA-associated vasculitis; Need for hepatitis B screening test 10/09/2024 10:50 AM EDT - 10/09/2024 11:59 PM EDT Hospital Encounter [facility], [facility] - [address] [address] Diego Reyna MD Discharge Disposition: Home or Self Care 10/09/2024 10:25 AM EDT - 10/09/2024 10:49 AM EDT Hospital Encounter [facility] [address] [place] [address] Diego Reyna MD Discharge Disposition: Home or Self Care 10/09/2024 9:30 AM EDT Office Visit [facility], Allergy and Critical Care Medicine [address] [place] [address] [place] [address] Diego Reyna MD Dyspnea on exertion (Primary Dx); ANCA-associated vasculitis 10/09/2024 8:12 AM EDT - 10/09/2024 10:24 AM EDT Hospital Encounter [facility] [address] [place] [address] Phuong Mark MD, MPH Discharge Disposition: Home or Self Care 10/05/2024 Refill [facility] [address], [address] [place] [address] Phuong Mark MD, MPH Medication Refill 10/01/2024 10:00 AM EDT Infusion [address], [facility] [address] [place] [address] Phuong Mark MD, MPH Marguerite Goldberg ANCA-associated vasculitis (Primary Dx) 09/14/2024 Telephone [facility] [address], [address], [address] [place] [address] Dana Marshall RN 09/03/2024 Refill [facility] [address], [address], [address] [place] [address] Phuong Mark MD, MPH Medication Refill 08/20/2024 12:56 PM EDT - 08/20/2024 11:59 PM EDT Hospital Encounter [address] [address] Phuong Mark MD, MPH Discharge Disposition: Home or Self Care 08/13/2024 Telephone [facility] [address] [place] [phone] Robel Calix, [facility] tavnoes assessment 08/08/2024 Documentation [facility] [address] [place] [phone] Tatiana Oneill [facility] from Last 3 Months Immunizations Immunization Administration [...] Sign Reading Time Taken Comments Blood Pressure 104/59 10/19/2024 10:18 AM EDT Pulse 72 10/19/2024 10:18 AM EDT Temperature 36.4 C (97.6 F) 10/19/2024 10:18 AM EDT Respiratory Rate 20 10/19/2024 10:1 8 AM EDT Oxygen Saturation 98% 10/19/2024 10: 18 AM EDT Inhaled Oxygen Concentration - - Weight 117.3 kg (258 lb 9.6 oz) 025 10:18 AM EDT Height 177.8 cm (5' 10 ) 10/09/2024 9:08 AM EDT Body Mass Index 37.11 10/09/2024 9:08 AM EDT Plan of Treatment Upcoming Encounters Date Type Department Care Team (Late st Contact Info) Description 01/16/2025 10:00 AM EST Office Visit [facility] [address] [facility] [place] [address] [place] [address] Diego Reyna MD 10 [facility] 2nd [place] [address] [email or web address] 01/22/2025 9:20 AM EST Office Visit [facility] [address], [address] [place] [address] Phuong Mark MD, MPH [address] [facility] [id number] [place] [address] [email or web address] Health Maintenance Due Date Last Done Comments LIPID PANEL 1954 DEPRESSION SCREENING 1966 COLOGUARD 1999 COLONOSCOPY 1999 COLORECTAL CANCER SCREENING 1999 FIT TEST 1999 FOBT 1999 SIGMOIDOSCOPY 1999 VIRTUAL COLONOSCOPY 1999 RSV VACCINE (1 - Risk 60-74 years 1-dose series) 2014 ZOSTER VACCINES (2 of 2) 02/04/2021 12/10/2020 INFLUENZA VACCINE (#1) 2024 , 10/25/2021, 11/28/2018 COVID-19 VACCINE ( season) 2025 [...] WITH HIP Routine 08/20/2024 1:30 PM EDT correction 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 HEPATITIS C ANTIBODY, QUALITATIVE Routine 04/10/2024 2:13 [...] clinician's provided indication for this examination in [facility]: Dyspnea (Shortness of Breath) COMPARISON: None FINDINGS: [...] clinician's provided indication for this examination in [facility]:Dyspnea (Shortness of Breath) COMPARISON: None FINDINGS: Devices/Tubes/Lines: [...] EDT) ESR 6 0 - 20 mm/h [facility] Blood 10/09/2024 10:2 5 AM EDT 10/09/2024 10:30 AM EDT us Diego Reyna MD LAB BLOOD ORDERABLES Final Res ult [facility] [address] [place] [address] * (ABNORMAL) CBC and differential (10/09/2024 10:25 AM EDT) WBC 9.19 4.00 - 11.00 K/uL [facility] RBC 4.26(L) 4.50 - 5.90 M/uL [facility] HGB 13.9 13.5 - 17.5 g/dL [facility] HCT 43.2 41.0 - 53.0 % [facility] PLT 162 150 - 450 K/uL [facility] MCV 101.4(H) 80.0 - 100.0 fL [facility] MCH 32.6(H) 27.0 - 31.0 pg [facility] MCHC 32.2 32.0 - 36.0 g/dL [facility] RDW 16.0(H) 11.5 - 14.5 % [facility] MPV 11.4 8.4 - 12.0 fL [facility] NRBC 0.00 0.00 /100 WBCs [facility] ABSOLUTE NRBC 0.00 0.00 K/uL [facility] DIFF METHOD Auto [facility] NEUTS 78.9(H) 48.0 - 76.0 % [facility] LYMPHS 11.5(L) 18.0 - 41.0 % [facility] MONOS 7.4 4.0 - 11.0 % [facility] EOS 0.9 0.0 - 5.0 % [facility] BASOS 0.5 0.0 - 1.5 % [facility] Granulocytes, immature (%) 0.8 0.0 - 0.9 % [facility] ABSOLUTE NEUTS 7.25 1.92 - 7.60 K/uL [facility] ABSOLUTE LYMPHS 1.06 0.72 - 4.10 K/uL [facility] ABSOLUTE MONOS 0.68 0.16 - 1.10 K/uL [facility] ABSOLUTE EOS 0.08 0.00 - 0.50 K/uL [facility] ABSOLUTE BASOS 0.05 0.00 - 0.15 K/uL [facility] Granulocytes, immature 0.07 0.00 - 0.09 K/uL [facility] Blood 10/09/2024 10:2 5 AM EDT 10/09/2024 10:30 AM EDT Diego Reyna MD LAB BLOOD ORDERABLES Final Res ult [address] [address] * (ABNORMAL) C-Reactive Protein (10/09/2024 10:25 AM EDT) C REACTIVE PROTEIN 4.8(H) 0.0 - 4.0 mg/L [facility] Blood 10/09/2024 10:2 5 AM EDT 10/09/2024 10:30 AM EDT Diego Reyna MD LAB BLOOD ORDERABLES Final Res ult Performing Organization Address [facility] Co de Phone Number [address] [address] * (ABNORMAL) NT-proBNP (10/09/2024 10:25 AM EDT) NT-PROBNP 2,417(H) 0 - 450 pg/mL [facility] Blood 10/09/2024 10:2 5 AM EDT 10/09/2024 10:30 AM EDT us Diego Reyna MD LAB BLOOD ORDERABLES Final Res ult Performing Organization Address [facility]/ZIP Co de Phone Number [address] [address] * (ABNORMAL) Basic metabolic panel (10/09/2024 10:25 AM EDT) SODIUM 138 133 - 146 mmol/L [facility] CHLORIDE 100 96 - 108 mmol/L [facility] POTASSIUM 4.4 3.3 - 5.1 mmol/L [facility] CO2 26 21 - 35 mmol/L [facility] BUN 38(H) 6 - 19 mg/dL [facility] CREATININE 2.00(H) 0.5 - 1.5 mg/dL [facility] GLUCOSE 124(H) 70 - 99 mg/dL [facility] CALCIUM 9.1 8.4 - 10.3 mg/dL [facility] EGFR 35(L) >59 mL/min/1.7 3m2 [facility] Comment:Estimated glomerular filtration rate calculated using the CKD-EPI refit equation. ANION GAP 16 10 - 20 mmol/L [facility] Blood 10/09/2024 10:2 5 AM EDT 10/09/2024 10:30 AM EDT us Diego Reyna MD LAB BLOOD ORDERABLES Final Res ult Performing Organization Address City/State/[facility] Co de Phone Number [address] [address] * (ABNORMAL) LFTs (hepatic panel) (10/09/2024 8:13 AM EDT) ALKALINE PHOSPHATASE 146(H) 39 - 117 U/L [facility] TOTAL BILIRUBIN 0.8 0.0 - 1.2 mg/dL [facility] DIRECT BILIRUBIN 0.3(H) 0.0 - 0.2 mg/dL [facility] Bilirubin (Indirect) 0.5 0 - 1.5 mg/dL [facility] AST 21 0 - 37 U/L [facility] ALT 14 0 - 40 U/L [facility] TOTAL PROTEIN 6.9 6.5 - 8.0 g/dL [facility] ALBUMIN 4.1 3.9 - 4.8 g/dL [facility] GLOBULIN 2.8 1 - 4.8 g/dL [facility] A/G Ratio 1.46 1.00 - 4.80 RATIO [facility] Blood 10/09/2024 8:13 AM EDT 10/09/2024 8:18 AM EDT us Phuong Mark MD, MPH LAB BLOOD ORDERABLES Final Result [address] [address] * BD DXA AXIAL (SPINE) WITH HIP (08/20/2024 1:30 PM EDT) Anatomical Region Laterality Modality Bone Density Bone Density 08/20/2024 1:32 PM EDT Impressions 08/20/2024 1:35 PM EDT Interpretation: Osteopenia. Narrative 08/20/2024 1:35 PM EDT Referred By: PHUONG MARK Indications: Long-Term Steroid Treatment (3 Months or Longer) Scanner: UPR-Online A with serial# of [id number] located at [facility] Bone Density Scan (DXA) 08/20/24 Details [...] -2.5), or Osteoporosis (T-score <= -2.5). At [facility], T-scores are compared to peak bone [...] Steroid Treatment (3 Months or Longer) Scanner: U[employer]-Online A with serial# of [id number] located at [facility] Bone Density Scan (DXA) 08/20/24 Details [...] -2.5), or Osteoporosis (T-score <= -2.5). At [facility], T-scores are compared to peak bone density of [facility] [place] matched reference population. - For [...] andprior bone density results. IMPRESSION: Interpretation: Osteopenia. Phuong Mark MD, MPH IMG BD BONE DENSITY DEXA F inal Result * Hepatitis C antibody, qualitative (04/10/2024 2:13 PM EST) HCV NON-REACTIV E NON-REACTI VE [facility] Blood 04/10/2024 2:13 PM EST 04/10/2024 2:30 PM EST Diego Reyna MD LAB BLOOD ORDERABLES Final Res ult [facility] [address] [place] [address] from Last 3 Months or Most Recently Relevant to Health Maintenance Insurance [employer] PPO REPLACEMENT [employer] P[employer]PLACEMENT [employer] PPO REPLACEMENT [employer] REPLACEMENT [employer] PPO REPLACEMENT [employer] PPO REPLACEMENT Care Teams Electronic Engineering Technician Relationship Specialty Start Date End Date Juancarlos Johnson MD [address] [place] [address] [address] [place] [address] PCP - General Internal Medicine 03/23/24 Additional Source Comments The information contained in this document represents components of the legal health record. It is not the complete legal health record.[facility]
--- OUTSIDE RECORDS SUMMARY | 2024-11-07 12:53 | XMS_ITS | Encounter Summary ---
Author Organization [facility] [place], Address [address] [place] [address] Phone Care Team Providers Care Auto Body Service Mechanic Name Role Phone Juancarlos Johnson MD Primary Care Provider [phone] Encounter Details Date Type Department Care Team (Late st Contact Info) Description 05/25/2023 Documentation Only [facility] [place], [address] [place] [phone] Ign[place], [place] [address] [place] [address] Social History Tobacco Use Types Packs/Day Years [...] on filedocumented in this encounter Care Teams Auto Body Service Mechanic Relationship Specialty Start Date End Date Juancarlos Johnson MD [address] [address] PCP - General Internal Medicine 05/25/23 documented as of this encounter
--- OUTSIDE RECORDS SUMMARY | 2024-11-07 12:53 | XMS_ITS | Clinical Summary ---
Author Organization [address] [facility] Address [address] [place] [address] Phone Care Team Providers Care Aircraft Accessories Mechanic Name Role Phone Juancarlos Johnson MD Primary Care Provider [phone] Allergies Active Allergy Reactions Criticality Noted Date [...] supplement 30 each 01/18/20 24 025 Active PARoxetine (PAXIL) 20 mg tablet TAKE 1 TABLET BY MOUTH EVERY DAY IN THE MORNING 90 tablet 1 03/27/19 25 Active doxazosin (CARDURA) 8 mg tabletIndicatio ns:Paroxysmal atrial fibrillation (CMS/HCC V24, CMS/HCC V28),Other pericardial effusion (noninflammator y) TAKE 2 TABLET TWICE A DAY BY MOUTH 90 tablet 3 08/08/19 Active AVACOPAN ORAL Take 30 mg by [...] in the evening. 10/12/19 25 025 Active atovaquone (MEPRON) 750 mg/5 mL suspension Take 5 mL (750 mg total) by mouth 1 (one) time each day after breakfast. 10/19/19 Active carvediloL (COREG) 25 mg tablet Take 1 tablet (25 mg total) by mouth 2 (two) times a day with meals. 60 each 10/19/19 25 Active amLODIPine (NORVASC) 5 mg tablet Take 1 tablet (5 mg total) by mouth 1 (one) time each day. 30 each 11/06/19 25 Active doxazosin (CARDURA) 4 mg tablet Take 1 tablet (4 mg total) by mouth 2 (two) times a day. Discontinued hydrALAZINE (APRESOLINE) 100 mg tablet Take 1.5 tablets (150 mg total) by mouth 2 (two) times a day. 90 each 2 03/01/19 25 025 Discontinued(T herapy completed) dapagliflozin propanediol (FARXIGA) 5 mg tablet Take 1 tablet (5 mg total) by mouth 1 (one) time each day. 30 each 03/22/19 25 025 Discontinued metoprolol succinate (TOPROL-XL) 25 mg 24 hr tablet Take 1 tablet (25 mg total) by mouth 1 (one) time each day. Do not crush or chew. 90 each 1 05/03/19 25 025 Discontinued torsemide (DEMADEX) 20 mg tablet TAKE 2 TABLETS BY MOUTH EVERY DAY 180 tablet 3 08/08/19 25 025 Discontinued predniSONE (DELTASONE) 20 mg tablet Take 2 tablets (40 mg total) by mouth 1 (one) time each day. Tapering dose 025 Discontinued(S top Taking at Discharge) atovaquone (MEPRON) 750 mg/5 mL suspension Take 5 mL (750 mg total) by mouth 1 (one) time each day after breakfast. 025 Discontinued(R eorder) metoprolol succinate (TOPROL-XL) 25 mg 24 hr tablet TAKE 1 TABLET BY MOUTH 1 TIME EACH DAY. DO NOT CRUSH OR CHEW. 90 tablet 3 10/16/19 25 025 Discontinued(T herapy completed) Active Problems Problem Noted Date Diagnosed Date Acute on chronic renal insufficiency 06/22/2024 ANCA-associated vasculitis (CMS/[facility] V24, CMS/HCC V28) 06/22/2024 Abnormal nuclear cardiac [...] Retroperitoneal bleed 06/03/2022 NICM (nonischemic cardiomyop athy) (CMS/HCC V24, CMS/HCC V28) 09/30/2020 Benign prostatic hyperplasia 01/07/2020 Bradycardia 01/07/2020 Assessment & Plan (08/15/2024 11:48 AM EDT): Orders: ECG 12 lead Claudication (CMS/[facility] V24) 01/07/2020 Dyspnea on exertion 01/07/2020 [...] continue statin PAF (paroxysmal atrial fibri llation) ([facility] V24, CMS/HCC V28) 10/27/2016 Overview (12/29/2023): Last Assessment & [...] (hear t failure with reduced ejection fraction) ([facility] V24, CMS/[facility] V28) 10/10/2024 10/11/2024 Encounters Date Type Department Care Team Description 10/18/2024 3:10 PM EDT Office Visit [facility] Cardiology [facility] [address] [facility] [address] [place] [phone] Tatiana Quintana PA Acute on chronic heart failure with preserved ejection fraction (CMS/[facility] V24, CMS/[facility] V28) (Primary Dx); Dyspnea on exertion; Essential hypertension 10/10/2024 5:23 PM EDT - 10/11/2024 2:30 PM EDT Hospital Encounter [facility] [address] [place] [phone] Trae Smith MD Jones, Christopher, MD Seralathan, Manikandan, MD Dyspnea on exertion (Primary Dx); Atrial fibrillation, unspecified type (CMS/HCC V24, CMS/HCC V28); Bilateral lower extremity edema; Acute on chronic congestive heart failure, unspecified heart failure type (CMS/HCC V24, CMS/HCC V28); Acute on chronic HFrEF (heart failure with reduced ejection fraction) (CMS/HCC V24, CMS/HCC V28); Acute kidney injury superimposed on CKD ([facility] V24) Discharge Disposition: Home or Self Care 10/10/2024 Telephone [facility]iology Associates [facility] [address] [facility] [address] [place] [address] Antonio Pizarro MD 09/18/2024 11:45 AM EDT Office Visit Pulmonology - [place] 175 [facility] [address] [place] [phone] Gabbi Anglin MD LIANET on CPAP (Primary Dx); Pleural effusion; Restrictive lung disease; Dyspnea, unspecified type; ANCA-associated vasculitis ([facility] V24, [facility] V28) 09/12/2024 9:45 AM EDT Office Visit Internal Medicine - [place] 175 [facility] [address] [place] [phone] Juancarlos Johnson MD URI with cough and congestion (Primary Dx); Primary hypertension; Stage 3a chronic kidney disease ([facility] V24, [facility] V28); Chronic heart failure with mildly reduced ejection fraction (HFmrEF, 41-49%) ([facility] V24, [facility] V28) 08/21/2024 Telephone [facility] Cardiology [facility] [address] [facility] [address] [place] [phone] Antonio Pizarro MD 08/14/2024 3:00 PM EDT Office Visit [facility] - [facility] [address] [facility] [address] [place] [phone] Antonio Pizarro MD Bradycardia (Primary Dx); Primary hypertension; Longstanding persistent atrial fibrillation ([facility] V24, [facility] V28); Chronic diastolic heart failure ([facility] V24, [facility] V28) from Last 3 Months Immunizations Immunization Administration Dates Next Due Influenza Quadravalent, 0.5m [...] Comments OTHER SURGICAL HISTORY 10/11/2023 Right PROCEDURE: NM THORACOSCOPY W/PLEURODESIS CARDIOVERSION DONE ON 12/16/2023 AT [facility] W AOP INDICATION:Atrial fibrillation Medical History Medical History Date Comments History of anemia 09/09/2017 DX:History of anemia Asthma, mild 04/12/2016 DX:Asthma, mild Atrial fibrillation (CMS/HCC V24, CMS/HCC V28) 10/27/2016 DX:Atrial fibrillation ([facility]) Depression 06/25/2016 DX:Depression Gout 03/30/2017 DX:Gout Hyperlipidemia [...] for your loved ones. For example, childcare administrator or elderly care for an older adult? [...] Pressure 126/78 10/11/2024 7:45 AM EDT Pulse 80 10/18/2024 2:54 PM EDT Temperature 36.1 C (97 F) 10/11/2024 7:45 AM EDT Respiratory Rate 18 10/11/2024 7:45 AM EDT Oxygen Saturation 97% 10/18/2024 2:54 PM EDT Inhaled Oxygen Concentration - - Weight 116 kg (256 lb) 10/18/2024 2:54 PM EDT Height 177.8 cm (5' 10 ) 10/18/2024 2:54 PM EDT Body Mass Index 36.73 10/18/2024 2:54 PM EDT Plan of Treatment Upcoming Encounters Date Type Department Care Team (Late st Contact Info) Description 11/14/2024 11:10 AM EDT Office Visit [facility] [address] [facility] [address] [place] [address] Tatiana Quintana PA [address] [place] [address] [address] [place] [address] 02/12/2025 9:45 AM EST Office Visit Internal Medicine - [place] [address] [phone] Juancarlos Johnson MD [address] [address] 03/19/2025 8:00 AM EST Office Visit Pulmonology - [place] [address] [phone] Gabbi Anglin MD [address] [address] Health Maintenance Due Date Last Done Comments Meningococcal ACWY Vaccine (1 - Risk 2-dose series) 01[birth year]19/1957 Meningococcal B Vaccine (1 of 4 - Increased Risk) 01/19/1964 RSV Immunization Adult [...] Procedure Name Priority Date/Time Associated Diagnosis Comments ECG ANNOTATED 10/12/2024 TRANSTHORACIC ECHOCARDIOGRAM (TTE) COMPLETE W/ CONTRAST Routine 10/11/2024 7:36 AM EDT Acute on chronic HFrEF (heart failure with reduced ejection fraction) (CMS/HCC V24, CMS/[facility] V28) CBC WITH AUTO DIFFERENTIAL Routine 10/11/2024 [...] V28) from Last 3 Months Results * ECG-Annotated (10/12/2024) us Provider Onbase MD ECG ORDERABLES Final Result * (ABNORMAL) TRANSTHORACIC ECHOCARDIOGRAM (TTE) COMPLETE W/ CONTRAST (10/11/2024 7:36 AM EDT) Left Atrium Minor [place] 7.2 cm CV PACS Left Atrium Major [place] 7.6 cm CV PACS LA Area Sys [...] S' 11 cm/s CV PACS RA Major [place] 6.8 cm CV PACS RA Major [place] Index 2.9(A) 2.1 - 2.7 cm/m2 CV [...] LAB HEMETOLOGY METHOD 10/11/2024 7:26 AM EDT [facility] RBC 3.90(L) 4.50 - 5.50 M/mcL LAB HEMETOLOGY METHOD 10/11/2024 7:26 AM EDT [facility] Hemoglobin 12.3(L) 13.5 - 17.5 g/dL LAB HEMETOLOGY METHOD 10/11/2024 7:26 AM EDT [facility] Hematocrit 38.3(L) 42.0 - 54.0 % LAB HEMETOLOGY METHOD 10/11/2024 7:26 AM [facility] MCV 99.0(H) 79.0 - 98.0 FL LAB HEMETOLOGY METHOD 10/11/2024 7:26 AM [facility] MCH 31.8 27.0 - 32.0 pcg LAB HEMETOLOGY METHOD 10/11/2024 7:26 AM [facility] MCHC 32.1 32.0 - 37.0 g/dL LAB HEMETOLOGY METHOD 10/11/2024 7:26 AM [facility] RDW 15.9(H) 11.0 - 15.0 % LAB HEMETOLOGY METHOD 10/11/2024 7:26 AM [facility] Platelets 176 130 - 400 K/mcL LAB HEMETOLOGY METHOD 10/11/2024 7:26 AM [facility] MPV 10.6 7.0 - 11.0 FL LAB HEMETOLOGY METHOD 10/11/2024 7:26 AM [facility] NRBC 0.0 <1.0 % LAB HEMETOLOGY METHOD 10/11/2024 7:26 AM [facility] NRBC Absolute 0.00 <0.10 K/mcL LAB HEMETOLOGY METHOD 10/11/2024 7:26 AM [facility] Neutrophils Relative 75.5 % LAB HEMETOLOGY METHOD 10/11/2024 7:26 AM [facility] Lymphocytes Relative 12.6 % LAB HEMETOLOGY METHOD 10/11/2024 7:26 AM [facility] Monocytes Relative 8.8 % LAB HEMETOLOGY METHOD 10/11/2024 7:26 AM [facility] Eosinophils Relative 1.3 % LAB HEMETOLOGY METHOD 10/11/2024 7:26 AM EDT [facility] Basophils Relative 0.9 % LAB HEMETOLOGY METHOD 10/11/2024 7:26 AM EDT [facility] Immature Granulocytes Relative 0.9 % LAB HEMETOLOGY METHOD 10/11/2024 7:26 AM EDT [facility] Neutrophils Absolute 6.05 1.50 - 7.00 K/mcL LAB HEMETOLOGY METHOD 10/11/2024 7:26 AM EDT [facility] Lymphocytes Absolute 1.01 1.00 - 5.00 K/mcL LAB HEMETOLOGY METHOD 10/11/2024 7:26 AM EDT [facility] Monocytes Absolute 0.70 0.20 - 1.00 K/mcL LAB HEMETOLOGY METHOD 10/11/2024 7:26 AM EDT [facility] Eosinophils Absolute 0.10 0.00 - 0.50 K/mcL LAB HEMETOLOGY METHOD 10/11/2024 7:26 AM EDT [facility] Basophils Absolute 0.07 0.00 - 0.20 K/mcL LAB HEMETOLOGY METHOD 10/11/2024 7:26 AM EDT [facility] Immature Granulocytes Absolute 0.07(H) 0.00 - 0.03 K/mcL LAB HEMETOLOGY METHOD 10/11/2024 7:26 AM T [facility] Blood Venous blood specimen / Unknown Venipuncture / Unknown 10/11/2024 6:14 AM EDT 10/11/2024 7:16 AM EDT us Chandu Orlando MD LAB BLOOD ORDERABLES Final Result [facility] [address] [place] [address], * Magnesium (10/11/2024 6:14 AM EDT) Only the most recent of2 resultswithin the time period is included. Magnesium 2.3 1.9 - 2.6 mg/dL LAB CHEMISTRY METHOD 10/11/2024 7:54 AM [facility] Blood Venous blood specimen / Unknown Venipuncture / Unknown 10/11/2024 6:14 AM EDT 10/11/2024 7:16 AM EDT us Chandu Orlando MD LAB BLOOD ORDERABLES Final Result [facility] [address] [place] [address], * (ABNORMAL) Basic metabolic panel (10/11/2024 6:14 AM EDT) Pathologist [facility] Sodium 140 133 - 145 mmol/L LAB CHEMISTRY METHOD 10/11/2024 7:54 AM [facility] Potassium 4.1 3.5 - 5.5 mmol/L LAB CHEMISTRY METHOD 10/11/2024 7:54 AM [facility] Chloride 104 96 - 110 mmol/L LAB CHEMISTRY METHOD 10/11/2024 7:54 AM [facility] CO2 29 21 - 32 mmol/L LAB CHEMISTRY METHOD 10/11/2024 7:54 AM [facility] Anion Gap 7 3 - 11 LAB CHEMISTRY METHOD 10/11/2024 7:54 AM [facility] Glucose 92 70 - 100 mg/dL LAB CHEMISTRY METHOD 10/11/2024 7:54 AM [facility] BUN 53(H) 5 - 25 mg/dL LAB CHEMISTRY METHOD 10/11/2024 7:54 AM [facility] Creatinine 2.14(H) 0.70 - 1.30 mg/dL LAB CHEMISTRY METHOD 10/11/2024 7:54 AM [facility] eGFR 32(L) >=60 mL/min/1. 73m2 LAB CHEMISTRY METHOD 10/11/2024 7:54 AM EDT [facility] Comment:Calculation based on the Chronic Kidney Disease Epidemiology Collaboration (CKD-EPI) equation refit without adjustment for race. BUN/Creatinine Ratio 24.8 LAB CHEMISTRY METHOD 10/11/2024 7:54 AM EDT [facility] Calcium 8.6 8.5 - 10.5 mg/dL LAB CHEMISTRY METHOD 10/11/2024 7:54 AM EDT [facility] Blood Venous blood specimen / Unknown Venipuncture / Unknown 10/11/2024 6:14 AM EDT 10/11/2024 7:16 AM EDT us Chandu Orlando MD LAB BLOOD ORDERABLES Final Result [facility] [address] [place] [address], * CT Chest wo Contrast (10/10/2024 7:37 [...] on exertion CT chest without contrast Comparison: CT/KO/NM/SR - CT CHEST WO CONTRAST - 06/28/24 [...] on exertion CT chest without contrast Comparison: CT/KO/NM/SR - CT CHEST WO CONTRAST - 06/28/24 [...] of2 resultswithin the time period is included. High Sensitivity Troponin I 12 <=79 ng/L LAB CHEMISTRY METHOD 10/10/2024 7:37 PM EDT [facility] Blood Venous blood specimen / Unknown Venipuncture / Unknown 10/10/2024 6:45 PM EDT 10/10/2024 6:54 PM EDT Narrative [facility] - 10/10/2024 7:37 PM EDT High levels of biotin in samples may falsely decrease hsTroponin values. Use caution when interpreting hsTroponin results in patients taking biotin who exhibit renal impairment (eGFR <60) or in patients taking more than 20 mg/day of biotin. Trae Smith MD LAB BLOOD ORDERABLES Final R esult Performing Organization Address [facility]/ZIP Co de Phone Number [facility] [address] [place] [address], [place] [phone] * (ABNORMAL) APTT (10/10/2024 6:45 PM EDT) [facility] aPTT 43.9(H) 24.1 - 39.3 sec LAB COAGULATION METHOD 10/10/2024 7:14 PM EDT [facility] Blood Venous blood specimen / Unknown Venipuncture / Unknown 10/10/2024 6:45 PM EDT 10/10/2024 6:54 PM EDT Trae Smith MD LAB BLOOD ORDERABLES Final R esult Performing Organization Address [facility] Co de Phone Number [facility] [address] [place] [address], [place] [phone] * Protime-INR (10/10/2024 6:45 PM EDT) [facility] Protime 11.0 10.6 - 13.9 sec LAB COAGULATION METHOD 10/10/2024 7:14 PM EDT [facility] INR 0.9 LAB COAGULATION METHOD 10/10/2024 7:14 PM EDT [facility] Blood Venous blood specimen / Unknown Venipuncture / Unknown 10/10/2024 6:45 PM EDT 10/10/2024 6:54 PM EDT Trae Smith MD LAB BLOOD ORDERABLES Final R esult Performing Organization Address City/[facility] Co de Phone Number [facility] [address] [place] [address], [place] [phone] * ECG 12 lead (10/10/2024 6:43 PM EDT) Only the most recent of3 resultswithin the time period is included. Ventricular Rate ECG 89 BPM GEMUSE Atrial Rate 91 BPM GEMUSE QRS Duration 114 ms GEMUSE Q-T Interval 370 ms GEMUSE QTc 450 ms GEMUSE R [place] -5 degrees GEMUSE T [place] 132 degrees GEMUSE ECG Interpretation Atrial fibrillation [...] Signed Date: 10/11/2024 08:33 ET Workstation ID: [id number] Transcribed By: Self Edit Transcribed Date: 10/11/2024 [...] Signed Date: 10/11/2024 08:33 ET Workstation ID: [id number] Transcribed By: Self Edit Transcribed Date: 10/11/2024 08:32 ET Chandu Orlando MD IMG XR PROCEDURES Final Res ult * (ABNORMAL) B-type natriuretic peptide (10/10/2024 5:23 PM EDT) Pathologist [facility] BNP 258(H) <=100 pcg/mL LAB CHEMISTRY METHOD 10/10/2024 6:56 PM EDT [facility] Blood Venous blood specimen / Unknown Venipuncture / Unknown 10/10/2024 5:23 PM EDT 10/10/2024 6:04 PM EDT Trae Smith MD LAB BLOOD ORDERABLES Final R esult Performing Organization Address [facility]/ZIP Co de Phone Number [facility] [address] [place] [address], [place] [phone] * Lipase (10/10/2024 5:23 PM EDT) Pathologist [facility] Lipase 45 13 - 75 unit/L LAB CHEMISTRY METHOD 10/10/2024 6:37 PM EDT [facility] Blood Venous blood specimen / Unknown Venipuncture / Unknown 10/10/2024 5:23 PM EDT 10/10/2024 6:04 PM EDT Trae Smith MD LAB BLOOD ORDERABLES Final R esult [facility] [address] [place] [address], * (ABNORMAL) Comprehensive metabolic panel (10/10/2024 5:23 PM EDT) Sodium 140 133 - 145 mmol/L LAB CHEMISTRY METHOD 10/10/2024 6:[facility] Potassium 4.3 3.5 - 5.5 mmol/L LAB CHEMISTRY METHOD 10/10/2024 6:42 PM [facility] Chloride 103 96 - 110 mmol/L LAB CHEMISTRY METHOD 10/10/2024 6:42 PM [facility] CO2 28 21 - 32 mmol/L LAB CHEMISTRY METHOD 10/10/2024 6:42 PM [facility] Anion Gap 9 3 - 11 LAB CHEMISTRY METHOD 10/10/2024 6:42 PM [facility] Glucose 99 70 - 100 mg/dL LAB CHEMISTRY METHOD 10/10/2024 6:42 PM [facility] BUN 51(H) 5 - 25 mg/dL LAB CHEMISTRY METHOD 10/10/2024 6:42 PM [facility] Creatinine 2.52(H) 0.70 - 1.30 mg/dL LAB CHEMISTRY METHOD 10/10/2024 6:42 PM [facility] eGFR 27(L) >=60 mL/min/1. 73m2 LAB CHEMISTRY METHOD 10/10/2024 6:42 PM [facility] Comment:Calculation based on the Chronic Kidney Disease Epidemiology Collaboration (CKD-EPI) equation refit without adjustment for race. BUN/Creatinine Ratio 20.2 LAB CHEMISTRY METHOD 10/10/2024 6:42 PM [facility] Calcium 8.6 8.5 - 10.5 mg/dL LAB CHEMISTRY METHOD 10/10/2024 6:42 PM [facility] AST (SGOT) 20 10 - 42 unit/L LAB CHEMISTRY METHOD 10/10/2024 6:42 PM EDT [facility] ALT (SGPT) 16 10 - 60 unit/L LAB CHEMISTRY METHOD 10/10/2024 6:42 PM EDT [facility] Alkaline Phosphatase 147(H) 42 - 121 unit/L LAB CHEMISTRY METHOD 10/10/2024 6:42 PM EDT [facility] Total Protein 6.5 6.0 - 8.0 g/dL LAB CHEMISTRY METHOD 10/10/2024 6:42 PM EDT [facility] Albumin 3.7 3.2 - 5.0 g/dL LAB CHEMISTRY METHOD 10/10/2024 6:42 PM EDT [facility] Total Bilirubin 0.8 0.0 - 1.4 mg/dL LAB CHEMISTRY METHOD 10/10/2024 6:42 PM EDT [facility] Blood Venous blood specimen / Unknown Venipuncture / Unknown 10/10/2024 5:23 PM EDT 10/10/2024 6:04 PM EDT Trae Smith MD LAB BLOOD ORDERABLES Final R esult [facility] [address] [place] [address], from Last 3 Months Insurance [employer] Advance Directives * Full Code - Default [...] currently active code status orders. Care Teams Aircraft Accessories Mechanic Relationship Specialty Start Date End Date Juancarlos Johnson MD 175 [facility] [address] [place] [address] PCP - General Internal Medicine 03/01/24
--- OUTSIDE RECORDS SUMMARY | 2024-11-07 12:53 | XMS_ITS | Clinical Summary ---
Author Organization [facility], Address [address] [place] [address] [place] [address] Phone Care Team Providers Care Fruit And Vegetable Packer Name Role Phone Juancarlos Johnson MD Primary Care Provider [phone] Social History Tobacco Use Types Packs/Day Years [...] complete this topic Insurance [employer] Open Access ([id number]) Care Teams Fruit And Vegetable Packer Relationship Specialty Start Date End Date Juancarlos Johnson MD [address] [address] PCP - General Internal Medicine 05/25/23
--- OUTSIDE RECORDS SUMMARY | 2024-11-07 12:53 | XMS_ITS | Clinical Summary ---
Author Organization [facility] Address [address] [place] [address] Care Team Providers Care Senior Coldfusion Developer Name Role Phone Juancarlos Johnson MD [...] age to complete this topic Care Teams Senior Coldfusion Developer Relationship Specialty Start Date End Date Juancarlos Johnson MD PCP - General Internal Medicine 08/24/21
--- OUTSIDE RECORDS SUMMARY | 2024-11-07 12:53 | XMS_ITS | Encounter Summary ---
Author Organization [facility] Address [address] [place] [address] Phone Care Team Providers Care Awning Craftsman Name Role Phone Juancarlos Johnson MD Primary Care Provider [phone] Reason for Visit * Reason Comments Medication Refill Encounter Details Date Type Department Care Team (Late st Contact Info) Description 09/03/2024 Refill [facility] Rheumatology [address], [address], [address] [place] [address] Phuong Mark MD, MPH [address] [facility] [address] [place] [address] [email or web address] [email or web address] Refill Social History Tobacco Use [...] 08/06/2024 Phuong Mark MD, MPH - Rheumatology [facility] RHEUMATOLOGY YAW4 > Requested f/u: Not specified Upcoming visit: 10/10/2024 Phuong Mark MD, MPH - Rheumatology [facility] RHEUMATOLOGY YAW4 Provider - Summary Comments for medication Rx(s) without protocol Renewal is at prescriber discretion. - prednisone - prednisone Safety Alert: Please review/update Sig which indicates time limited documented in this encounter Plan of Treatment Upcoming Encounters Date Type Department Care Team (Late st Contact Info) Description 01/16/2025 10:00 AM EST Office Visit [facility] Pulmonary, Allergy and Critical Care Medicine [address] [place] [id number] Diego Reyna MD [address] [place] [address] [address] [place] [address] [email or web address] 01/22/2025 9:20 AM EST Office Visit [facility] Rheumatology [address], [address] [place] [address] Phuong Mark MD, MPH [address] [facility] [address] [place] [address] [email or web address] documented as of this encounter Visit Diagnoses Not on filedocumented in this encounter Care Teams Awning Craftsman Relationship Specialty Start Date End Date Juancarlos Johnson MD [address] [place] [address] [address] [place] [address] PCP - General Internal Medicine 03/23/24 documented as of this encounter Additional Source Comments The information contained in this document represents components of the legal health record. It is not the complete legal health record.[facility]
== END 2024-11-07 11:16 | disposition home or self-care (01) ==
LOC: HO.LAB 11:15
PROVIDERS: PCP Internal Medicine; Visit Provider Internal Medicine Nephrology
DX: I12.9 Hypertensive chronic kidney disease with stage 1 through stage 4 chronic kidney disease, or unspecified chronic kidney disease (principal); N17.9 Acute kidney failure, unspecified; N18.32 Chronic kidney disease, stage 3b; R76.89 Other specified abnormal immunological findings in serum
CPT/HCPCS: 36415; 80051; 82565; 84520

== ENCOUNTER 2024-11-09 11:27 | Outpatient (AMB) | payer MEDICARE, SELFPAY ==
--- OUTSIDE RECORDS SUMMARY | 2023-11-10 15:17 | XMS_ITS | Encounter Summary ---
Author Organization [facility] Address [address] [place] [address] Care Team Providers Care Strategic Sourcing Manager Name Role Phone Juancarlos Johnson MD Primary Care Provider [phone] Encounter Details Date Type Department Care Team (Latest Contact Info) Description 11/10/2023 3:17 PM EDT Hospital Encounter TH HISTORIC ENCOUNTERS EASTERN CONVERSION ONLY Malini Rivero PA [address] [facility] [address] [place] [address] Pleural effusion, not elsewhere classified Social History [...] care for your loved ones. For example, child guidance counselor or elderly care for an older adult? [...] 5:12 PM EDT Juanito Catherine, RN * [place] Suicide Severity Rating Scale (Screener/Recent Self-Report) Question Answer Date of Assessment Author 1. Wish to be (Past 1 Month) No 025 5:12 PM EDT Juanito Catherine, RN 2. Non-Specific Active Suici godwin Thoughts (Past 1 Month) No 10/10/2024 5:12 PM EDT Kan Catherine, RN 6. Suicidal Behavior (Lifetime) No 5:12 PM EDT Juanito Catherine, RN documented as of this encounter Plan of Treatment Upcoming Encounters Date Type Department Care Team (Late st Contact Info) Description 11/14/2024 11:10 AM EDT Office Visit [facility] - [facility] 154 300 [facility] 154 [place] [address] Tatiana Quintana PA 300 [facility] 154 [place] [address] 02/12/2025 9:45 AM EST Office Visit Internal Medicine - [place] 175 [facility] 200 [place] [address] Juancarlos Johnson MD 175 [facility] 200 [place] [address] 03/19/2025 8:00 AM EST Office Visit Pulmonology - [place] [address] [phone] Gabbi Anglin MD 175 [facility] 200 [place] [address] documented as of this encounter Procedures Procedure Name Priority Date/Time Associated Diagnosis Comments CHEST ROUTINE 2 VIEWS Routine 11/10/2023 3:36 PM EDT Pleural effusion, not elsewhere classified documented in this encounter Results * CHEST ROUTINE 2 VIEWS (11/10/2023 3:36 PM EDT) Anatomical Region Laterality Modality Radiographic Yulissa ging 11/10/2023 3:22 PM EDT Narrative 11/10/2023 3:36 PM EDT [facility] Diagnostic Imaging Department [address] [place] [address] Patient: MARY KATESANTOSWILFRID D.O.B./Age/Sex: 1955 - 68 - M Unit#: [id number] Location/Status: SPDIGEN/REG CLI Mnemonic/Ordering Site: CHESTXR/SPDI Ordering [...] Dic Date/Time: 11/10/23 1536 Sign date/Time: 11/10/23 153 Procedure Note Rajendra Donis MD - 12/06/2023 [facility] Diagnostic Imaging Department [address] [place] [address] Patient: WILFRID PINEDA Sharifa Ceja/Age/Sex: 1955 - 68 - M Unit#: [id number] Location/Status: SPDIGEN/REG CLI Mnemonic/Ordering Site: CHESTXR/SPDI Ordering [...] by: RAJENDRA DONIS MD Dic Date/Time: 11/10/23 153 Sign date/Time: 11/10/23 153 Malini PATTERSON IMG XR PROCEDURES Final Resul t documented in this encounter Visit Diagnoses Diagnosis Pleural effusion, not elsewhere classified documented in this encounter Care Teams Strategic Sourcing Manager Relationship Specialty Start Date End Date Juancarlos Johnson MD PCP - General Internal Medicine 12/28/12 02/29/24 documented as of this encounter
--- NOTE | 2024-11-09 11:51 | HO.NEPHOV_ITS ---
Vital Signs 11/09/24 11:54 Height 5 ft 10 in Weight 263 lb 2 oz BMI 37.8 BP 110/70 Blood Pressure Location Lt brachial Position Sitting Pulse 75 Pulse Source Pulse Oximeter Pulse Oximetry (%) 99 Oxygen Delivery Method Room Air Intake Visit Reasons: 4wk f/u w/labs-Conf Admitting Interviewer Required: No Accompanied by: Self / Same As Patient Allergies Sulfa (Sulfonamide Antibiotics) Allergy (Verified 11/09/24 11:54) Unknown HPI Comments Details: Wilfrid was seen in follow up of CKD . He has CKD 3 at baseline. He has H/O non ischemic cardiomyopathy as well as A Fib and had undergone watchman device . He is not on Xarelto anymore. He had a negative cardiac MRI but cardiac PET in Mar 2024 showed multifocal hypermetabolic uptake within the left ventricular wall suggestive of inflammatory process. He also had right pleurodesis for recurrent pleural effusion. He also has history of mediastinal and hilar lymphadenopathy. He has not taken any prednisone or concurrent steroid sparing treatment with methotrexate for possible cardiac sarcoid. Continued workup found him to have p-ANCA positivity and MATT with a serum creatinine going up to 2.8. 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 In the biopsy he had 20 % global glomerulosclerosis with tubular atrophy/ interstitial fibrosis of 20-25 % with moderate vascular sclerosis. 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 He recently had AKIon CKD due to CRS . He feels improved. He did not specify any new systemic complaints at the time this office visit. [facility] Medical History (Updated 06/10/24 @ 09:29 by Eric Taylor MD) Presence of Watchman left atrial appendage closure device Spinal stenosis Sleep apnea Recurrent right pleural effusion Paroxysmal atrial fibrillation Obesity, morbid Mediastinal adenopathy Major depressive disorder with single episode Hypertension Hyperlipidemia Gout Congestive heart failure Cardiac sarcoidosis Anserine bursitis Achilles tendonitis Surgical History Hx of vasectomy History of lung surgery H/O hernia repair Family History Father Heart disease Diabetes Mother H/O cancer of gall bladder Social History Alcohol intake: never Patient Tobacco Use Status: Never used Tobacco Review of Systems Const All systems reviewed & are unremarkable except as noted in HPI and below Physical Exam Vital Signs: Last Vital Signs Pulse 75 11/09/24 11:54 BP 110/70 11/09/24 11:54 Pulse Ox 99 11/09/24 11:54 Oxygen Delivery Method Room Air 11/09/24 11:54 BMI result Body Mass Index 37.8 Const General: comfortable and no acute distress Orientation/consciousness: patient oriented x3 HEENT Head: Yes normocephalic Mouth: Normal oral and palatal mucosa present Eyes EOM: EOMs intact bilaterally Neck Neck: Yes supple Resp Auscultation: clear to auscultation bilaterally Cardio Jugular venous distension: no JVD Rate: regular rate GI Palpation (GI): Soft to palpation Auscultation: normal bowel sounds General: Yes no CVA tenderness Back/Spine/Pelvis Back: no CVA tenderness Skin General skin exam: no rashes or lesions noted Neuro General: patient oriented x3 and moves all extremities Extrem General: Yes no pedal edema Results Reviewed Nephrology Results: Hgb, (14.0-18.0) 11.1 g/dl L 04/23/24 WBC, (4.8-10.8) 4.4 X10*3/uL L 04/23/24 Plt Count, (160-400) 175 X10*3/uL 04/23/24 Sodium, (135-145) 141 mmol/L 11/07/24 Potassium, (3.3-5.1) 4.7 mmol/L 11/07/24 Chloride, (96-108) 106 mmol/L 11/07/24 Carbon Dioxide, (22-29) 27 mmol/L 11/07/24 BUN, (9-16) 66 mg/dL H 11/07/24 Creatinine, (0.5-1.4) 2.50 mg/dL H 11/07/24 Urine Protein, (Neg-Trace) Negative mg/dL 09/05/24 Urine Creatinine 35.31 mg/dL 09/05/24 Protein/Creatinin Ratio TNP 09/05/24 Assessment & Plan Assessment & Plan (1) CKD stage 3b, GFR 30-44 ml/min: Code(s): N18.32 - Chronic kidney disease, stage 3b Category: Medical (2) Hypertension: Code(s): I10 - Essential (primary) hypertension Category: Medical Qualifiers: Hypertension type: primary hypertension Qualified Code(s): I10 - Essential (primary) hypertension (3) P-ANCA and MPO antibodies positive: Code(s): R76.8 - Other specified abnormal immunological findings in serum Category: Medical Plan Wilfrid has MATT on a backdrop of CKD with a serum creatinine recently going up to 2.52 . He has multisystem involvement including cardiac, pulmonary and renal. He was thought to have cardiac sarcoid but has not had any tissue diagnosis. He is on Farxiga and diuretics but not on any JUAN JOSE inhibitor, ARB, Entresto. His recent p-ANCA came back as positive. 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 In the biopsy he had 20 % global glomerulos clerosis with tubular atrophy/ interstitial fibrosis of 20-25 % with moderate vascular sclerosis. He was started on Rituximab and avacopan by Senior Field Engineer [place] [facility] [place] Continue to hold hydralazine and C/W Farxiga. I reduced his torsemide to 40 mg bid. I did not make any other medication changes today but rather discussed his renal biopsy report and future plan for continued care. All ques tions were answered. Follow-up given Orders: Orders Blood Urea Nitrogen 6 Weeks I10 - Essential (primary) hypertension, N18.32 - Chronic kidney disease, stage 3b, R76.8 - Other specified abnormal immunological findings in serum Electrolytes 6 Weeks I10 - Essential (primary) hypertension, N18.32 - Chronic kidney disease, stage 3b, R76.8 - Other specified abnormal immunological findings in serum Complete Blood Count Auto Diff 6 Weeks I10 - Essential (primary) hypertension, N18.32 - Chronic kidney disease, stage 3b, R76.8 - Other specified abnormal immunological findings in serum Creatinine 6 Weeks I10 - Essential (primary) hypertension, N18.32 - Chronic kidney disease, stage 3b, R76.8 - Other specified abnormal immunological findings in serum Coding Level of Care Code Est Pt Level 4 (64838) Diagnoses CKD stage 3b, GFR 30-44 ml/min N18.32 Primary hypertension I10 Hypertension type: primary hypertension P-ANCA and MPO antibodies positive R76.8
[2024-11-09 11:54] VITALS: BP 110/70; PULSE 75; O2SAT 99; BMI 37.8
--- OUTSIDE RECORDS SUMMARY | 2024-11-09 12:35 | XMS_ITS | Clinical Summary ---
Author Organization [address] [facility] Address [address] [place] [address] Phone Care Team Providers Care Vocational Training Teacher Name Role Phone Juancarlos Johnson MD Primary Care Provider [phone] Allergies Active Allergy Reactions Criticality Noted Date [...] breath. 1 each 12/29/19 24 025 Active spironolactone (ALDACTONE) 25 mg tablet Take [...] MOUTH 90 tablet 3 08/08/19 25 Active AVACOPAN ORAL Take 30 mg by [...] each day in the evening. 10/12/19 25 Active atovaquone (MEPRON) 750 mg/5 mL suspension Take 5 mL (750 mg total) by mouth 1 (one) time each day after breakfast. 10/19/19 Active carvediloL (COREG) 25 mg tablet Take 1 tablet (25 mg total) by mouth 2 (two) times a day with meals. 60 each 10/19/19 25 026 Active amLODIPine (NORVASC) 5 mg tablet Take 1 tablet (5 mg total) by mouth 1 (one) time each day. 30 each 11/06/19 25 026 Active atorvastatin (LIPITOR) 40 mg tablet Take 1 tablet (40 mg total) by mouth 1 (one) time each day. 90 tablet 1 11/09/19 25 Active atorvastatin (LIPITOR) 40 mg tablet TAKE 1 TABLET BY MOUTH EVERY DAY 90 tablet 1 01/10/20 24 025 Discontinued(R eorder) hydrALAZINE (APRESOLINE) 100 mg tablet Take 1.5 [...] on chronic renal insufficiency 06/22/2024 ANCA-associated vasculitis ([facility] V24, CMS/HCC V28) 06/22/2024 Abnormal nuclear cardiac [...] Retroperitoneal bleed 06/03/2022 NICM (nonischemic cardiomyop athy) ([facility] V24, CMS/[facility] V28) 09/30/2020 Benign prostatic hyperplasia 01/07/2020 Bradycardia 01/07/2020 Assessment & Plan (08/15/2024 11:48 AM EDT): Orders: ECG 12 lead Claudication ([facility] V24) 01/07/2020 Dyspnea on exertion 01/07/2020 Edema [...] continue statin PAF (paroxysmal atrial fibri llation) ([facility] V24, CMS/[facility] V28) 10/27/2016 Overview (12/29/2023): Last Assessment & [...] (hear t failure with reduced ejection fraction) ([facility] V24, CMS/[facility] V28) 10/10/2024 10/11/2024 Encounters Date Type Department Care Team Description 10/18/2024 3:10 PM EDT Office Visit [facility] - [address] [facility] [address] [place] [phone] Tatiana Quintana PA Acute on chronic heart failure with preserved ejection fraction (CMS/HCC V24, CMS/HCC V28) (Primary Dx); Dyspnea on exertion; Essential hypertension 10/10/2024 5:23 PM EDT - 10/11/2024 2:30 PM EDT Hospital Encounter [facility] [address] [place] [phone] Trae Smith MD Jones, Christopher, MD Seralathan, Manikandan, MD Dyspnea on exertion (Primary Dx); Atrial fibrillation, unspecified type (CMS/HCC V24, CMS/HCC V28); Bilateral lower extremity edema; Acute on chronic congestive heart failure, unspecified heart failure type (CMS/HCC V24, CMS/HCC V28); Acute on chronic HFrEF (heart failure with reduced ejection fraction) (CMS/HCC V24, CMS/HCC V28); Acute kidney injury superimposed on CKD (CMS/[facility] V24) Discharge Disposition: Home or Self Care 10/10/2024 Telephone [facility] [address] [place] [phone] Antonio Pizarro MD 09/18/2024 11:45 AM EDT Office Visit Pulmonology - [place] [address] [facility] [address] [place] [phone] Gabbi Anglin MD LIANET on CPAP (Primary Dx); Pleural effusion; Restrictive lung disease; Dyspnea, unspecified type; ANCA-associated vasculitis ([facility] V24, [facility] V28) 09/12/2024 9:45 AM EDT Office Visit Internal Medicine - [place] [address] [facility] [address] [place] [phone] Juancarlos Johnson MD URI with cough and congestion (Primary Dx); Primary hypertension; Stage 3a chronic kidney disease ([facility] V24, [facility] V28); Chronic heart failure with mildly reduced ejection fraction (HFmrEF, 41-49%) ([facility] V24, [facility] V28) 08/21/2024 Telephone [facility] [address] [facility] [address] [place] [phone] Antonio Pizarro MD 08/14/2024 3:00 PM EDT Office Visit [facility] [address] [place] [phone] Antonio Pizarro MD Bradycardia (Primary Dx); Primary hypertension; Longstanding persistent atrial fibrillation ([facility] V24, [facility] V28); Chronic diastolic heart failure ([facility] V24, [facility] V28) from Last 3 Months Immunizations Immunization [...] Comments OTHER SURGICAL HISTORY 10/11/2023 Right PROCEDURE: ND THORACOSCOPY W/PLEURODESIS CARDIOVERSION DONE ON 12/16/2023 AT [facility] W AOP INDICATION:Atrial fibrillation Medical History Medical History Date Comments History of anemia 09/09/2017 DX:History of anemia Asthma, mild 04/12/2016 DX:Asthma, mild Atrial fibrillation (CMS/HCC V24, CMS/HCC V28) 10/27/2016 DX:Atrial fibrillation ([facility]) Depression 06/25/2016 DX:Depression Gout 03/30/2017 DX:Gout Hyperlipidemia [...] ed Within the last 3 months, harman w many times did you visit the [...] care for your loved ones. For example, director of early childhood education or elderly care for an older adult? [...] Description 11/14/2024 11:10 AM EDT Office Visit [facility] [address] [facility] [address] [place] [address] Tatiana Quintana PA [address] [facility] [address] [place] [address] 02/12/2025 9:45 AM EST Office Visit Internal Medicine - [address] [phone] Juancarlos Johnson MD [address] [address] 03/19/2025 8:00 AM EST Office Visit Pulmonology - [address] [phone] Gabbi Anglin MD [address] [address] Health Maintenance Due Date Last Done Comments [...] HFrEF (heart failure with reduced ejection fraction) ([facility] V24, [facility] V28) CBC WITH AUTO DIFFERENTIAL Routine 10/11/2024 [...] (10/11/2024 7:36 AM EDT) Left Atrium Minor [place] 7.2 cm CV PACS Left Atrium Major [place] 7.6 cm CV PACS LA Area Sys [...] S' 11 cm/s CV PACS RA Major [place] 6.8 cm CV PACS RA Major [place] Index 2.9(A) 2.1 - 2.7 cm/m2 CV [...] LAB HEMETOLOGY METHOD 10/11/2024 7:26 AM EDT [facility] RBC 3.90(L) 4.50 - 5.50 M/mcL LAB HEMETOLOGY METHOD 10/11/2024 7:26 AM EDT [facility] Hemoglobin 12.3(L) 13.5 - 17.5 g/dL LAB HEMETOLOGY METHOD 10/11/2024 7:26 AM [facility] Hematocrit 38.3(L) 42.0 - 54.0 % LAB HEMETOLOGY METHOD 10/11/2024 7:26 AM [facility] MCV 99.0(H) 79.0 - 98.0 FL LAB HEMETOLOGY METHOD 10/11/2024 7:26 AM [facility] MCH 31.8 27.0 - 32.0 pcg LAB HEMETOLOGY METHOD 10/11/2024 7:26 AM [facility] MCHC 32.1 32.0 - 37.0 g/dL LAB HEMETOLOGY METHOD 10/11/2024 7:26 AM [facility] RDW 15.9(H) 11.0 - 15.0 % LAB HEMETOLOGY METHOD 10/11/2024 7:26 AM [facility] Platelets 176 130 - 400 K/mcL LAB HEMETOLOGY METHOD 10/11/2024 7:26 AM [facility] MPV 10.6 7.0 - 11.0 FL LAB HEMETOLOGY METHOD 10/11/2024 7:26 AM [facility] NRBC 0.0 <1.0 % LAB HEMETOLOGY METHOD 10/11/2024 7:26 AM [facility] NRBC Absolute 0.00 <0.10 K/mcL LAB HEMETOLOGY METHOD 10/11/2024 7:26 AM [facility] Neutrophils Relative 75.5 % LAB HEMETOLOGY METHOD 10/11/2024 7:26 AM [facility] Lymphocytes Relative 12.6 % LAB HEMETOLOGY METHOD 10/11/2024 7:26 AM [facility] Monocytes Relative 8.8 % LAB HEMETOLOGY METHOD 10/11/2024 7:26 AM [facility] Eosinophils Relative 1.3 % LAB HEMETOLOGY METHOD 10/11/2024 7:26 AM EDT [facility] Basophils Relative 0.9 % LAB HEMETOLOGY METHOD 10/11/2024 7:26 AM EDT [facility] Immature Granulocytes Relative 0.9 % LAB HEMETOLOGY METHOD 10/11/2024 7:26 AM EDT [facility] Neutrophils Absolute 6.05 1.50 - 7.00 K/mcL LAB HEMETOLOGY METHOD 10/11/2024 7:26 AM EDT [facility] Lymphocytes Absolute 1.01 1.00 - 5.00 K/mcL LAB [facility]Y [facility] Monocytes Absolute 0.70 0.20 - 1.00 K/mcL LAB HEMETOLOGY METHOD 10/11/2024 7:26 AM EDT [facility] Eosinophils Absolute 0.10 0.00 - 0.50 K/mcL LAB HEMETOLOGY METHOD 10/11/2024 7:26 AM EDT [facility] Basophils Absolute 0.07 0.00 - 0.20 K/mcL LAB HEMETOLOGY METHOD [facility] Immature Granulocytes Absolute 0.07(H) 0.00 - 0.03 K/mcL LAB HEMETOLOGY METHOD 10/11/2024 7:26 AM EDT [facility] Blood Venous blood specimen / Unknown Venipuncture / Unknown 10/11/2024 6:14 AM EDT 10/11/2024 7:16 AM EDT us Chandu Orlando MD LAB BLOOD ORDERABLES Final Result [facility] [address] [place] [address], * Magnesium (10/11/2024 6:14 AM EDT) Only the most recent of2 resultswithin the time period is included. Magnesium 2.3 1.9 - 2.6 mg/dL LAB CHEMISTRY METHOD 10/11/2024 7:54 AM [facility] Blood Venous blood specimen / Unknown Venipuncture / Unknown 10/11/2024 6:14 AM EDT 10/11/2024 7:16 AM EDT us Chandu Orlando MD LAB BLOOD ORDERABLES Final Result [facility] [address] [place] [address], * (ABNORMAL) Basic metabolic panel (10/11/2024 6:14 AM EDT) Pathologist [facility] Sodium 140 133 - 145 mmol/L LAB CHEMISTRY METHOD 10/11/2024 7:54 AM [facility] Potassium 4.1 3.5 - 5.5 mmol/L LAB CHEMISTRY METHOD 10/11/2024 7:54 AM [facility] Chloride 104 96 - 110 mmol/L LAB CHEMISTRY METHOD 10/11/2024 7:54 AM [facility] CO2 29 21 - 32 mmol/L LAB CHEMISTRY METHOD 10/11/2024 7:54 AM [facility] Anion Gap 7 3 - 11 LAB CHEMISTRY METHOD 10/11/2024 7:54 AM [facility] Glucose 92 70 - 100 mg/dL LAB CHEMISTRY METHOD 10/11/2024 7:54 AM [facility] BUN 53(H) 5 - 25 mg/dL LAB CHEMISTRY METHOD 10/11/2024 7:54 AM [facility] Creatinine 2.14(H) 0.70 - 1.30 mg/dL LAB CHEMISTRY METHOD 10/11/2024 7:54 AM [facility] eGFR 32(L) >=60 mL/min/1. 73m2 LAB CHEMISTRY METHOD 10/11/2024 7:54 AM EDT [facility] Comment:Calculation based on the Chronic Kidney Disease Epidemiology Collaboration (CKD-EPI) equation refit without adjustment for race. BUN/Creatinine Ratio 24.8 LAB CHEMISTRY METHOD 10/11/2024 7:54 AM EDT [facility] Calcium 8.6 8.5 - 10.5 mg/dL LAB CHEMISTRY METHOD 10/11/2024 7:54 AM EDT [facility] Blood Venous blood specimen / Unknown Venipuncture / Unknown 10/11/2024 6:14 AM EDT 10/11/2024 7:16 AM EDT us Chandu Orlando MD LAB BLOOD ORDERABLES Final Result [facility] [address] [place] [address], * CT Chest wo Contrast (10/10/2024 7:37 [...] on exertion CT chest without contrast Comparison: CT/KO/ND/SR - CT CHEST WO CONTRAST - 06/28/24 [...] on exertion CT chest without contrast Comparison: CT/KO/ND/SR - CT CHEST WO CONTRAST - 06/28/24 [...] LAB CHEMISTRY METHOD 10/10/2024 7:37 PM EDT [facility] Blood Venous blood specimen / Unknown Venipuncture / Unknown 10/10/2024 6:45 PM EDT 10/10/2024 6:54 PM EDT Narrative [facility] - 10/10/2024 7:37 PM EDT High levels of biotin in samples may falsely decrease hsTroponin values. Use caution when interpreting hsTroponin results in patients taking biotin who exhibit renal impairment (eGFR <60) or in patients taking more than 20 mg/day of biotin. us Trae W Lawrenz MD LAB BLOOD ORDERABLES Final R esult Performing Organization Address [facility]/ZIP Co de Phone Number [facility] [address] [place] [address], [place] [phone] * (ABNORMAL) APTT (10/10/2024 6:45 PM EDT) aPTT 43.9(H) 24.1 - 39.3 sec LAB COAGULATION METHOD 10/10/2024 7:14 PM EDT [facility] Blood Venous blood specimen / Unknown Venipuncture / Unknown 10/10/2024 6:45 PM EDT 10/10/2024 6:54 PM EDT Trae Smith MD LAB BLOOD ORDERABLES Final R esult Performing Organization Address [facility] Co de Phone Number [facility] [address] [place] [address], [place] [phone] * Protime-INR (10/10/2024 6:45 PM EDT) Protime 11.0 10.6 - 13.9 sec LAB COAGULATION METHOD 10/10/2024 7:14 PM EDT [facility] INR 0.9 LAB COAGULATION METHOD 10/10/2024 7:14 PM EDT [facility] Blood Venous blood specimen / Unknown Venipuncture / Unknown 10/10/2024 6:45 PM EDT 10/10/2024 6:54 PM EDT Trae Smith MD LAB BLOOD ORDERABLES Final R esult Performing Organization Address [facility] Co de Phone Number [facility] [address] [place] [address], [place] [phone] * ECG 12 lead (10/10/2024 6:43 PM EDT) Only the most recent of3 resultswithin the time period is included. Ventricular Rate ECG 89 BPM GEMUSE Atrial Rate 91 BPM GEMUSE QRS Duration 114 ms GEMUSE Q-T Interval 370 ms GEMUSE QTc 450 ms GEMUSE R [place] -5 degrees GEMUSE T [place] 132 degrees GEMUSE ECG Interpretation Atrial fibrillation [...] Signed Date: 10/11/2024 08:33 ET Workstation ID: [id number] Transcribed By: Self Edit Transcribed Date: 10/11/2024 [...] Signed Date: 10/11/2024 08:33 ET Workstation ID: [id number] Transcribed By: Self Edit Transcribed Date: 10/11/2024 08:32 ET Chandu Orlando MD IMG XR PROCEDURES Final Res ult * (ABNORMAL) B-type natriuretic peptide (10/10/2024 5:23 PM EDT) BNP 258(H) <=100 pcg/mL LAB CHEMISTRY METHOD 10/10/2024 6:56 PM EDT [facility] Blood Venous blood specimen / Unknown Venipuncture / Unknown 10/10/2024 5:23 PM EDT 10/10/2024 6:04 PM EDT Trea Smith MD LAB BLOOD ORDERABLES Final R esult Performing Organization Address [facility] Co de Phone Number [facility] [address] [place] [address], * Lipase (10/10/2024 5:23 PM EDT) Lipase 45 13 - 75 unit/L LAB CHEMISTRY METHOD 10/10/2024 6:37 PM EDT [facility] Blood Venous blood specimen / Unknown Venipuncture / Unknown 10/10/2024 5:23 PM EDT 10/10/2024 6:04 PM EDT Trae Smith MD LAB BLOOD ORDERABLES Final R esult [facility] [address] [place] [address], [place] [phone] * (ABNORMAL) Comprehensive metabolic panel (10/10/2024 5:23 PM EDT) Sodium 140 133 - 145 mmol/L LAB CHEMISTRY METHOD 10/10/2024 6:42 PM EDT [facility] Potassium 4.3 3.5 - 5.5 mmol/L LAB CHEMISTRY METHOD 10/10/2024 6:42 PM EDT [facility] Chloride 103 96 - 110 mmol/L LAB CHEMISTRY METHOD [facility] CO2 28 21 - 32 mmol/L LAB CHEMISTRY METHOD 10/10/2024 6:42 PM [facility] Anion Gap 9 3 - 11 LAB CHEMISTRY METHOD 10/10[facility]2024 [facility] Glucose 99 70 - 100 mg/dL LAB CHEMISTRY METHOD 10/10/2024 6:42 PM [facility] BUN 51(H) 5 - 25 mg/dL LAB CHEMISTRY METHOD 10/10/2024 6:42 PM [facility] Creatinine 2.52(H) 0.70 - 1.30 mg/dL LAB CHEMISTRY METHOD 10/10/2024 6:[facility] eGFR 27(L) >=60 mL/min/1. 73m2 LAB CHEMISTRY METHOD 10/10/2024 6:42 PM T [facility] Comment:Calculation based on the Chronic Kidney Disease Epidemiology Collaboration (CKD-EPI) equation refit without adjustment for race. BUN/Creatinine Ratio 20.2 LAB CHEMISTRY METHOD 10/10/2024 6:42 PM [facility] Calcium 8.6 8.5 - 10.5 mg/dL LAB CHEMISTRY METHOD 10/10/2024 6:42 PM [facility] AST (SGOT) 20 10 - 42 unit/L LAB CHEMISTRY METHOD 10/10/2024 6:42 PM EDT [facility] ALT (SGPT) 16 10 - 60 unit/L LAB CHEMISTRY METHOD 10/10/2024 6:42 PM EDT [facility] Alkaline Phosphatase 147(H) 42 - 121 unit/L LAB CHEMISTRY METHOD 10/10/2024 6:42 PM EDT [facility] Total Protein 6.5 6.0 - 8.0 g/dL LAB CHEMISTRY METHOD 10/10/2024 6:42 PM EDT [facility] Albumin 3.7 3.2 - 5.0 g/dL LAB CHEMISTRY METHOD 10/10/2024 6:42 PM EDT [facility] Total Bilirubin 0.8 0.0 - 1.4 mg/dL LAB CHEMISTRY METHOD 10/10/2024 6:42 PM EDT [facility] Blood Venous blood specimen / Unknown Venipuncture / Unknown 10/10/2024 5:23 PM EDT 10/10/2024 6:04 PM EDT Trae Smith MD LAB BLOOD ORDERABLES Final R esult [facility] [address] [place] [address], from Last 3 Months Insurance [employer] [address] [place] [address] Advance Directives * Full Code - Default [...] currently active code status orders. Care Teams Vocational Training Teacher Relationship Specialty Start Date End Date Juancarlos Johnson MD [address] [facility] [address] [place] [address] PCP - General Internal Medicine 03/01/24
--- OUTSIDE RECORDS SUMMARY | 2024-11-09 12:35 | XMS_ITS | Encounter Summary ---
Author Organization [facility], Address [address] [place] [address] Phone Care Team Providers Care Hospital Aides And Assistants Teacher Name Role Phone Juancarlos Johnson MD Primary Care Provider [phone] Encounter Details Date Type Department Care Team (Late st Contact Info) Description 05/25/2023 Documentation Only [facility], [address] [place] [phone] [place] [address] [place] [address] Social History Tobacco Use Types Packs/Day Years [...] on filedocumented in this encounter Care Teams Hospital Aides And Assistants Teacher Relationship Specialty Start Date End Date Juancarlos Johnson MD [address] [address] PCP - General Internal Medicine 05/25/23 documented as of this encounter
--- OUTSIDE RECORDS SUMMARY | 2024-11-09 12:35 | XMS_ITS | Clinical Summary ---
Author Organization [facility], Address [address] [place] [address] [place] [address] Phone Care Team Providers Care Assistant Education Director Name Role Phone Juancarlos Johnson MD Primary Care Provider [phone] Social History Tobacco Use Types Packs/Day Years [...] complete this topic Insurance [employer] Open Access ([id number]) Care Teams Assistant Education Director Relationship Specialty Start Date End Date Juancarlos Johnson MD [address] [address] PCP - General Internal Medicine 05/25/23
--- OUTSIDE RECORDS SUMMARY | 2024-11-09 12:35 | XMS_ITS | Clinical Summary ---
Author Organization [facility] Address [address] [facility] [address] [place] [address] Phone Care Team Providers Care Structural Designer Name Role Phone Juancarlos Johnson MD Primary Care Provider [phone] Allergies Active Allergy Reactions Criticality Noted Date [...] 1 tablet by mouth daily. 4 Active dapagliflozin propanediol (FARXIGA) 5 mg tablet [...] Take 40 mg by mouth. 4 Active amLODIPine (NORVASC) 10 MG tablet Take 10 mg by mouth daily. 5 Active metoprolol succinate (TOPROL-XL) 25 MG 24 hr tablet Take 25 mg by mouth daily. Active TAVNEOS 10 mg Cap TAKE 3 CAPSULES (30 MG TOTAL) BY MOUTH TWO TIMES A DAY 180 capsule 1 5 Active Active Problems Problem Noted Date Diagnosed [...] would be happy to prescribe here at [facility] [place] [facility]. Assessment & Plan (06/23/2024 10:56 AM [...] agreement with. 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; Myocarditis, unspecified chronicity, unspecified myocarditis type; Encounter for medication counseling; Vaccine counseling; High risk medication use; ANCA-associated vasculitis; Need for hepatitis B screening test 10/09/2024 10:50 AM EDT - 10/09/2024 11:59 PM EDT Hospital Encounter [facility], [facility] [address] [place] [address] Diego Reyna MD Discharge Disposition: Home or Self Care 10/09/2024 10:25 AM EDT - 10/09/2024 10:49 AM EDT Hospital Encounter [facility] [address] [facility] 2nd [place] [address] Diego Reyna MD Discharge Disposition: Home or Self Care 10/09/2024 9:30 AM EDT Office Visit [facility] Pulmonary, Allergy and Critical Care Medicine [address] [facility] [place] [address] Diego Reyna MD Dyspnea on exertion (Primary Dx); ANCA-associated vasculitis 10/09/2024 8:12 AM EDT - 10/09/2024 10:24 AM EDT Hospital Encounter [facility] [address] [place] [address] Phuong Mark MD, MPH Discharge Disposition: Home or Self Care 10/05/2024 Refill [facility] Rheumatology [address], [address], [address] [place] [address] Phuong Mark MD, MPH Medication Refill 10/01/2024 10:00 AM EDT Infusion [address], [facility] [address] [place] [address] Phuong Mark MD, MPH Marguerite Goldberg ANCA-associated vasculitis (Primary Dx) 09/14/2024 Telephone [facility] Rheumatology [address], [address], [address] [place] [address] Dana Marshall RN 09/03/2024 Refill [facility] Rheumatology [address], [address], [address] [place] [address] Phuong Mark MD, MPH Medication Refill 08/20/2024 12:56 PM EDT - 08/20/2024 11:59 PM EDT Hospital Encounter [address] [address] Phuong Mark MD, MPH Discharge Disposition: Home or Self Care 08/13/2024 Telephone [facility] [address] [place] [address] Robel Calix, [facility] tory assessment from Last 3 Months Immunizations Immunization Administration [...] Description 01/16/2025 10:00 AM EST Office Visit [facility] Pulmonary, Allergy and Critical Care Medicine [address] [place] [address] Diego Reyna MD [address] [address] 01/22/2025 9:20 AM EST Office Visit [facility] Rheumatology [address], [address], [address] [place] [address] Phuong Mark MD, MPH [address] [facility] [address] [place] [address] [email or web address] Health Maintenance Due Date Last Done Comments LIPID PANEL 1954 DEPRESSION SCREENING 1966 COLOGUARD 1999 COLONOSCOPY 1999 COLORECTAL CANCER SCREENING 1999 FIT TEST 1999 FOBT 1999 SIGMOIDOSCOPY 1999 VIRTUAL COLONOSCOPY 1999 RSV VACCINE (1 - Risk 50-74 years 1-dose series) 01/19/2004 ZOSTER VACCINES (2 of 2) 02/04/2021 12/10/2020 INFLUENZA VACCINE (#1) 2024 , 10/25/2021, 11/28/2018 COVID-19 VACCINE (5 - 2024- season) 2024 08/13/2024, 12/10/2020, 05/03/2020, Additional history exists POTASSIUM [...] WITH HIP Routine 08/20/2024 1:30 PM EDT 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 HEPATITIS C ANTIBODY, QUALITATIVE [...] clinician's provided indication for this examination in Epic:Dyspnea (Shortness of Breath) COMPARISON: None FINDINGS: Devices/Tubes/Lines: [...] EDT) ESR 6 0 - 20 mm/h [facility] Blood 10/09/2024 10:2 5 AM EDT 10/09/2024 10:30 AM EDT Diego Reyna MD LAB BLOOD ORDERABLES Final Res ult [facility] [address] [place], [place] [id number] * (ABNORMAL) CBC and differential (10/09/2024 10:25 AM EDT) WBC 9.19 4.00 - 11.00 K/uL [facility] RBC 4.26(L) 4.50 - 5.90 M/uL [facility] HGB 13.9 13.5 - 17.5 g/dL [facility] HCT 43.2 41.0 - 53.0 % [facility] PLT 162 150 - 450 K/uL [facility] MCV 101.4(H) 80.0 - 100.0 fL [facility] MCH 32.6(H) 27.0 - 31.0 pg [facility] MCHC 32.2 32.0 - 36.0 g/dL [facility] RDW 16.0(H) 11.5 - 14.5 % [facility] MPV 11.4 8.4 - 12.0 fL [facility] NRBC 0.00 0.00 /100 WBCs [facility] ABSOLUTE NRBC 0.00 0.00 K/uL [facility] DIFF METHOD Auto [facility] NEUTS 78.9(H) 48.0 - 76.0 % [facility] LYMPHS 11.5(L) 18.0 - 41.0 % [facility] MONOS 7.4 4.0 - 11.0 % [facility] EOS 0.9 0.0 - 5.0 % [facility] BASOS 0.5 0.0 - 1.5 % [facility] Granulocytes, immature (%) 0.8 0.0 - 0.9 % [facility] ABSOLUTE NEUTS 7.25 1.92 - 7.60 K/uL [facility] ABSOLUTE LYMPHS 1.06 0.72 - 4.10 K/uL [facility] ABSOLUTE MONOS 0.68 0.16 - 1.10 K/uL [facility] ABSOLUTE EOS 0.08 0.00 - 0.50 K/uL [facility] ABSOLUTE BASOS 0.05 0.00 - 0.15 K/uL [facility] Granulocytes, immature 0.07 0.00 - 0.09 K/uL [facility] Blood 10/09/2024 10:2 5 AM EDT 10/09/2024 10:30 AM EDT us Diego Reyna MD LAB BLOOD ORDERABLES Final Res ult [facility] [address] [place] [address] * (ABNORMAL) C-Reactive Protein (10/09/2024 10:25 AM EDT) C REACTIVE PROTEIN 4.8(H) 0.0 - 4.0 mg/L [facility] Blood 10/09/2024 10:2 5 AM EDT 10/09/2024 10:30 AM EDT Diego Reyna MD LAB BLOOD ORDERABLES Final Res ult [address] [address] * (ABNORMAL) NT-proBNP (10/09/2024 10:25 AM EDT) NT-PROBNP 2,417(H) 0 - 450 pg/mL [facility] Blood 10/09/2024 10:2 5 AM EDT 10/09/2024 10:30 AM EDT Diego Reyna MD LAB BLOOD ORDERABLES Final Res ult Performing Organization Address City/[facility]/ZIP Co de Phone Number [address] [address] * (ABNORMAL) Basic metabolic panel (10/09/2024 10:25 AM EDT) SODIUM 138 133 - 146 mmol/L [facility] CHLORIDE 100 96 - 108 mmol/L [facility] POTASSIUM 4.4 3.3 - 5.1 mmol/L [facility] CO2 26 21 - 35 mmol/L [facility] BUN 38(H) 6 - 19 mg/dL [facility] CREATININE 2.00(H) 0.5 - 1.5 mg/dL [facility] GLUCOSE 124(H) 70 - 99 mg/dL [facility] CALCIUM 9.1 8.4 - 10.3 mg/dL [facility] EGFR 35(L) >59 mL/min/1.7 3m2 [facility] Comment:Estimated glomerular filtration rate calculated using the CKD-EPI refit equation. ANION GAP 16 10 - 20 mmol/L [facility] Blood 10/09/2024 10:2 5 AM EDT 10/09/2024 10:30 AM EDT us Diego Reyna MD LAB BLOOD ORDERABLES Final Res ult Performing Organization Address [facility] Co de Phone Number [address] [address] * (ABNORMAL) LFTs (hepatic panel) (10/09/2024 8:13 AM EDT) ALKALINE PHOSPHATASE 146(H) 39 - 117 U/L [facility] TOTAL BILIRUBIN 0.8 0.0 - 1.2 mg/dL [facility] DIRECT BILIRUBIN 0.3(H) 0.0 - 0.2 mg/dL [facility] Bilirubin (Indirect) 0.5 0 - 1.5 mg/dL [facility] AST 21 0 - 37 U/L [facility] ALT 14 0 - 40 U/L [facility] TOTAL PROTEIN 6.9 6.5 - 8.0 g/dL [facility] ALBUMIN 4.1 3.9 - 4.8 g/dL [facility] GLOBULIN 2.8 1 - 4.8 g/dL [facility] A/G Ratio 1.46 1.00 - 4.80 RATIO [facility] Blood 10/09/2024 8:13 AM EDT 10/09/2024 8:18 AM EDT us Phuong Mark MD, MPH LAB BLOOD ORDERABLES Final Result Performing Organization Address City/[facility]/ZIP Co de Phone Number [address] [address] * BD DXA AXIAL (SPINE) WITH HIP (08/20/2024 1:30 PM EDT) Anatomical Region Laterality Modality Bone Density Bone Density 08/20/2024 1:32 PM EDT Impressions 08/20/2024 1:35 PM EDT Interpretation: Osteopenia. Narrative 08/20/2024 1:35 PM EDT Referred By: PHUONG MARK Indications: Long-Term Steroid Treatment (3 Months or Longer) Scanner: Nexavis A with serial# of [id number] located at [facility] Bone Density Scan (DXA) 08/20/24 Details [...] -2.5), or Osteoporosis (T-score <= -2.5). [facility], T-scores are compared to peak bone [...] Steroid Treatment (3 Months or Longer) Scanner: Nexavis A with serial# of [id number] located at [facility] Bone Density Scan (DXA) 08/20/24 [...] -2.5), or Osteoporosis (T-score <= -2.5). At [facility], T-scores are compared to peak [...] PM EST) HCV NON-REACTIV E NON-REACTI VE [facility] Blood 04/10/2024 2:13 PM EST 04/10/2024 2:30 PM EST us Diego Reyna MD LAB BLOOD ORDERABLES Final Res ult [address] [address] from Last 3 Months or Most Recently Relevant to Health Maintenance Insurance [employer] PPO REPLACEMENT [employer] PPO REPLACEMENT [employer] PPO REPLACEMENT [employer] PPO REPLACEMENT [employer] PPO REPLACEMENT [employer] PPO REPLACEMENT Care Teams Structural Designer Relationship Specialty Start Date End Date Juancarlos Johnson MD [address] [facility] [address] [place] [address] PCP - General Internal Medicine 03/23/24 Additional Source Comments The information contained in this document represents components of the legal health record. It is not the complete legal health record.[facility]
--- OUTSIDE RECORDS SUMMARY | 2024-11-09 12:35 | XMS_ITS | Clinical Summary ---
Author Organization [facility] Address [address] [place] [address] Care Team Providers Care Production Leader Name Role Phone Juancarlos Johnson MD Primary [...] age to complete this topic Care Teams Production Leader Relationship Specialty Start Date End Date Juancarlos Johnson MD PCP - General Internal Medicine 08/24/21
--- OUTSIDE RECORDS SUMMARY | 2024-11-09 12:36 | XMS_ITS | Encounter Summary ---
Author Organization [facility] Address [address] [place] [address] Phone Care Team Providers Care Wearing Apparel Assembler Name Role Phone Juancarlos Johnson MD Primary Care Provider [phone] Reason for Visit * Reason Comments Medication Refill Encounter Details Date Type Department Care Team (Late st Contact Info) Description 09/03/2024 Refill [facility] Rhe[facility]ology [address], [address], [address] [place] [address] Phuong Mark MD, MPH [address] [facility] [address] [place] [address] [email or web address] [email or web address] Refill Social History Tobacco Use [...] 08/06/2024 Phuong Mark MD, MPH - Rheumatology [facility] RHEUMATOLOGY YAW4 > Requested f/u: Not specified Upcoming visit: 10/10/2024 Phuong Mark MD, MPH - Rheumatology [facility] RHEUMATOLOGY YAW4 Provider - Summary Comments for medication Rx(s) without protocol Renewal is at prescriber discretion. - prednisone - prednisone Safety Alert: Please review/update Sig which indicates time limited documented in this encounter Plan of Treatment Upcoming Encounters Date Type Department Care Team (Late st Contact Info) Description 01/16/2025 10:00 AM EST Office Visit [facility] Pulmonary, Allergy and Critical Care Medicine [address] [place] [phone] Diego Reyna MD [address] [place] [address] [address] [place] [address] [email or web address] 01/22/2025 9:20 AM EST Office Visit [facility] Rheumatology [address], [address], [address] [place] [address] Phuong Mark MD, MPH [address] [facility] [address] [place] [address] [email or web address] documented as of this encounter Visit Diagnoses Not on filedocumented in this encounter Care Teams Wearing Apparel Assembler Relationship Specialty Start Date End Date Juancarlos Johnson MD [address] [place] [address] [address] [place] [address] PCP - General Internal Medicine 03/23/24 documented as of this encounter Additional Source Comments The information contained in this document represents components of the legal health record. It is not the complete legal health record.[facility]
== END 2024-11-09 12:07 | disposition home or self-care (01) ==
LOC: HO.HKA 11:28
PROVIDERS: PCP Internal Medicine; Visit Provider Internal Medicine Nephrology
DX: I12.9 Hypertensive chronic kidney disease with stage 1 through stage 4 chronic kidney disease, or unspecified chronic kidney disease (principal); N18.32 Chronic kidney disease, stage 3b; R76.89 Other specified abnormal immunological findings in serum
CPT/HCPCS: 99214

== ENCOUNTER → 2024-11-09 11:27 | Outpatient (BNVA) | payer MEDICARE, SELFPAY | PROVIDERS: PCP Internal Medicine; Visit Provider Internal Medicine Nephrology | DX: N18.32 Chronic kidney disease, stage 3b (principal); I10 Essential (primary) hypertension | CPT/HCPCS: 99212 ==

== ENCOUNTER 2025-01-17 09:32 | Outpatient (REF) | payer MEDICARE, SELFPAY ==
[2025-01-17 09:46] LABS: MANUAL DIFF FLAG NO
[2025-01-17 10:15] LABS: Hematocrit 47.0 % (42.0-52.0); Hemoglobin 15.2 g/dl (14.0-18.0); Imm Gran Abs Auto 0.03 X10*3/uL (0.00-0.03); Imm Gran Pct Auto 0.4 % (0.0-0.4); Lymphocytes Absolute Auto 1.2 X10*3/uL (1.2-4.9); Mean Corpuscular HGB Conc 32.3 g/dl (31.0-36.0); Mean Corpuscular Hemoglobin 30.5 pg (27.0-33.0); Mean Corpuscular Volume 94.2 fL (80.0-98.0); NRBC Abs Auto 0.000 X10*3/uL (0.0-0.012); NRBC Pct Auto 0.0 /100WBC (0.0-0.2); Platelet Count 191 X10*3/uL (160-400); Red Blood Count 4.99 X10*6/uL (4.60-5.80); White Blood Count 6.9 X10*3/uL (4.8-10.8)
[2025-01-17 10:34] LABS: Anion Gap 12 (12-20); Blood Urea Nitrogen 73 mg/dL (9-16); Carbon Dioxide 25 mmol/L (22-29); Chloride 108 mmol/L (96-108); Estimated Glomerular Filt Rate 24; Potassium 5.2 mmol/L (3.3-5.1); Sodium 140 mmol/L (135-145)
== END 2025-01-17 09:33 ==
LOC: HO.LAB 09:32
PROVIDERS: PCP Internal Medicine; Visit Provider Internal Medicine Nephrology
DX: I12.9 Hypertensive chronic kidney disease with stage 1 through stage 4 chronic kidney disease, or unspecified chronic kidney disease (principal); N18.32 Chronic kidney disease, stage 3b; R76.89 Other specified abnormal immunological findings in serum
CPT/HCPCS: 36415; 80051; 82565; 84520; 85025

== ENCOUNTER 2025-01-18 14:21 | Outpatient (AMB) | payer MEDICARE, SELFPAY ==
--- OUTSIDE RECORDS SUMMARY | 2023-11-10 14:17 | XMS_ITS | Encounter Summary ---
Author Organization [facility] Address [address] [place] [address] Care Team Providers Care Product Development Name Role Phone Juancarlos Johnson MD Primary Care Provider [phone] Encounter Details Date Type Department Care Team (Latest Contact Info) Description 11/10/2023 3:17 PM EDT Hospital Encounter TH HISTORIC ENCOUNTERS EASTERN CONVERSION ONLY Malini Rivero PA [address] [place] [address] Pleural effusion, not elsewhere classified Social History Tobacco Use Types Packs/Day Years Used Date Smoking Tobacco: Never Smokeless Tobacco: Never Alcohol Use Standard Drinks/Week Comments No 0 (1 standard drink = 0.6 oz pur e alcohol) Housing Instability Answer Date Recorde d Are you worried that in the next 2 months you may not have stable housing? No 08/10/2024 Food Access & Nutrition Answer Date Rec orded Do you have access to a vari ety of food including fruits and vegetables? Yes 08/10/2024 Access to Healthcare Answer Date Record ed Within the last 3 months, ho w many times did you visit the emergency department for your medical care? 0 08/10/2024 Health Literacy Answer Date Recorded How often do you need to hav e someone help you when you read instructions, pamphlets, or other written material from your doctor or pharmacy? Never 08/10/2024 Caregiver: How often do you need to have someone help you when you read instructions, pamphlets, or other written material from your doctor or pharmacy? Not on file 08/10/2024 Financial Risk Answer Date Recorded How hard is it for you to pa y for the very basics like food, housing, medical care, and air conditioning / heating? Not very hard 08/10/2024 Transportation Answer Date Recorded Has the lack of transportati on kept you from meetings, work, or from getting things needed for daily living? No Has the lack of transportati on kept you from medical appointments or from getting medications? No 08/10/2024 Social Isolation Answer Date Recorded How often do you feel lonely or isolated from th ose around you? Never 08/10/2024 Food Risk Answer Date Recorded Within the past 12 months we worried whether our food would run out before we got money to buy more. Never true 08/10/2024 Within the past 12 months th e food we bought just didn't last and we didn't have money to get more. Never true 08/10/2024 Dependent Care Answer Date Recorded Do you need help finding or paying for care for your loved ones. For example, childcare teacher or elderly care for an older adult? No 08/10/2024 Education Answer Date Recorded Do you think completing more education or training, like finishing a GED, going to college, or learning a trade, would be helpful for you? No 08/10/2024 Employment and Income Answer Date Recor ded During the last four weeks, have you been actively looking for work? Patient declined 08/10/2024 Living Situation Answer Date Recorded What is your living situation? Unrecognized valu e 08/10/2024 Interpersonal Safety Answer Date Record ed Physical Abuse Unrecognized value 10/10/2024 Verbal Abuse Unrecognized value 10/10/2024 Sex and Gender Information Value Date Recorded Sex Assigned at Male 05/07/2024 12:46 PM EDT Legal Sex Male 11:46 PM EST Gender Identity Male 05/07/2024 12:46 PM EDT Sexual Orientation Straight 05/07/2024 12 :46 PM EDT documented as of this encounter Functional Status * Calculated C-SSRS Risk Score (Lifetime/Recent) Answer Date of Assessment Author No Risk Indicated 10/10/2024 5:12 PM EDT Juanito Catherine, RN * [place] Suicide Severity Rating Scale (Screener/Recent Self-Report) Question Answer Date of Assessment Author 1. Wish to be (Past 1 Month) No 025 5:12 PM EDT Juanito Catherine RN 2. Non-Specific Active Suici godwin Thoughts (Past 1 Month) No 10/10/2024 5:12 PM EDT Kan Catherine RN 6. Suicidal Behavior (Lifetime) No 5:12 PM EDT Juanito Catherine RN documented as of this encounter Plan of Treatment Upcoming Encounters Date Type Department Care Team (Late st Contact Info) Description 02/12/2025 9:45 AM EST Office Visit Internal Medicine - [place] 175 [facility] 200 [place] [phone] Juancarlos Johnson MD 175 [facility] 200 [place] [address] 03/12/2025 1:10 PM EST Office Visit [facility] - [facility] [address] 300 [facility] 154 [place] [phone] Tatiana Quintana PA [address] [place] [address] Dr Santiago [address] [place] [address] 03/19/2025 8:00 AM EST Office Visit Pulmonology - [place] 175 [facility] 200 [place] [phone] Gabbi Anglin MD [address] [place] [phone] documented as of this encounter Procedures Procedure Name Priority Date/Time Associated Diagnosis Comments CHEST ROUTINE 2 VIEWS Routine 11/10/2023 3:36 PM EDT Pleural effusion, not elsewhere classified documented in this encounter Results * DR THOMPSON ROUTINE 2 VIEWS (11/10/2023 3:36 PM EDT) Anatomical Region Laterality Modality Radiographic Yulissa ging 11/10/2023 3:22 PM EDT Narrative 11/10/2023 3:36 PM EDT [facility] Diagnostic Imaging Department [address] [place] [address] Patient: ARLENEWILFRID./Age/Sex: 1955 - 68 - M Unit#: [id number] Location/Status: SPDIGEN/REG CLI Mnemonic/Ordering Site: CHESTXR/SPDI Ordering Physician: MALINI RIVERO Chest Routine 2 Views - 11/10/23 - 1527 Report Status:Signed Chest Routine 2 Views INDICATION: Pleural effusion TECHNIQUE: DR Chest Routine 2 Views COMPARISON: 10/27/2023 FINDINGS/IMPRESSION: Right pleural drainage catheter remains in place. Stable scarring/atelectasis in the lower lobes, right middle lobe, and lingula. No pleural effusion or pneumothorax. Cardiac silhouette is stably enlarged. Degenerative changes seen throughout the bones. Dictating Physician: RAJENDRA DONIS MD Electronically Signed by: RAJENDRA DONIS MD Dic Date/Time: 11/10/23 1536 Sign date/Time: 11/10/23 1536 Procedure Note Rajendra Donis MD - 12/06/2023 [facility] Diagnostic Imaging Department [address] [place] [address] Patient: WILFRID PINEDA Sharifa /Age/Sex: 1955 - 68 - M Unit#: [id number] Location/Status: SPDIGEN/REG CLI Mnemonic/Ordering Site: CHESTXR/SPDI Ordering Physician: MALINI RIVERO DR Chest Routine 2 Views - 11/10/23 - 1527 Report Status:Signed DR Chest Routine 2 Views INDICATION: Pleural effusion TECHNIQUE: DR Chest Routine 2 Views COMPARISON: 10/27/2023 FINDINGS/IMPRESSION: Right pleural drainage catheter remains in place.Stable scarring/atelectasis in the lower lobes, right middle lobe, and lingula.No pleural effusion or pneumothorax. Cardiac silhouette is stablyenlarged. Degenerative changes seen throughout the bones. Dictating Physician: RAJENDRA DONIS MD Electronically Signed by: RAJENDRA DONIS MD Dic Date/Time: 11/10/231535 Sign date/Time: 11/10/231535 Malini PATTERSON IMG XR PROCEDURES Final Resul t documented in this encounter Visit Diagnoses Diagnosis Pleural effusion, not elsewhere classified documented in this encounter Care Teams Product Development Relationship Specialty Start Date End Date Juancarlos Johnson MD PCP - General Internal Medicine 12/28/12 02/29/24 documented as of this encounter
--- OUTSIDE RECORDS SUMMARY | 2025-01-16 10:00 | XMS_ITS | Encounter Summary ---
Author Organization [facility] Address [address] [place] [phone] Phone Care Team Providers Care Girl Friday Name Role Phone Juancarlos Johnson MD Primary Care Provider [phone] Reason for Visit * Reason Comments Follow-up CXR, CT chest, TTEDy spnea on exertion Encounter Details Date Type Department Care Team ([facility] st Contact Info) Description 01/16/2025 10:00 AM EST Office Visit [facility] Pulmonary, Allergy and Critical Care Medicine [address] [place] [id number] Diego Reyna MD [address] [place] [id number] [email or web address] Dyspnea on exertion (Primary Dx); ANCA-associated vasculitis [...] Sign Reading Time Taken Comments Blood Pressure 98/62 01/16/2025 9:57 AM EST Pulse 68 01/16/2025 9:57 AM EST Temperature 36.6 C (97.8 F) 01/16/2025 9:57 AM EST Respiratory Rate - - Oxygen Saturation 97% 01/16/2025 9:57 AM EST Inhaled Oxygen Concentration - - Weight 121.5 kg (267 lb 12.8 oz) 01/16/2025 9:57 AM EST Height 177.8 cm (5' 10 ) 01/16/2025 9:57 AM EST Body Mass Index 38.43 01/16/2025 9:57 AM EST documented in this encounter Progress Notes * Diego Reyna MD - 01/16/2025 10:00 AM EST Patient: Wilfrid Pineda : 1955 Date: 01/16/2025 Time: 1:22 PM HPI: Wilfrid Pineda is a 69 y.o.male here for pulmonary consultation for history of ANCA positive vasculitis with cardiac involvement. INTERVAL HISTORY: Wilfrid returns for follow-up, last seen here approximately 3 months ago. At last visit, reported feeling unwell with shortness of breath, leg swelling and stomach swelling concerning about ascites, despite torsemide and spironolactone. Reported new lower back pain and bruises on arms. Exam suggestive of volume overload. Sent for labs, chest x-ray and possibly earlier echo. LABS 10/09/2024: Creatinine stable at 2.0, CRP stable 4.8 and ESR 6, CBC with macrocytosis but normalhemoglobin and platelet, proBNP elevated at 2400. Chest x-ray with pleural thickening versus effusion. Cardiomegaly. Encouraged increased torsemide to twice daily for 3 days. Unfortunately, was admitted the following day at [facility] for 1 week with heart failure. ECHO 10/11/2024 with mild global hypokinesis, LVEF 45 to 50%. Normal RV, mild TR with RVSP estimated 30. Subsidy seen at [facility] heart failure clinic For second opinion. Workup was added to rule out amyloidosis as well as another opinion for cardiac sarcoid. Next visit with rheumatology in 1 week. Oneyda, states breathing not bad. Climbed stairs to office and no longer huffing and puffing. Much better than 1 month ago. Thinks maybe due to currrent treatments, and the rituximab and Tavneos. Several weeks ago torsemide decreased to 20mg once daily but still with aldactone. Was at the time reported with increaed creatinine. Torsemide had then been stopped completely, but then resumed. While off Torsemide, breathing only slightly worse. But estimates he gained weight (20lb). Remains on complement 5A receptor antagonist Tavneos 30mg BID. No use of albuteorl. Now able to lift 40lb bag of pellets. No nausea GI upset, severe headaches, rashes. HISTORY REVIEW: History of nonischemic cardiomyopathy, A-fib with a Watchman device, pleural effusion and lymphadenopathy that was negative on apparent FNA. Cardiac MRI non- diagnostic but Cardiac PET 03/19/2024 suggestive of multifocal inflammatory process. There was additional adenopathy in the mediastinum and right pleural activity. VATS pleurodesis in October required Pleurx for 2 months discontinued in December 2023. Workup here demonstrated mild anemia with lymphopenia, worsening renal function, and alk phos with increased light chains without monoclonal gammopathy. GALLITO +1: 60 with positive p-ANCA and MPO antibody despite only mildly elevated ESR. Was sent to nephrology and underwent biopsy. When seen back, no biopsy results available. Started on prednisone and referred to rheumatology urgently at [facility]. Was seen by Dr. Mark on 07/20/2024. Repeat ANCA testing remained positive and review of the kidney biopsy also abnormal. Start rituximab and complement C5 a receptor antagonist, Avacopan 30 mg twice daily to coincide with prednisone taper. First rituximab infusion on 10/01, second dose 10/19 at [facility]. Remains on atovaquone for PJP prophylaxis. Monthly liver monitoring, and rheumatology follow-up with Dr. Mark. Today, Wilfrid reports he is not feeling [...] recent pleurodesis. Previously seen by pulmonary at [facility] last December for evaluation of recurrent [...] December. Of last available blood work from [facility] in 01/12/2024, CKD with creatinine 1.73, mild anemia hemoglobin 11.1 differential with mild lymphopenia 0.76, no eosinophils. Patient recalls symptoms started with WU with stairs 4 yrs ago. Initial management was BP and weight control. However, symptoms gradually worsened. 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 He has upcoming follow-up with his cardiology team. Was seen by ophthalmology/optometry within the last few months (Dr. Modi in [place]). Majority of the visit spent reviewing available [...] Medications Medication Sig Dispense Refill Last Dispense amLODIPine (NORVASC) 10 MG tablet Take 10 mg by mouth daily. Unknown (patient-reported) amoxicillin (AMOXIL) 500 MG capsule DENTAL APPOINTMENTS Unknown (patient-reported) aspirin 81 MG EC tablet Take 81 mg by mouth. Unknown (patient-reported) atorvastatin (LIPITOR) 40 MG tablet Take 1 tablet by mouth daily. Unknown (patient-reported) carvedilol (COREG) 25 MG tablet Take 25 mg by mouth 2 (two) times a day with meals. Unknown (patient-reported) dapagliflozin propanediol (FARXIGA) 5 mg tablet Unknown (patient-reported) doxazosin (CARDURA) 2 MG tablet (Patient taking differently: Take 2 mg by mouth 2 (two) times a day(once in the morning and once in the afternoon).) Unknown (patient-reported) PARoxetine (PAXIL) 20 MG tablet Take 1 tablet by mouth every morning. Unknown (patient-reported) spironolactone (ALDACTONE) 25 MG tablet TAKE 1 TABLET (25 MG TOTAL) BY MOUTH 1 (ONE) TIME EACH DAY.STOPPING POTASSIUM SUPPLEMENT Unknown (patient-reported) TAVNEOS 10 mg Cap TAKE 3 CAPSULES (30 MG TOTAL) BY MOUTH TWO TIMES A DAY 180 capsule 1 Unknown (outside pharmacy) torsemide (DEMADEX) 20 MG tablet Take 40 mg by mouth. (Patient taking differently: Take 20 mg by mouth once.) Unknown (patient-reported) albuterol 90 mcg/actuation inhaler Inhale 2 puffs into the lungs every 6 (six) hours as needed. (Patient not taking: Reported on 01/16/2025) Unknown (patient-reported) No current facility-administered medications for this visit. Allergies: Allergies Allergen Reactions Sulfa (Sulfonamide Antibiotics) Reaction as baby Social History: reports that he has never smoked. He has never used smokeless tobacco. He reports that he does not drink alcohol and does not use drugs. 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 No TB exposure. Pets: none. FH: No known FH of lung disease. Mother with gall bladder cancer. Family History: family history includes Coronary artery disease in his father; Hypertension in his mother. ROS: All systems negative except mentioned in HPI or listed below: Negative except for that described above Vitals: BP 98/62 (BP Location: Left arm, Patient Position: Sitting, Cuff Size: Large) Pulse 68 Temp 36.6 ??C (97.8 ??F) Ht 177.8 cm (5' 10 ) Wt 121.5 kg (267 lb 12.8 oz) SpO2 97% BMI 38.43 kg/m?? Physical Exam: Gen: Well-appearing obese 69 y.o.male in no distress HEENT: Sclera anicteric Neck: Supple, no cervical nor supraclavicular lymphadenopathy, no JVD nor HJR Lungs: Clear to auscultation bilaterally no adventitial breath sounds appreciated with somewhat distant breath sounds Heart: irregular rate and rhythm, Heart sounds distant Abdomen: Soft, nontender, nondistended, no palpable organomegaly, obese and full? Back: No CVA tenderness Extremities: No cyanosis, no clubbing, trace LE edema Neuro: Alert and oriented x [...] XR Chest PA and Lateral 2 Views [[id number]] 12/29/2023 (Final) Narrative PA and lateral views [...] study. Moderate cardiomegaly. CT Chest Without Contrast [[id number]] 12/30/2023 (Final) Narrative Chest CT without intravenous [...] lymphadenopathy as detailed. PFT tracings reviewed. PFT [facility] 03/02/2024: Mild restriction with FVC 65% predicted, normal FEV1 and FVC ratio, TLC 66% predicted with RV 66% predicted and DLCO 50% predicted. Assessment Wilfrid Pineda is a 69 y.o.year old male with Dyspnea on exertion [R06.09] 1. Dyspnea on exertion (Primary) Assessment & Plan: Complicated course with original presentation of dyspnea from heart failure with an pleural parenchymal involvement status post biopsies without evidence of granulomatous inflammation. Cardiac PET demonstrated evidence of inflammatory multifocal uptake along with mild mediastinal adenopathy. No evidence for sarcoidosis though workup positive for ANCA associated vasculitis as the likely overarching diagnosis. He is now followed by rheumatology at [facility], Dr. Mark, and has completed initial course of rituximab and remains on oral avacopan, complement 5A receptor antagonist. Clinically he seems markedly improved, no evidence of heart failure. Dyspnea much better compared to prior. We discussed that if there is evidence of worsening shortness of breath, he should contact his cardiology team first as that would be the most likely cause. If felt not to be in heart failure, certainly would be happy to reevaluate him. He is being referred to specialty cardiology service in [place] for second opinion. Would continue daily diuretic therapy though appears relatively euvolemic on exam. Will plan to repeat PFTs prior to follow-up visit to ensure stability otherwise. Orders: - Pulmonary Function Test Reason for Exam: Dyspnea/Shortness of Breath; Type of PFT Test: Spirometry with bronchodilator, DLCO, Lung Volumes; Performing Location: [facility] - albuterol 90 mcg/actuation inhaler 2-4 puff - albuterol 2.5 mg /3 mL (0.083 %) nebulizer solution 2.5 mg 2. ANCA-associated vasculitis Assessment & Plan: Peers to be in clinical remission though has rheumatology follow-up next week and will most certainly have his blood work repeated then. If he is to continue rituximab infusions, he can receive them at [facility] as I be happy to order them. I would certainly defer to Dr. Mark if she prefers oversight closer to [place]. Follow-up: Return in about 4 months (around 05/17/2025) for review PFTs. Total consultation time 35 minutes documented in this encounter Miscellaneous Notes * Assessment & Plan Note - Diego Reyna MD - 01/16/2025 1:22 PM EST Associated Problem(s): ANCA-associated vasculitis Peers to be in clinical remission though has rheumatology follow-up next week and will most certainly have his blood work repeated then. If he is to continue rituximab infusions, he can receive them at [facility] as I be happy to order them. I would certainly defer to Dr. Mark if she prefers oversight closer to [place]. * Assessment & Plan Note - Diego Reyna MD - 01/16/2025 1:21 PM EST Associated Problem(s): Dyspnea on exertion Complicated course with original presentation of dyspnea from heart failure with an pleural parenchymal involvement status post biopsies without evidence of granulomatous inflammation. Cardiac PET demonstrated evidence of inflammatory multifocal uptake along with mild mediastinal adenopathy. No evidence for sarcoidosis though workup positive for ANCA associated vasculitis as the likely overarching diagnosis. He is now followed by rheumatology at [facility], Dr. Mark, and has completed initial course of rituximab and remains on oral avacopan, complement 5A receptor antagonist. Clinically he seems markedly improved, no evidence of heart failure. Dyspnea much better compared to prior. We discussed that if there is evidence of worsening shortness of breath, he should contact his cardiology team first as that would be the most likely cause. If felt not to be in heart failure, certainly would be happy to reevaluate him. He is being referred to specialty cardiology service in [place] for second opinion. Would continue daily diuretic therapy though appears relatively euvolemic on exam. Will plan to repeat PFTs prior to follow-up visit to ensure stability otherwise. documented in this encounter Plan of Treatment Upcoming Encounters Date Type Department Care Team (Late st Contact Info) Description 01/22/2025 9:20 AM EST Office Visit [facility] Rheumatology [place] [address] [facility] 4th [address], [address] [place] [address] Phuong Mark MD, MPH [address] [facility] [address] [place] [address] [email or web address] 01/24/2025 7:00 AM EST Office Visit [facility] Cardiology [facility] [address] [facility], [address] [place] [address] Teetee Cortez MD, MSc [address] [facility] [address] [place] [address] [email or web address] 04/25/2025 10:30 AM EDT Appointment [facility] PFT [facility] [address] [place] [address] Diego Reyna MD [address] [place] [phone] 06/07/2025 9:00 AM EDT Office Visit [facility] Pulmonary, Allergy and Critical Care Medicine [address] [place] [address] Diego Reyna MD [address] [address] [email or web address] Scheduled Orders Name Type Priority Associated Diagnoses Orde r Schedule Pulmonary Function Test Reason for Exam: Dyspnea/Shortness of Breath; Type of PFT Test: Spirometry with bronchodilator, DLCO, Lung Volumes; Performing Location: [facility] PFT Routine Dyspnea on exertion Expected: 04/16/2025, Expires: 10/17/2025 documented as of this encounter Visit Diagnoses Diagnosis Dyspnea on exertion- Primary Other dyspnea and respiratory abnormality ANCA-associated vasculitis Other specified disorders of arteries and arterioles documented in this encounter Care Teams Girl Friday Relationship Specialty Start Date End Date Juancarlos Johnson MD [address] [address] PCP - General Internal Medicine 03/23/24 documented as of this encounter Additional Source Comments The information contained in this document represents components of the legal health record. It is not the complete legal health record.[facility]
--- NOTE | 2025-01-18 14:28 | HO.NEPHOV ---
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 He has CKD 3 at baseline. He has H/O non ischemic cardiomyopathy as well as A Fib and had undergone watchman device . He is not on Xarelto anymore. He had a negative cardiac MRI but cardiac PET in Mar 2024 showed multifocal hypermetabolic uptake within the left ventricular wall suggestive of inflammatory process. He also had right pleurodesis for recurrent pleural effusion. He also has history of mediastinal and hilar lymphadenopathy. He has not taken any prednisone or concurrent steroid sparing treatment with methotrexate for possible cardiac sarcoid. Continued workup found him to have p-ANCA positivity with a serum creatinine going up to 2.8. 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 In the biopsy he had 20 % global glomerulosclerosis with tubular atrophy/ interstitial fibrosis of 20-25 % with moderate vascular sclerosis. He did see a Head Usher in [facility] and was started on Rituximab and avacopan . He feels improved. He did not specify any new systemic complaints at the time this office visit. [facility] Medical History (Updated 06/10/24 @ 09:29 by Eric Taylor MD) Presence of Watchman left atrial appendage closure device Spinal stenosis Sleep apnea Recurrent right pleural effusion Paroxysmal atrial fibrillation Obesity, morbid Mediastinal adenopathy Major depressive disorder with single episode Hypertension Hyperlipidemia Gout Congestive heart failure Cardiac sarcoidosis Anserine bursitis Achilles tendonitis Surgical History Hx of vasectomy History of lung surgery H/O hernia repair Family History Father Heart disease Diabetes Mother H/O cancer of gall bladder Social History Alcohol intake: never Patient Tobacco Use Status: Never used Tobacco Review of Systems Const All systems reviewed & are unremarkable except as noted in HPI and below Physical Exam Vital Signs: Last Vital Signs Pulse 83 01/18/25 14:32 BP 112/60 01/18/25 14:32 Pulse Ox 98 01/18/25 14:32 Oxygen Delivery Method Room Air 01/18/25 14:32 BMI result Body Mass Index 38.4 Const General: comfortable and no acute distress Orientation/consciousness: patient oriented x3 HEENT Head: Yes normocephalic Mouth: Normal oral and palatal mucosa present Eyes EOM: EOMs intact bilaterally Neck Neck: Yes supple Resp Auscultation: clear to auscultation bilaterally Cardio Jugular venous distension: no JVD Rate: regular rate GI Palpation (GI): Soft to palpation Auscultation: normal bowel sounds General: Yes no CVA tenderness Back/Spine/Pelvis Back: no CVA tenderness Skin General skin exam: no rashes or lesions noted Neuro General: patient oriented x3 and moves all extremities Extrem General: Yes no pedal edema Results Reviewed Nephrology Results: Hgb, (14.0-18.0) 15.2 g/dl Δ 01/17/25 WBC, (4.8-10.8) 6.9 X10*3/uL 01/17/25 Plt Count, (160-400) 191 X10*3/uL 01/17/25 Sodium, (135-145) 140 mmol/L 01/17/25 Potassium, (3.3-5.1) 5.2 mmol/L H 01/17/25 Chloride, (96-108) 108 mmol/L 01/17/25 Carbon Dioxide, (22-29) 25 mmol/L 01/17/25 BUN, (9-16) 73 mg/dL H 01/17/25 Creatinine, (0.5-1.4) 2.68 mg/dL H 01/17/25 Urine Protein, (Neg-Trace) Negative mg/dL 09/05/24 Urine Creatinine 35.31 mg/dL 09/05/24 Protein/Creatinin Ratio TNP 09/05/24 Assessment & Plan Assessment & Plan (1) CKD stage 3b, GFR 30-44 ml/min: Code(s): N18.32 - Chronic kidney disease, stage 3b Category: Medical (2) Hypertension: Code(s): I10 - Essential (primary) hypertension Category: Medical Qualifiers: Hypertension type: primary hypertension Qualified Code(s): I10 - Essential (primary) hypertension Deb Yuen has CKD 3 B. He has multisystem involvement including cardiac, pulmonary and renal. He was thought to have cardiac sarcoid but has not had any tissue diagnosis. He is on Farxiga and diuretics. His recent p-ANCA came back as positive. 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 In the biopsy he had 20 % global glomerulosclerosis with tubular atrophy/ interstitial fibrosis of 20-25 % with moderate vascular sclerosis. He was started on Rituximab and avacopan by Head Usher in [facility]. Continue torsemide at 40 mg alternating with 20 mg every other day. I also reduced his Spironolactone to 12.5 mg daily( K high). I did not make any other medication changes today . All questions were answered. Follow-up given Orders: Orders Electrolytes 3 Weeks I10 - Essential (primary) hypertension, N18.32 - Chronic kidney disease, stage 3b Blood Urea Nitrogen 3 Weeks I10 - Essential (primary) hypertension, N18.32 - Chronic kidney disease, stage 3b Creatinine 3 Weeks I10 - Essential (primary) hypertension, N18.32 - Chronic kidney disease, stage 3b Coding Level of Care Code Est Pt Level 4 (11974) Diagnoses CKD stage 3b, GFR 30-44 ml/min N18.32 Primary hypertension I10 Hypertension type: primary hypertension
[2025-01-18 14:32] VITALS: BP 112/60; PULSE 83; O2SAT 98; BMI 38.4
--- OUTSIDE RECORDS SUMMARY | 2025-01-18 19:36 | XMS_ITS | Clinical Summary ---
Author Organization [address] [facility] Address [address] [place] [address] Phone Care Team Providers [employer] Name Role Phone Juancarlos Johnson MD Primary Care Provider [phone] Allergies Active Allergy Reactions Criticality Noted Date Comments Sulfa (Sulfonamide Antibiotics) 10/2008 Medications aspirin 81 mg EC tablet Take 1 tablet (81 mg total) by mouth 1 (one) time each day. Active doxazosin (CARDURA) 8 mg tabletIndications :Paroxysmal atrial fibrillation (CMS/HCC V24, CMS/HCC V28),Other pericardial effusion (noninflammatory) TAKE 1/2 TABLET TWICE A DAY BY MOUTH 90 tablet 3 5 Active AVACOPAN ORAL Take 30 mg by mouth 2 (two) times a day. Active dapagliflozin propanediol (FARXIGA) 5 mg tablet Take 1 tablet (5 mg total) by mouth 1 (one) time each day. 5 10/11/19 26 Active carvediloL (COREG) 25 mg tablet Take 1 tablet (25 mg total) by mouth 2 (two) times a day with meals. 60 each 5 10/19/19 26 Active amLODIPine (NORVASC) 5 mg tablet Take 1 tablet (5 mg total) by mouth 1 (one) time each day. 30 each 11 0911/06/19 26 Active atorvastatin (LIPITOR) 40 mg tablet Take 1 tablet (40 mg total) by mouth 1 (one) time each day. 90 tablet 1 5 Active torsemide (DEMADEX) 20 mg tablet Take 1 tablet (20 mg total) by mouth 1 (one) time each day. 5 Active PARoxetine (PAXIL) 20 mg tablet Take 1 tablet (20 mg total) by mouth 1 (one) time each day in the morning. 90 tablet 1 5 Active spironolactone (ALDACTONE) 25 mg tablet TAKE 1 TABLET (25 MG TOTAL) BY MOUTH 1 (ONE) TIME EACH DAY. 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 Abnormal nuclear cardiac imaging test 04/10/2024 [...] AM EDT): Orders: ECG 12 lead Claudication 01/07/2020 Dyspnea on exertion 01/07/2020 Edema 01/07/2020 [...] (hear t failure with reduced ejection fraction) 10/10/2024 10/11/2024 Encounters Date Type Department Care Team Description 12/27/2024 11:55 AM EST Lab Draw Station - [address] [facility] [address] [facility] [place] [phone] ANCA-associated vasculitis (CMS/HCC V24, CMS/HCC V28) (Primary Dx); High risk medications (not anticoagulants) long-term use 12/27/2024 Telephone Pulmonology - [place] [address] [facility] [address] [place] [phone] Gabbi Anglin MD 11/14/2024 11:52 AM EDT - 11/14/2024 11:59 PM EDT Hospital Encounter [facility] [address] [place] [phone] Paroxysmal atrial fibrillation (CMS/HCC V24, CMS/HCC V28); Other pericardial effusion (noninflammatory); Dyspnea on exertion Discharge Disposition: Home or Self Care 11/14/2024 11:10 AM EDT Office Visit [facility] [address] [facility] [address] [place] [phone] Tatiana Quintana PA Dyspnea on exertion (Primary Dx); Paroxysmal atrial fibrillation (CMS/HCC V24, CMS/HCC V28); Other pericardial effusion (noninflammatory); Obstructive sleep apnea; Acute on chronic heart failure with preserved ejection fraction (CMS/HCC V24, CMS/HCC V28); Essential hypertension; PAF (paroxysmal atrial fibrillation) (CMS/HCC V24, CMS/HCC V28); Morbid obesity (CMS/HCC V24, CMS/HCC V28) 11/14/2024 Telephone [facility] [address] [place] [phone] Tatiana Quintana PA 11/14/2024 Results Follow-Up [facility] - [facility] [address] [place] [address] Tatiana Quintana PA 11/14/2024 Results Follow-Up [facility] - [facility] [address] [place] [address] Tatiana Quintana PA from Last 3 Months Immunizations Immunization Administration [...] THORACOSCOPY W/PLEURODESIS CARDIOVERSION DONE ON 12/16/[address] [facility] W AOP INDICATION:Atrial fibrillation Medical History [...] your loved ones. For example, child care worker or elderly care for an older adult? [...] Orientation Straight 05/07/2024 12 :46 PM EDT Last Filed Vital Signs Vital Sign Reading Time Taken Comments Blood Pressure 122/70 11/14/2024 10:44 AM EDT Pulse 78 11/14/2024 10:44 AM EDT Temperature 36.1 C (97 F) 10/11/2024 7:45 AM EDT Respiratory Rate 18 10/11/2024 7:45 AM EDT Oxygen Saturation 98% 11/14/2024 10:44 AM EDT Inhaled Oxygen Concentration - - Weight 120 kg (263 lb 12.8 oz) 11/14/2024 10:44 AM EDT Height 177.8 cm (5' 10 ) 11/14/2024 10:44 AM EDT Body Mass Index 37.85 11/14/2024 10:44 AM EDT Plan of Treatment Upcoming Encounters Date Type Department Care Team (Late st Contact Info) Description 02/12/2025 9:45 AM EST Office Visit Internal Medicine - [place] [facility] [address] [place] [phone] Juancarlos Johnson MD [address] [facility] 200 [place] [address] 03/12/2025 1:10 PM EST Office Visit [facility] - [address] [facility] [address] [place] [address] Tatiana Quintana PA [address] [place] [address] [place] [address] 03/19/2025 8:00 AM EST Office Visit Pulmonology - [place] [address] [place] [address] Gabbi Anglin MD [address] [place] [phone] Health Maintenance Due Date Last Done Comments Meningococcal ACWY Vaccine (1 - Risk 2-dose series) 01/19/1957 Meningococcal B Vaccine (1 of 4 - Increased Risk) 01/19/1964 RSV Immunization Adult Patients (1 - Risk 50-74 years 1-dose series) 01/19/2004 Zoster Vaccines (2 of 2) 02/04/2021 12/10/2020 Cholesterol Screening (Lipid Panel) 01/16/2022 Colorectal Cancer Screening: Stool Based Tests (FOBT/FIT) 01/16/2022 Medicare Annual Wellness Visit 01/16/2022 COVID-19 Vaccine ( season) 2024 08/13/2024, 12/10/2020, 05/03/2020, Additional history exists Influenza Vaccine (#1) 2024 , 10/25/2021, 11/28/2018 Social Influencers of Health Screening 08/10/2025 08/10/2024 Falls Risk Assessment 10/11/2025 10/11/2024, 025 Hypertension/CHF/CAD Annual BMP Blood Test 11/14/2025 11/14/2024, 10/11/2024, 10/10/2024, Additional history exists DTaP,Tdap,and Td Vaccines (3 [...] Procedure Name Priority Date/Time Associated Diagnosis Comments URINALYSIS WITH REFLEX MICROSCOPIC Routine 12/27/2024 12:28 PM EST ANCA-associated vasculitis (CMS/HCC V24, CMS/HCC V28) High risk medications (not anticoagulants) long-term use URINALYSIS WITH REFLEX MICROSCOPIC Routine 12/27/2024 12:28 PM EST ANCA-associated vasculitis (CMS/HCC V24, CMS/HCC V28) High risk medications (not anticoagulants) long-term use PROTEIN AND CREATININE WITH RATIO, URINE Routine 12/27/2024 12:28 PM EST ANCA-associated vasculitis (CMS/HCC V24, CMS/HCC V28) High risk medications (not anticoagulants) long-term use ANTI-NEUTROPHILIC CYTOPLASMIC ANTIBODY Routine 12/27/2024 11:58 AM EST ANCA-associated vasculitis (CMS/HCC V24, CMS/HCC V28) High risk medications (not anticoagulants) long-term use HEPATIC FUNCTION PANEL Routine 11:58 AM EST ANCA-associated vasculitis (CMS/HCC V24, CMS/HCC V28) High risk medications (not anticoagulants) long-term use CBC WITH AUTO DIFFERENTIAL Routine 11/14/2024 12:34 PM EDT Anemia, unspecified Chronic kidney disease (CKD) stage G3a/A1, moderately decreased glomerular filtration rate (GFR) between 45-59 mL/min/1.73 square meter and albuminuria creatinine ratio les* (CMS/HCC V24, CMS/HCC V28) B-TYPE NATRIURETIC PEPTIDE Routine 11/14/2024 12:34 PM EDT Acute on chronic heart failure with preserved ejection fraction (CMS/HCC V24, CMS/HCC V28) Dyspnea on exertion Essential hypertension BASIC METABOLIC PANEL Routine 11/14/2024 12:34 PM EDT Acute on chronic heart failure with preserved ejection fraction (CMS/HCC V24, CMS/HCC V28) Dyspnea on exertion Essential hypertension RETICULOCYTE COUNT Routine 11/14/2024 12 :34 PM EDT Anemia, unspecified Chronic kidney disease (CKD) stage G3a/A1, moderately decreased glomerular filtration rate (GFR) between 45-59 mL/min/1.73 square meter and albuminuria creatinine ratio les* (CMS/HCC V24, CMS/HCC V28) IRON AND TIBC Routine 11/14/2024 12:34 PM EDT Anemia, unspecified Chronic kidney disease (CKD) stage G3a/A1, moderately decreased glomerular filtration rate (GFR) between 45-59 mL/min/1.73 square meter and albuminuria creatinine ratio les* (CMS/HCC V24, CMS/HCC V28) ERYTHROPOIETIN Routine 11/14/2024 12:34 PM EDT Anemia, unspecified Chronic kidney disease (CKD) stage G3a/A1, moderately decreased glomerular filtration rate (GFR) between 45-59 mL/min/1.73 square meter and albuminuria creatinine ratio les* (CMS/HCC V24, CMS/HCC V28) FERRITIN Routine 11/14/2024 12:34 PM EDT Anemia, unspecified Chronic kidney disease (CKD) stage G3a/A1, moderately decreased glomerular filtration rate (GFR) between 45-59 mL/min/1.73 square meter and albuminuria creatinine ratio les* (CMS/HCC V24, CMS/HCC V28) CBC AND DIFFERENTIAL Routine 11/14/2024 12:34 PM EDT Anemia, unspecified Chronic kidney disease (CKD) stage G3a/A1, moderately decreased glomerular filtration rate (GFR) between 45-59 mL/min/1.73 square meter and albuminuria creatinine ratio les* (CMS/HCC V24, CMS/HCC V28) VITAMIN D 25 HYDROXY Routine 11/14/2024 12:34 PM EDT Stage 3 chronic kidney disease, unspecified whether stage 3a or 3b CKD (CMS/HCC V24, CMS/[facility] V28) MICROALBUMIN CREATININE URINE RATIO Routine 11/14/2024 12:34 PM EDT Stage 3 chronic kidney disease, unspecified whether stage 3a or 3b CKD (CMS/[facility] V24, CMS/[facility] V28) PARATHYROID HORMONE INTACT Routine 11/14/2024 12:34 PM EDT Stage 3 chronic kidney disease, unspecified whether stage 3a or 3b CKD ([facility] V24, CMS/[facility] V28) XR CHEST 2 VIEWS Routine 11/14/2024 12:1 5 PM EDT Paroxysmal atrial fibrillation (CMS/HCC V24, CMS/HCC V28) Other pericardial effusion (noninflammatory) Dyspnea on exertion ECG 12-LEAD Routine 11/14/2024 11:47 AM EDT Paroxysmal atrial fibrillation (CMS/HCC V24, CMS/HCC V28) Other pericardial effusion (noninflammatory) from Last 3 Months Results * (ABNORMAL) Urinalysis with reflex microscopic (12/27/2024 12:28 PM EST) Specific [place] Urine 1.010 1.003 - 1.030 LAB URINALYSIS - AUTOMATED METHOD 12/27/2024 12:57 PM EST [facility] pH, Urine 5.0 5.0 - 8.0 pH LAB URINALYSIS - AUTOMATED METHOD 12/27/2024 12:57 PM EST [facility] Leukocytes, Urine Negative Negative LAB URINALYSIS - AUTOMATED METHOD 12/27/2024 12:57 PM [facility] Nitrite, Urine Negative Negative LAB URINALYSIS - AUTOMATED METHOD 12/27/2024 12:57 PM [facility] Protein, Urine Negative <=Trace mg/dL LAB URINALYSIS - AUTOMATED METHOD 12/27/2024 12:57 PM [facility] Glucose, Urine 250(A) Negative mg/dL LAB URINALYSIS - AUTOMATED METHOD 12/27/2024 12:57 PM [facility] Ketones, Urine Negative Negative mg/dL LAB URINALYSIS - AUTOMATED METHOD 12/27/2024 12:57 PM [facility] Urobilinogen, Urine 0.2 0.2 - 1.0 mg/dL LAB URINALYSIS - AUTOMATED METHOD 12/27/2024 12:57 PM [facility] Bilirubin, Urine Negative Negative LAB URINALYSIS - AUTOMATED METHOD 12/27/2024 12:57 PM [facility] Blood, Urine Negative Negative LAB URINALYSIS - AUTOMATED METHOD 12/27/2024 12:57 PM [facility] Urine Urine specimen obtained by clean catch procedure / Unknown Non-blood Collection / Unknown 12/27/2024 12:28 PM EST 12/27/2024 12:45 PM EST us Phuong Mark MD LAB URINE ORDERABLES Final Resul t [facility] [address] [place] [address], [place] [phone] * Protein and creatinine with ratio, urine (12/27/2024 12:28 PM EST) Protein, Urine <6 mg/dL 12/27/2024 2:56 PM [facility] Prot/Creat, Ur <0.14 <=0.20 mg/mg creat 12/27/2024 2:56 PM EST [facility] Comment:Unable to calculate due to a result outside the reportable range. Creatinine, Urine 43.0 mg/dL 12/27/2024 2:56 PM EST [facility] Urine Urine specimen obtained by clean catch procedure / Unknown Non-blood Collection / Unknown 12/27/2024 12:28 PM EST 12/27/2024 12:45 PM EST us Phuong Mark MD LAB URINE ORDERABLES Final Resul t Performing Organization Address [facility]/ZIP Co de Phone Number [facility] [address] [place] [address], [place] [phone] * Anti-neutrophilic cytoplasmic antibody (12/27/2024 11:58 AM EST) Pathologist [facility] Myeloperoxidase Ab Negative Negative LAB CHEMISTRY METHOD 01/02/2025 11:53 AM [facility] Myeloperoxidase Ab, Quant 17 <=20 units LAB CHEMISTRY METHOD 01/02/2025 11:53 AM [facility] Proteinase-3 Ab Negative Negative LAB CHEMISTRY METHOD 01/02/2025 11:53 AM [facility] Proteinase-3 Ab Quant 1 <=20 units LAB CHEMISTRY METHOD 01/02/2025 11:53 AM [facility] Blood Venous blood specimen / Unknown Venipuncture / Unknown 12/27/2024 11:58 AM EST 12/27/2024 12:45 PM EST us Phuong Mark MD LAB BLOOD ORDERABLES Final Resul t Performing Organization Address City/[facility]/ZIP Co de Phone Number [facility] [address] [place] [address], [place] [phone] * (ABNORMAL) Hepatic function panel (12/27/2024 11:58 AM EST) Pathologist [facility] Total Protein 6.8 6.0 - 8.0 g/dL 12/27/2024 2:19 PM [facility] Albumin 3.8 3.2 - 5.0 g/dL 12/27/2024 2:19 PM [facility] Total Bilirubin 0.5 0.0 - 1.4 mg/dL 12/27/2024 2:19 PM [facility] Bilirubin, Direct 0.2 0.0 - 0.3 mg/dL 12/27/2024 2:19 PM [facility] Bilirubin, Indirect 0.3 0.0 - 1.1 mg/dL 12/27/2024 2:19 PM [facility] ALT (SGPT) 37 10 - 60 unit/L 12/27/2024 2:19 PM [facility] AST (SGOT) 22 10 - 42 unit/L 12/27/2024 2:19 PM [facility] Alkaline Phosphatase 165(H) 42 - 121 unit/L 12/27/2024 2:19 PM [facility] Blood Venous blood specimen / Unknown Venipuncture / Unknown 12/27/2024 11:58 AM EST 12/27/2024 12:45 PM EST us Phuong Mark MD LAB BLOOD ORDERABLES Final Resul t [facility] [address] [place] [address], * (ABNORMAL) CBC auto differential (11/14/2024 12:34 PM EDT) WBC 11.8(H) 4.8 - 10.8 K/[facility] LAB HEMETOLOGY METHOD 11/14/2024 2:56 PM EDT [facility] RBC 4.30(L) 4.50 - 5.50 M/[facility] LAB HEMETOLOGY METHOD 11/14/2024 2:56 PM EDT [facility] Hemoglobin 13.7 13.5 - 17.5 g/dL LAB HEMETOLOGY METHOD 11/14/2024 2:56 PM EDT [facility] Hematocrit 42.6 42.0 - 54.0 % LAB HEMETOLOGY METHOD 11/14/2024 2:56 PM [facility] MCV 99.8(H) 79.0 - 98.0 FL LAB HEMETOLOGY METHOD 11/14/2024 2:56 PM EDT [facility] MCH 32.1(H) 27.0 - 32.0 pcg LAB HEMETOLOGY METHOD 11/14/2024 2:56 PM T [facility] MCHC 32.2 32.0 - 37.0 g/dL LAB HEMETOLOGY METHOD 11/14/2024 2:56 PM [facility] RDW 14.4 11.0 - 15.0 % LAB HEMETOLOGY METHOD 11/14[facility]2024 2:[facility] Platelets 223 130 - 400 K/mcL LAB HEMETOLOGY METHOD 11/14/2024 2:56 PM [facility] MPV 10.5 7.0 - 11.0 FL LAB HEMETOLOGY METHOD 11/14/2024 2:56 PM [facility] NRBC 0.0 <1.0 % LAB HEMETOLOGY METHOD 11/14/2024 2:56 PM T [facility] NRBC Absolute 0.00 <0.10 K/mcL LAB HEMETOLOGY METHOD 11/14/2024 2:56 PM [facility] Neutrophils Relative 81.2 % LAB HEMETOLOGY METHOD 11/14/2024 2:56 PM [facility] Lymphocytes Relative 7.5 % LAB HEMETOLOGY METHOD 11/14/2024 2:56 PM [facility] Monocytes Relative 10.3 % LAB HEMETOLOGY METHOD 11/14/2024 2:56 PM EDT [facility] Eosinophils Relative 0.3 % LAB HEMETOLOGY METHOD 11/14/2024 2:56 PM EDT [facility] Basophils Relative 0.3 % LAB HEMETOLOGY METHOD 11/14/2024 2:56 PM EDT [facility] Immature Granulocytes Relative 0.4 % LAB HEMETOLOGY METHOD 11/14/2024 2:56 PM EDT [facility] Neutrophils Absolute 9.54(H) 1.50 - 7.00 K/mcL LAB HEMETOLOGY METHOD 11/14/2024 2:56 PM EDT [facility] Lymphocytes Absolute 0.88(L) 1.00 - 5.00 K/mcL LAB HEMETOLOGY METHOD 11/14/2024 2:56 PM EDT [facility] Monocytes Absolute 1.21(H) 0.20 - 1.00 K/mcL LAB HEMETOLOGY METHOD 11/14/2024 2:56 PM EDT [facility] Eosinophils Absolute 0.04 0.00 - 0.50 K/mcL LAB HEMETOLOGY METHOD 11/14/2024 2:56 PM EDT [facility] Basophils Absolute 0.03 0.00 - 0.20 K/mcL LAB HEMETOLOGY METHOD 11/14/2024 2:56 PM EDT [facility] Immature Granulocytes Absolute 0.05(H) 0.00 - 0.03 K/mcL LAB HEMETOLOGY METHOD 11/14/2024 2:56 PM EDT [facility] Blood Venous blood specimen / Unknown Venipuncture / Unknown 11/14/2024 12:34 PM EDT 11/14/2024 2:46 PM EDT us Jamaallelia Curtis MD LAB BLOOD ORDERABLES Final R esult [facility] [address] [place] [address], [place] [phone] * (ABNORMAL) Erythropoietin (11/14/2024 12:34 PM EDT) Erythropoietin 19.1(H) 2.6 - 18.5 mIU/mL 11/19/2024 10:55 PM EDT [facility] Comment: Test performed at [facility], [address] , [place] [address] Sofia Canchola MD, PhD - Elementary [employer] Blood Venous blood specimen / Unknown Venipuncture / Unknown 11/14/2024 12:34 PM EDT 11/14/2024 2:46 PM EDT us Jamaal Curtis MD LAB BLOOD ORDERABLES Final R esult Performing Organization Address City/[facility]/ZIP Co de Phone Number [facility] [address] [place] [address] * (ABNORMAL) Iron and TIBC (11/14/2024 12:34 PM EDT) Iron 27(L) 50 - 160 mcg/dL LAB CHEMISTRY METHOD 11/14/2024 3:59 PM EDT [facility] TIBC 337 250 - 450 mcg/dL LAB CHEMISTRY METHOD 11/14/2024 3:59 PM EDT [facility] Iron Saturation 8(L) 20 - 50 % LAB CHEMISTRY METHOD 11/14/2024 3:59 PM EDT [facility] Blood Venous blood specimen / Unknown Venipuncture / Unknown 11/14/2024 12:34 PM EDT 11/14/2024 2:46 PM EDT us Jamaal Curtis MD LAB BLOOD ORDERABLES Final R esult [facility] [address] [place] [address], [place] [phone] * Microalbumin creatinine urine ratio (11/14/2024 12:34 PM EDT) Creatinine, Urine 98.0 mg/dL LAB CHEMISTRY METHOD 11/14/2024 3:42 PM EDT [facility] Microalb, Ur 24.4 0.0 - 29.0 mg/L LAB CHEMISTRY METHOD 11/14/2024 3:42 PM EDT [facility] Microalb/Creat Ratio 25 <30 mg/g creat LAB CHEMISTRY METHOD 11/14/2024 3:42 PM EDT [facility] Urine Urine specimen obtained by clean catch procedure / Unknown Non-blood Collection / Unknown 11/14/2024 12:34 PM EDT 11/14/2024 2:46 PM EDT us Guanaco Adorno MD LAB URINE ORDERABLES Final Res ult [facility] [address] [place] [address], [place] [phone] * (ABNORMAL) Vitamin D 25 hydroxy (11/14/2024 12:34 PM EDT) Pathologist [facility] Vit D, 25-Hydroxy 22.0(L) 30.0 - 80.0 ng/mL LAB CHEMISTRY METHOD 11/14/2024 4:24 PM EDT [facility] Blood Venous blood specimen / Unknown Venipuncture / Unknown 11/14/2024 12:34 PM EDT 11/14/2024 2:46 PM EDT us Guanaco Adorno MD LAB BLOOD ORDERABLES Final Res ult [facility] [address] [place] [address], [place] [phone] * (ABNORMAL) Reticulocyte count (11/14/2024 12:34 PM EDT) Retic Ct Abs 0.100(H) 0.030 - 0.090 M/mcL LAB HEMETOLOGY METHOD 11/14/2024 2:56 PM EDT [facility] Retic Ct Pct 2.4(H) 0.7 - 1.7 % LAB HEMETOLOGY METHOD 11/14/2024 2:56 PM EDT [facility] Immature Retic Fract 13.0 2.3 - 15.9 % LAB HEMETOLOGY METHOD 11/14/2024 2:56 PM EDT [facility] Reticulocyte Hemoglobin 32.4 >29.0 pcg LAB HEMETOLOGY METHOD 11/14/2024 2:56 PM EDT [facility] Blood Venous blood specimen / Unknown Venipuncture / Unknown 11/14/2024 12:34 PM EDT 11/14/2024 2:46 PM EDT Jamaal Curtis MD LAB BLOOD ORDERABLES Final R esult [facility] [address] [place] [address], [place] [phone] * (ABNORMAL) Parathyroid hormone intact (11/14/2024 12:34 PM EDT) PTH 266.3(H) 18.5 - 88.0 pcg/mL LAB CHEMISTRY METHOD 11/14/2024 4:45 PM EDT [facility] Blood Venous blood specimen / Unknown Venipuncture / Unknown 11/14/2024 12:34 PM EDT 11/14/2024 2:46 PM EDT Guanaco Adorno MD LAB BLOOD ORDERABLES Final Res ult [facility] [address] [place] [address], [place] [phone] * (ABNORMAL) B-type natriuretic peptide (11/14/2024 12:34 PM EDT) [facility] BNP 250(H) <=100 pcg/mL LAB CHEMISTRY METHOD 11/14/2024 3:40 PM EDT [facility] Blood Venous blood specimen / Unknown Venipuncture / Unknown 11/14/2024 12:34 PM EDT 11/14/2024 2:46 PM EDT Tatiana PATTERSON LAB BLOOD ORDERABLES Final Resul t [facility] [address] [place] [address], [place] [phone] * Ferritin (11/14/2024 12:34 PM EDT) [facility] Ferritin 226 26 - 388 ng/mL LAB CHEMISTRY METHOD 11/14/2024 3:59 PM EDT [facility] Blood Venous blood specimen / Unknown Venipuncture / Unknown 11/14/2024 12:34 PM EDT 11/14/2024 2:46 PM EDT Jamaal Curtis MD LAB BLOOD ORDERABLES Final R esult Performing Organization Address City/[facility]/ZIP Co de Phone Number [facility] [address] [place] [address], [place] [phone] * (ABNORMAL) Basic metabolic panel (11/14/2024 12:34 PM EDT) [facility] Sodium 133 133 - 145 mmol/L LAB CHEMISTRY METHOD 11/14/2024 3:56 PM EDT [facility] Potassium 5.1 3.5 - 5.5 mmol/L LAB CHEMISTRY METHOD 11/14/2024 3:56 PM EDT [facility] Chloride 100 96 - 110 mmol/L LAB CHEMISTRY METHOD 11/14/2024 3:56 PM EDT [facility] CO2 26 21 - 32 mmol/L LAB CHEMISTRY METHOD 11/14/2024 3:56 PM EDT [facility] Anion Gap 7 3 - 11 LAB CHEMISTRY METHOD 11/14/2024 3:56 PM [facility] Glucose 114(H) 70 - 100 mg/dL LAB CHEMISTRY METHOD 11/14/2024 3:56 PM T [facility] BUN 61(H) 5 - 25 mg/dL LAB CHEMISTRY METHOD 11/14/2024 3:56 PM [facility] Creatinine 2.77(H) 0.70 - 1.30 mg/dL LAB CHEMISTRY METHOD 11/14/2024 3:56 PM [facility] eGFR 24(L) >=60 mL/min/1. 73m2 LAB CHEMISTRY METHOD 11/14/2024 3:56 PM T [facility] Comment:Calculation based on the Chronic Kidney Disease Epidemiology Collaboration (CKD-EPI) equation refit without adjustment for race. BUN/Creatinine Ratio 22.0 LAB CHEMISTRY METHOD 11/14/2024 3:56 PM T [facility] Calcium 9.0 8.5 - 10.5 mg/dL LAB CHEMISTRY METHOD 11/14/2024 3:56 PM T [facility] Blood Venous blood specimen / Unknown Venipuncture / Unknown 11/14/2024 12:34 PM EDT 11/14/2024 2:46 PM EDT us Tatiana PATTERSON LAB BLOOD ORDERABLES Final Resul t [facility] [address] [place] [address], * XR Chest 2 Views (11/14/2024 12:15 PM EDT) Anatomical Region Laterality Modality Body Radiographic Yulissa ging 11/14/2024 12:1 7 PM EDT Impressions 11/14/2024 12:19 PM EDT No acute pulmonary disease. No change since 10/10/2024. Code 85541 -------- FINAL REPORT -------- Dictated By: Diego Cleveland Dictated Date: 11/14/2024 12:17 ET Assigned Physician: Diego Cleveland Reviewed and Electronically Signed By: Diego Cleveland Signed Date: 11/14/2024 12:19 ET Workstation ID: [id number] Transcribed By: Self Edit Transcribed Date: 11/14/2024 12:17 ET Narrative 11/14/2024 12:19 PM EDT HISTORY: The patient is a 69-year-old male with dyspnea for 2 years. FINDINGS: PA and lateral radiographs the chest demonstrate degenerative changes of the thoracic spine as also seen on the prior examination from 10/10/2024. Again seen are old healed fractures of the right lateral sixth, seventh, and eighth ribs with adjacent pleural thickening, unchanged. The cardiac silhouette is again seen to be enlarged. An atrial appendage occluder device is again seen. The mediastinal contour is within normal limits. The lungs and costophrenic angles are clear. Procedure Note Diego Cleveland MD - 11/14/2024 HISTORY: The patient is a 69-year-old male with dyspnea for 2 years. FINDINGS: PA and lateral radiographs the chest demonstrate degenerativechanges of the thoracic spine as also seen on the prior examination from10/10/2024. Again seen are old healed fractures of the right lateral sixth,seventh, and eighth ribs with adjacent pleural thickening, unchanged. Thecardiac silhouette is again seen to be enlarged. An atrial appendageoccluder device is again seen. The mediastinal contour is within normallimits. The lungs and costophrenic angles are clear. IMPRESSION: No acute pulmonary disease. No change since 10/10/2024. Code 98324 -------- FINAL REPORT -------- Dictated By: Diego Cleveland Dictated Date: 11/14/2024 12:17 ET Assigned Physician: Diego Cleveland Reviewed and Electronically Signed By: Diego Cleveland Signed Date: 11/14/2024 12:19 ET Workstation ID: [id number] Transcribed By: Self Edit Transcribed Date: 11/14/2024 12:17 ET Tatiana PATTERSON IMG XR PROCEDURES Final Result * ECG 12 lead (11/14/2024 11:47 AM EDT) Ventricular Rate ECG 78 BPM GEMUSE Atrial Rate 156 BPM GEMUSE QRS Duration 114 ms GEMUSE Q-T Interval 372 ms GEMUSE QTc 424 ms GEMUSE R [place] 30 degrees GEMUSE T [place] 170 degrees GEMUSE ECG Interpretation Atrial fibrillation Nonspecific T wave abnormality When compared with ECG of 10-OCT-2024 18:43, No significant change was found Confirmed by ELSIE SCHWARTZ ([id number]) on 11/22/2024 9:40:46 PM GEMUSE 11/14/2024 11:0 4 AM EDT 11/22/2024 9:40 PM EDT Tatiana PATTERSON ECG ORDERABLES Edited Result - Final GEMUSE from Last 3 Months Insurance [facility] MEDICARE [employer]VANTAGE [address] [place] [address] MEDICARE Advance Directives * Full Code - Default [...] currently active code status orders. Care Teams [employer] Relationship Specialty Start Date End Date Juancarlos Johnson MD 175 [facility] [address] [place] [address] PCP - General Internal Medicine 03/01/24
--- OUTSIDE RECORDS SUMMARY | 2025-01-18 19:36 | XMS_ITS | Encounter Summary ---
Author Organization [facility] Address [address] [place] [address] Care Team Providers Care Mold Tooling Technician Name Role Phone Juancarlos Johnson MD Primary Care Provider [phone] Encounter Details Date Type Department Care Team ([facility] st Contact Info) Description 11/14/2024 Results Follow-Up [facility] - [facility] [address] [facility] [address] [place] [address] Tatiana Quintana PA [address] [place] [address] [place] [phone] Social History Tobacco Use Types Packs/Day Years [...] do you feel lonely or isolated from ose around you? Never 08/10/2024 Food Risk [...] your loved ones. For example, child care coordinator or elderly care for an older [...] documented in this encounter Progress Notes * Danae Fernandez MA - 11/15/2024 3:05 PM EDT Please review attached documented in this encounter Plan of Treatment Upcoming Encounters Date Type Department Care Team (Late st Contact Info) Description 02/12/2025 9:45 AM EST Office Visit Internal Medicine - [place] [address] [facility] [address] [place] [phone] Juancarlos Johnson MD 175 [facility] [address] [place] [address] 03/12/2025 1:10 PM EST Office Visit [facility] - [facility] [address] [facility] [address] [place] [phone] Tatiana Quintana PA [address] [place] [address] Dr [address] [place] [phone] 03/19/2025 8:00 AM EST Office Visit Pulmonology - [place] 175 [facility] [address] [place] [phone] Gabbi Anglin MD [address] [place] [phone] documented as of this encounter Visit Diagnoses Not on filedocumented in this encounter Additional Health Concerns Assessment Noted Time PHQ-9 Depression Total Score: 11 025 10:27 AM EDT documented as of this encounter Care Teams Mold Tooling Technician Relationship Specialty Start Date End Date Juancarlos Johnson MD [address] [facility] [address] [place] [address] PCP - General Internal Medicine 03/01/24 documented as of this encounter
--- OUTSIDE RECORDS SUMMARY | 2025-01-18 19:36 | XMS_ITS | Clinical Summary ---
Author Organization [facility] Prior to 07/07/24 Address [address] [place] [address] Care Team Providers Care Wirer Name Role Phone Juancarlos Johnson MD Primary [...] age to complete this topic Care Teams Wirer Relationship Specialty Start Date End Date Juancarlos Johnson MD PCP - General Internal Medicine 08/24/21
--- OUTSIDE RECORDS SUMMARY | 2025-01-18 19:36 | XMS_ITS | Encounter Summary ---
Author Organization [facility] Address [address] [place] [address] Phone Care Team Providers Care Zinc Etcher Name Role Phone Juancarlos Johnson MD Primary Care Provider [phone] Reason for Referral * Consultation (Routine) - New Request Specialty Diagnoses / Procedures Referred By Arina little Referred To Contact Cardiology Jo Ann Qiu DO [address] [place] [address] Phone: tel: fax: [email or web address] Referral ID Status Reason Start Date Expiration Date V isits Requested Visits Authorized [id number] New Request 01/11/2025 01/11/2026 1 1 Reason for Visit * Reason Onset Date Comments REFER TO SARCOID TEAM 01/11/2025 Encounter Details Date Type Department Care Team (Late st Contact Info) Description 01/11/2025 Telephone [facility] [address] [place] [phone] Ayana Garg [place] [address] [place] [address] [email or web address] REFER TO SARCOID TEAM Social History Tobacco Use Types Packs/Day Years [...] as of this encounter Progress Notes * Ayana Garg MA - 2025 11:25 AM EST Patient scheduled on 01/24/25. * Ayana Garg MA - 01/11/2025 11:22 AM EST Patient to be referred to the [facility] sarcoid team. Referral entered. documented in this encounter Plan of Treatment Upcoming Encounters Date Type Department Care Team (Late st Contact Info) Description 01/22/2025 9:20 AM EST Office Visit [facility] Rheumatology [address], [address] [place] [address] Phuong Mark MD, MPH [address] [facility] [address] [place] [address] [email or web address] 01/24/2025 7:00 AM EST Office Visit [facility] Cardiology [facility] [address] [facility], [address] [place] [address] Teetee Cortez MD, MSc 55 [facility] [address] [place] [phone] [email or web address] 04/25/2025 10:30 AM EDT Appointment [facility] [address] [place] [address] Diego Reyna MD [address] [place] [phone] [email or web address] 06/07/2025 9:00 AM EDT Office Visit [facility] [address] [place] [address] Diego Reyna MD [address] [place] [phone] [email or web address] Scheduled Referrals Name Type Priority Associated Diagnoses Order Schedule Ambulatory referral to [facility] Cardiology - [facility] Practices Outpatient Referral Routine Ordered: 01/11/2025 documented as of this encounter Visit Diagnoses Not on filedocumented in this encounter Care Teams Zinc Etcher Relationship Specialty Start Date End Date Juancarlos Johnson MD [address] [place] [address] PCP - General Internal Medicine 03/23/24 documented as of this encounter Additional Source Comments The information contained in this document represents components of the legal health record. It is not the complete legal health record.[facility]
--- OUTSIDE RECORDS SUMMARY | 2025-01-18 19:36 | XMS_ITS | Encounter Summary ---
Author Organization [facility] Address [address] [place] [address] Care Team Providers Care Personnel Associate Name Role Phone Juancarlos Johnson MD Primary Care Provider [phone] Encounter Details Date Type Department Care Team ([facility] st Contact Info) Description 11/14/2024 Results Follow-Up [facility] - [facility] [address] [facility] [address] [place] [address] Tatiana Quintana PA [address] [place] [address] [place] [phone] Social History Tobacco Use Types Packs/Day Years [...] care for your loved ones. For example, maternal child nurse or elderly care for an older adult? [...] of Assessment Author No 10/10/2024 6:59 PM Yane Garcia RN documented as of this encounter Mental Status * Because of a physical, mental, or emotional condition, do you have serious difficulty concentrating, remembering, or making decisions? (5 years old or older) Answer Entry Date Author No 10/10/2024 6:59 PM Yane Garcia RN documented in this encounter Plan of Treatment Upcoming Encounters Date Type Department Care Team (Late st Contact Info) Description 02/12/2025 9:45 AM EST Office Visit Internal Medicine - [place] 175 [facility] 200 [place] [phone] Juancarlos Johnson MD 175 [facility] 200 [place] [address] 03/12/2025 1:10 PM EST Office Visit [facility] - [facility] [address] [facility] [address] [place] [phone] Tatiana Quintana PA [address] [place] [address] [address] [place] [phone] 03/19/2025 8:00 AM EST Office Visit Pulmonology - [place] 175 [facility] [address] [place] [phone] Gabbi Anglin MD [address] [place] [phone] documented as of this encounter Visit Diagnoses Not on filedocumented in this encounter Additional Health Concerns Assessment Noted Time PHQ-9 Depression Total Score: 11 08/10/ 025 10:27 AM EDT documented as of this encounter Care Teams Personnel Associate Relationship Specialty Start Date End Date Juancarlos Johnson MD [address] [address] PCP - General Internal Medicine 03/01/24 documented as of this encounter
--- OUTSIDE RECORDS SUMMARY | 2025-01-18 19:36 | XMS_ITS | Clinical Summary ---
Author Organization [facility] Address [address] [facility] [address] [place] [phone] Phone Care Team Providers Care Apiarist Name Role Phone Juancarlos Johnson MD Primary Care Provider [phone] Allergies Active Allergy Reactions Criticality Noted Date Comments Sulfa (Sulfonamide Antibiotics) 10/2008 Reaction as baby Medications albuterol 90 mcg/actuation inhaler Inhale 2 puffs into the lungs every 6 (six) hours as needed. 12/29/19 24 Active amoxicillin (AMOXIL) 500 MG capsule DENTAL APPOINTMENTS 03/09/19 25 Active aspirin 81 MG EC tablet Take 81 mg by mouth. 02/24/19 24 Active atorvastatin (LIPITOR) 40 MG tablet Take 1 tablet by mouth daily. 01/10/20 24 Active dapagliflozin propanediol (FARXIGA) 5 mg tablet 03/22/19 25 Active doxazosin (CARDURA) 2 MG tablet Active PARoxetine (PAXIL) 20 MG tablet Take [...] mg by mouth daily. 08/09/19 25 Active TAVNEOS 10 mg Cap TAKE 3 CAPSULES (30 MG TOTAL) BY MOUTH TWO TIMES A DAY 180 capsule 1 12/05/19 25 Active carvedilol (COREG) 25 MG tablet Take 25 mg by mouth 2 (two) times a day with meals. Active hydrALAZINE (APRESOLINE) 100 MG tablet Take 150 mg by mouth 2 (two) times a day. 025 Discontin ued(No longer taking) metoprolol succinate (TOPROL-XL) 25 MG 24 hr tablet Take 25 mg by mouth daily. 025 Discontin ued(No longer taking) Active Problems Problem Noted Date Diagnosed Date CKD (chronic kidney disease) 01/11/2025 Family history of early CAD 01/11/2025 Assessment & Plan (01/11/2025 12:56 PM EST): Early family hx of CAD with Father with Mis in 40s. - I'm sure he has a lipid panel I can't see with primary telemarketer. Would recommend LDL <70 at least. 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 If he is to continue rituximab infusions, he can receive them at [facility] as I be happy to order them. I would certainly defer to Dr. Mark if she prefers oversight closer to [place]. Assessment & Plan (10/09/2024 9:01 PM EDT): [...] repeat MPO testing unless recommended by Dr. Makr. If he requires future rituximab infusions, I would be happy to prescribe here at [facility] [place] [facility]. Assessment & Plan (06/23/2024 10:56 AM EDT): [...] Dyspnea on exertion 06/22/2024 Assessment & Plan (01/16/2025 1:21 PM EST): Complicated course with original presentation of dyspnea from heart failure with an pleural parenchymal involvement status post biopsies without evidence of granulomatous inflammation. Cardiac PET demonstrated evidence of inflammatory multifocal uptake along with mild mediastinal adenopathy. No evidence for sarcoidosis though workup positive for ANCA associated vasculitis as the likely overarching diagnosis. He is now followed by rheumatology at [facility], Dr. Mark, and has completed initial course [...] being referred to specialty cardiology service in [place] for second opinion. Would continue daily diuretic therapy though appears relatively euvolemic on exam. Will plan to repeat PFTs prior to follow-up visit to ensure stability otherwise. Assessment & Plan (10/09/2024 9:03 PM EDT): [...] agreement with. 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 He has had according to prior telemarketer notes, a cardiac catheterization with minimal coronary artery disease. He continues to have recurrent right-sided pleural effusions. Echo from 11/01 with mild global hypokinesis, unable to assess diastolic function, normal RV size and function, moderate MR, mild TR with a PASP of 30 mmHg. Patient's weight has gone up from his reported discharge but his symptoms are about the same. On physical exam, the patient is completely euvolemic. Patient has had a cardiac PET according to notes which demonstrated some focal uptake concerning for possible cardiac sarcoidosis. There is also comment through the chart that they wonder if he had myocarditis. Sarcoidosis is definitely on the top of my differential given the cardiac PET finding, lymphadenopathy, frequent PVCs. That being said, I cannot see the results of the cardiac MRI and his lymph node biopsies did not demonstrate sarcoid that I am aware of. JUAN JOSE level normal. I'm definitely not the specialist in cardiac sarcoid but if it were to be diagnosis, I believe that implantation of ICD would be considered for EF <35%, VT, cardiac arrest or in some with a higher EF but with significant scar on imaging (LGE ~10%), high degree AVB, syncope. EP study could be considered for evaluation of inducible VT. ANCA associated vasculitis can probably cause heart failure but it is uncommon to my knowledge and I think this is less likely the cause. I would also consider other systemic disease such as amyloidosis (which cardiac MRI would be helpful +/- PYP/HDP along with blood and urine tests to rule out AL amyloidosis). He doesn't carry any hx of radiation to the chest or CT surgery constrictive pericardial disease can also be explored. Echo (which I can't see the actual pictures from) does remark it was difficult to assess because of arrhythmia so this may be difficult by echo parameters but RHC may be considered. Myocarditis was questioned which I just think may be less likely as he has not had any chest pain, no recent viral infections and his presentation just seems less suggestive. - as above, I do think he would benefit the expertise of the cardiac sarcoidosis team in [facility] system in [place] which I will refer to today - It would be helpful to connect cardiac MRI readings so they can assess this - As above, depending on the thoughts and workup, potentially other causes can be looked into such as amyloid or pericardial disease. Can consider obtaining light chains, SPEP, UPEP, immunofixation and would also check HIV, and TSH (if it hasn't been done- I have limited data available). PYP/HDP can be considered depending on workup. RHC can be considered in the future as well. - I'm not going to make any major changes to his GDMT today as he is following very closely with his primary cardiology team and nephrology team. I would continue the dapagliflozin 10 mg daily, spironolactone 25 mg daily, coreg 25 mg PO BID. He is off of JUAN JOSE/ARNI/ARBs I'm presuming in setting of kidney dysfunction and anca vasculitis Mediastinal lymphadenopathy 09/26/2023 Pleural effusion 09/26/2023 Overview (01/11/2025): Last Assessment & Plan: Mr. Pineda is [...] should call with any questions or concerns Anemia 12/16/2022 Bradycardia 01/07/2020 Claudication 01/07/2020 PVC (premature ventricular contraction) 01/07/20 Assessment & Plan (01/11/2025 12:35 PM EST): Patient has frequent PVCs according to a monitor done in 2023 with a burden of 8.3%. In the setting of the findings of the cardiac sarcoid PET, would be concerned about infiltrative / sarcoid. - continue coreg 25 mg PO BID for now - I am sending him a referral to the cardiac sarcoid team in [place] for further recommendations. - he is seeing or planning to see EP for consideration of an Afib ablation already Essential hypertension 09/09/2017 Overview (01/11/2025): Last Assessment & Plan: Elevated today, at [...] In the past he was on Hydralazine Assessment & Plan (01/11/2025 12:52 PM EST): Blood pressure excellently controlled today - continue current regimen. Venous insufficiency 06/09/2017 Gout 03/30/2017 PAF (paroxysmal atrial fibrillation) 10/27/2016 Overview (01/11/2025): Last Assessment & Plan: S/p cardioversion on Amio last week, in SR today, feeling well. Will update Amio labs. Anticoagulated on Xarelto, he understands the risks and benefits of anticoagulation and wishes to continue. F/u as scheduled with EP next month Assessment & Plan (01/11/2025 12:54 PM EST): Patient has had a long history of difficult to control afib. He was previously on amiodarone after a failed cardioversion. He declined atrial fibrillation ablation at that time. He ultimately ended up getting admitted in April 2022 for sotalol load which demonstrated bradycardia into the 40s so sotalol was discontinued. After his watchman, he went back into atrial fibrillation for which he was cardioverted. He was readmitted in September 2023 for outpatient Tikosyn load and cardioversion. Unfortunately, he had prolonged QTc on Tikosyn and this had to be discontinued. He was transition to Multaq. Then required another cardioversion in December 2023 and Multaq was stopped. He has recurred again in atrial fibrillation. He was going to be evaluated for an atrial fibrillation ablation at this time but he was told to hold off while he is being worked up for sarcoidosis and other etiologies. - I think ablation is a good next step. Maybe this would help with symptoms - unclear bleeding history but has a Watchman in place. Chadsvasc is 4 points (4.8% stroke risk per year). I will hold of on AC as he has an excellent cardiology team following and I will defer to them Obstructive sleep apnea syndrome 04/12/2016 Encounters Date Type Department Care Team Description 01/16/2025 10:00 AM EST Office Visit [facility], Allergy and Critical Care Medicine [address] [place] [id number] Diego Reyna MD Dyspnea on exertion (Primary Dx); ANCA-associated vasculitis 01/11/2025 10:40 AM EST Office Visit [facility] [address] [place] [phone] Unknown, Unknown, Jo Ann Gaston DO Chronic heart failure with preserved ejection fraction (HFpEF) (Primary Dx); PVC (premature ventricular contraction); Essential hypertension; PAF (paroxysmal atrial fibrillation); Family history of early CAD 01/11/2025 Telephone [facility] [address] [place] [phone] Ayana Garg MA REFER TO SARCOID TEAM 12/21/2024 Orders Only [facility] Rheumatology [address], [address] [place] [address] Phuong Mark MD, MPH High risk medication use (Primary Dx) 12/04/2024 Refill [facility] Rheumatology [address], [address], [address] [place] [address] Phuong Mark MD, MPH Medication Refill 11/15/2024 Orders Only [facility] Rheumatology [place] [address] [facility], [address]th Floor, [address] [place] [address] Phuong Mark MD, MPH 11/14/2024 Telephone [facility] Rheumatology [address], [address] [place] [address] Cathie Melara RN 10/19/2024 10:30 AM EDT Infusion [address], [facility] CC [address] [place] [address] Phuong Mark MD, MPH Adrienne Mccall, PERRY ANCA-associated vasculitis (Primary Dx) from Last 3 Months Immunizations Immunization Administration [...] F) 01/16/2025 9:57 AM EST Respiratory Rate 20 10/19/2024 10:1 8 AM EDT Oxygen Saturation 97% 01/16/2025 9:57 AM EST Inhaled Oxygen Concentration - - Weight 121.5 kg (267 lb 12.8 oz) 01/16/2025 9:57 AM EST Height 177.8 cm (5' 10 ) 01/16/2025 9:57 AM EST Body Mass Index 38.43 01/16/2025 9:57 AM EST Plan of Treatment Upcoming Encounters Date Type Department Care Team (Late st Contact Info) Description 01/22/2025 9:20 AM EST Office Visit [facility] Rheumatology [address], [address] [place] [address] Phuong Mark MD, MPH [address] [facility] [address] [place] [address] [email or web address] 01/24/2025 7:00 AM EST Office Visit [facility] Cardiology [facility] [address] [facility], [address] [place] [address] Teetee Cortez MD, MSc [address] [place] [address] [address] [place] [phone] [email or web address] 04/25/2025 10:30 AM EDT Appointment [facility] [address] [place] [address] Diego Reyna MD [address] [facility] [address] [place] [address] [email or web address] 06/07/2025 9:00 AM EDT Office Visit [facility] Pulmonary, Allergy and Critical Care Medicine [address] [place] [address] Diego Reyna MD [address] [place] [phone] [email or web address] Due Date Last Done Comments LIPID PANEL 1954 DEPRESSION SCREENING 1966 COLOGUARD 1999 COLONOSCOPY 1999 COLORECTAL CANCER SCREENING 1999 FIT TEST 1999 FOBT 1999 SIGMOIDOSCOPY 1999 VIRTUAL COLONOSCOPY 1999 RSV VACCINE (1 - Risk 50-74 years 1-dose series) 01/19/2004 ZOSTER VACCINES (2 of 2) 02/04/2021 12/10/2020 INFLUENZA VACCINE (#1) 2024 , 10/25/2021, 11/28/2018 COVID-19 VACCINE ( - season) 2024 08/13/2024, 12/10/2020, 05/03/2020, Additional history exists BLOOD PRESSURE 07/17/2025 01/16/2025 POTASSIUM LEVEL 10/09/2025 10/09/2024, 07/08, 06/22/2024, Additional history exists Adult Td,Tdap Booster 12/29/2027 12/28/2017 PNEUMOCOCCAL VACCINES (50+ years) Completed 03/02/2021, 09/30/2020 HEPATITIS C SCREENING Completed 07/20/2024 , 07/20/2024, 04/10/2024, Additional history exists SMOKING STATUS SCREENING (Once After 26 Yrs) Completed 01/16/2025 HEPATITIS A VACCINES Aged Out No long [...] Name Priority Date/Time Associated Diagnosis Comments ECG 12-LEAD Routine 01/11/2025 11:25 AM EST Chronic heart failure with preserved ejection fraction (HFpEF) BASIC METABOLIC PANEL (BMP) Routine 10/09/2024 10:25 AM EDT Dyspnea on exertion HEPATITIS B CORE ANTIBODY, TOTAL Routine 07/20/2024 11:19 AM EDT Need for hepatitis B screening test from Last 3 Months or Most Recently Relevant to Health Maintenance Results * ECG 12-LEAD (01/11/2025 11:25 AM EST) Narrative EXTERNAL NON-INTERFACED REF LAB - 01/11/2025 11:25 AM EST Type of EKG: Standard. Global (31360). Notes Atrial fibrillation at a heart rate of 78 BPM. Nonspecific intraventricular conduction delay, nonspecific T abnormality us JoA nn Qiu DO ECG ORDERABLES Final Re sult Performing Organization Address City/[facility]/ZIP Co de Phone Number EXTERNAL NON-INTERFACED REF LAB * (ABNORMAL) Basic metabolic panel (10/09/2024 10:25 AM EDT) SODIUM 138 133 - 146 mmol/L [facility] CHLORIDE 100 96 - 108 mmol/L [facility] POTASSIUM 4.4 3.3 - 5.1 mmol/L [facility] CO2 26 21 - 35 mmol/L [facility] BUN 38(H) 6 - 19 mg/dL [facility] CREATININE 2.00(H) 0.5 - 1.5 mg/dL [facility] GLUCOSE 124(H) 70 - 99 mg/dL [facility] CALCIUM 9.1 8.4 - 10.3 mg/dL [facility] EGFR 35(L) >59 mL/min/1.7 3m2 [facility] Comment:Estimated glomerular filtration rate calculated using the CKD-EPI refit equation. ANION GAP 16 10 - 20 mmol/L [facility] Blood 10/09/2024 10:2 5 AM EDT 10/09/2024 10:30 AM EDT us Diego Reyna MD LAB BLOOD BKR ORDERABLES Final Result [facility] [address] [place] [address] * Hepatitis B core antibody, total (07/20/2024 11:19 AM EDT) HEP B CORE AB, TOT Negative Negative [facility] Comment:A nonreactive final interpretation indicates that anti-HBc antibodies were not detected in the sample. It is possible that the individual is not infected with HBV. 07/20/2024 11:1 9 AM EDT 07/20/2024 3:45 PM EDT us Phuong Mark MD, MPH LAB BLOOD BKR ORDERABLES F inal Result [facility] [address] [place] [address] from Last 3 Months or Most Recently Relevant to Health Maintenance Insurance [employer] POS PPO REPLACEMENT [employer] PPO REPLACEMENT [employer] PPO REPLACEMENT [employer] PPO REPLACEMENT [employer] [place] PPO REPLACEMENT [employer] PPO REPLACEMENT Care Teams Apiarist Relationship Specialty Start Date End Date Juancarlos Johnson MD [address] [facility] [address] [place] [address] PCP - General Internal Medicine 03/23/24 Additional Source Comments The information contained in this document represents components of the legal health record. It is not the complete legal health record.[facility]
== END 2025-01-18 14:56 | disposition home or self-care (01) ==
LOC: HO.HKA 14:22
PROVIDERS: PCP Internal Medicine; Visit Provider Internal Medicine Nephrology
DX: N18.32 Chronic kidney disease, stage 3b (principal); I10 Essential (primary) hypertension
CPT/HCPCS: 99214

== ENCOUNTER → 2025-01-18 14:21 | Outpatient (BNVA) | payer MEDICARE, SELFPAY | PROVIDERS: PCP Internal Medicine; Visit Provider Internal Medicine Nephrology | DX: I12.9 Hypertensive chronic kidney disease with stage 1 through stage 4 chronic kidney disease, or unspecified chronic kidney disease (principal); N18.32 Chronic kidney disease, stage 3b; Z79.899 Other long term (current) drug therapy | CPT/HCPCS: 99212 ==